=== PATIENT | female | born 1970 | race Caucasian/White ===

== ENCOUNTER 2017-03-16 23:45 | Emergency (ER) | payer MEDICARE, OTHER ==
[2017-03-17] MEDS ORDERED: LORAZEPAM INJ 2 MG/1 ML VIAL ONE ×2 (01:15→05:32)
[2017-03-17] MEDS ORDERED: LORAZEPAM INJ 2 MG/1 ML VIAL IV ONE ×3 (01:16→05:40)
[2017-03-17 01:26] LABS: ABSOLUTE BASOPHILS # (AUTO) 0.1 10^3/uL (0.0-0.2); ABSOLUTE EOSINOPHILS # (AUTO) 0.1 10^3/uL (0.0-0.6); ABSOLUTE LYMPHOCYTES (AUTO) 2.3 10^3/uL (0.5-4.7); ABSOLUTE MONOCYTES (AUTO) 0.5 10^3/uL (0.1-1.4); ABSOLUTE NEUT (AUTO) 2.7 10^3/uL (1.7-8.2); BASOPHILS % (AUTO) 1.1 % (0-2); EOSINOPHILS % (AUTO) 2.2 % (0-6); HEMATOCRIT 42.6 % (36.0-47.0); HEMOGLOBIN 14.5 g/dL (12.0-15.5); HGB HCT DIFFERENCE 0.9; LYMPHOCYTES % (AUTO) 39.9 % (13-45); MEAN CORPUSCULAR HGB CONC 34.1 g/dL (32.0-36.0); MEAN CORPUSCULAR VOLUME 91 fl (80-97); MONOCYTES % (AUTO) 9.1 % (3-13); RED BLOOD COUNT 4.69 10^6/uL (3.72-5.28); RED CELL DISTRIBUTION WIDTH 14.3 % (11.5-14.0); SEGMENTED NEUTROPHILS % (AUTO) 47.7 % (42-78); WHITE BLOOD COUNT 5.7 10^3/uL (4.0-10.5)
[2017-03-17 01:44] LABS: ALANINE AMINOTRANSFERASE 27 U/L (9-52); ALBUMIN 4.4 g/dL (3.5-5.0); ALKALINE PHOSPHATASE 69 U/L (38-126); ANION GAP 11 (5-19); ASPARTATE AMINO TRANSFERASE 22 U/L (14-36); BILIRUBIN,DIRECT 0.4 mg/dL (0.0-0.4); BILIRUBIN,TOTAL 0.6 mg/dL (0.2-1.3); BLOOD UREA NITROGEN 12 mg/dL (7-20); CALCIUM 10.1 mg/dL (8.4-10.2); CARBON DIOXIDE 26 mmol/L (22-30); CHLORIDE 102 mmol/L (98-107); CREATININE RESULT 0.88 mg/dL (0.52-1.25); GLUCOSE 92 mg/dL (75-110); MAGNESIUM 2.1 mg/dL (1.6-2.3); POTASSIUM 3.8 mmol/L (3.6-5.0); SODIUM 139.3 mmol/L (137-145); TOTAL PROTEIN 7.8 g/dL (6.3-8.2)
[2017-03-17 01:47] LABS: ALCOHOL < 10 mg/dL (NONE DETECTED)
[2017-03-17 02:36] LABS: APPEARANCE,URINE SLIGHTLY-CLOUDY; BILIRUBIN,URINE NEGATIVE (NEGATIVE); GLUCOSE, URINE NEGATIVE (NEGATIVE); KETONES,URINE NEGATIVE (NEGATIVE); LEUKOCYTE ESTERASE,URINE NEGATIVE (NEGATIVE); NITRITE,URINE NEGATIVE (NEGATIVE); PROTEIN,URINE NEGATIVE (NEGATIVE); URINE SPECIFIC GRAVITY 1.015; UROBILINOGEN,URINE NEGATIVE mg/dL (<2.0)
[2017-03-17 02:44] LABS: URINE BARBITURATES SCREEN NEGATIVE; URINE METHADONE SCREEN NEGATIVE; URINE OPIATES LOW UNCONFIRMED POSITIVE; URINE PHENCYCLIDINE SCREEN NEGATIVE
[2017-03-17 03:28] VITALS: BP 107/74
[2017-03-17] MEDS ORDERED: HYDROCODONE/ACETAMINOPHEN 5-325 MG TABLET PO ONE (04:08)
--- NOTE | 2017-03-17 04:20 | ER Document Report ---
ED General - General Chief Complaint: Tremor Stated Complaint: POSSIBLE SEIZURES Notes: This is a 47-year-old female who presents to the ER today for evaluation of possible seizures. Patient states that she is followed by a neurologist (Dr. Garduno) at [facility] for her seizures. She states that she takes Effexor for her seizures and this was prescribed about one month ago the last time she saw her neurologist. She states that this evening she has felt shaky and tremulous and feels like she at times cannot control the shaking. She had a seizure-like episode and the lobby and was brought straight back to an exam room in the ER. TRAVEL OUTSIDE OF THE U[place] IN LAST 30 DAYS: No - Related Data Allergies/Adverse Reactions: clindamycin [Clindamycin] Allergy (Verified 12/29/15 12:34) metoclopramide HCl [From Reglan] Allergy (Verified 12/29/15 12:34) moxifloxacin [From Avelox] Allergy (Verified 03/16/17 23:50) Past Medical History - Social History Smoking Status: Unknown if Ever Smoked Family History: None - Past Medical History Cardiac Medical History: Reports: Hx Heart Attack Pulmonary Medical History: Reports: Hx Pneumonia - PE, DVT, Collapsed Lungs Renal/ Medical History: Denies: Hx Peritoneal Dialysis Past Surgical History: Reports: Hx Cardiac Surgery, Hx Hysterectomy - Immunizations Hx Diphtheria, Pertussis, Tetanus Vaccination: Yes Review of Systems - Review of Systems Constitutional: denies: Chills, Fever EENT: Blurred vision Cardiovascular: denies: Chest pain, Syncope Respiratory: denies: Cough, Hurts to breathe Gastrointestinal: Nausea. denies: Abdominal pain, Vomiting Genitourinary: No symptoms reported Musculoskeletal: Back pain - chronic for patient Skin: No symptoms reported. denies: Lesions, Rash Hematologic/Lymphatic: No symptoms reported Neurological/Psychological: See HPI, Headaches Physical Exam - Vital signs Vitals: Temp Pulse Resp BP Pulse Ox 97.2 F 82 16 108/88 H 95 03/16/17 23:50 03/16/17 23:50 03/16/17 23:50 03/16/17 23:50 03/16/17 23:50 - General General appearance: Appears well, Anxious In distress: None Notes: awake, alert, appears to not feel well, speaks very softly but answers questions appropriately - HEENT Head: Normocephalic, Atraumatic Eyes: Normal Conjunctiva: Normal Cornea: Normal Extraocular movements intact: Yes Nasal: Normal Mouth/Lips: Normal Mucous membranes: Normal Pharynx: Normal Neck: Normal. No: Lymphadenopathy, Meningismus - Respiratory Respiratory status: No respiratory distress Breath sounds: Normal. No: Rales, Rhonchi, Wheezing - Cardiovascular Rhythm: Regular Heart sounds: Normal auscultation, S1 appreciated, S2 appreciated Murmur: No Normal capillary refill: Yes - Abdominal Inspection: Normal Distension: No distension Bowel sounds: Normal Tenderness: Nontender - Back Back: Normal - Extremities General upper extremity: Normal inspection General lower extremity: Normal inspection - Neurological Neuro grossly intact: Yes Cognition: Normal Orientation: AAOx4 Notes: pt has occassional twitching of extremities. This is distractable during exam. - Skin Skin Temperature: Warm Skin Moisture: Dry Skin Color: Normal Course - Re-evaluation Re-evalutation: 03/17/17 05:59 Patient has been noted to have intermittent but purposeful jerking movements of her extremities. She has had no episodes that appear to be true seizures here in the emergency department. She has remained hemodynamically stable and her lab evaluation has been reassuring. I called [facility] and was able to speak to Dr. Sauer who was able to pull up the patient's records. The patient has been followed extensively through the neurology Department Dr. Garduno. 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 It was relayed to me that her chart review reveals that she has a strong tendency to psychosomatic disease and that her spells have been found to be highly related to mood and psychological issues. There is been no documented evidence of true epilepsy. At this time it was Dr. Sauer's recommendation to not start any antiepileptic medications but to reassure the patient and have her call Dr. Garduno on Saturday for follow-up. I did explain this to the patient and reassured her. She is to call for follow- up on Saturday. - Vital Signs Vital signs: Temp Pulse Resp BP Pulse Ox 97.2 F 82 15 107/74 97 03/16/17 23:50 03/16/17 23:50 03/17/17 05:36 03/17/17 05:36 03/17/17 05:36 - Laboratory Result Diagrams: 03/17/17 01:08 03/17/17 01:08 Laboratory results interpreted by me: 03/17/17 03/17/17 01:08 02:00 RDW 14.3 H Urine Ascorbic Acid 40 H Discharge - Discharge Clinical Impression: History of pseudoseizure, Seizure-like activity, Anxiety Condition: Stable Disposition: HOME, SELF-CARE Additional Instructions: Your exam and labwork have not shown any evidence of acute emergent problem today. Continue to rest, drink plenty of fluids. I did discuss your case with neurology at [facility] (Dr. Sauer) who recommends that you call and follow up with Dr. Garduno on Saturday. There is no change to your home medications at this time. Referrals: NISHA WAGNER MD [Primary Care Provider] - Follow up in 3-5 days
--- NOTE | 2017-03-17 09:10 | EKG REPORT ---
SEVERITY:- ABNORMAL ECG - PACEMAKER SPIKES APVP RHYTHM : Confirmed by: Miguel Hopper MD 17-Mar-2017 09:08:58
== END 2017-03-17 06:39 | disposition home or self-care (01) ==
LOC: ER 23:45
DX: F41.9 Anxiety disorder, unspecified (principal); R25.1 Tremor, unspecified; R25.3 Fasciculation; H53.8 Other visual disturbances; R51 Headache; R11.0 Nausea; M54.9 Dorsalgia, unspecified; G89.29 Other chronic pain; I25.2 Old myocardial infarction; Z86.59 Personal history of other mental and behavioral disorders; Z79.899 Other long term (current) drug therapy; Z88.1 Allergy status to other antibiotic agents; Z88.8 Allergy status to other drugs, medicaments and biological substances; Z86.711 Personal history of pulmonary embolism; Z86.718 Personal history of other venous thrombosis and embolism
CPT/HCPCS: 93005; 96376; 99284; 96374; 36415; 80307 ×2; 83735; 84703; 85025; 80053; 81001; 93010; J2060; A9270

== ENCOUNTER 2017-06-16 10:09 | Emergency (ER) | payer MEDICARE, OTHER ==
[2017-06-16] MEDS ORDERED: DIPHENHYDRAMINE HCL 50 MG/ML VIAL IV ONE (10:16)
[2017-06-16] MEDS ORDERED: FAMOTIDINE INJ/PF 20 MG/2 ML SDV IV ONE (10:16)
[2017-06-16] MEDS ORDERED: METHYLPREDNISOLONE INJ 125 MG/2 ML SDV IV ONE (10:16)
[2017-06-16] MEDS ORDERED: NORMAL SALINE 1000 ML 1,000 ML IV ONE (10:55)
[2017-06-16 11:19] LABS: ABSOLUTE EOSINOPHILS # (AUTO) 0.3 10^3/uL (0.0-0.6); ABSOLUTE LYMPHOCYTES (AUTO) 1.4 10^3/uL (0.5-4.7); ABSOLUTE MONOCYTES (AUTO) 0.4 10^3/uL (0.1-1.4); ABSOLUTE NEUT (AUTO) 1.8 10^3/uL (1.7-8.2); BASOPHILS % (AUTO) 1.2 % (0-2); EOSINOPHILS % (AUTO) 6.8 % (0-6); HEMOGLOBIN 13.3 g/dL (12.0-15.5); HGB HCT DIFFERENCE 0.9; LYMPHOCYTES % (AUTO) 35.2 % (13-45); MEAN CORPUSCULAR VOLUME 91 fl (80-97); MONOCYTES % (AUTO) 10.1 % (3-13); RED BLOOD COUNT 4.27 10^6/uL (3.72-5.28); SEGMENTED NEUTROPHILS % (AUTO) 46.7 % (42-78)
[2017-06-16 11:26] LABS: ANION GAP 6 (5-19); BLOOD UREA NITROGEN 12 mg/dL (7-20); CALCIUM 8.9 mg/dL (8.4-10.2); CARBON DIOXIDE 27 mmol/L (22-30); CHLORIDE 106 mmol/L (98-107); CREATININE RESULT 0.82 mg/dL (0.52-1.25); GLUCOSE 77 mg/dL (75-110); POTASSIUM 4.2 mmol/L (3.6-5.0); SODIUM 139.4 mmol/L (137-145)
[2017-06-16] MEDS ORDERED: ACETAMINOPHEN 325 MG TABLET PO ONE (12:19)
[2017-06-16] MEDS ORDERED: KETOROLAC TROMETHAMINE INJ/PF 30 MG/1 ML SDV IV ONE (12:33)
[2017-06-16] MEDS ORDERED: PREDNISONE 20 MG TABLET PO ONE (13:21)
--- NOTE | 2017-06-16 13:42 | ER Document Report ---
ED General - General Chief Complaint: Allergic Reaction Stated Complaint: POSSIBLE ALLERGIC REACTION Time Seen by Provider: 06/16/17 10:16 TRAVEL OUTSIDE OF THE [place] IN LAST 30 DAYS: No - HPI Patient complains to provider of: Allergic reaction Notes: Called to the patient's room patient having allergic reaction. Patient has obvious swelling periorbital edema to both eyes unable to open her eyes. Patient states this is been progressing for the last few days states no respiratory issues at this time has been taking Benadryl however continues to itch. 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 Patient states she has been using a feather pillow for the last few days to as well. Also states recent increase in her Effexor. Patient is unaware of any other medication that she is currently on. Denies taking medication for blood pressure patient states she has never had an acute allergic reaction or anaphylactic reaction before. Otherwise patient vital signs are appropriate upon my evaluation. No signs of any impending respiratory distress - Related Data Allergies/Adverse Reactions: clindamycin [Clindamycin] Allergy (Verified 06/16/17 10:56) metoclopramide HCl [From Reglan] Allergy (Verified 06/16/17 10:56) moxifloxacin [From Avelox] Allergy (Verified 06/16/17 10:56) Home Medications: Current Home Medications Furosemide [Lasix] 40 mg PO DAILY 06/16/17 [History] Rivaroxaban [Xarelto] 20 mg PO DAILY 06/16/17 [History] Venlafaxine HCl ER [Effexor Xr 75 mg Cap.sr] 150 mg PO DAILY 06/16/17 [History] Past Medical History - Social History Smoking Status: Never Smoker Frequency of alcohol use: None Drug Abuse: None Family History: None Patient has suicidal ideation: No Patient has homicidal ideation: No - Past Medical History Cardiac Medical History: Reports: Hx Heart Attack Pulmonary Medical History: Reports: Hx Pneumonia - PE, DVT, Collapsed Lungs Neurological Medical History: Reports: Hx Migraine Renal/ Medical History: Denies: Hx Peritoneal Dialysis Past Surgical History: Reports: Hx Cardiac Surgery - LEFT PACEMAKER, Hx Hysterectomy - Immunizations Hx Diphtheria, Pertussis, Tetanus Vaccination: Yes Review of Systems - Review of Systems Constitutional: Other - Allergic reaction with facial swelling EENT: No symptoms reported Cardiovascular: No symptoms reported Respiratory: No symptoms reported Gastrointestinal: No symptoms reported Genitourinary: No symptoms reported Female Genitourinary: No symptoms reported Musculoskeletal: No symptoms reported Skin: No symptoms reported Hematologic/Lymphatic: No symptoms reported Neurological/Psychological: No symptoms reported Physical Exam - Vital signs Vitals: Temp Pulse Resp BP Pulse Ox 98.4 F 70 18 117/64 100 06/16/17 10:15 06/16/17 10:15 06/16/17 10:15 06/16/17 10:15 06/16/17 10:15 Interpretation: Normal - General General appearance: Appears well, Alert - HEENT Head: Normocephalic, Atraumatic Eyes: Periorbital edema - Bilateral with hives Conjunctiva: Normal Cornea: Normal Pupils: PERRL Anterior chamber: Normal Ears: Normal External canal: Normal Tympanic membrane: Normal Sinus: Normal Nasal: Normal Mouth/Lips: Normal. No: Angioedema Pharynx: Normal. No: Erythema, Exudate, Uvular edema Neck: Normal - Respiratory Respiratory status: No respiratory distress Chest status: Nontender Breath sounds: Normal Chest palpation: Normal - Cardiovascular Rhythm: Regular Heart sounds: Normal auscultation Murmur: No - Abdominal Inspection: Normal Distension: No distension Bowel sounds: Normal Tenderness: Nontender Organomegaly: No organomegaly - Back Back: Normal, Nontender - Extremities General upper extremity: Normal inspection, Nontender, Normal color, Normal ROM , Normal temperature General lower extremity: Normal inspection, Nontender, Normal color, Normal ROM , Normal temperature, Normal weight bearing. No: Micheal's sign - Neurological Neuro grossly intact: Yes Cognition: Normal Orientation: AAOx4 Red Coma Scale Eye Opening: Spontaneous Red Coma Scale Verbal: Oriented Red Coma Scale Motor: Obeys Commands Red Coma Scale Total: 15 Speech: Normal Motor strength normal: LUE, RUE, LLE, RLE Sensory: Normal - Psychological Associated symptoms: Normal affect, Normal mood - Skin Skin Temperature: Warm Skin Moisture: Dry Skin Color: Normal Course - Re-evaluation Re-evalutation: 06/16/17 15:36 Patient was given IV Pepcid and Benadryl and Solu-Medrol with improvement of her symptoms initially patient had difficulty lifting her eyes patient able to arise without difficulty at this time. Explained patient shows have slight elevation here eosinophils consistent with allergic reaction possibly due to feather pillows versus Dilaudid versus her increase in Effexor encourage patient to decrease her Effexor and follow-up with her primary care physician for further evaluation patient will be discharged home with prescription for Atarax instructions not to use Atarax and Benadryl together and prednisone tapering dose. - Vital Signs Vital signs: Temp Pulse Resp BP Pulse Ox 97.9 F 70 11 L 105/64 97 06/16/17 14:19 06/16/17 10:15 06/16/17 14:20 06/16/17 14:20 06/16/17 14:20 - Laboratory Result Diagrams: 06/16/17 11:05 06/16/17 11:05 Laboratory results interpreted by me: 06/16/17 11:05 Eosinophils % 6.8 H Discharge - Discharge Clinical Impression: Allergic reaction Qualifiers: Encounter type: initial encounter Qualified Code(s): T78.40XA - Allergy, unspecified, initial encounter Condition: Good Disposition: HOME, SELF-CARE Instructions: Acute Allergic Reaction ([facility]) Additional Instructions: Your symptoms today are consistent with a allergic reaction. Near laboratory values that showed elevation in your eosinophils most the time the muscle is responsible for allergic reactions. I do not know at this time what you are allergic to my suspicions would be the feather pillow versus your Effexor. I recommend decreasing her dose of your Effexor please continue on steroids that we prescribed also he may try the Atarax prescribed for the itching. Do not take Atarax and Benadryl together. Return to ER symptoms worsen follow-up with your primary care physician. Prescriptions: Hydroxyzine HCl [Atarax 25 mg Tablet] 1 - 2 tab PO QID #30 tablet Naphazoline HCl/Pheniramine [Naphcon-A Eye Drops] 10 ml OP TID #1 bottle Prednisone [Deltasone] 60 mg PO DAILY #24 tablet Referrals: NISHA WAGNER MD [Primary Care Provider] - Follow up as needed
[2017-06-16 14:22] VITALS: BP 105/64
== END 2017-06-16 14:33 | disposition home or self-care (01) ==
LOC: ER 10:09
DX: T78.40XA Allergy, unspecified, initial encounter (principal); R22.0 Localized swelling, mass and lump, head; L50.9 Urticaria, unspecified; X58.XXXA Exposure to other specified factors, initial encounter; D72.1 Eosinophilia; I25.2 Old myocardial infarction; Z91.048 Other nonmedicinal substance allergy status; Z79.899 Other long term (current) drug therapy; Z88.1 Allergy status to other antibiotic agents; Z88.8 Allergy status to other drugs, medicaments and biological substances; Z95.0 Presence of cardiac pacemaker
CPT/HCPCS: 99291; 96361; 96374; 96375; 36415; 85025; 80048; A9270 ×2; J1200; J2930; J7030; S0028; J7512

== ENCOUNTER 2017-11-01 09:09 | Emergency (ER) | payer MEDICARE, OTHER ==
[2017-11-01] MEDS ORDERED: PANTOPRAZOLE SODIUM 40 MG VIAL IV ONE (09:59)
[2017-11-01] MEDS ORDERED: PANTOPRAZOLE SODIUM 40 MG VIAL IV PRN (09:59)
--- NOTE | 2017-11-01 10:03 | ER Document Report ---
ED Medical Screen (RME) - General Mode of Arrival: Ambulatory Information source: Patient TRAVEL OUTSIDE OF THE [place] IN LAST 30 DAYS: No - General Chief Complaint: Vomiting Stated Complaint: VOMITING Time Seen by Provider: 11/01/17 09:50 Notes: Has a history of negative endoscopy in 2014, no history of GI bleed, no history of ulcers. Denies any NSAID use, does admit to occasional Excedrin for headaches. Never had GI bleeding in the past. Has had to have esophageal dilation 3 times after being intubated. (DAMIR SALINAS) Patient is a 47 year old female with a history of seizures and pulmonary embolism reports to the emergency department complaining of vomiting blood onset this morning. Patient states that she woke up feeling very dizzy and proceeded to vomit blood around 0200. Patient states she took a Phenegran and then proceeded to vomit at around 0545. Patient currently takes Xarelto and Keppra. I have greeted and performed a rapid initial assessment of this patient. A comprehensive ED assessment and evaluation of the patient, analysis of test results and completion of the medical decision making process will be conducted by additional ED providers. (LUBNA GREGORIO) - Related Data Allergies/Adverse Reactions: adhesive Allergy (Verified 11/01/17 10:02) clindamycin [Clindamycin] Allergy (Verified 11/01/17 09:10) metoclopramide HCl [From Reglan] Allergy (Verified 11/01/17 09:10) morphine Allergy (Verified 11/01/17 10:02) moxifloxacin [From Avelox] Allergy (Verified 11/01/17 09:10) Past Medical History - General Information source: Patient - Social History Cigarette use (# per day): No Chew tobacco use (# tins/day): No Frequency of alcohol use: None Drug Abuse: None - Past Medical History Cardiac Medical History: Reports: Hx Heart Attack Pulmonary Medical History: Reports: Hx Pneumonia - PE, DVT, Collapsed Lungs Neurological Medical History: Reports: Hx Migraine Renal/ Medical History: Denies: Hx Peritoneal Dialysis Past Surgical History: Reports: Hx Cardiac Surgery - LEFT PACEMAKER, Hx Hysterectomy - Immunizations Hx Diphtheria, Pertussis, Tetanus Vaccination: Yes Physical Exam - Notes Notes: GENERAL: Alert, interacts well. No acute distress. LUNGS: Clear to auscultation bilaterally, no wheezes, rales, or rhonchi. No respiratory distress. HEART: Regular rate and rhythm. No murmurs, gallops, or rubs. ABDOMEN: Soft, non-tender. Non-distended. Bowel sounds present in all 4 quadrants. (LUBNA GREGORIO) Scribe Documentation - Scribe Written by Scribe:: Jennifer Gottlieb, 11/01/2017 10:02 acting as scribe for :: [place]
[2017-11-01] MEDS ORDERED: LEVETIRACETAM 1000 MG/NACL-ISO 1,000 MG/100 ML RTUPB IV ONE (10:35)
[2017-11-01 11:42] LABS: ABSOLUTE BASOPHILS # (AUTO) 0.1 10^3/uL (0.0-0.2); ABSOLUTE EOSINOPHILS # (AUTO) 0.1 10^3/uL (0.0-0.6); ABSOLUTE LYMPHOCYTES (AUTO) 1.9 10^3/uL (0.5-4.7); ABSOLUTE MONOCYTES (AUTO) 0.5 10^3/uL (0.1-1.4); ABSOLUTE NEUT (AUTO) 4.1 10^3/uL (1.7-8.2); EOSINOPHILS % (AUTO) 1.9 % (0-6); HEMATOCRIT 43.2 % (36.0-47.0); HEMOGLOBIN 14.7 g/dL (12.0-15.5); HGB HCT DIFFERENCE 0.9; LYMPHOCYTES % (AUTO) 28.2 % (13-45); MEAN CORPUSCULAR HEMOGLOBIN 31.4 pg (27.0-33.4); MEAN CORPUSCULAR VOLUME 92 fl (80-97); MONOCYTES % (AUTO) 7.1 % (3-13); RED BLOOD COUNT 4.67 10^6/uL (3.72-5.28); RED CELL DISTRIBUTION WIDTH 13.5 % (11.5-14.0); SEGMENTED NEUTROPHILS % (AUTO) 61.8 % (42-78); WHITE BLOOD COUNT 6.6 10^3/uL (4.0-10.5)
[2017-11-01 11:46] LABS: PROTHROMBIN TIME 13.9 SEC (11.4-15.4)
[2017-11-01 11:47] LABS: PARTIAL THROMBOPLASTIN TIME 28.3 SEC (23.5-35.8)
--- NOTE | 2017-11-01 11:51 | ER Document Report ---
ED General - General Chief Complaint: Vomiting Stated Complaint: VOMITING Time Seen by Provider: 11/01/17 09:50 Mode of Arrival: Ambulatory TRAVEL OUTSIDE OF THE [place] IN LAST 30 DAYS: No - HPI Patient complains to provider of: Vomiting blood Notes: Patient coming in for evaluation of vomiting blood. Patient states she is vomited blood twice. Patient currently is on Xarelto due to history of PE DVT. Patient also has a history of seizures states he is on Keppra. Patient states she is unable to take her Keppra this morning due to the vomiting. Patient states she took her Xarelto last night. Denies any other trauma. Patient states she feels lightheaded and dizzy. Patient states she has had a history of GI bleed in the past causing anemia transfusion states multiple scopes performed at [facility] with no sign of source of bleeding found. Upon my evaluation patient is resting comfortably with no signs of any distress. Denies excessive alcohol use denies NSAID use. Denies any trauma. Denies any recent antibiotics. - Related Data Allergies/Adverse Reactions: adhesive Allergy (Verified 11/01/17 10:02) clindamycin [Clindamycin] Allergy (Verified 11/01/17 09:10) metoclopramide HCl [From Reglan] Allergy (Verified 11/01/17 09:10) morphine Allergy (Verified 11/01/17 10:02) moxifloxacin [From Avelox] Allergy (Verified 11/01/17 09:10) Past Medical History - General Information source: Patient - Social History Smoking Status: Never Smoker Cigarette use (# per day): No Chew tobacco use (# tins/day): No Frequency of alcohol use: None Drug Abuse: None Family History: None Patient has suicidal ideation: No Patient has homicidal ideation: No - Past Medical History Cardiac Medical History: Reports: Hx Heart Attack Pulmonary Medical History: Reports: Hx Pneumonia - PE, DVT, Collapsed Lungs Neurological Medical History: Reports: Hx Migraine Renal/ Medical History: Denies: Hx Peritoneal Dialysis Past Surgical History: Reports: Hx Cardiac Surgery - LEFT PACEMAKER, Hx Hysterectomy - Immunizations Hx Diphtheria, Pertussis, Tetanus Vaccination: Yes Review of Systems - Review of Systems Constitutional: No symptoms reported EENT: No symptoms reported Cardiovascular: No symptoms reported Respiratory: No symptoms reported Gastrointestinal: Blood in vomit Genitourinary: No symptoms reported Female Genitourinary: No symptoms reported Musculoskeletal: No symptoms reported Skin: No symptoms reported Hematologic/Lymphatic: No symptoms reported Neurological/Psychological: No symptoms reported -: Yes All other systems reviewed and negative Physical Exam - Vital signs Vitals: Temp Pulse BP Pulse Ox 98.5 F 74 119/74 100 11/01/17 09:30 11/01/17 09:30 11/01/17 09:30 11/01/17 09:30 Interpretation: Normal - General General appearance: Appears well, Alert - HEENT Head: Normocephalic, Atraumatic Eyes: Normal Pupils: PERRL - Respiratory Respiratory status: No respiratory distress Chest status: Nontender Breath sounds: Normal Chest palpation: Normal - Cardiovascular Rhythm: Regular Heart sounds: Normal auscultation Murmur: No - Abdominal Inspection: Normal Distension: No distension Bowel sounds: Normal Tenderness: Nontender Organomegaly: No organomegaly - Back Back: Normal, Nontender - Extremities General upper extremity: Normal inspection, Nontender, Normal color, Normal ROM , Normal temperature General lower extremity: Normal inspection, Nontender, Normal color, Normal ROM , Normal temperature, Normal weight bearing. No: Micheal's sign - Neurological Neuro grossly intact: Yes Cognition: Normal Orientation: AAOx4 Red Coma Scale Eye Opening: Spontaneous [place]ola Coma Scale Verbal: Oriented Red Coma Scale Motor: Obeys Commands Red Coma Scale Total: 15 Speech: Normal Motor strength normal: LUE, RUE, LLE, RLE Sensory: Normal - Psychological Associated symptoms: Normal affect, Normal mood - Skin Skin Temperature: Warm Skin Moisture: Dry Skin Color: Normal Course - Re-evaluation Re-evalutation: 11/01/17 17:21 Patient coming in for vomiting blood. Patient had no vomiting during her stay here. Concern as patient is on Xarelto. Discussed with Dr. Vasquez of [facility]. Will transfer the patient to their facility is at the lack of GI specialty. - Vital Signs Vital signs: Temp Pulse Resp BP Pulse Ox 97.8 F 74 17 113/54 L 97 11/01/17 16:49 11/01/17 09:30 11/01/17 16:49 11/01/17 16:49 11/01/17 16:49 - Laboratory Result Diagrams: 11/01/17 11:27 11/01/17 11:27 Laboratory results interpreted by me: 11/01/17 11:27 Sodium 145.5 H Discharge - Discharge Clinical Impression: On Xarelto, Seizure disorder Vomiting blood Qualifiers: Nausea presence: unspecified Qualified Code(s): K92.0 - Hematemesis Condition: Stable Disposition: HOME, SELF-CARE Referrals: NISHA WAGNER MD [Primary Care Provider] - Follow up as needed
[2017-11-01 12:23] LABS: ALANINE AMINOTRANSFERASE 21 U/L (9-52); ALBUMIN 4.8 g/dL (3.5-5.0); ALKALINE PHOSPHATASE 57 U/L (38-126); ANION GAP 11 (5-19); ASPARTATE AMINO TRANSFERASE 23 U/L (14-36); BILIRUBIN,DIRECT 0.3 mg/dL (0.0-0.4); BILIRUBIN,TOTAL 0.6 mg/dL (0.2-1.3); BLOOD UREA NITROGEN 13 mg/dL (7-20); CALCIUM 10.1 mg/dL (8.4-10.2); CARBON DIOXIDE 30 mmol/L (22-30); CHLORIDE 105 mmol/L (98-107); CREATININE RESULT 0.83 mg/dL (0.52-1.25); GLUCOSE 82 mg/dL (75-110); POTASSIUM 3.9 mmol/L (3.6-5.0); SODIUM 145.5 mmol/L (137-145); TOTAL PROTEIN 7.8 g/dL (6.3-8.2)
[2017-11-01 12:24] LABS: ALCOHOL < 10 mg/dL (NONE DETECTED)
[2017-11-01 12:30] LABS: FREE T3 3.8 pg/mL (2.77-5.27)
[2017-11-01 12:43] LABS: THYROID STIMULATING HORMONE 1.25 uIU/mL (0.47-4.68)
[2017-11-01] MEDS ORDERED: ACETAMINOPHEN 325 MG TABLET PO ONE (14:19)
[2017-11-01 16:42] VITALS: BP 113/54
== END 2017-11-01 16:47 | disposition home or self-care (01) ==
LOC: ER 09:09
DX: G40.909 Epilepsy, unspecified, not intractable, without status epilepticus (principal); K92.0 Hematemesis; Z79.01 Long term (current) use of anticoagulants; Z86.711 Personal history of pulmonary embolism; Z86.718 Personal history of other venous thrombosis and embolism
CPT/HCPCS: 99285; 96375; 96365; 96366; 86900; 86901; 36415; 84439; 80177; 86850; 80307; 84443; 84703; 85025; 85610; 85730; 82272; 80053; 84481; A9270; C9113; J1953; S0164

== ENCOUNTER 2017-11-06 12:52 | Emergency (ER) | payer MEDICARE, OTHER ==
[2017-11-06] MEDS ORDERED: PROMETHAZINE HCL INJ 25 MG/1 ML VIAL IM ONE (14:27)
[2017-11-06] MEDS ORDERED: FENTANYL CITRATE INJ/PF 100 MCG/2 ML AMPUL IV ONE ×2 (14:27→16:36)
--- NOTE | 2017-11-06 14:27 | ER Document Report ---
ED GI/ - General Mode of Arrival: Medic Information source: Patient TRAVEL OUTSIDE OF THE [place] IN LAST 30 DAYS: No - HPI Patient complains to provider of: Abdominal pain, Other - rectal bleeding Onset: Other - 2 days ago Associated symptoms: Other - see notes above <YARITZA CAMARA - Last Filed: 11/06/17 17:13> <DAMIR SALINAS - Last Filed: 11/06/17 19:01> - General Chief Complaint: GI Bleeding Stated Complaint: WEAKNESS Time Seen by Provider: 11/06/17 13:46 Notes: 47 year old female with history of pulmonary emboli (on Xarelto) and prior GI bleed (2011) presents to the ED via EMS complaining of passing blood in her stool 2 days ago. Patient was seen in the ED on 11/01/2017 for vomiting blood and clots. Patient was transferred to [facility] for a GI consult. Patient had an endoscopy performed and was diagnosed with a tear in her stomach lining. Patient was discharged on 11/02/2017. On 11/03/2017 patient developed left sided abdominal pain and had a large bowel movement. Patient dealt with the pain over [place]. Today, the patient was seen at her PCP's office where her blood pressure was 70s/50s. Patient was brought to the ED for further evaluation. Patient recently started Keppra in Sep 2017. Patient had a GI bleed in 2011 where an endoscopy was performed, but no source of bleeding was found. PCP: Delroy Christiansen. (YARITZA ACMARA) - Related Data Allergies/Adverse Reactions: adhesive Allergy (Verified 11/01/17 10:02) clindamycin [Clindamycin] Allergy (Verified 11/01/17 09:10) metoclopramide HCl [From Reglan] Allergy (Verified 11/01/17 09:10) morphine Allergy (Verified 11/01/17 10:02) moxifloxacin [From Avelox] Allergy (Verified 11/01/17 09:10) Past Medical History - General Information source: Patient - Social History Smoking Status: Never Smoker Chew tobacco use (# tins/day): No Frequency of alcohol use: None Drug Abuse: None Family History: None - Past Medical History Cardiac Medical History: Reports: Hx Heart Attack, Other - Cardiac Arrest due to aspiration secondary to pneumonia Pulmonary Medical History: Reports: Hx Pneumonia - PE, DVT, Collapsed Lungs Neurological Medical History: Reports: Hx Migraine Renal/ Medical History: Denies: Hx Peritoneal Dialysis GI Medical History: Reports: Hx Endoscopy - 2011 and 2017 secondary to GI bleeds Past Surgical History: Reports: Hx Cardiac Surgery - LEFT PACEMAKER, Hx Hysterectomy - Immunizations Hx Diphtheria, Pertussis, Tetanus Vaccination: Yes <HOAYARITZA - Last Filed: 11/06/17 17:13> Review of Systems - Review of Systems Constitutional: No symptoms reported EENT: No symptoms reported Cardiovascular: No symptoms reported Respiratory: No symptoms reported Gastrointestinal: See HPI, Abdominal pain, Rectal bleeding, Last bowel movement - 2 days ago Genitourinary: No symptoms reported Female Genitourinary: No symptoms reported Musculoskeletal: No symptoms reported Skin: No symptoms reported Hematologic/Lymphatic: No symptoms reported Neurological/Psychological: No symptoms reported -: Yes All other systems reviewed and negative <CAMARAYARITZA - Last Filed: 11/06/17 17:13> Physical Exam <CAMARAYARITZA - Last Filed: 11/06/17 17:13> <DAMIR SALINAS - Last Filed: 11/06/17 19:01> - Vital signs Vitals: Resp BP Pulse Ox 20 108/70 98 11/06/17 12:58 11/06/17 12:58 11/06/17 12:58 - Notes Notes: GENERAL: Alert, interacts well. No acute distress. HEAD: Normocephalic, atraumatic. EYES: Pupils equal, round, and reactive to light. Extraocular movements intact. ENT: Oral mucosa moist, tongue midline. NECK: Full range of motion. Supple. Trachea midline. LUNGS: Clear to auscultation bilaterally, no wheezes, rales, or rhonchi. No respiratory distress. HEART: Regular rate and rhythm. No murmurs, gallops, or rubs. Monitor notes paced rhythm. ABDOMEN: Soft. Non-distended. Bowel sounds present in all 4 quadrants. LLQ tenderness to palpation. RECTAL: No melena or stool visualized. Rectal exam chaperoned by Tania Mixon. EXTREMITIES: Moves all 4 extremities spontaneously. No edema, radial and dorsalis pedis pulses 2/4 bilaterally. No cyanosis. NEUROLOGICAL: Alert and oriented x3. Normal speech. PSYCH: Appears anxious. SKIN: Warm, dry, normal turgor. No rashes or lesions noted. Does not appear pale. (YARITZA CAMARA) Course - Laboratory Result Diagrams: 11/06/17 14:20 11/06/17 14:20 <YARITZA CAMARA - Last Filed: 11/06/17 17:13> - Laboratory Result Diagrams: 11/06/17 14:20 11/06/17 14:20 <DAMIR SALINAS - Last Filed: 11/06/17 19:01> - Re-evaluation Re-evalutation: 11/06/17 17:19 CBC unremarkable, coags slightly prolonged with an INR of 1.06, test is negative, patient had no obvious blood on rectal exam but also no stool. Given patient's description of her dizziness and sweating episodes I suspect orthostatic hypotension, patient states that the dizziness does not start until she has stood up from a sitting position and then walks 9 or 10 steps and then she suddenly becomes dizzy and starts sweating and has to sit down. Dizziness and sweating completely resolves when she sits. No evidence of acute blood loss anemia at this time, no indication for hospitalization, emergent colonoscopy or endoscopy or blood transfusion. Patient will be discharged home at this time. CT scan the abdomen pelvis does not reveal any acute intra- abdominal pathology to include diverticulitis. I do not have an exact source for her pain today. Patient is aware that should her symptoms worsen she should return to the emergency department. Patient will be given Bentyl for pain use at home. (DAMIR SALINAS) - Vital Signs Vital signs: Temp Pulse Resp BP Pulse Ox 98.3 F 20 101/65 96 11/06/17 17:00 11/06/17 17:00 11/06/17 17:00 11/06/17 17:00 - Laboratory Laboratory results interpreted by me: 11/06/17 14:20 Eosinophils % 7.6 H Discharge <YARITZA CAMARA - Last Filed: 11/06/17 17:13> <DAMIR SALINAS - Last Filed: 11/06/17 19:01> - Discharge Clinical Impression: Orthostatic hypotension, LLQ abdominal pain Condition: Stable Disposition: HOME, SELF-CARE Additional Instructions: Orthostatic Hypotension You have orthostatic hypotension. Your blood pressure goes down when you stand up. Symptoms can include dizziness, transient loss of vision, ringing in the ears, nausea, and fainting. At this time, there's no evidence of a serious problem requiring hospitalization. Orthostatic hypotension can be caused by dehydration, poor nutrition, over- exercise, or medication. For some people, orthostatic hypotension is an ongoing problem, and no cause can be found. We usually treat orthostatic hypotension with fluids. We look for a treatable cause. If no cause was found, you should get enough rest, exercise moderately, and get plenty of fluids. When you feel the first symptoms suggesting you might faint, sit or squat down as quickly as you can. If symptoms don't go away quickly, lie down. Call the doctor or return if you are worsening or if new symptoms develop. Your blood count was normal. There is no sign of ongoing blood loss at this time that would need a blood transfusion. Abdominal Pain There are many causes of abdominal pain. Pain can mean a serious problem requiring surgery (such as appendicitis). It can also be an innocent problem that goes away on its own (such as a viral infection). Often, time must pass to determine the cause of pain. The physician does not feel that hospitalization is necessary, at present. Things may change within the next 24 hours. Call the doctor or come back for re- examination if any problems occur, such as: (1) Pain that becomes more severe, steady, or becomes concentrated in one specific area. Also, pain that is more severe with movement or coughing. (2) Vomiting that persists or becomes more frequent. (3) Blood in the vomitus, urine, or bowel movements. Blood in the stool may have a tarry or black appearance. (4) Shaking chills or fever greater than 100 degrees F. (5) The abdomen becomes more distended or swollen. (6) Bowel movements cease. (7) Failure to improve as expected. Prescriptions: Dicyclomine HCl [Bentyl 20 mg Tablet] 20 mg PO QIDP PRN #14 tablet PRN Reason: Jennifer Attestation: 11/06/17 19:01 I personally performed the services described in the documentation, reviewed and edited the documentation which was dictated to the scribe in my presence, and it accurately records my words and actions. (DAMIR SALINAS) Natalieibe Documentation - Scribe Written by Jennifer:: Jennifer Bergeron, 11/06/2017 1514 acting as scribe for :: [place] <YARITZA CAMARA - Last Filed: 11/06/17 17:13>
[2017-11-06 14:33] LABS: ABSOLUTE EOSINOPHILS # (AUTO) 0.3 10^3/uL (0.0-0.6); ABSOLUTE LYMPHOCYTES (AUTO) 1.7 10^3/uL (0.5-4.7); ABSOLUTE MONOCYTES (AUTO) 0.4 10^3/uL (0.1-1.4); ABSOLUTE NEUT (AUTO) 2.2 10^3/uL (1.7-8.2); BASOPHILS % (AUTO) 1.1 % (0-2); EOSINOPHILS % (AUTO) 7.6 % (0-6); HEMATOCRIT 39.9 % (36.0-47.0); HEMOGLOBIN 13.7 g/dL (12.0-15.5); LYMPHOCYTES % (AUTO) 36.1 % (13-45); MEAN CORPUSCULAR HEMOGLOBIN 31.2 pg (27.0-33.4); MEAN CORPUSCULAR HGB CONC 34.4 g/dL (32.0-36.0); MEAN CORPUSCULAR VOLUME 91 fl (80-97); MONOCYTES % (AUTO) 8.1 % (3-13); PLATELET COUNT 202 10^3/uL (150-450); RED CELL DISTRIBUTION WIDTH 13.3 % (11.5-14.0); SEGMENTED NEUTROPHILS % (AUTO) 47.1 % (42-78); TOTAL CELLS COUNTED % (AUTO) 100 %; WHITE BLOOD COUNT 4.6 10^3/uL (4.0-10.5)
[2017-11-06 14:42] LABS: INTERNATIONAL RATION (INR) 1.06; PROTHROMBIN TIME 14.5 SEC (11.4-15.4)
[2017-11-06 14:56] LABS: ALANINE AMINOTRANSFERASE 21 U/L (9-52); ALBUMIN 4.2 g/dL (3.5-5.0); ALKALINE PHOSPHATASE 47 U/L (38-126); ANION GAP 8 (5-19); ASPARTATE AMINO TRANSFERASE 18 U/L (14-36); BILIRUBIN,DIRECT 0.2 mg/dL (0.0-0.4); BILIRUBIN,TOTAL 0.4 mg/dL (0.2-1.3); BLOOD UREA NITROGEN 16 mg/dL (7-20); CALCIUM 9.5 mg/dL (8.4-10.2); CARBON DIOXIDE 29 mmol/L (22-30); CHLORIDE 102 mmol/L (98-107); GLUCOSE 78 mg/dL (75-110); SODIUM 139.1 mmol/L (137-145); TOTAL PROTEIN 6.7 g/dL (6.3-8.2)
--- NOTE | 2017-11-06 16:06 | RADIOLOGY REPORT (SQ) ---
EXAM DESCRIPTION: CT ABD/PELVIS WITH IV ONLY COMPLETED DATE/TIME: 11/06/2017 3:53 pm REASON FOR STUDY: GI bleeding, LLQ pain COMPARISON: 2016 CT chest TECHNIQUE: CT scan of the abdomen and pelvis performed using helical scanning technique with dynamic intravenous contrast injection. No oral contrast. Images reviewed with lung, soft tissue, and bone windows. Reconstructed coronal and sagittal MPR images reviewed. Delayed images for evaluation of the urinary system also acquired. All images stored on PACS. All CT scanners at this facility use dose modulation, iterative reconstruction, and/or weight based d osing when appropriate to reduce radiation dose to as low as reasonably achievable (ALARA). [facility]: Dose Right [facility]: CareDose [facility]: Dose Right [facility]: Teradose 4D [facility]: [email or web address] CONTRAST TYPE AND DOSE: Not reported. RENAL FUNCTION: Creatinine 0.8 RADIATION DOSE: CT Rad equipment meets quality standard of care and radiation dose reduction techniq ues were employed. CTDIvol: 6.1 - 8.4 mGy. DLP: 775 mGy-cm.. LIMITATIONS: None. FINDINGS: LOWER CHEST: Chronic scarring, stable interstitial disease suggested. LIVER: Normal size. No masses. No dilated ducts. SPLEEN: Normal size. No focal lesions. PANCREAS: No masses. No significant calcifications. No adjacent inflammation or peripancreatic fluid collections. Pancreatic duct not dilated. GALLBLADDER: No identified stones by CT criteria. No inflammatory changes to suggest cholecystitis. ADRENAL GLANDS: No significant masses or asymmetry. RIGHT KIDNEY AND URETER: No solid masses. No significant calcification. No hydronephrosis or hydroure ter. LEFT KIDNEY AND URETER: No solid masses. No significant calcification. No hydronephrosis or hydrouret er. AORTA AND VESSELS: Normal caliber aorta with grossly patent major arterial structures. There is an I VC filter in place. No gross venous clot appreciated. RETROPERITONEUM: No retroperitoneal adenopathy, hemorrhage or masses. BOWEL AND PERITONEAL CAVITY: No masses or inflammatory changes. No free fluid or peritoneal masses. APPENDIX: Normal. PELVIS: No mass. No free fluid. Normal bladder. ABDOMINAL WALL: No masses. No hernias. BONES: No significant or acute findings. OTHER: No other significant finding. IMPRESSION: 1. No acute or suspicious abdominopelvic abnormality. 2. Pulmonary scarring, chronic i nterstitial change. TECHNICAL DOCUMENTATION: JOB ID: [id number] Quality ID # [id number]: Final reports with documentation of one or more dose reduction techniques (e.g., Au tomated exposure control, adjustment of the mA and/or kV according to patient size, use of iterative reconstruction technique) 2010 [employer]- All Rights Reserved
[2017-11-06 17:59] VITALS: BP 101/65
== END 2017-11-06 17:50 | disposition home or self-care (01) ==
LOC: ER 12:52
DX: I95.1 Orthostatic hypotension (principal); R10.32 Left lower quadrant pain; I25.2 Old myocardial infarction; K92.1 Melena; Z86.711 Personal history of pulmonary embolism; Z79.01 Long term (current) use of anticoagulants; Z91.048 Other nonmedicinal substance allergy status; Z88.1 Allergy status to other antibiotic agents; Z88.8 Allergy status to other drugs, medicaments and biological substances; Z88.5 Allergy status to narcotic agent; Z86.74 Personal history of sudden cardiac arrest; Z87.01 Personal history of pneumonia (recurrent); Z86.718 Personal history of other venous thrombosis and embolism; Z95.0 Presence of cardiac pacemaker
CPT/HCPCS: 96376; 99285; 96372; 96374; 86900; 86901; 36415; 86850; 84703; 85025; 85610; 82272; 80053; 74177; J3010; J2550

== ENCOUNTER 2017-12-31 12:30 | Emergency (ER) | payer MEDICARE, OTHER ==
--- NOTE | 2017-12-31 13:18 | ER Document Report ---
ED Medical Screen (RME) - General Mode of Arrival: Ambulatory Information source: Patient TRAVEL OUTSIDE OF THE [place] IN LAST 30 DAYS: No - General Chief Complaint: S/S of Possible Stroke Stated Complaint: POSSIBLE SEIZURE Time Seen by Provider: 12/31/17 13:03 Notes: Patient presents a complex medical hx. she is followed by neurologist at [facility] by the name of Dr. Garduno. She presents due to symptoms of Broca aphasia. This is happened in the past when she has had a history of seizures but normally the aphasia resolves in approximately 4 hours per the . Her aphasia has been over 12 hours so they come to the emergency department for evaluation. She is well-appearing and denies any recent cough congestion or fevers. She is able to text on her phone to provide information. It appears she has difficulty with word finding when trying to talk consistent with Broca' s type aphasia. Chart show that she does have a history of seizures and pseudoseizures. She is currently on Eliquis for atrial fibrillation per the patient. (ROXY WINKLER) - Related Data Allergies/Adverse Reactions: adhesive Allergy (Verified 12/31/17 12:38) clindamycin [Clindamycin] Allergy (Verified 12/31/17 12:38) metoclopramide HCl [From Reglan] Allergy (Verified 12/31/17 12:38) morphine Allergy (Verified 12/31/17 12:38) moxifloxacin [From Avelox] Allergy (Verified 12/31/17 12:38) Past Medical History - General Information source: Patient - Social History Frequency of alcohol use: None Drug Abuse: None Family history: Reviewed & Not Pertinent - Past Medical History Cardiac Medical History: Reports: Hx Atrial Fibrillation - pacemaker, Hx Heart Attack Pulmonary Medical History: Reports: Hx Pneumonia - PE, DVT, Collapsed Lungs Neurological Medical History: Reports: Hx Migraine, Hx Seizures Renal/ Medical History: Denies: Hx Peritoneal Dialysis GI Medical History: Reports: Hx Endoscopy - 2011 and 2017 secondary to GI bleeds Past Surgical History: Reports: Hx Cardiac Surgery - LEFT PACEMAKER, Hx Hysterectomy - Immunizations Hx Diphtheria, Pertussis, Tetanus Vaccination: Yes Physical Exam - Vital signs Vitals: Temp Pulse Resp BP Pulse Ox 98.5 F 69 16 104/72 96 12/31/17 12:50 12/31/17 12:50 12/31/17 12:50 12/31/17 12:50 12/31/17 12:50 - Notes Notes: GENERAL: Alert, well- appearing. Aphasia HEAD: Normocephalic, Atraumatic. NECK: Full range of motion. Supple. Trachea midline. LUNGS: Clear to auscultation bilaterally, no wheezes, rales, or rhonchi. No respiratory distress. HEART: Regular rate and rhythm. No murmurs, gallops, or rubs. EXTREMITIES: Moves all four extremities spontaneously. (LUBNA GREGORIO) - Vital Signs Vital signs: Temp Pulse Resp BP Pulse Ox 98.5 F 69 16 104/72 96 12/31/17 12:50 12/31/17 12:50 12/31/17 12:50 12/31/17 12:50 12/31/17 12:50
[2017-12-31 14:12] LABS: APPEARANCE,URINE SLIGHTLY-CLOUDY; BILIRUBIN,URINE NEGATIVE (NEGATIVE); COLOR,URINE STRAW; GLUCOSE, URINE NEGATIVE (NEGATIVE); KETONES,URINE NEGATIVE (NEGATIVE); LEUKOCYTE ESTERASE,URINE NEGATIVE (NEGATIVE); NITRITE,URINE NEGATIVE (NEGATIVE); PROTEIN,URINE NEGATIVE (NEGATIVE); URINE SPECIFIC GRAVITY 1.006; UROBILINOGEN,URINE NEGATIVE mg/dL (<2.0)
--- NOTE | 2017-12-31 14:26 | ER Document Report ---
ED Neuro Symptoms/Deficit - General Chief Complaint: S/S of Possible Stroke Stated Complaint: POSSIBLE SEIZURE Time Seen by Provider: 12/31/17 13:03 Mode of Arrival: Ambulatory Notes: History obtained with the help of the and patient texting on her phone. The patient is a 47-year-old female, past medical history possible seizures, non-epileptiform seizures, CHF with AICD, A. fib, remote history of PEs, presents with 12 hours of difficulty finding words and some decreased sensation over her left side. She has had word finding difficulties in the past after a seizure that would usually resolve after 4 hours, but she denies any seizure activity. No new stressors in life. She was following with [place] neurology, Dr. Garduno, and looking through old records, some of her symptoms may be somatoform in nature. She has never had a positive EEG and she was taken off all seizure medications by her neurologist. Her primary care physician is giving her Valium and she was started on Eliquis 1 week ago. Patient now also with a left-sided headache. She denies blurry vision, nausea, vomiting, fevers , ataxia, neck pain, rash, difficulty swallowing or focal weakness. TRAVEL OUTSIDE OF THE [place] IN LAST 30 DAYS: No - Related Data Allergies/Adverse Reactions: adhesive Allergy (Verified 12/31/17 12:38) clindamycin [Clindamycin] Allergy (Verified 12/31/17 12:38) metoclopramide HCl [From Reglan] Allergy (Verified 12/31/17 12:38) morphine Allergy (Verified 12/31/17 12:38) moxifloxacin [From Avelox] Allergy (Verified 12/31/17 12:38) Past Medical History - General Information source: Patient - Social History Smoking Status: Never Smoker Frequency of alcohol use: None Drug Abuse: None Family History: None Patient has suicidal ideation: No Patient has homicidal ideation: No - Past Medical History Cardiac Medical History: Reports: Hx Atrial Fibrillation - pacemaker, Hx Heart Attack Pulmonary Medical History: Reports: Hx Pneumonia - PE, DVT, Collapsed Lungs Neurological Medical History: Reports: Hx Migraine, Hx Seizures Renal/ Medical History: Denies: Hx Peritoneal Dialysis GI Medical History: Reports: Hx Endoscopy - 2011 and 2017 secondary to GI bleeds Past Surgical History: Reports: Hx Cardiac Surgery - LEFT PACEMAKER, Hx Hysterectomy - Immunizations Hx Diphtheria, Pertussis, Tetanus Vaccination: Yes Review of Systems - Review of Systems Notes: REVIEW OF SYSTEMS: CONSTITUTIONAL: -fevers, -chills EENT: -eye pain, -difficulty swallowing, -nasal congestion CARDIOVASCULAR: -chest pain, -syncope. RESPIRATORY: -cough, -SOB GASTROINTESTINAL: -abdominal pain, -nausea, -vomiting, -diarrhea GENITOURINARY: -dysuria, -hematuria MUSCULOSKELETAL: -back pain, -neck pain SKIN: -rash or skin lesions. HEMATOLOGIC: -easy bruising or bleeding. LYMPHATIC: -swollen, enlarged glands. NEUROLOGICAL: -altered mental status or loss of consciousness, +headache, + difficulty speaking, +left-sided loss decreased sensation PSYCHIATRIC: -anxiety, -depression. ALL OTHER SYSTEMS REVIEWED AND NEGATIVE. Physical Exam - Vital signs Vitals: Temp Pulse Resp BP Pulse Ox 98.5 F 69 16 104/72 96 12/31/17 12:50 12/31/17 12:50 12/31/17 12:50 12/31/17 12:50 12/31/17 12:50 - Notes Notes: PHYSICAL EXAMINATION: GENERAL: Well-appearing, well-nourished and in no acute distress. HEAD: Atraumatic, normocephalic. EYES: Pupils equal round and reactive to light, extraocular movements intact, sclera anicteric, conjunctiva are normal. ENT: nares patent, oropharynx clear without exudates. Moist mucous membranes. NECK: Normal range of motion, supple without lymphadenopathy LUNGS: Breath sounds clear to auscultation bilaterally and equal. No wheezes rales or rhonchi. HEART: Regular rate and rhythm without murmurs ABDOMEN: Soft, nontender, normoactive bowel sounds. No guarding, no rebound. No masses appreciated. EXTREMITIES: Normal range of motion, no pitting or edema. No cyanosis. NEUROLOGICAL: Difficulty finding words. 5/5 strength in RUE and RLE. 4/5 strength in LUE and LLE (chronic in nature). Decreased sensation in LUE and LLE. Symmetrical face. PSYCH: Normal mood, normal affect. SKIN: Warm, Dry, normal turgor, no rashes or lesions noted. Course - Re-evaluation Re-evalutation: Pt with 12 hours of Broca's aphasia and decreased sensation in her left arms and legs. Not a TPA candidate due to [address] Head and CTA Head/ Neck obtained due to inability to obtain a MRI with her AICD. 12/31/17 16:10 Placed call to her Neurologist at [place], Dr. Garduno, to discuss case. Awaiting callback. 12/31/17 16:15 Spoke to her Neurologist, Dr. Garduno, about normal CT/CTA head and the patient's history. He suspects that the patient's symptoms are psychogenic in nature, as she has never had positive objective findings on his workups. She has had frequent headaches in the past with stroke-like symptoms that have resolved. With the headache, suspect there may be a component of a complex migraine today. Do not suspect a CVA today with a negative CT and CTA Head and Neck. After the compazine, benadryl and IVF, her headache has improved and she is speaking easier. Will provide her a dose of Decadron for the headache and have her follow-up with her neurologist. - Vital Signs Vital signs: Temp Pulse Resp BP Pulse Ox 98.5 F 69 16 104/72 96 12/31/17 12:50 12/31/17 12:50 12/31/17 12:50 12/31/17 12:50 12/31/17 12:50 - Laboratory Result Diagrams: 12/31/17 15:12 12/31/17 15:12 - Diagnostic Test Radiology reviewed: Image reviewed, Reports reviewed Radiology results interpreted by me: CT Head/CTA Head/CTA Neck: NAD ED Alteplase Inc/Exc Criteria - Date/Time patient last known well: Date/Time: 12/30/2017 16:00 - Date/Time patient arrived in ED: _: 12/31/2017 12:45 - Inclusion Criteria: 1: Patient presented to ED within 3 hours of acute ischemic stroke symptom onset ? -: No 2: Did baseline CT exclude intracranial hemorrhage and/or other risk factors? -: Yes 3: Is the age of the patient 18 years of age or greater? -: No : If any of the above questions are answered "NO" then stop, patient is not a candidate for Alteplase, : If all of the above questions are answered "YES" then continue with Exclusion Criteria. - Exclusion Criteria: 1: Is there evidence of intracranial hemorrhage on baseline CT? 2: Is there suspicion of subarachnoid hemorrhage (even if CT negative)? 3: Is there a history of serious head trauma, recent previous stroke or AL within 3 months? 4: Does the patient have a clinical presentation consistent with AL or post-AL pericarditis? 5: Is there history of intracranial hemorrhage? 6: On repeated measurement is Systolic BP greater than 185mmHg or Diastolic BP greater that 110 mmHg and is aggressive treatment needed to reduce blood pressure to these limits (e.g. constant infusion of an anti-hypertensive)? 7: Did the patient awake with stroke symptoms? 8: Has the patient had a lumbar puncture or an arterial puncture at a non- compressile site within 7 days? 9: With in the last 14 days did the patient have surgery or major trauma? 10: Is the patient or less than 2 weeks? 11: Was there any active bleeding or acute trauma? 12: Does the patient have intracranial neoplasm, arteriovenous malformation or aneurysm? 13: Does the patient have abnormal glucose (less than 50 or greater than 400mg/ dl)? Record glucose in Comment. 14: Patient has rapidly improving symptoms at the time Alteplase is to be Administered. 15: Does the patient have any risks for bleeding, including but not limited to: a.: Current use of Coumadin with PT greater than 15 seconds or INR greater than 1.7. b.: Current use of Pradaxa (Dabigatran). c.: Heparin administereed within the past 48 hours and PTT elevated. d.: Platelet count less than 100,000/mm. e.: Major surgery or serious trauma within 14 days. f.: Gastrointestinal or gynecological urinary bleeding within 14 days. g.: Myocardial Infarction (AL) within 3 months. : If the answer to any of the above questions is "YES" then stop, the patient is not a candidate for Alteplase. : If the answer to all of the above questions is "NO" then the patient may be eligible for the Administration of Alteplase. : If the patient is noted to have seizure activity at onset of Stroke symptoms; Consult Neurologist for further evaluation. - The patient is: -: Included and is eligible to receive Alteplase. *Initiate bed placement at higher level of care* --: No Reviewd risks & benefits of thrombolytic therapy: I have reviewed the risks and benefits of thrombolytic therapy with the patient and/or his/her family. Yes -: Excluded and not eligible to receive Alteplase for the above exclusions. --: Yes -: Excluded and not eligible to receive Alteplase for other reasons (specify in comments): - Diagnosis of TIA: -: Patient presented with transient symptoms that are now resolved and no other neurologic findings are currently present. List symptoms in comments. -: Patient is NOT a candidate for tPA. -: ____(put name in comment) has been consulted for admission and continued evaluation of risk factor assessment. ED NIH Stroke Scale - NIH Stroke Scale When completed:: Before Alteplase *: 1. NIH scale should be completed with appropriate accompanying assessment tools. *: 2. The NIH should reflect what the patient is capable of doing and should not be coached by the clinician. 1a. Level of Consciousness: 0=Alert;keenly responsive -: 1=Drowsy -: 2=Obtunded -: 3=Coma/unresponsive or reflex to noxious stimuli. 1a. Responses: 0 1b. Orientation Questions: a. What month is it? -: b. How old are you? -: 0=Answers both questions correctly. -: 1=Answers one question correctly or patient is intubated or has orotracheal trauma. -: 2=Answers neither question correctly. 1b. Responses: 0 1c. Response to commands: a. Open and close eyes? -: b. Wood Stock Blank Handler and release hand? -: Credit is given despite weakness. Demonstration of task is permitted. Substitute command if hands cannot be used. -: 0=Performs both tasks correctly -: 1=Performs one task correctly -: 2=Performs neither task correctly 1c. Responses: 0 2. Gaze: Establish eye contact and instruct patient to "Follow my finger" -: 0=Normal -: 1=Partial gaze palsy. Gaze is abnormal in one or both eyes, but where forced deviation or total gaze paresis is not present. -: 2=Forced deviation or total gaze paresis. 2. Responses: 0 3. Visual [place]: Sees fingers in all four quadrants. -: 0=No visual loss. -: 1=Partial hemianopsia. -: 2=Complete hemianopsia. -: 3=Bilateral hemianopsia (including Cortical blindness) 3. Responses: 0 4. Facial Movement: Instruct patient to: -: a. Show me your teeth -: b. Raise your eyebrows -: c. Close your eyes -: d. Smile -: 0=Normal symmetrical movement -: 1=Minor paralysis (flattened nasolabial fold, asymmetry on smiling). -: 2=Partial paralysis (total or near total paralysis of lower face). -: 3=Complete paralysis of upper and lower face 4. Responses: 0 5. Motor functions (left arm): Alternate sides and extend each arm with palms down (90 degrees if sitting or 45 degrees for supine). -: 0=No drift;limb holds for full 10 seconds. -: 1=Drift; limb holds but drifts down before full 10 seconds, but does not hit bed. -: 2=Some effort against gravity; limb cannot get to or maintain position. -: 3=No effort against gravity; limb falls. -: 4=No movement. -: UN=Amputation, joint fusion, explain in comments. 5. Responses (left arm): 1 5. Motor Functions (right arm): Alternate sides and extend each arm with palms down (90 degrees if sitting or 45 degrees for supine). -: 0=No drift;limb holds for full 10 seconds. -: 1=Drift; limb holds but drifts down before full 10 seconds, but does not hit bed. -: 2=Some effort against gravity; limb cannot get to or maintain position. -: 3=No effort against gravity; limb falls. -: 4=No movement. -: UN=Amputation, joint fusion, explain in comments. 5. Responses (right arm): 0 6. Motor Functions (left leg): With patient lying supine, alternate sides and extend each leg (30 degrees always while supine). -: 0=No drift, leg holds position for full 5 seconds -: 1=Drift; leg falls before full 5 seconds but does not hit bed. -: 2=Some effort against gravity, leg falls to bed but some effort against gravity. -: 3=No effort against gravity, leg falls to bed immediately. -: 4=No movement. -: UN=Amputation, joint fusion; explain in comments. 6. Responses (left leg): 1 6. Motor Functions (right leg): With patient lying supine, alternate sides and extend each leg (30 degrees always while supine). -: 0=No drift, leg holds position for full 5 seconds -: 1=Drift; leg falls before full 5 seconds but does not hit bed. -: 2=Some effort against gravity, leg falls to bed but some effort against gravity. -: 3=No effort against gravity, leg falls to bed immediately. -: 4=No movement. -: UN=Amputation, joint fusion; explain in comments. 6. Responses (right leg): 0 7. Limb Ataxia: With eyes open instruct patient to: -: a. "Touch your finger to your nose". -: b. "Touch your heel to your [place]" -: 0=Absent -: 1=Present in one limb. -: 2=Present in two limbs. -: UN=Amputation or joint fusion; explain in comments. 7. Responses: 0 8. Sensory: Test sensation using pinprick or noxious stimuli. Test as many body parts as possible. -: 0=Normal;no sensory loss -: 1=Mile to moderate sensory loss (patient feels pin prick but is less sharp on affected side). -: 2=Severe or total sensory loss. 8. Responses: 1 9. Best Language: Instruct patient to: -: a. "Describe what you see in this picture." -: b. "Name the items in this picture." -: c. "Read these sentences." -: 0=No aphasia, normal -: 1=Mild to moderate aphasia. -: 2=Severe aphasia -: 3=Mute, global aphasia, no usable speech or auditory comprehension. 9. Responses: 2 10. Articulation, Dysarthia: Instruct patient to: -: "Read these words" or "Repeat these words" -: 0=Normal -: 1=Mild to moderate; patient may slur some words but can be understood without difficulty. -: 2=Severe; patients speech so slurred as to be unintelligible in the absence of dysphasia. -: UN=Intubated or other physical barrier, explain in comments. 10. Responses: 0 11. Extinction or inattention: 0=No abnormality -: 1= Visual, tactile, auditory, spatial, or personal inattention or extinction to bilateral simulation in one or the sensory modalities. -: 2=Profound kristin-inattention or kristin-inattention to more than one modality; does not recognize own hand. 11. Responses: 0 Total Score: 5 Discharge - Discharge Clinical Impression: Difficulty speaking Headache Qualifiers: Headache type: unspecified Headache chronicity pattern: unspecified pattern Intractability: not intractable Qualified Code(s): R51 - Headache Condition: Stable Disposition: HOME, SELF-CARE Additional Instructions: HEADACHE: The physician does not feel that the headache you are experiencing has a serious underlying cause. Most headaches are due to emotional stress, with resultant muscle tension (tension headache). Occasionally, headaches are secondary to changes in the blood vessels of the scalp (vascular headache and migraine headache). Sometimes, a headache is the first symptom of another developing illness, such as a viral infection. You have no evidence of stroke, bleeding, meningitis, or other serious cause of your headache. The treatment of headaches varies with the severity and cause of the pain. Not all headaches need pain shots. In fact, there is evidence that using narcotics for headaches may make them worse in the long run. The physician will determine the therapy that's in your best interest. If you develop a fever, if the headache is different from any you've previously experienced, or if the headache progressively worsens, then call your physician at once or go to the emergency room. USE OF DIPHENHYDRAMINE: Diphenhydramine (Benadryl) is an antihistamine and has been recommended to help treat your headache and to prevent side effects of other medications used to treat headaches. The medication can be repeated four times daily. Age Elixir (12.5 mg/tsp) 25 mg pill adult 1-2 tabs Antihistamines may cause drowsiness, especially with the first dose. Do not operate machinery or drive while under the effects of the medication. Do not combine the medication with alcohol, or with any other medication without talking to your doctor. INTRAVENOUS COMPAZINE FOR HEADACHE: You have received therapy for headaches, using intravenous Compazine. This treatment is dramatically successful in relieving the headache in about 50 percent of cases. When it works, it provides a rapid method of eliminating the headache without resorting to narcotics (and the problems associated with them). Most patients still feel fully alert after the Compazine, but others may be slightly drowsy. It's best not to drive or work with machinery for six to eight hours. Do not take alcohol or other medication unless you discuss it with the doctor. If you develop tightness and spasms in your muscles, especially the neck and tongue, you should return. This is a side effect which can be treated. FOLLOW-UP CARE: If you have been referred to a physician for follow-up care, call the physician s office for an appointment as you were instructed or within the next two days. If you experience worsening or a significant change in your symptoms, notify the physician immediately or return to the Emergency Department at any time for re-evaluation. Referrals: NISHA WAGNER MD [Primary Care Provider] - Follow up as needed ROLDAN GARDUNO MD [NO LOCAL MD] - Follow up as needed
[2017-12-31] MEDS ORDERED: PROCHLORPERAZINE EDISYLATE INJ 10 MG/2 ML VIAL IV ONE (14:50)
[2017-12-31] MEDS ORDERED: DIPHENHYDRAMINE HCL 50 MG/ML VIAL IV ONE (14:50)
[2017-12-31] MEDS ORDERED: NORMAL SALINE 1000 ML 1,000 ML IV ONE (14:51)
[2017-12-31 15:24] LABS: ABSOLUTE BASOPHILS # (AUTO) 0.1 10^3/uL (0.0-0.2); ABSOLUTE EOSINOPHILS # (AUTO) 0.1 10^3/uL (0.0-0.6); ABSOLUTE LYMPHOCYTES (AUTO) 1.6 10^3/uL (0.5-4.7); ABSOLUTE MONOCYTES (AUTO) 0.4 10^3/uL (0.1-1.4); ABSOLUTE NEUT (AUTO) 2.9 10^3/uL (1.7-8.2); BASOPHILS % (AUTO) 1.1 % (0-2); EOSINOPHILS % (AUTO) 1.3 % (0-6); HEMATOCRIT 44.5 % (36.0-47.0); HEMOGLOBIN 15.1 g/dL (12.0-15.5); LYMPHOCYTES % (AUTO) 32.3 % (13-45); MEAN CORPUSCULAR HEMOGLOBIN 30.8 pg (27.0-33.4); MEAN CORPUSCULAR VOLUME 91 fl (80-97); MONOCYTES % (AUTO) 7.6 % (3-13); PLATELET COUNT 275 10^3/uL (150-450); RED CELL DISTRIBUTION WIDTH 13.2 % (11.5-14.0); SEGMENTED NEUTROPHILS % (AUTO) 57.7 % (42-78); TOTAL CELLS COUNTED % (AUTO) 100 %
[2017-12-31 15:36] LABS: ALANINE AMINOTRANSFERASE 31 U/L (9-52); ALBUMIN 4.6 g/dL (3.5-5.0); ALKALINE PHOSPHATASE 59 U/L (38-126); ANION GAP 9 (5-19); ASPARTATE AMINO TRANSFERASE 28 U/L (14-36); BILIRUBIN,DIRECT 0.3 mg/dL (0.0-0.4); BILIRUBIN,TOTAL 0.5 mg/dL (0.2-1.3); BLOOD UREA NITROGEN 12 mg/dL (7-20); CALCIUM 9.4 mg/dL (8.4-10.2); CARBON DIOXIDE 28 mmol/L (22-30); CHLORIDE 100 mmol/L (98-107); GLUCOSE 77 mg/dL (75-110); POTASSIUM 3.8 mmol/L (3.6-5.0); SODIUM 137.3 mmol/L (137-145); TOTAL PROTEIN 7.5 g/dL (6.3-8.2)
--- NOTE | 2017-12-31 16:13 | RADIOLOGY REPORT (SQ) ---
EXAM DESCRIPTION: CTA HEAD; CTA NECK COMPLETED DATE/TIME: 12/31/2017 3:54 pm REASON FOR STUDY: aphasia, left-sided decreased sensation, headache COMPARISON: None. TECHNIQUE: Non contrasted CT brain was performed followed by arterial phase bolus scanning of the he ad and neck to include the [place] and carotid bifurcations. Source and MIP images are saved and reviewed on PACS. Advanced 3D imaging as volume-rendering, MIPs, SSD performed? yes All CT scanners at this facility use dose modulation, iterative reconstruction, and/or weight based d osing when appropriate to reduce radiation dose to as low as reasonably achievable (ALARA). [facility]: Dose Right [facility]: CareDose [facility]: Dose Right [facility]: Teradose 4D [facility]: Audemat CONTRAST TYPE AND DOSE: contrast/concentration: Isovue 370.00 mg/ml; Total Contrast Delivered: 70.0 ml; Total Saline Delivered: 65.0 ml RENAL FUNCTION: Creatinine 0.8 LIMITATIONS: None. FINDINGS: Non contrasted CT brain: No CT evidence of acute ischemic change, acute intracranial hemorrhage, mass effect, or midline shift . Brain parenchyma, ventricles, extra-axial CSF spaces are unremarkable. Bone windows are unremarka ble. Mastoid air cells, middle ear cavities, paranasal sinuses are clear. Post IV contrasted CT brain: No abnormal contrast enhancement of the brain. Normal enhancement of the dural venous sinuses. No a bnormal orbital or facial soft tissue enhancement. CT angio [place]: No [place] stenosis, vascular malformation or aneurysm. No right middle cerebral artery misha nosis. The intracranial vertebrobasilar system and anterior intracranial carotid system are widely p atent CT angio neck vessels: No CTA evidence of flow significant carotid stenosis. No vessel wall irregularity worrisome for diss ection or fibromuscular dysplasia. No neck masses or adenopathy. Airway patent. Major salivary glands, thyroid unremarkable. Lung [place] free of focal infiltrates, however there are bullae or blebs in the anterior right and left upper lobe. Artifact from pacemaker battery pack over the left upper chest wall. Report discussed with Dr Young in the emergency room IMPRESSION: Unremarkable CT brain without and with contrast Unremarkable [place] CTA Unremarkable cervical carotid CTA TECHNICAL DOCUMENTATION: JOB ID: [id number] Quality ID # [id number]: Final reports with documentation of one or more dose reduction techniques (e.g., Au tomated exposure control, adjustment of the mA and/or kV according to patient size, use of iterative reconstruction technique) 2010 [employer]- All Rights Reserved
--- NOTE | 2017-12-31 16:13 | RADIOLOGY REPORT (SQ) ---
EXAM DESCRIPTION: CTA HEAD; CTA NECK COMPLETED DATE/TIME: 12/31/2017 3:54 pm REASON FOR STUDY: aphasia, left-sided decreased sensation, headache COMPARISON: None. TECHNIQUE: Non contrasted CT brain was performed followed by arterial phase bolus scanning of the he ad and neck to include the [place] and carotid bifurcations. Source and MIP images are saved and reviewed on PACS. Advanced 3D imaging as volume-rendering, MIPs, SSD performed? yes All CT scanners at this facility use dose modulation, iterative reconstruction, and/or weight based d osing when appropriate to reduce radiation dose to as low as reasonably achievable (ALARA). [facility]: Dose Right [facility]: CareDose [facility]: Dose Right [facility]: Teradose 4D [facility]: BrightEdge CONTRAST TYPE AND DOSE: contrast/concentration: Isovue 370.00 mg/ml; Total Contrast Delivered: 70.0 ml; Total Saline Delivered: 65.0 ml RENAL FUNCTION: Creatinine 0.8 LIMITATIONS: None. FINDINGS: Non contrasted CT brain: No CT evidence of acute ischemic change, acute intracranial hemorrhage, mass effect, or midline shift . Brain parenchyma, ventricles, extra-axial CSF spaces are unremarkable. Bone windows are unremarka ble. Mastoid air cells, middle ear cavities, paranasal sinuses are clear. Post IV contrasted CT brain: No abnormal contrast enhancement of the brain. Normal enhancement of the dural venous sinuses. No a bnormal orbital or facial soft tissue enhancement. CT angio [place]: No [place] stenosis, vascular malformation or aneurysm. No right middle cerebral artery misha nosis. The intracranial vertebrobasilar system and anterior intracranial carotid system are widely p atent CT angio neck vessels: No CTA evidence of flow significant carotid stenosis. No vessel wall irregularity worrisome for diss ection or fibromuscular dysplasia. No neck masses or adenopathy. Airway patent. Major salivary glands, thyroid unremarkable. Lung [place] free of focal infiltrates, however there are bullae or blebs in the anterior right and left upper lobe. Artifact from pacemaker battery pack over the left upper chest wall. Report discussed with Dr Young in the emergency room IMPRESSION: Unremarkable CT brain without and with contrast Unremarkable [place] CTA Unremarkable cervical carotid CTA TECHNICAL DOCUMENTATION: JOB ID: [id number] Quality ID # [id number]: Final reports with documentation of one or more dose reduction techniques (e.g., Au tomated exposure control, adjustment of the mA and/or kV according to patient size, use of iterative reconstruction technique) 2010 [employer]- All Rights Reserved
[2017-12-31] MEDS ORDERED: DEXAMETHASONE SOD PHOS INJ 10 MG/1 ML VIAL IV ONE (16:48)
[2017-12-31 17:32] VITALS: BP 96/59
== END 2017-12-31 17:34 | disposition home or self-care (01) ==
LOC: ER 12:30
DX: R47.89 Other speech disturbances (principal); R51 Headache; R56.9 Unspecified convulsions; I50.9 Heart failure, unspecified; I48.91 Unspecified atrial fibrillation; I25.2 Old myocardial infarction; R29.705 NIHSS score 5; Z79.01 Long term (current) use of anticoagulants; Z79.899 Other long term (current) drug therapy
CPT/HCPCS: 99285; 96361; 96374; 96375; 36415; 84703; 85025; 80053; 81001; 70496; 70498; J1200; J0780; J7030; J1100

== ENCOUNTER 2018-04-19 10:22 | Inpatient (IN) | payer MEDICARE, OTHER ==
[2018-04-19] MEDS ORDERED: HYDROMORPHONE HCL INJ/PF 2 MG/ML AMPULE IV ONE (10:38)
[2018-04-19] MEDS ORDERED: PROMETHAZINE HCL 25 MG TABLET PO ONE (10:38)
--- NOTE | 2018-04-19 10:40 | ER Document Report ---
ED Medical Screen (RME) - General Chief Complaint: Abdominal Pain Stated Complaint: STOMACH PAIN Time Seen by Provider: 04/19/18 10:37 Mode of Arrival: Wheelchair Information source: Patient Notes: This is a 48-year-old female presenting to the emergency room with right lower quadrant pain. Patient apparently ate fried chicken yesterday and several hours after started developing abdominal pain on the right side which seems to be upper but is now moving to the lower abdomen. Patient does report increased pain with inspiration. Of significance, the patient does have a history of a chronic CSF leak and did have a blood patch placement 5 days ago. Additionally , she is currently on Keflex for a right upper extremity cellulitis after an IV placement. I have greeted and performed a rapid initial assessment of this patient. A comprehensive ED assessment and evaluation of the patient, analysis of test results and completion of medical decision making process we will be contacted by additional ED providers. TRAVEL OUTSIDE OF THE [place] IN LAST 30 DAYS: No - Related Data Allergies/Adverse Reactions: adhesive Allergy (Verified 04/19/18 10:23) clindamycin [Clindamycin] Allergy (Verified 04/19/18 10:23) metoclopramide HCl [From Reglan] Allergy (Verified 04/19/18 10:23) morphine Allergy (Verified 04/19/18 10:23) moxifloxacin [From Avelox] Allergy (Verified 04/19/18 10:23) Past Medical History - Social History Family history: Reviewed & Not Pertinent - Past Medical History Cardiac Medical History: Reports: Hx Atrial Fibrillation - pacemaker, Hx Heart Attack Pulmonary Medical History: Reports: Hx Pneumonia - PE, DVT, Collapsed Lungs Neurological Medical History: Reports: Hx Migraine, Hx Seizures Renal/ Medical History: Reports: Hx Kidney Stones. Denies: Hx Peritoneal Dialysis GI Medical History: Reports: Hx Endoscopy - 2011 and 2017 secondary to GI bleeds Past Surgical History: Reports: Hx Cardiac Surgery - LEFT PACEMAKER, Hx Hysterectomy - Immunizations Hx Diphtheria, Pertussis, Tetanus Vaccination: Yes Physical Exam - Vital signs Vitals: Temp Pulse Resp BP Pulse Ox 99.0 F 71 20 95/49 L 96 04/19/18 10:28 04/19/18 10:28 04/19/18 10:28 04/19/18 10:28 04/19/18 10:28 Course - Vital Signs Vital signs: Temp Pulse Resp BP Pulse Ox 99.0 F 71 20 95/49 L 96 04/19/18 10:28 04/19/18 10:28 04/19/18 10:28 04/19/18 10:28 04/19/18 10:28 Doctor's Discharge - Discharge Referrals: NISHA WAGNER MD [Primary Care Provider] - Follow up as needed
--- NOTE | 2018-04-19 11:10 | ER Document Report ---
ED General - General Chief Complaint: Abdominal Pain Stated Complaint: STOMACH PAIN Time Seen by Provider: 04/19/18 10:37 Mode of Arrival: Wheelchair Information source: Patient, Dr. Office - Received call from Dr. Christiansen regarding patient Notes: 48-year-old female history of partial hysterectomy presents with complaints of abdominal pain. Patient notes initially started in the right upper quadrant after eating fried food, notes the pain went from the right shoulder down to the right lower quadrant. Patient denies any fevers or chills TRAVEL OUTSIDE OF THE [place] IN LAST 30 DAYS: No - HPI Onset: Yesterday Onset/Duration: Persistent Quality of pain: Sharp Severity: Moderate Pain Level: 4 Associated symptoms: Other Exacerbated by: Movement, Walking Relieved by: Denies Similar symptoms previously: No Recently seen / treated by doctor: Yes - Related Data Allergies/Adverse Reactions: adhesive Allergy (Verified 04/19/18 10:23) clindamycin [Clindamycin] Allergy (Verified 04/19/18 10:23) metoclopramide HCl [From Reglan] Allergy (Verified 04/19/18 10:23) morphine Allergy (Verified 04/19/18 10:23) moxifloxacin [From Avelox] Allergy (Verified 04/19/18 10:23) Past Medical History - General Information source: Patient - Social History Smoking Status: Never Smoker Cigarette use (# per day): No Chew tobacco use (# tins/day): No Smoking Education Provided: No Frequency of alcohol use: None Drug Abuse: None Family History: None Patient has suicidal ideation: No Patient has homicidal ideation: No - Past Medical History Cardiac Medical History: Reports: Hx Atrial Fibrillation - pacemaker, Hx Heart Attack Pulmonary Medical History: Reports: Hx Pneumonia - PE, DVT, Collapsed Lungs Neurological Medical History: Reports: Hx Migraine, Hx Seizures Renal/ Medical History: Reports: Hx Kidney Stones. Denies: Hx Peritoneal Dialysis GI Medical History: Reports: Hx Endoscopy - 2011 and 2017 secondary to GI bleeds Past Surgical History: Reports: Hx Cardiac Surgery - LEFT PACEMAKER, Hx Hysterectomy - Immunizations Hx Diphtheria, Pertussis, Tetanus Vaccination: Yes Review of Systems - Review of Systems Notes: REVIEW OF SYSTEMS: CONSTITUTIONAL : Denies fever, chills, or sweats. Denies recent illness. EENT: Denies eye, ear, throat, or mouth pain or symptoms. Denies nasal or sinus congestion or discharge. Denies throat, tongue, or mouth swelling or difficulty swallowing. CARDIOVASCULAR: Denies chest pain. Denies palpitations or racing or irregular heart beat. Denies ankle edema. RESPIRATORY: Denies cough, cold, or chest congestion. Denies shortness of breath, difficulty breathing, or wheezing. GASTROINTESTINAL: Admits to abdominal pain GENITOURINARY: Denies difficulty urinating, painful urination, burning, frequency, blood in urine, or discharge. FEMALE GENITOURINARY: Denies vaginal bleeding, heavy or abnormal periods, irregular periods. Denies vaginal discharge or odor. MUSCULOSKELETAL: Denies back or neck pain or stiffness. Denies joint pain or swelling. SKIN: Denies rash, lesions or sores. HEMATOLOGIC : Denies easy bruising or bleeding. LYMPHATIC: Denies swollen, enlarged glands. NEUROLOGICAL: Denies confusion or altered mental status. Denies passing out or loss of consciousness. Denies dizziness or lightheadedness. Denies headache. Denies weakness or paralysis or loss of use of either side. Denies problems with gait or speech. Denies sensory loss, numbness, or tingling. Denies seizures. PSYCHIATRIC: Denies anxiety or stress. Denies depression, suicidal ideation, or homicidal ideation. ALL OTHER SYSTEMS REVIEWED AND NEGATIVE. PHYSICAL EXAMINATION: GENERAL: Well-appearing, well-nourished and in no acute distress. HEAD: Atraumatic, normocephalic. EYES: Pupils equal round and reactive to light, extraocular movements intact, conjunctiva are normal. ENT: Nares patent, oropharynx clear without exudates. Moist mucous membranes. NECK: Normal range of motion, supple without lymphadenopathy LUNGS: Breath sounds clear to auscultation bilaterally and equal. No wheezes rales or rhonchi. HEART: Regular rate and rhythm without murmurs ABDOMEN: Soft, tender in the right upper quadrant and right lower quadrant with guarding rebound tenderness Female : deferred Musculoskeletal: Normal range of motion, no pitting or edema. No cyanosis. NEUROLOGICAL: Cranial nerves grossly intact. Normal speech, normal gait. Normal sensory, motor exams PSYCH: Normal mood, normal affect. SKIN: Warm, Dry, normal turgor, no rashes or lesions noted. Dictation was performed using [employer]aris voice recognition software Physical Exam - Vital signs Vitals: Temp Pulse Resp BP Pulse Ox 99.0 F 71 20 95/49 L 96 04/19/18 10:28 04/19/18 10:28 04/19/18 10:28 04/19/18 10:28 04/19/18 10:28 Course - Re-evaluation Re-evalutation: 04/19/18 11:10 Patient's presentation is quite confusing, there is concerns for both cholecystitis and appendicitis given her presentation, ultrasound CT are pending 04/19/18 14:03 free air noted on ct , surgeon immediately called 04/19/18 14:35 Radiologist notes a possible stomach ulceration caused the free air - Vital Signs Vital signs: Temp Pulse Resp BP Pulse Ox 99.0 F 71 17 104/69 98 04/19/18 10:28 04/19/18 10:28 04/19/18 14:01 04/19/18 14:00 04/19/18 14:01 - Laboratory Result Diagrams: 04/19/18 12:30 04/19/18 12:30 Laboratory results interpreted by me: 04/19/18 04/19/18 12:30 12:30 Seg Neutrophils % 80.4 H Lymphocytes % 12.3 L Calcium 11.3 H - Diagnostic Test Radiology reviewed: Image reviewed - CT abdomen pelvis with contrast oral and IV concerning for free air, Reports reviewed Discharge - Discharge Clinical Impression: Free intraperitoneal air Abdominal pain Qualifiers: Abdominal location: generalized Qualified Code(s): R10.84 - Generalized abdominal pain Condition: Critical Disposition: ADMITTED INPATIENT Admitting Provider: Surgicalist Unit Admitted: Surgical Floor
--- NOTE | 2018-04-19 11:51 | RADIOLOGY REPORT (SQ) ---
EXAM DESCRIPTION: U/S ABDOMEN LIMITED W/O DOP COMPLETED DATE/TIME: 04/19/2018 11:39 am REASON FOR STUDY: RLQ pain COMPARISON: None. TECHNIQUE: Dynamic and static grayscale images acquired of the abdomen and recorded on PACS. Additio nal selected color Doppler and spectral images recorded. LIMITATIONS: None. FINDINGS: PANCREAS: Nonvisualized due to bowel gas. LIVER: The liver demonstrates increased echogenicity consistent with fatty infiltration. LIVER VASCULATURE: Normal directional flow of the main portal vein and hepatic veins. GALLBLADDER: The gallbladder is normal. The gallbladder wall measures 2 mm. ULTRASOUND-DETECTED RADFORD'S SIGN: Negative. INTRAHEPATIC DUCTS AND COMMON DUCT: CBD measures 4 mm. Intrahepatic ducts normal caliber. No filling defects. INFERIOR VENA CAVA: Normal flow. AORTA: The proximal abdominal aorta measures 1.6 cm. The mid abdominal aorta measures 1.3 cm. The d istal abdominal aorta measures 1.4 cm. RIGHT KIDNEY: The right kidney demonstrates normal echogenicity. The right kidney measures 10.7 cm. No hydronephrosis. IMPRESSION: FATTY INFILTRATION OF THE LIVER. OTHERWISE, NORMAL RIGHT UPPER QUADRANT ULTRASOUND. TECHNICAL DOCUMENTATION: JOB ID: [id number] SC-69 2010 [employer]- All Rights Reserved Reading location - IP/workstation name: [email or web address]
[2018-04-19 12:56] LABS: ABSOLUTE EOSINOPHILS # (AUTO) 0.2 10^3/uL (0.0-0.6); ABSOLUTE LYMPHOCYTES (AUTO) 1.1 10^3/uL (0.5-4.7); ABSOLUTE MONOCYTES (AUTO) 0.5 10^3/uL (0.1-1.4); ABSOLUTE NEUT (AUTO) 7.5 10^3/uL (1.7-8.2); BASOPHILS % (AUTO) 0.5 % (0-2); EOSINOPHILS % (AUTO) 1.9 % (0-6); HEMATOCRIT 41.2 % (36.0-47.0); HEMOGLOBIN 14.4 g/dL (12.0-15.5); LYMPHOCYTES % (AUTO) 12.3 % (13-45); MEAN CORPUSCULAR HEMOGLOBIN 31.1 pg (27.0-33.4); MEAN CORPUSCULAR HGB CONC 34.9 g/dL (32.0-36.0); MEAN CORPUSCULAR VOLUME 89 fl (80-97); MONOCYTES % (AUTO) 4.9 % (3-13); PLATELET COUNT 289 10^3/uL (150-450); RED BLOOD COUNT 4.62 10^6/uL (3.72-5.28); RED CELL DISTRIBUTION WIDTH 13.5 % (11.5-14.0); SEGMENTED NEUTROPHILS % (AUTO) 80.4 % (42-78); TOTAL CELLS COUNTED % (AUTO) 100 %; WHITE BLOOD COUNT 9.3 10^3/uL (4.0-10.5)
[2018-04-19 13:18] LABS: ALANINE AMINOTRANSFERASE 40 U/L (9-52); ALBUMIN 4.5 g/dL (3.5-5.0); ALKALINE PHOSPHATASE 61 U/L (38-126); ANION GAP 12 (5-19); ASPARTATE AMINO TRANSFERASE 35 U/L (14-36); BILIRUBIN,DIRECT 0.4 mg/dL (0.0-0.4); BILIRUBIN,TOTAL 1.1 mg/dL (0.2-1.3); BLOOD UREA NITROGEN 17 mg/dL (7-20); CALCIUM 11.3 mg/dL (8.4-10.2); CARBON DIOXIDE 26 mmol/L (22-30); CHLORIDE 103 mmol/L (98-107); GLUCOSE 86 mg/dL (75-110); LIPASE 31.1 U/L (23-300); POTASSIUM 4.4 mmol/L (3.6-5.0); SODIUM 141.3 mmol/L (137-145); TOTAL PROTEIN 7.6 g/dL (6.3-8.2)
[2018-04-19] MEDS ORDERED: DIPHENHYDRAMINE HCL 50 MG/ML VIAL ONE (13:46)
[2018-04-19 13:54] LABS: APPEARANCE,URINE SLIGHTLY-CLOUDY; BILIRUBIN,URINE NEGATIVE (NEGATIVE); COLOR,URINE YELLOW; GLUCOSE, URINE NEGATIVE (NEGATIVE); KETONES,URINE NEGATIVE (NEGATIVE); LEUKOCYTE ESTERASE,URINE NEGATIVE (NEGATIVE); NITRITE,URINE NEGATIVE (NEGATIVE); PROTEIN,URINE NEGATIVE (NEGATIVE); UROBILINOGEN,URINE NEGATIVE mg/dL (<2.0)
[2018-04-19] MEDS ORDERED: PIPERACILLIN/TAZOBACTAM 3.375 GM VIAL IV ONE ×2 (14:04→23:44)
[2018-04-19] MEDS: NORMAL SALINE 1000 ML 1,000 ML IV PRN ×2 (14:19→14:25)
--- NOTE | 2018-04-19 14:32 | RADIOLOGY REPORT (SQ) ---
EXAM DESCRIPTION: CT ABD/PELVIS WITH IV ORAL COMPLETED DATE/TIME: 04/19/2018 1:52 pm REASON FOR STUDY: Right upper quadrant and right lower quadrant pain. Previous hysterectomy. COMPARISON: None. TECHNIQUE: CT scan of the abdomen and pelvis performed using helical scanning technique with dynamic intravenous contrast injection. No oral contrast. Images reviewed with lung, soft tissue, and bone windows. Reconstructed coronal and sagittal MPR images reviewed. Delayed images for evaluation of the urinary system also acquired. All images stored on PACS. All CT scanners at this facility use dose modulation, iterative reconstruction, and/or weight based d osing when appropriate to reduce radiation dose to as low as reasonably achievable (ALARA). [facility]: Dose Right [facility]: CareDose [facility]: Dose Right [facility]: Teradose 4D [facility]: Defend Your Head CONTRAST TYPE AND DOSE: contrast/concentration: Isovue 370.00 mg/ml; Total Contrast Delivered: 76.0 ml; Total Saline Delivered: 67.0 ml RENAL FUNCTION: Not available. RADIATION DOSE: CT Rad equipment meets quality standard of care and radiation dose reduction techniq ues were employed. CTDIvol: 7.2 - 10.0 mGy. DLP: 1557 mGy-cm.. LIMITATIONS: None. FINDINGS: LOWER CHEST: Prominent subpleural interstitial changes which could represent interstitial fibrosis. Breast implants. LIVER: No abnormality seen. SPLEEN: No abnormality seen. PANCREAS: No abnormality seen. GALLBLADDER: No abnormality seen.ADRENAL GLANDS: No abnormality. RIGHT KIDNEY AND URETER: No abnormality. LEFT KIDNEY AND URETER: No abnormality. AORTA AND VESSELS: No abdominal on the of the abdominal aorta. Patency of celiac, superior mesenteri c and inferior mesenteric arteries. Patency of renal arteries. RETROPERITONEUM: No retroperitoneal adenopathy, hemorrhage or masses. BOWEL AND PERITONEAL CAVITY: There is evidence of a fluid collection along the wall of the body of th e stomach with air extending through the wall consistent with perforated ulceration (series image num mack series 6.). Adjacent air is noted in the surrounding mesenteric fat. Associated massive pneumoperitoneum. There is free air surrounding the distal antrum and duodenum with air adjacent t o pyloroantral region. Free air in meliton hepatis region. APPENDIX: No abnormality in the region of the appendix (series image number 73/1 of 6 series 5. PELVIS: Urinary bladder: Urinary bladder is distended. Uterus: Absent. Large and small bowel: C onstipation. ABDOMINAL WALL: No masses. No hernias. BONES: No significant or acute findings. OTHER: Massive pneumoperitoneum. Inferior vena cava filter in place. IMPRESSION: 1. Findings consistent with perforated gastric ulcer body of stomach. Massive pneumope ritoneum. COMMENT: The findings were called immediately to the emergency room to Dr. Grimaldo. TECHNICAL DOCUMENTATION: JOB ID: [id number] SC-69 Quality ID # [id number]: Final reports with documentation of one or more dose reduction techniques (e.g., Au tomated exposure control, adjustment of the mA and/or kV according to patient size, use of iterative reconstruction technique) 2010 [employer]- All Rights Reserved Reading location - IP/workstation name: [email or web address]
[2018-04-19] MEDS ORDERED: FLUCONAZOLE 200 MG/NS RTU 200 MG/100 ML RTUPB IV ONE (14:53)
--- NOTE | 2018-04-19 14:56 | PDOC H&P ---
History of Present Illness Admission Date/PCP: 04/19/18 14:15 NISHA WAGNER MD Patient complains of: Severe abdominal pain, shortness of breath. History of Present Illness: KRANTHI REDDY is a 48 year old female with a one-day history of right upper quadrant pain. She noticed it late last night, into this morning. The pain intensified and became more significant. The pain spread from her right upper quadrant to her entire abdomen. She does report difficulty taking a deep breath and pain with deep inspiration. Nothing makes her pain better, movement and palpation make it worse. She denies melena, hematochezia, hematemesis, diarrhea. She does have a history of seizures, gastric ulcers, pulmonary embolism in the remote past, pacemaker placement. The patient does not take a PPI or H2 phuong. Past Medical History Cardiac Medical History: Reports: Atrial Fibrillation - pacemaker, Myocardial Infarction, Other - pacemaker Pulmonary Medical History: Reports: Pneumonia - PE, DVT, Collapsed Lungs Neurological Medical History: Reports: Migraine, Seizures Past Surgical History Past Surgical History: Reports: Hysterectomy, Other - IVC filter Social History Smoking Status: Never Smoker Family History Family History: Reviewed & Not Pertinent Parental Family History Reviewed: Yes Children Family History Reviewed: Yes Sibling(s) Family History Reviewed.: Yes Medication/Allergy Home Medications: Hydromorphone HCl [Dilaudid] 6 mg PO TID 12/29/15 Furosemide [Lasix] 40 mg PO DAILY 06/16/17 Hydroxyzine HCl [Atarax 25 mg Tablet] 1 - 2 tab PO QID #30 tablet 06/16/17 Naphazoline HCl/Pheniramine [Naphcon-A Eye Drops] 10 ml OP TID #1 bottle Prednisone [Deltasone] 60 mg PO DAILY #24 tablet 06/16/17 Rivaroxaban [Xarelto] 20 mg PO DAILY 06/16/17 Venlafaxine HCl ER [Effexor Xr 75 mg Cap.sr] 150 mg PO DAILY 06/16/17 Dicyclomine HCl [Bentyl 20 mg Tablet] 20 mg PO QIDP PRN #14 tablet 11/06/17 Allergies/Adverse Reactions: adhesive Allergy (Verified 04/19/18 10:23) clindamycin [Clindamycin] Allergy (Verified 04/19/18 10:23) metoclopramide HCl [From Reglan] Allergy (Verified 04/19/18 10:23) morphine Allergy (Verified 04/19/18 10:23) moxifloxacin [From Avelox] Allergy (Verified 04/19/18 10:23) Review of Systems Constitutional: PRESENT: headache(s) - Chronic Eyes: ABSENT: visual disturbances Ears: ABSENT: hearing changes Nose, Mouth, and Throat: ABSENT: sore throat Cardiovascular: ABSENT: chest pain, palpitations Respiratory: PRESENT: dyspnea - Mild Gastrointestinal: PRESENT: abdominal pain, bloating. ABSENT: hematemesis, hematochezia, melena Genitourinary: ABSENT: dysuria Musculoskeletal: PRESENT: back pain Integumentary: ABSENT: pruritus, rash Neurological: PRESENT: other - No recent seizure activity. ABSENT: dizziness, paresthesias Psychiatric: ABSENT: anxiety, depression Endocrine: ABSENT: cold intolerance, heat intolerance Hematologic/Lymphatic: PRESENT: easy bleeding, easy bruising Physical Exam Vital Signs: Temp Pulse Resp BP Pulse Ox 99.0 F 71 17 104/69 98 04/19/18 10:28 04/19/18 10:28 04/19/18 14:01 04/19/18 14:00 04/19/18 14:01 General appearance: PRESENT: mild distress Head exam: PRESENT: atraumatic, normocephalic Eye exam: PRESENT: EOMI, PERRLA. ABSENT: scleral icterus Mouth exam: PRESENT: moist, neck supple Teeth exam: ABSENT: poor dentation Neck exam: ABSENT: lymphadenopathy, meningismus, tenderness, thyromegaly, tracheal deviation Respiratory exam: PRESENT: clear to auscultation yaakov. ABSENT: crackles, rales, rhonchi, stridor Cardiovascular exam: PRESENT: irregular rhythm Pulses: PRESENT: normal radial pulses Vascular exam: PRESENT: normal capillary refill. ABSENT: pallor GI/Abdominal exam: PRESENT: distended, guarding, rebound, tenderness Rectal exam: PRESENT: deferred Extremities exam: ABSENT: joint swelling, pedal edema Musculoskeletal exam: PRESENT: normal inspection Neurological exam: PRESENT: alert, awake, oriented to person, oriented to place , oriented to time, oriented to situation, CN II-XII grossly intact. ABSENT: motor sensory deficit Psychiatric exam: ABSENT: agitated, anxious, depressed Skin exam: ABSENT: cyanosis, erythema, jaundice, pallor Results Impressions: Abdomen/Pelvis CT 04/19/18 00:00 IMPRESSION: 1. Findings consistent with perforated gastric ulcer body of stomach. Massive pneumoperitoneum. Abdomen Ultrasound 04/19/18 10:56 IMPRESSION: FATTY INFILTRATION OF THE LIVER. OTHERWISE, NORMAL RIGHT UPPER QUADRANT ULTRASOUND. Status: Image reviewed by ny - CT shows a large amount of free air in the abdomen. No leakage of intra-luminal contrast. Assessment & Plan - Diagnosis (1) Abdominal pain Qualifiers: Abdominal location: right upper quadrant Qualified Code(s): R10.11 - Right upper quadrant pain Is this a current diagnosis for this admission?: Yes (2) Free intraperitoneal air Is this a current diagnosis for this admission?: Yes - Inpatient Certification Based on my medical assessment, after consideration of the patient's comorbidities, presenting symptoms, or acuity I expect that the services needed warrant INPATIENT care.: Yes I certify that my determination is in accordance with my understanding of Medicare's requirements for reasonable and necessary INPATIENT services [42 CFR 412.3e].: Yes Medical Necessity: Need for IV Antibiotics, Need for Surgery - Plan Summary Plan Summary: This is a 48-year-old female with a located medical history. The patient has a large amount of free intra-abdominal air, accompanied by right upper quadrant and epigastric pain. Patient takes Adderall at home, and she has a history of bleeding gastric ulcers. I believe the patient is experiencing a perforated gastric/duodenal ulcer. The patient is currently receiving Zosyn, I will add Diflucan to this regimen. I will also start her on a PPI. Patient will require an operation to ascertain the exact cause of her free intra-abdominal air and abdominal pain. The patient has agreed to this. Risks/benefits discussed, informed consent obtained, and all questions answered.
[2018-04-19] MEDS ORDERED: BUPIVACAINE HCL 0.25 % INJ/PF (2.5 MG/1 ML) 30 ML VIAL ONE (15:27)
[2018-04-19] MEDS ORDERED: PANTOPRAZOLE SODIUM 40 MG VIAL IV ONE (15:30)
[2018-04-19] MEDS ORDERED: FENTANYL CITRATE INJ/PF 250 MCG/5 ML AMPULE ONE (15:50)
[2018-04-19] MEDS ORDERED: MIDAZOLAM 2 MG/2 ML INJ ONE (15:50)
[2018-04-19] MEDS ORDERED: PROPOFOL INJ 200 MG/20 ML VIAL IV ONE (15:50)
[2018-04-19] MEDS ORDERED: ACETAMINOPHEN 1,000 MG/100 ML RTUPB IV ONE (15:57)
[2018-04-19] MEDS ORDERED: HYDROMORPHONE HCL INJ/PF 2 MG/ML AMPULE ONE ×2 (15:57→17:59)
[2018-04-19] MEDS ORDERED: FENTANYL CITRATE INJ/PF 100 MCG/2 ML AMPUL ONE ×4 (15:58→20:26)
--- NOTE | 2018-04-19 16:20 | EKG REPORT ---
SEVERITY:- ABNORMAL ECG - SINUS RHYTHM FIRST DEGREE AV BLOCK LEFT BUNDLE BRANCH BLOCK : Confirmed by: Charla Becker MD 19-Apr-2018 16:20:30
[2018-04-19] MEDS ORDERED: ONDANSETRON HCL INJ/PF 4 MG/2 ML SDV ONE (16:23)
[2018-04-19] MEDS ORDERED: NEOSTIGMINE METHYLSULFATE 10 MG/10 ML VIAL ONE (16:23)
[2018-04-19] MEDS ORDERED: SUCCINYLCHOLINE CHLORIDE INJ 200 MG/10 ML VIAL ONE (16:23)
[2018-04-19] MEDS ORDERED: ROCURONIUM BROMIDE INJ 50 MG/5 ML VIAL IV ONE (16:23)
[2018-04-19] MEDS ORDERED: GLYCOPYRROLATE 1 MG/5 ML SYRINGE ONE (16:23)
[2018-04-19] MEDS ORDERED: PROMETHAZINE HCL INJ 25 MG/1 ML VIAL IV PRN ×2 (17:54)
[2018-04-19] MEDS ORDERED: FENTANYL CITRATE INJ/PF 100 MCG/2 ML AMPUL IV PRN ×3 (17:54)
[2018-04-19] MEDS ORDERED: MEPERIDINE HCL/PF INJ 25 MG/1 ML DISP.SYRIN IV PRN (17:54)
[2018-04-19] MEDS ORDERED: DIPHENHYDRAMINE HCL 50 MG/ML VIAL IV PRN (17:54)
[2018-04-19] MEDS ORDERED: GLUCAGON,HUMAN RECOMB 1 MG INJ SUBCUT PRN (17:56)
[2018-04-19] MEDS ORDERED: DEXTROSE 40% GEL 15 GM TUBE PO PRN ×2 (17:56)
[2018-04-19] MEDS ORDERED: ONDANSETRON HCL INJ/PF 4 MG/2 ML SDV IV PRN (17:56)
[2018-04-19] MEDS ORDERED: DEXTROSE 50%-WATER 25 GM/50 ML DISP.SYRIN IV PRN ×2 (17:56)
[2018-04-19] MEDS ORDERED: HYDROMORPHONE HCL INJ/PF 2 MG/ML AMPULE IV PRN (18:01)
[2018-04-19] MEDS ORDERED: PIPERACILLIN/TAZOBACTAM 3.375 GM VIAL IV PRN (21:02)
[2018-04-19] MEDS ORDERED: DIAZEPAM INJ 10 MG/2 ML DISP.SYRIN IV PRN (21:43)
[2018-04-19] MEDS: FAMOTIDINE INJ/PF 20 MG/2 ML SDV IV SCH (22:00)
[2018-04-19] MEDS: METOPROLOL TARTRATE PF/INJ 5 MG/5 ML SDV IV SCH (22:00)
[2018-04-19] MEDS ORDERED: FENTANYL CITRATE INJ/PF 100 MCG/2 ML AMPUL IV ONE (22:00)
[2018-04-19] MEDS: PANTOPRAZOLE SODIUM 40 MG VIAL IV SCH (22:06)
[2018-04-19] MEDS: DEXTROSE 5%-LACTATED RINGERS 1,000 ML IV PRN (22:10)
[2018-04-19] MEDS ORDERED: PHENOL/SODIUM PHENOLATE 100 SPRAY/177 ML BOTTLE ONE (22:13)
[2018-04-19] MEDS ORDERED: LEVETIRACETAM 500 MG/NACL-ISO 1,000 MG/200 ML RTUPB IV ONE (22:14)
[2018-04-19] MEDS: LEVETIRACETAM 500 MG/NACL-ISO 500 MG/100 ML RTUPB IV SCH (22:32)
[2018-04-19] MEDS: FENTANYL CITRATE INJ/PF 100 MCG/2 ML AMPUL IV PRN (23:56)
[2018-04-19] MEDS: PIPERACILLIN SODIUM/TAZOBACTAM 3.375 GM in NORMAL SALINE 100 ML IV SCH (23:56)
[2018-04-20] MEDS: FENTANYL CITRATE INJ/PF 100 MCG/2 ML AMPUL IV PRN ×10 (02:30→21:41)
[2018-04-20] MEDS: DEXTROSE 5%-LACTATED RINGERS 1,000 ML IV PRN ×2 (04:41→18:00)
[2018-04-20] MEDS: PHENOL/SODIUM PHENOLATE 100 SPRAY/177 ML BOTTLE PO PRN ×2 (04:44→13:33)
[2018-04-20] MEDS: METOPROLOL TARTRATE PF/INJ 5 MG/5 ML SDV IV SCH ×3 (05:04→21:36)
[2018-04-20] MEDS: PIPERACILLIN SODIUM/TAZOBACTAM 3.375 GM in NORMAL SALINE 100 ML IV SCH ×4 (05:06→20:32)
--- NOTE | 2018-04-20 05:46 | Operative Report ---
Nonrecallable Operative Report DATE OF SURGERY: 04/19/18 PREOPERATIVE DIAGNOSIS: 1. acute abdomen. 2. Free intra-abdominal air POSTOPERATIVE DIAGNOSIS: 1. Acute abdomen. 2. Free intra-abdominal air. 3. Perforated gastric ulcer along the greater curvature, posterior gastric surface OPERATION: 1. Exploratory laparotomy. 2. Oversewing of perforated gastric ulcer. 3. Modified Basim patch SURGEON: DAVID FRIEDMAN ANESTHESIA: GA TISSUE REMOVED OR ALTERED: Stomach biopsy COMPLICATIONS: None apparent ESTIMATED BLOOD LOSS: 30 cc PROCEDURE: Drains/implants: 15 Persian round Tyrone drain in the lesser sac. Procedure in detail: After informed consent was obtained, the patient was laid in the supine position in the operating room. The area of the abdomen was prepped and draped in a normal sterile fashion. A vertical midline incision was created from the xiphoid process to the umbilicus. This was done with a 10 blade scalpel. Dissection was carried through the subcutaneous tissue using Bovie electrocautery and blunt dissection. The linea alba fascia was incised sharply the abdomen was entered sharply. Survey of the abdomen was then undertaken. There was a large amount of air, however there was no significant bile staining on the anterior stomach. The duodenum was then inspected. Good visualization could be obtained without a Tati maneuver. No bile staining or air bubbles were seen around the duodenum. Attention was then turned to examination of the posterior stomach. The lesser sac was entered by removing the omentum from the distal transverse colon. The stomach was reflected anteriorly. A perforation was then identified on the posterior aspect of the stomach at the greater curvature. Once the perforation was identified, repair was undertaken. Several pieces of tissue were sharply excised from the margin of the ulcer to ensure there is no malignant component. The edges appeared healthy. The mucosa appeared normal. The defect was closed using 0 silk suture in simple interrupted fashion. An omental pedicle was then mobilized and brought over the area of repair. This omental pedicle was sutured to the stomach wall circumferentially using 3-0 Vicryl suture. Once this was complete, the abdomen was copiously irrigated with saline solution. There was minimal spillage of gastric contents. Once this was complete, a 15 Persian round Tyrone drain was brought out through the right lateral abdomen. The drain was placed into the lesser sac. The drain was sutured in place using 2-0 nylon suture. Attention was then turned to surveying the remainder of the abdomen. The small bowel was run from the ligament of Treitz to the ileocecal valve. No abnormality the small bowel could be identified. The colon was inspected and palpated. No evidence of colonic defect could be identified. Once this was confirmed, attention was turned to closing of the abdomen. The abdominal fascia was reapproximated using #1 Double-Stranded Loop PDS suture in simple running fashion. The overlying skin was closed using skin nadege. Dressings were fashioned, and the procedure was concluded. All sponge, instrument, and needle counts were correct 2. Condition: Fair.
[2018-04-20 07:22] LABS: HEMATOCRIT 39.4 % (36.0-47.0); HEMOGLOBIN 13.6 g/dL (12.0-15.5); MEAN CORPUSCULAR HEMOGLOBIN 30.6 pg (27.0-33.4); MEAN CORPUSCULAR HGB CONC 34.5 g/dL (32.0-36.0); MEAN CORPUSCULAR VOLUME 89 fl (80-97); PLATELET COUNT 200 10^3/uL (150-450); RED BLOOD COUNT 4.45 10^6/uL (3.72-5.28); RED CELL DISTRIBUTION WIDTH 13.8 % (11.5-14.0)
[2018-04-20 07:37] LABS: ALANINE AMINOTRANSFERASE 28 U/L (9-52); ALBUMIN 3.1 g/dL (3.5-5.0); ALKALINE PHOSPHATASE 44 U/L (38-126); ANION GAP 9 (5-19); ASPARTATE AMINO TRANSFERASE 36 U/L (14-36); BILIRUBIN,DIRECT 0.4 mg/dL (0.0-0.4); BILIRUBIN,TOTAL 0.6 mg/dL (0.2-1.3); BLOOD UREA NITROGEN 8 mg/dL (7-20); CALCIUM 8.5 mg/dL (8.4-10.2); CARBON DIOXIDE 24 mmol/L (22-30); CHLORIDE 107 mmol/L (98-107); GLUCOSE 105 mg/dL (75-110); POTASSIUM 4.5 mmol/L (3.6-5.0); TOTAL PROTEIN 5.5 g/dL (6.3-8.2)
[2018-04-20] MEDS: FAMOTIDINE INJ/PF 20 MG/2 ML SDV IV SCH ×2 (09:39→21:30)
[2018-04-20] MEDS: LEVETIRACETAM 500 MG/NACL-ISO 500 MG/100 ML RTUPB IV SCH ×2 (09:39→21:30)
[2018-04-20] MEDS: PANTOPRAZOLE SODIUM 40 MG VIAL IV SCH ×2 (09:40→21:30)
[2018-04-20] MEDS: FLUCONAZOLE 200 MG/NS RTU 200 MG/100 ML RTUPB IV SCH (09:40)
[2018-04-20] MEDS ORDERED: FLUCONAZOLE 100 MG in CONTAINER,EMPTY 1 EACH IV SCH (10:00)
--- NOTE | 2018-04-20 11:56 | PDOC PROGRESS REPORT ---
Subjective Reason For Visit: PERFORATED GASTRIC ULCER Physical Exam Vital Signs: Temp Pulse Resp BP Pulse Ox 97.6 F 64 19 97/48 L 91 L 04/20/18 07:27 04/20/18 07:27 04/20/18 07:27 04/20/18 07:27 04/20/18 07:27 Intake & Output 04/19/18 04/20/18 04/21/18 06:59 06:59 06:59 Intake Total 2440 Output Total 2345 Balance 95 Weight 75.9 kg Results Laboratory Results: 04/20/18 05:58 04/20/18 05:58 04/19/18 04/20/18 04/20/18 14:30 05:58 05:58 WBC 9.0 RBC 4.45 Hgb 13.6 Hct 39.4 MCV 89 MCH 30.6 MCHC 34.5 RDW 13.8 Plt Count 200 Sodium 140.0 Potassium 4.5 Chloride 107 Carbon Dioxide 24 Anion Gap 9 BUN 8 Creatinine 0.68 Est GFR ( Amer) > 60 Est GFR (Non-Af Amer) > 60 Glucose 105 Calcium 8.5 Total Bilirubin 0.6 AST 36 ALT 28 Alkaline Phosphatase 44 Total Protein 5.5 L Albumin 3.1 L Blood Type A POSITIVE Antibody Screen NEGATIVE Impressions: Abdomen/Pelvis CT 04/19/18 00:00 IMPRESSION: 1. Findings consistent with perforated gastric ulcer body of stomach. Massive pneumoperitoneum. Abdomen Ultrasound 04/19/18 10:56 IMPRESSION: FATTY INFILTRATION OF THE LIVER. OTHERWISE, NORMAL RIGHT UPPER QUADRANT ULTRASOUND. Assessment & Plan - Diagnosis (1) Abdominal pain Qualifiers: Abdominal location: right upper quadrant Qualified Code(s): R10.11 - Right upper quadrant pain Is this a current diagnosis for this admission?: Yes (2) Free intraperitoneal air Is this a current diagnosis for this admission?: Yes - Plan Summary Plan Summary: This is a 48-year-old female status post laparotomy for a perforated gastric ulcer. She complains of pain. She has not been out of bed yet. Her urine output is good. Her labs are good. Her NG tube is clamped currently. I have instructed the nursing staff to attach her NG to low continuous suction. Continue current pain medicine. Continue PPI. Continue Lora due to nonambulatory status.
[2018-04-20] MEDS ORDERED: FENTANYL CITRATE INJ/PF 100 MCG/2 ML AMPUL IV ONE (12:00)
[2018-04-20] MEDS ORDERED: ACETAMINOPHEN 1,000 MG/100 ML RTUPB IV ONE (14:00)
[2018-04-21] MEDS: FENTANYL CITRATE INJ/PF 100 MCG/2 ML AMPUL IV PRN ×4 (00:19→23:29)
[2018-04-21] MEDS: PIPERACILLIN SODIUM/TAZOBACTAM 3.375 GM in NORMAL SALINE 100 ML IV SCH ×4 (02:12→21:25)
[2018-04-21] MEDS: DEXTROSE 5%-LACTATED RINGERS 1,000 ML IV PRN ×2 (02:15→23:43)
[2018-04-21] MEDS ORDERED: NALOXONE HCL INJ/PF 0.4 MG/1 ML SDV ONE (05:37)
[2018-04-21] MEDS: METOPROLOL TARTRATE PF/INJ 5 MG/5 ML SDV IV SCH ×3 (05:49→23:33)
[2018-04-21] MEDS ORDERED: ACETAMINOPHEN 1,000 MG/100 ML RTUPB IV ONE (06:00)
[2018-04-21 08:10] LABS: MEAN CORPUSCULAR VOLUME 91 fl (80-97)
[2018-04-21 08:18] LABS: HEMATOCRIT 33.4 % (36.0-47.0); MEAN CORPUSCULAR HEMOGLOBIN 31.1 pg (27.0-33.4); MEAN CORPUSCULAR HGB CONC 34.3 g/dL (32.0-36.0); PLATELET COUNT 166 10^3/uL (150-450); RED BLOOD COUNT 3.69 10^6/uL (3.72-5.28); RED CELL DISTRIBUTION WIDTH 13.5 % (11.5-14.0); WHITE BLOOD COUNT 9.9 10^3/uL (4.0-10.5)
[2018-04-21 08:20] LABS: HEMOGLOBIN 11.5 g/dL (12.0-15.5)
[2018-04-21 08:37] LABS: ANION GAP 8 (5-19); BLOOD UREA NITROGEN 7 mg/dL (7-20); CALCIUM 8.3 mg/dL (8.4-10.2); CARBON DIOXIDE 24 mmol/L (22-30); CHLORIDE 106 mmol/L (98-107); GLUCOSE 176 mg/dL (75-110); POTASSIUM 4.4 mmol/L (3.6-5.0); SODIUM 138.4 mmol/L (137-145)
[2018-04-21 08:52] LABS: ABSOLUTE LYMPHOCYTES# (MANUAL) 0.4 10^3/uL (0.5-4.7); ABSOLUTE MONOCYTES # (MANUAL) 0.9 10^3/uL (0.1-1.4); ABSOLUTE NEUTROPHILS# (MANUAL) 8.6 10^3/uL (1.7-8.2); BASOPHILS % (MANUAL) 0 % (0-2); BURR CELLS SLIGHT; EOSINOPHILS % (MANUAL) 0 % (0-6); LYMPHOCYTES % (MANUAL) 4 % (13-45); MONOCYTES % (MANUAL) 9 % (3-13); OVALOCYTES 1+; POIKILOCYTOSIS 1+; SEGMENTED NEUTROPHILS % (MAN) 87 % (42-78); TOTAL CELLS COUNTED 100; TOXIC GRANULATION 1+
[2018-04-21 08:53] LABS: PLATELET COMMENT ADEQUATE; TEAR DROP CELLS SLIGHT
--- NOTE | 2018-04-21 09:24 | PDOC PROGRESS REPORT ---
Subjective Progress Note for:: 04/21/18 Subjective:: Apparently patient became somnolent early this morning secondary to excessive narcotic consumption that a respiratory alert was called and the patient required Narcan administration. Patient responded appropriately and is remained on the third floor. This morning she arouses answers simple questions and follows commands. Her fentanyl is being held. Reason For Visit: PERFORATED GASTRIC ULCER Physical Exam Vital Signs: Temp Pulse Resp BP Pulse Ox 98.2 F 81 16 89/51 L 98 04/21/18 08:29 04/21/18 08:29 04/21/18 08:29 04/21/18 08:29 04/21/18 08:29 Intake & Output 04/20/18 04/21/18 04/22/18 06:59 06:59 06:59 Intake Total 02728 3457 Output Total 2345 2025 Balance 7955 1432 Weight 75.9 kg 81.5 kg General appearance: PRESENT: other - Somnolent but responsive GI/Abdominal exam: PRESENT: other - Scaphoid; drain in position, serosanguineous discharge; NG tube with minimal output; original operative dressing in position. Results Laboratory Results: 04/21/18 07:26 04/21/18 07:26 04/21/18 04/21/18 07:26 07:26 WBC 9.9 RBC 3.69 L Hgb 11.5 L D Hct 33.4 L MCV 91 MCH 31.1 MCHC 34.3 RDW 13.5 Plt Count 166 Seg Neutrophils % Not Reportable Lymphocytes % Not Reportable Monocytes % Not Reportable Eosinophils % Not Reportable Basophils % Not Reportable Absolute Neutrophils Not Reportable Absolute Lymphocytes Not Reportable Absolute Monocytes Not Reportable Absolute Eosinophils Not Reportable Absolute Basophils Not Reportable Sodium 138.4 Potassium 4.4 Chloride 106 Carbon Dioxide 24 Anion Gap 8 BUN 7 Creatinine 0.97 Est GFR ( Amer) > 60 Est GFR (Non-Af Amer) > 60 Glucose 176 H Calcium 8.3 L Impressions: Abdomen/Pelvis CT 04/19/18 00:00 IMPRESSION: 1. Findings consistent with perforated gastric ulcer body of stomach. Massive pneumoperitoneum. Abdomen Ultrasound 04/19/18 10:56 IMPRESSION: FATTY INFILTRATION OF THE LIVER. OTHERWISE, NORMAL RIGHT UPPER QUADRANT ULTRASOUND. Assessment & Plan - Diagnosis (1) Gastric perforation Is this a current diagnosis for this admission?: Yes Plan: Patient is 2 days status post exploratory laparotomy, repair of posterior gastric perforation, doing well, no complications detected. Recommendations: 1. Discontinue nasogastric tube 2. Get out of bed and ambulating 3. Anticipate catheter removal thereafter 4. Withhold fentanyl and other narcotics until patient functioning satisfactorily; will explore alternative management options. Patient now receiving IV acetaminophen (2) Narcotic dependence, episodic use Is this a current diagnosis for this admission?: Yes
[2018-04-21] MEDS: FAMOTIDINE INJ/PF 20 MG/2 ML SDV IV SCH ×2 (10:04→23:34)
[2018-04-21] MEDS: FLUCONAZOLE 200 MG/NS RTU 200 MG/100 ML RTUPB IV SCH (10:04)
[2018-04-21] MEDS: LEVETIRACETAM 500 MG/NACL-ISO 500 MG/100 ML RTUPB IV SCH ×2 (10:05→23:49)
[2018-04-21] MEDS: PANTOPRAZOLE SODIUM 40 MG VIAL IV SCH ×2 (10:10→23:42)
[2018-04-22] MEDS: PIPERACILLIN SODIUM/TAZOBACTAM 3.375 GM in NORMAL SALINE 100 ML IV SCH ×4 (03:15→20:51)
[2018-04-22] MEDS: METOPROLOL TARTRATE PF/INJ 5 MG/5 ML SDV IV SCH ×3 (05:24→21:42)
[2018-04-22] MEDS: FLUCONAZOLE 200 MG/NS RTU 200 MG/100 ML RTUPB IV SCH (11:19)
[2018-04-22] MEDS: FAMOTIDINE INJ/PF 20 MG/2 ML SDV IV SCH ×2 (11:20→21:42)
[2018-04-22] MEDS: LEVETIRACETAM 500 MG/NACL-ISO 500 MG/100 ML RTUPB IV SCH ×2 (11:21→21:42)
[2018-04-22] MEDS: PANTOPRAZOLE SODIUM 40 MG VIAL IV SCH (11:21)
[2018-04-22] MEDS: FENTANYL CITRATE INJ/PF 100 MCG/2 ML AMPUL IV PRN ×3 (11:39→21:42)
--- NOTE | 2018-04-22 15:07 | PDOC PROGRESS REPORT ---
Subjective Progress Note for:: 04/22/18 Subjective:: Feels okay. Not passing any gas. Belching. Abdomen still distended. Reason For Visit: PERFORATED GASTRIC ULCER Physical Exam Vital Signs: Temp Pulse Resp BP Pulse Ox 98.6 F 81 17 120/66 93 04/22/18 11:50 04/22/18 11:50 04/22/18 11:50 04/22/18 11:50 04/22/18 11:50 Intake & Output 04/21/18 04/22/18 04/23/18 06:59 06:59 06:59 Intake Total 3457 2865 0 Output Total 5 1120 400 Balance 1432 1745 -400 Weight 81.5 kg 81.1 kg General appearance: PRESENT: no acute distress, cooperative Respiratory exam: PRESENT: clear to auscultation yaakov Cardiovascular exam: PRESENT: RRR GI/Abdominal exam: PRESENT: other - Soft, moderately distended, very mild diffuse abdominal tenderness without peritoneal signs. Results Laboratory Results: 04/21/18 07:26 04/21/18 07:26 Impressions: Abdomen/Pelvis CT 04/19/18 00:00 IMPRESSION: 1. Findings consistent with perforated gastric ulcer body of stomach. Massive pneumoperitoneum. Abdomen Ultrasound 04/19/18 10:56 IMPRESSION: FATTY INFILTRATION OF THE LIVER. OTHERWISE, NORMAL RIGHT UPPER QUADRANT ULTRASOUND. Assessment & Plan - Diagnosis (1) Gastric perforation Is this a current diagnosis for this admission?: Yes Plan: Status post omental patch. Patient looks reasonably well although she has evidence of an ileus. Will await bowel function. Patient will need a upper endoscopy when she has healed in the next few weeks to rule out gastric malignancy--discussed the importance of follow-up for this study with the patient.
[2018-04-22] MEDS: DEXTROSE 5%-LACTATED RINGERS 1,000 ML IV PRN (20:51)
[2018-04-23] MEDS: FENTANYL CITRATE INJ/PF 100 MCG/2 ML AMPUL IV PRN ×2 (03:21→12:39)
[2018-04-23] MEDS: PIPERACILLIN SODIUM/TAZOBACTAM 3.375 GM in NORMAL SALINE 100 ML IV SCH ×3 (03:21→14:21)
[2018-04-23] MEDS: METOPROLOL TARTRATE PF/INJ 5 MG/5 ML SDV IV SCH ×3 (06:21→21:28)
[2018-04-23] MEDS: FAMOTIDINE INJ/PF 20 MG/2 ML SDV IV SCH ×2 (11:00→21:28)
[2018-04-23] MEDS: LEVETIRACETAM 500 MG/NACL-ISO 500 MG/100 ML RTUPB IV SCH ×2 (11:01→21:27)
[2018-04-23] MEDS: FLUCONAZOLE 200 MG/NS RTU 200 MG/100 ML RTUPB IV SCH (11:01)
[2018-04-23] MEDS ORDERED: FENTANYL CITRATE INJ/PF 100 MCG/2 ML AMPUL IV PRN (14:44)
[2018-04-23] MEDS ORDERED: PANTOPRAZOLE SODIUM 40 MG VIAL IV ONE (15:00)
[2018-04-23] MEDS: HYDROCODONE/ACETAMINOPHEN 10-325 MG TABLET PO PRN (17:36)
--- NOTE | 2018-04-23 21:03 | Progress Note ---
Provider Note Provider Note: ID Consult Note Asked to review patient's chart by Pharmacy with regard to antifungal therapy. Pt not seen or examined. Reviewed provider reports, VS, labs, imaging reports. Pt had a perforated gastric ulcer along the greater curvature. She required ex- lap, irrigation, omental patch, drain placement. Pt is reported as doing well post-operatively apart from suspected ileus. She has had no fever, hemodynamic instability, or leukocytosis. Antifungal therapy may be warranted if Jaqueline is isolated from intraabdominal cultures in patients with severe community onset or healthcare associated intraabdominal infection. Generally, empirically antifungal therapy is not recommended for intraabdominal infection outside of the setting of critically ill patients with risk factors for fungal infection, and and discontinuation of fluconazole would be appropriate. Byron Hager MD [facility] Infectious Diseases pager [phone]
[2018-04-23] MEDS ORDERED: PANTOPRAZOLE SODIUM 40 MG VIAL IV SCH (22:00)
[2018-04-23] MEDS ORDERED: DIAZEPAM 5 MG TABLET PO PRN (22:19)
--- NOTE | 2018-04-23 22:25 | PDOC PROGRESS REPORT ---
Subjective Reason For Visit: PERFORATED GASTRIC ULCER Physical Exam Vital Signs: Temp Pulse Resp BP Pulse Ox 98.4 F 67 20 123/77 98 04/23/18 19:30 04/23/18 19:30 04/23/18 19:30 04/23/18 19:30 04/23/18 19:30 Intake & Output 04/22/18 04/23/18 04/24/18 06:59 06:59 06:59 Intake Total 2865 1550 989 Output Total 1120 1650 950 Balance 1745 -100 39 Weight 81.1 kg 81.8 kg Results Laboratory Results: 04/21/18 07:26 04/21/18 07:26 Impressions: Abdomen/Pelvis CT 04/19/18 00:00 IMPRESSION: 1. Findings consistent with perforated gastric ulcer body of stomach. Massive pneumoperitoneum. Abdomen Ultrasound 04/19/18 10:56 IMPRESSION: FATTY INFILTRATION OF THE LIVER. OTHERWISE, NORMAL RIGHT UPPER QUADRANT ULTRASOUND. Assessment & Plan - Diagnosis (1) Abdominal pain Qualifiers: Abdominal location: right upper quadrant Qualified Code(s): R10.11 - Right upper quadrant pain Is this a current diagnosis for this admission?: Yes (2) Free intraperitoneal air Is this a current diagnosis for this admission?: Yes (3) Gastric perforation Is this a current diagnosis for this admission?: Yes - Plan Summary Plan Summary: This is a 48-year-old female status post repair of a perforated gastric ulcer. She tolerated clear liquids very well. I will advance her to full liquids today , and transition her to p.o. medications. Her pain is well controlled, and she is ambulating. I have encouraged her to continue coughing and deep breathing.
[2018-04-23] MEDS ORDERED: FAMOTIDINE 20 MG TABLET PO ONE (23:15)
[2018-04-23] MEDS ORDERED: LEVETIRACETAM 500 MG TABLET PO ONE (23:15)
[2018-04-23] MEDS ORDERED: ATENOLOL 50 MG TABLET PO ONE (23:15)
[2018-04-23] MEDS ORDERED: ATENOLOL 50 MG TABLET ONE (23:21)
[2018-04-24] MEDS ORDERED: LANSOPRAZOLE 30 MG TAB.RAP.DR PO SCH (06:00)
--- NOTE | 2018-04-24 09:07 | PDOC PROGRESS REPORT ---
Subjective Progress Note for:: 04/24/18 Subjective:: Feels well. Tolerating liquid diet well. Minimal abdominal discomfort. Reason For Visit: PERFORATED GASTRIC ULCER Physical Exam Vital Signs: Temp Pulse Resp BP Pulse Ox 98.8 F 83 18 121/79 95 04/24/18 03:26 04/24/18 07:00 04/24/18 03:26 04/24/18 03:26 04/24/18 03:26 Intake & Output 04/23/18 04/24/18 04/25/18 06:59 06:59 06:59 Intake Total 1550 1629 Output Total 1650 2380 Balance -100 -751 Weight 81.8 kg 76.6 kg General appearance: PRESENT: no acute distress, cooperative Respiratory exam: PRESENT: clear to auscultation yaakov Cardiovascular exam: PRESENT: RRR GI/Abdominal exam: PRESENT: other - Soft, nondistended, minimal tenderness. Wound clean dry and intact without erythema. Results Laboratory Results: 04/21/18 07:26 04/21/18 07:26 Impressions: Abdomen/Pelvis CT 04/19/18 00:00 IMPRESSION: 1. Findings consistent with perforated gastric ulcer body of stomach. Massive pneumoperitoneum. Abdomen Ultrasound 04/19/18 10:56 IMPRESSION: FATTY INFILTRATION OF THE LIVER. OTHERWISE, NORMAL RIGHT UPPER QUADRANT ULTRASOUND. Assessment & Plan - Diagnosis (1) Gastric perforation Is this a current diagnosis for this admission?: Yes Plan: Status post omental patch. Doing well. Will advance diet.
[2018-04-24] MEDS: HYDROCODONE/ACETAMINOPHEN 10-325 MG TABLET PO PRN (09:33)
[2018-04-24] MEDS ORDERED: FAMOTIDINE 20 MG TABLET PO SCH (10:00)
[2018-04-24] MEDS ORDERED: LEVETIRACETAM 500 MG TABLET PO SCH (10:00)
[2018-04-24] MEDS ORDERED: ATENOLOL 50 MG TABLET PO SCH (10:00)
[2018-04-24 17:42] VITALS: BP 117/73
--- NOTE | 2018-04-25 12:25 | DISCHARGE SUMMARY E ---
Discharge Summary NAME: KRANTHI REDDY : 1970 AGE: 48Y ADMITTED: 04/19/2018 DISCHARGED: 04/24/2018 DISCHARGE DIAGNOSIS: Perforated gastric ulcer. PROCEDURE PERFORMED DURING HOSPITALIZATION: Exploratory laparotomy with oversew of perforated gastric ulcer with modified Basim patch performed by Dr. Dacosta on 04/19/2018. HOSPITAL COURSE: The patient underwent the above mentioned surgery. She did well postoperatively. She had gradual resumption of bowel function and she was tolerating a diet well with minimal abdominal discomfort. Of note, her gastric biopsy demonstrated ulcer with necrotic and inflamed tissue base with no evidence of malignancy. The patient is now being discharged to home in good condition. She is encouraged to stay active and avoid strenuous activity. She may follow a regular diet at home. She is to avoid all alcohol and avoid all NSAIDs. I have discontinued her baby aspirin that she was taking at home. She may resume her other home medications. Additional medications are Prevacid 30 mg 1 p.o. b.i.d. Patient is also placed on a Pred-Prakash for 2 weeks, Percocet 1 p.o. q. 4 hours p.r.n. pain. She will follow up with Dr. Dacosta or Melanie Kwon this coming Saturday for staple removal and to also check up on her progress. I have informed her of the importance of followup EGD when she has healed. She is to call us immediately for any problems. Her drain was pulled prior to discharge. DICTATING PHYSICIAN: SANA GUERRA M.D. [id number] PHY#: [id number] ID: [id number] JOB#: [id number] ACCT: [id number] cc:Fely REGAN M.D. >
== END 2018-04-24 18:14 | disposition home or self-care (01) | DRG 328 ==
LOC: ER 10:22 → EH 14:15 → 5 19:16 → 3S 20:11
PROVIDERS: ADMIT Surgery; ATTEND Surgery
PROC: 0DU607Z Supplement Stomach with Autologous Tissue Substitute, Open Approach (ICD-10-PCS; 2018-04-19)
PROC: 0DQ60ZZ Repair Stomach, Open Approach (ICD-10-PCS; principal; 2018-04-19 15:45)
DX: K25.5 Chronic or unspecified gastric ulcer with perforation (principal); I48.91 Unspecified atrial fibrillation; R40.0 Somnolence; T40.605A Adverse effect of unspecified narcotics, initial encounter; Y92.230 Patient room in hospital as the place of occurrence of the external cause; G43.909 Migraine, unspecified, not intractable, without status migrainosus; G40.909 Epilepsy, unspecified, not intractable, without status epilepticus; I25.2 Old myocardial infarction; Z95.0 Presence of cardiac pacemaker; Z86.711 Personal history of pulmonary embolism; Z86.718 Personal history of other venous thrombosis and embolism; Z79.01 Long term (current) use of anticoagulants; Z79.52 Long term (current) use of systemic steroids; Z79.899 Other long term (current) drug therapy
CPT/HCPCS: 36415; 74177; 76705; 790; 80048; 80053; 81001; 82962; 83690; 85025; 85027; 86850; 86900; 86901; 88305; 88341; 88342; 93005; 93010; 94799; 96374; 99285; J0131; J0330; J1170; J1200; J1450; J1953; J2250; J2310; J2405; J2543; J2704; J3010; J3490; J7030; S0028; S0164

== ENCOUNTER 2018-07-08 05:26 | Day surgery (SDC) | payer MEDICARE, OTHER ==
[2018-07-01 09:44] LABS: HEMATOCRIT 48.7 % (36.0-47.0); HEMOGLOBIN 16.5 g/dL (12.0-15.5); MEAN CORPUSCULAR HEMOGLOBIN 30.5 pg (27.0-33.4); MEAN CORPUSCULAR HGB CONC 33.9 g/dL (32.0-36.0); MEAN CORPUSCULAR VOLUME 90 fl (80-97); PLATELET COUNT 384 10^3/uL (150-450); RED CELL DISTRIBUTION WIDTH 13.4 % (11.5-14.0); WHITE BLOOD COUNT 4.3 10^3/uL (4.0-10.5)
[~2018-07-08 05:26] MED LIST: LACTATED RINGERS 1000 ML IV PRN; LIDOCAINE 0.5% INJ-PF (5 MG/ML) 50 ML SDV SUBCUT PRN
[2018-07-08] MEDS ORDERED: PROPOFOL INJ 200 MG/20 ML VIAL IV ONE (06:43)
[2018-07-08] MEDS ORDERED: FENTANYL CITRATE INJ/PF 100 MCG/2 ML AMPUL ONE (06:43)
[2018-07-08] MEDS ORDERED: LIDOCAINE 2% INJ-PF (20 MG/ML) 10 ML AMPUL ONE (07:06)
[2018-07-08] MEDS ORDERED: PROMETHAZINE HCL INJ 25 MG/1 ML VIAL IV PRN ×2 (08:07)
[2018-07-08] MEDS ORDERED: DIPHENHYDRAMINE HCL 50 MG/ML VIAL IV PRN (08:07)
[2018-07-08] MEDS ORDERED: FENTANYL CITRATE INJ/PF 100 MCG/2 ML AMPUL IV PRN ×3 (08:07)
--- NOTE | 2018-07-08 08:16 | Operative Report ---
Nonrecallable Operative Report DATE OF SURGERY: 07/08/18 PREOPERATIVE DIAGNOSIS: 1. Abdominal pain. 2. History of perforated gastric ulcer. POSTOPERATIVE DIAGNOSIS: 1. & 2. same as above. 3. Gastritis. 4. Reflux esophagitis. 5. Gastric ulcer site completely healed. OPERATION: EGD with biopsy SURGEON: DAVID FRIEDMAN ANESTHESIA: LMAC TISSUE REMOVED OR ALTERED: 1. Antral biopsy. 2. Distal esophagus COMPLICATIONS: None apparent ESTIMATED BLOOD LOSS: Minimal PROCEDURE: Procedure in detail: After informed consent was obtained, the patient was laid in the left lateral decubitus position in the operating room. The endoscope was passed down the oropharynx, down the esophagus, and into the stomach. Immediately there was noted to be gastritis throughout the antrum and body of the stomach. The previous ulcer was identified in the body of the stomach. It appeared completely healed. There was scarring present. The scope was then pushed through the pylorus into the duodenum. The first and second portion of the duodenum appeared normal. The scope was pulled back into the antrum, where biopsy was taken to rule out H pylori infection. A retroflexion maneuver was performed, noting no large hiatal hernias. The scope was then pulled up into the distal esophagus. There was evidence of reflux esophagitis present. Biopsy was taken at the distal esophagus. The scope was then withdrawn up the remainder of the esophagus. The remainder of the esophagus was smooth in contour without masses, lesions, or other abnormalities. The scope was removed from the oropharynx, and the procedure was concluded. All sponge, instrument, and needle counts were correct 2. Condition: Stable.
--- NOTE | 2018-07-08 08:17 | Discharge Summary ---
Discharge Summary (SDC) - Discharge Final Diagnosis: Gastritis and reflux esophagitis Date of Surgery: 07/08/18 Discharge Date: 07/08/18 Condition: Stable Referrals: NISHA WAGNER MD [Primary Care Provider] - Discharge Diet: As Tolerated Respiratory Treatments at Home: Deep Breathing/Coughing, Incentive Spirometer Discharge Activity: Activity As Tolerated Home Care Assistance: None Needed Report the Following to Your Physician Immediately: Shortness of Breath, Nausea , Vomiting, Increase in Pain, Fever over 101 Degrees, Unusual Bleeding, Redness , Swelling, Warmth, Increased Soreness
[2018-07-08] MEDS ORDERED: MIDAZOLAM 2 MG/2 ML INJ ONE (08:25)
[2018-07-08 09:37] VITALS: BP 128/82
== END 2018-07-08 09:35 | disposition home or self-care (01) ==
LOC: END 05:26
PROVIDERS: ATTEND Surgery
DX: K29.50 Unspecified chronic gastritis without bleeding (principal); K21.0 Gastro-esophageal reflux disease with esophagitis; Z87.11 Personal history of peptic ulcer disease; Z09 Encounter for follow-up examination after completed treatment for conditions other than malignant neoplasm; I20.9 Angina pectoris, unspecified; G40.909 Epilepsy, unspecified, not intractable, without status epilepticus; I48.91 Unspecified atrial fibrillation; Z88.5 Allergy status to narcotic agent; Z86.73 Personal history of transient ischemic attack (TIA), and cerebral infarction without residual deficits; I25.2 Old myocardial infarction; Z95.0 Presence of cardiac pacemaker; Z86.711 Personal history of pulmonary embolism; Z88.2 Allergy status to sulfonamides; Z88.1 Allergy status to other antibiotic agents
CPT/HCPCS: 43239; 36415; 85027; 88342 ×2; 88305 ×2; J2250; J3010; J2704; J3490; 813

== ENCOUNTER 2018-08-07 00:07 | Emergency (ER) | payer MEDICARE, OTHER ==
--- NOTE | 2018-08-07 00:36 | RADIOLOGY REPORT (SQ) ---
PROCEDURE: XR CHEST 1 VIEW HISTORY: cp COMPARISON: 12/29/2015 TECHNIQUE: Single projection of the chest was done. FINDINGS: There is stable position of the left-sided pacemaker wires. Chronic prominence of the interstitium is seen in the bilateral lung reynoso . There are no discrete airspace infiltrates, pneumothoraces or pleural effusions. The pulmonary vascularity is normal. The cardiomediastinal silhouette is stable. IMPRESSION: There is no acute pleural-parenchymal process seen in the imaged lung reynoso. Location of Interpretation: Teler[facility]iology
[2018-08-07] MEDS ORDERED: DIAZEPAM INJ 10 MG/2 ML DISP.SYRIN IV ONE (00:39)
[2018-08-07] MEDS ORDERED: LIDOCAINE 5% (700 MG) TRANSDERMAL ADH..PATCH TP ONE (00:39)
[2018-08-07] MEDS ORDERED: KETOROLAC TROMETHAMINE INJ/PF 30 MG/1 ML SDV IV ONE (00:39)
--- NOTE | 2018-08-07 00:46 | ER Document Report ---
ED General - General Chief Complaint: Chest Pain > 30 Stated Complaint: CHEST WALL PAIN Time Seen by Provider: 08/07/18 00:13 Notes: Patient is a 48-year old female with a past medical history of HI, prior pulmonary emboli currently off anticoagulation, pacemaker dependence, multiple psychiatric comorbidities who presents with acute onset of chest pain approximately 45 minutes prior to arrival. The patient describes this as an intermittent, cramping, severe pain into her left chest that goes into her left arm. She has periods that are intermittently pain-free. She states when the pain comes on strongly it does take her breath away but denies distinct pleuritic pain. She is uncertain of whether or not this feels similar to pathologies that she has had in the past. She has not noted that anything seems to improve or worsen her symptoms. Her symptoms did start while she was talking to her son who was having low blood sugar and admits that she was quite anxious during this time. She has not contacted her primary doctor regarding today's concerns. TRAVEL OUTSIDE OF THE [place] IN LAST 30 DAYS: No - Related Data Allergies/Adverse Reactions: clindamycin [Clindamycin] Allergy (Intermediate, Verified 07/01/18 08:16) FACE SWELLING, HIVES moxifloxacin [From Avelox] Allergy (Intermediate, Verified 07/01/18 08:16) FACE SWELLING, HIVES metoclopramide HCl [From Reglan] Allergy (Mild, Verified 07/01/18 08:16) RASH,ITCHING morphine Allergy (Mild, Verified 07/01/18 08:16) HIVES, RASH aprotinin [From Tisseel VH 1.0 ml] Allergy (Verified 07/01/18 08:16) Anaphylaxis calcium [From Tisseel VH 1.0 ml] Allergy (Verified 07/01/18 08:16) Anaphylaxis fibrinogen [From Tisseel VH 1.0 ml] Allergy (Verified 07/01/18 08:16) Anaphylaxis Sulfa (Sulfonamide Antibiotics) Allergy (Verified 07/01/18 08:16) Hives, rash, itching thrombin [From Tisseel VH 1.0 ml] Allergy (Verified 07/01/18 08:16) Anaphylaxis Past Medical History - General Information source: Patient, Relative - Social History Smoking Status: Former Smoker Frequency of alcohol use: None Drug Abuse: None Lives with: Spouse/Significant other Family History: Reviewed & Not Pertinent - Past Medical History Cardiac Medical History: Reports: Hx Atrial Fibrillation - pacemaker, Hx Heart Attack - 2006 Denies: Hx Coronary Artery Disease, Hx Hypertension Pulmonary Medical History: Reports: Hx Pneumonia - Collapsed Lungs, bloot clots : PE, DVT, heart, brain Denies: Hx Asthma, Hx Bronchitis, Hx COPD - Pulm fibrosis, hx pulm edema Neurological Medical History: Reports: Hx Cerebrovascular Accident - L sided weakness r/t stroke , Hx Migraine, Hx Seizures Renal/ Medical History: Reports: Hx Kidney Stones. Denies: Hx Peritoneal Dialysis GI Medical History: Reports: Hx Endoscopy - 2011 and 2017 secondary to GI bleeds Musculoskeletal Medical History: Denies Hx Arthritis Psychiatric Medical History: Denies: Hx Depression Past Surgical History: Reports: Hx Cardiac Surgery - LEFT PACEMAKER, Hx Hysterectomy, Other - IVC filter - Immunizations Hx Diphtheria, Pertussis, Tetanus Vaccination: - Unsure Hx Pneumococcal Vaccination: 11/11/09 Review of Systems - Review of Systems Notes: Constitutional: Negative for fever. HENT: Negative for sore throat. Eyes: Negative for visual changes. Cardiovascular: Positive for chest pain. Respiratory: Negative for shortness of breath. Gastrointestinal: Negative for abdominal pain, vomiting or diarrhea. Genitourinary: Negative for dysuria. Musculoskeletal: Negative for back pain. Skin: Negative for rash. Neurological: Negative for headaches, weakness or numbness. 10 point ROS negative except as marked above and in HPI. Physical Exam - Vital signs Vitals: Resp 16 08/07/ 00:21 Interpretation: Normal Notes: PHYSICAL EXAMINATION: GENERAL: Appears quite anxious, in pain but no distress HEAD: Atraumatic, normocephalic. EYES: Pupils equal round and reactive to light, extraocular movements intact, sclera anicteric, conjunctiva are normal. ENT: nares patent, oropharynx clear without exudates. Moist mucous membranes. NECK: Normal range of motion, supple without lymphadenopathy LUNGS: Breath sounds clear to auscultation bilaterally and equal. No wheezes rales or rhonchi. HEART: Regular rate and rhythm without murmurs ABDOMEN: Soft, nontender, normoactive bowel sounds. No guarding, no rebound. No masses appreciated. EXTREMITIES: Normal range of motion, no pitting or edema. No cyanosis. NEUROLOGICAL: No focal neurological deficits. Moves all extremities spontaneously and on command. PSYCH: Somewhat anxious SKIN: Warm, Dry, normal turgor, no rashes or lesions noted. Course - Re-evaluation Re-evalutation: 08/07/18 00:45 Patient presents quite anxious, complaining of intermittent chest pain with associated shortness of breath and the pain is present. Low clinical suspicion for ACS given clinical history, exam, EKG without ST elevations or depressions. Troponin assay is pending. Primary concern would be for the possibility of a pulmonary embolus as patient did just get off a flight although it was not an extended flight. She has no unilateral leg swelling, no tachypnea, hypoxia or tachycardia. However she does have a history of unprovoked PEs and a d-dimer will therefore be sent to further evaluate. Chest x-ray clear without any evidence of a pneumothorax, perforated esophagus or widened mediastinum. Blood pressures are symmetric in the bilateral upper extremities and very low clinical suspicion for aortic dissection given history and risk factors. 08/07/18 01:53 D-dimer negative. Initial troponin negative. Patient appears clinically improved after receiving diazepam. I suspect a significant component of anxiety however given the patient's prior history of cardiovascular disease, will obtain an additional troponin III hours from the initial to further exclude an acute infarction. She denies any ongoing chest pain. 08/07/18 05:05 Repeat troponin is negative. Patient remains asymptomatic. At this time will discharge with return precautions and follow-up recommendations. Verbal discharge instructions given a the bedside and opportunity for questions given. Medication warnings reviewed. Patient is in agreement with this plan and has verbalized understanding of return precautions and the need for primary care follow-up in the next 24-72 hours. - Vital Signs Vital signs: Temp Pulse Resp BP Pulse Ox 98.2 F 15 95/68 L 98 08/07/18 00:26 08/07/18 05:01 08/07/18 05:00 08/07/18 05:01 - Laboratory Result Diagrams: 08/07/18 00:55 08/07/18 00:55 Laboratory results interpreted by me: 08/07/18 00:55 RDW 14.1 H - Diagnostic Test Radiology reviewed: Image reviewed, Reports reviewed Radiology results interpreted by me: 08/07/18 00:42 Chest x-ray: No acute infiltrate or pneumothorax, pacemaker present - EKG Interpretation by Me Additional EKG results interpreted by me: 08/07/18 00:45 Ventricularly paced rhythm. Rate 69. No ST elevations or depressions. Discharge - Discharge Clinical Impression: Chest pain Qualifiers: Chest pain type: unspecified Qualified Code(s): R07.9 - Chest pain, unspecified Condition: Good Disposition: HOME, SELF-CARE Additional Instructions: You were seen today for chest pain. The exact cause of your pain is unclear. However, based on your cardiac enzyme testing, chest x-ray, and EKG it does not appear that it is from an immediately life-threatening cause at this time. Although your testing here is normal is critical that you follow-up with your primary care physician for continued evaluation of this chest pain and possible stress testing. I recommended you see your physician within the next 24-48 hours to be evaluated for consideration of a stress test. Please return to emergency department immediately if you have worsening of your chest pain, shortness of breath, vomiting, become unable to exert yourself due to pain or difficulty breathing, you pass out, or have any pain that radiates into your arms, jaw, or back. Please also return if you have any additional symptoms that are concerning to you. Referrals: NISHA WAGNER MD [Primary Care Provider] - Follow up as needed
[2018-08-07 01:05] LABS: HEMATOCRIT 37.5 % (36.0-47.0); HEMOGLOBIN 13.1 g/dL (12.0-15.5); MEAN CORPUSCULAR HGB CONC 34.8 g/dL (32.0-36.0); MEAN CORPUSCULAR VOLUME 89 fl (80-97); PLATELET COUNT 279 10^3/uL (150-450); RED BLOOD COUNT 4.21 10^6/uL (3.72-5.28); RED CELL DISTRIBUTION WIDTH 14.1 % (11.5-14.0); WHITE BLOOD COUNT 5.8 10^3/uL (4.0-10.5)
[2018-08-07 01:22] LABS: ANION GAP 9 (5-19); BLOOD UREA NITROGEN 16 mg/dL (7-20); CALCIUM 9.4 mg/dL (8.4-10.2); CARBON DIOXIDE 25 mmol/L (22-30); CHLORIDE 107 mmol/L (98-107); GLUCOSE 81 mg/dL (75-110); POTASSIUM 4.2 mmol/L (3.6-5.0); SODIUM 141.2 mmol/L (137-145)
[2018-08-07] MEDS ORDERED: HALOPERIDOL LACTATE INJ 5 MG/1 ML VIAL IV ONE (03:04)
[2018-08-07 05:52] VITALS: BP 91/47
--- NOTE | 2018-08-08 20:55 | EKG REPORT ---
SEVERITY:- ABNORMAL ECG - ATRIAL FIBRILLATION NONSPECIFIC INTRAVENTRICULAR CONDUCTION DELAY PROBABLE LEFT VENTRICULAR HYPERTROPHY ANTERIOR Q WAVES, POSSIBLY DUE TO LVH : Confirmed by: Charla Becker MD 08-Aug-2018 20:54:50
== END 2018-08-07 05:52 | disposition home or self-care (01) ==
LOC: ER 00:07
DX: R07.89 Other chest pain (principal); F41.9 Anxiety disorder, unspecified; R06.02 Shortness of breath; I25.2 Old myocardial infarction; I48.91 Unspecified atrial fibrillation; Z95.0 Presence of cardiac pacemaker; Z86.711 Personal history of pulmonary embolism; Z88.1 Allergy status to other antibiotic agents; Z88.8 Allergy status to other drugs, medicaments and biological substances; Z88.5 Allergy status to narcotic agent; Z88.2 Allergy status to sulfonamides; Z87.891 Personal history of nicotine dependence
CPT/HCPCS: 93005; 99285; 96374; 96375; 36415; 84703; 85027; 80048; 84484; 85379; 71045; 93010; J3360; J1630; J1885

== ENCOUNTER 2018-11-05 16:17 | Emergency (ER) | payer MEDICARE, OTHER ==
[2018-11-05] MEDS ORDERED: HYDROMORPHONE HCL INJ/PF 2 MG/ML AMPULE IV ONE ×2 (18:01→20:57)
--- NOTE | 2018-11-05 18:35 | ER Document Report ---
ED Medical Screen (RME) - General TRAVEL OUTSIDE OF THE [place] IN LAST 30 DAYS: No <EDILBERTO STEELE - Last Filed: 11/05/18 19:48> <DAMIR SALINAS - Last Filed: 11/05/18 21:41> - General Chief Complaint: Abdominal Pain Stated Complaint: ABDOMINAL PAIN/BLOOD IN STOOL Time Seen by Provider: 11/05/18 17:54 Notes: 48 year old female that presents to the emergency department today with co mplaints of nausea, vomiting, diarrhea, and abdominal swelling. Patient states that she has a history of a job-golden tear. Patient states that she was initially having diarrhea but this has since transitioned to hard black stool. Patient denies dizziness and lightheadedness. I have greeted and performed a rapid initial assessment of this patient. A comprehensive ED assessment and evaluation of the patient, analysis of test results, and completion of the medical decision making process will be conducted by additional ED providers. Review of systems: Cardiovascular: Denies lightheadedness or dizziness. Gastrointestinal: Nausea. Vomiting. Diarrhea. Abdominal bloating. Black stool. PHYSICAL EXAM GENERAL: Alert, interacts well. No acute distress. HEAD: Normocephalic, atraumatic. EYES: Pupils equal, round, and reactive to light. Extraocular movements intact. ENT: Oral mucosa moist, tongue midline. NECK: Full range of motion. Supple. Trachea midline. LUNGS: No respiratory distress. ABDOMEN: Deferred EXTREMITIES: Moves all 4 extremities spontaneously. NEUROLOGICAL: Alert and oriented x3. Normal speech. PSYCH: Normal affect, normal mood. SKIN: Warm, dry, normal turgor. No rashes or lesions noted. (EDILBERTO STEELE) - Related Data Allergies/Adverse Reactions: clindamycin [Clindamycin] Allergy (Intermediate, Verified 11/05/18 16:20) FACE SWELLING, HIVES moxifloxacin [From Avelox] Allergy (Intermediate, Verified 11/05/18 16:20) FACE SWELLING, HIVES metoclopramide HCl [From Reglan] Allergy (Mild, Verified 11/05/18 16:20) RASH,ITCHING morphine Allergy (Mild, Verified 11/05/18 16:20) HIVES, RASH aprotinin [From Tisseel VH 1.0 ml] Allergy (Verified 11/05/18 16:20) Anaphylaxis calcium [From Tisseel VH 1.0 ml] Allergy (Verified 11/05/18 16:20) Anaphylaxis fibrinogen [From Tisseel VH 1.0 ml] Allergy (Verified 11/05/18 16:20) Anaphylaxis ondansetron [From Zofran] Allergy (Verified 11/05/18 16:20) Sulfa (Sulfonamide Antibiotics) Allergy (Verified 11/05/18 16:20) Hives, rash, itching thrombin [From Tisseel VH 1.0 ml] Allergy (Verified 11/05/18 16:20) Anaphylaxis Past Medical History - Social History Chew tobacco use (# tins/day): No Frequency of alcohol use: None Drug Abuse: None Family history: Reviewed & Not Pertinent - Past Medical History Cardiac Medical History: Reports: Hx Atrial Fibrillation - pacemaker, Hx Heart Attack - 2006 Denies: Hx Coronary Artery Disease, Hx Hypertension Pulmonary Medical History: Reports: Hx Pneumonia - Collapsed Lungs, bloot clots: PE, DVT, heart, brain Denies: Hx Asthma, Hx Bronchitis, Hx COPD - Pulm fibrosis, hx pulm edema Neurological Medical History: Reports: Hx Cerebrovascular Accident - L sided weakness r/t stroke , Hx Migraine, Hx Seizures Renal/ Medical History: Reports: Hx Kidney Stones. Denies: Hx Peritoneal Dialysis GI Medical History: Reports: Hx Endoscopy - 2011 and 2016 secondary to GI bleeds Musculoskeltal Medical History: Denies Hx Arthritis Psychiatric Medical History: Denies: Hx Depression Past Surgical History: Reports: Hx Abdominal Surgery - ulcer repair, Hx Cardiac Surgery - LEFT PACEMAKER, Hx Hysterectomy, Hx Oral Surgery - TMJ, Other - IVC filter - Immunizations Hx Diphtheria, Pertussis, Tetanus Vaccination: - Unsure History of Influenza Vaccine for 08/2017 - 01/2018 Season: Yes Influenza Administration Date for 08/2017 - 01/2018 Season: 08/11/17 <EDILBERTO STEELE - Last Filed: 11/05/18 19:48> - Vital signs Vitals: Temp Pulse Resp BP Pulse Ox 98.5 F 70 16 112/80 98 11/05/18 16:42 11/05/18 16:42 11/05/18 16:42 11/05/18 16:42 11/05/18 16:42 Course - Laboratory Result Diagrams: 11/05/18 19:40 11/05/18 19:40 <DAMIR SALINAS - Last Filed: 11/05/18 21:41> - Vital Signs Vital signs: Temp Pulse Resp BP Pulse Ox 98.5 F 70 16 112/80 98 11/05/18 16:42 11/05/18 16:42 11/05/18 16:42 11/05/18 16:42 11/05/18 16:42 - Laboratory Laboratory results interpreted by me: 11/05/18 19:40 Sodium 136.8 L Total Protein 8.5 H Albumin 5.2 H Doctor's Discharge <EDILBERTO STEELE - Last Filed: 11/05/18 19:48> <DAMIR SALINAS - Last Filed: 11/05/18 21:41> - Discharge Referrals: NISHA WAGNER MD [Primary Care Provider] - Follow up as needed
[2018-11-05 19:05] LABS: APPEARANCE,URINE CLEAR; BILIRUBIN,URINE NEGATIVE (NEGATIVE); COLOR,URINE YELLOW; GLUCOSE, URINE NEGATIVE (NEGATIVE); KETONES,URINE NEGATIVE (NEGATIVE); LEUKOCYTE ESTERASE,URINE NEGATIVE (NEGATIVE); NITRITE,URINE NEGATIVE (NEGATIVE); PROTEIN,URINE NEGATIVE (NEGATIVE); URINE SPECIFIC GRAVITY 1.012; UROBILINOGEN,URINE NEGATIVE mg/dL (<2.0)
--- NOTE | 2018-11-05 19:58 | ER Document Report ---
ED GI/ - General Chief Complaint: Abdominal Pain Stated Complaint: ABDOMINAL PAIN/BLOOD IN STOOL Time Seen by Provider: 11/05/18 17:54 Notes: Patient is a 48-year-old female that comes to the emergency department for chief complaint of abdominal pain, abdominal swelling, nausea, and black stools. Stools started yesterday again after resolving several days ago, she has had 2 hard black bowel movement since yesterday. She denies vomiting, fever, chest pain, flank pain. She is not on a blood thinner, she does have a history of peptic ulcers and peptic ulcer perforation earlier this year, she is on Prevacid and Zantac. She states she has not been able to eat today. Remaining medical history includes A. fib, PE, IVC filter, AICD, CVA, hysterectomy. TRAVEL OUTSIDE OF THE [place] IN LAST 30 DAYS: No - Related Data Allergies/Adverse Reactions: clindamycin [Clindamycin] Allergy (Intermediate, Verified 11/05/18 16:20) FACE SWELLING, HIVES moxifloxacin [From Avelox] Allergy (Intermediate, Verified 11/05/18 16:20) FACE SWELLING, HIVES metoclopramide HCl [From Reglan] Allergy (Mild, Verified 11/05/18 16:20) RASH,ITCHING morphine Allergy (Mild, Verified 11/05/18 16:20) HIVES, RASH aprotinin [From Tisseel VH 1.0 ml] Allergy (Verified 11/05/18 16:20) Anaphylaxis calcium [From Tisseel VH 1.0 ml] Allergy (Verified 11/05/18 16:20) Anaphylaxis fibrinogen [From Tisseel VH 1.0 ml] Allergy (Verified 11/05/18 16:20) Anaphylaxis ondansetron [From Zofran] Allergy (Verified 11/05/18 16:20) Sulfa (Sulfonamide Antibiotics) Allergy (Verified 11/05/18 16:20) Hives, rash, itching thrombin [From Tisseel VH 1.0 ml] Allergy (Verified 11/05/18 16:20) Anaphylaxis Past Medical History - General Information source: Patient - Social History Smoking Status: Never Smoker Chew tobacco use (# tins/day): No Frequency of alcohol use: Occasional Drug Abuse: None Lives with: Family Family History: Reviewed & Not Pertinent Patient has suicidal ideation: No Patient has homicidal ideation: No - Past Medical History Cardiac Medical History: Reports: Hx Atrial Fibrillation - pacemaker, Hx Heart Attack - 2006 Denies: Hx Coronary Artery Disease, Hx Hypertension Pulmonary Medical History: Reports: Hx Pneumonia - Collapsed Lungs, bloot clots: PE, DVT, heart, brain Denies: Hx Asthma, Hx Bronchitis, Hx COPD - Pulm fibrosis, hx pulm edema Neurological Medical History: Reports: Hx Cerebrovascular Accident - L sided weakness r/t stroke , Hx Migraine, Hx Seizures Renal/ Medical History: Reports: Hx Kidney Stones. Denies: Hx Peritoneal Dialysis GI Medical History: Reports: Hx Endoscopy - 2011 and 2017 secondary to GI bleeds Musculoskeletal Medical History: Denies Hx Arthritis Psychiatric Medical History: Denies: Hx Depression Past Surgical History: Reports: Hx Abdominal Surgery - ulcer repair, Hx Cardiac Surgery - LEFT PACEMAKER, Hx Hysterectomy, Hx Oral Surgery - TMJ, Other - IVC filter - Immunizations Hx Diphtheria, Pertussis, Tetanus Vaccination: - Unsure Hx Pneumococcal Vaccination: 11/11/09 Review of Systems - Review of Systems Constitutional: No symptoms reported EENT: No symptoms reported Cardiovascular: No symptoms reported Respiratory: No symptoms reported Gastrointestinal: See HPI Genitourinary: No symptoms reported Female Genitourinary: No symptoms reported Musculoskeletal: No symptoms reported Skin: No symptoms reported Hematologic/Lymphatic: No symptoms reported Neurological/Psychological: No symptoms reported Physical Exam - Vital signs Vitals: Temp Pulse Resp BP Pulse Ox 98.5 F 70 16 112/80 98 11/05/18 16:42 11/05/18 16:42 11/05/18 16:42 11/05/18 16:42 11/05/18 16:42 - Notes Notes: GENERAL: Alert, interacts well. Patient intermittently appears very mildly uncomfortable and then this resolves. She is not in distress. HEAD: Normocephalic, atraumatic. EYES: Pupils equal, round, and reactive to light. Extraocular movements intact. ENT: Oral mucosa moist, tongue midline. Oropharynx unremarkable. Airway patent. Nares patent, no nasal septal hematoma, TM's intact. NECK: Full range of motion. Supple. Trachea midline. LUNGS: Clear to auscultation bilaterally, no wheezes, rales, or rhonchi. No respiratory distress. HEART: Regular rate and rhythm. No murmur ABDOMEN: There does appear to be some distention. There is a midline abdominal scar. There is both upper and lower abdominal tenderness without rigidity or particular area of guarding, minimally more tender in the mid right abdomen without specific McBurney's point tenderness.. Quiet bowel sounds. GENITOURINARY: Deferred EXTREMITIES: Moves all 4 extremities spontaneously. No edema, normal radial and dorsalis pedis pulses bilaterally. No cyanosis. BACK: no cervical, thoracic, lumbar midline tenderness. No saddle anesthesia, normal distal neurovascular exam. NEUROLOGICAL: Alert and oriented x3. Normal speech. [cranial nerves II through XII grossly intact]. PSYCH: Normal affect, normal mood. SKIN: Warm, dry, normal turgor. No rashes or lesions noted. Course - Re-evaluation Re-evalutation: On my evaluation patient is intermittently mildly uncomfortable but generally well-appearing. She does appear to have some abdominal distention, she has a midline abdominal scar, she has mild generalized abdominal tenderness worse on the general right mid abdomen but without specific McBurney's point guarding. Her vital signs are unremarkable. Laboratory workup unremarkable including no leukocytosis, normal hemoglobin, unremarkable chemistry. Hemoccult is negative, on my exam patient has some hard stool minimally but no current bleeding, no other concerning findings on rectal exam. CAT scan ordered from triage was reviewed, this shows retained stool but no acute findings. Based on her workup and exam I have a very low suspicion of acute abdomen. I discussed the results of the workup in detail with the patient. Because of the location of the stool I do not feel an enema would be very beneficial, this was offered but declined. Discussed treatment in detail, patient given magnesium citrate, Colace, nausea medication, discussed follow-up and return precautions in detail. Patient states satisfaction and agreement with plan. - Vital Signs Vital signs: Temp Pulse Resp BP Pulse Ox 98.5 F 70 13 114/69 95 11/05/18 16:42 11/05/18 16:42 11/05/18 22:44 11/05/18 22:44 11/05/18 22:44 - Laboratory Result Diagrams: 11/05/18 19:40 11/05/18 19:40 Laboratory results interpreted by me: 11/05/18 19:40 Sodium 136.8 L Total Protein 8.5 H Albumin 5.2 H Discharge - Discharge Clinical Impression: Abdominal pain Qualifiers: Abdominal location: generalized Qualified Code(s): R10.84 - Generalized abdominal pain Condition: Stable Disposition: HOME, SELF-CARE Additional Instructions: At this time there is no blood in your stool and your workup is reassuring. There is a lot of retained stool in your colon, this is the reason for your abdominal swelling and probably the reason for the pain/nausea. I recommend that you take the Carafate in addition to your Prevacid and Zantac, take the Phenergan if needed for nausea. Take the stool softeners as prescribed at least for the next several days, I recommend drinking 1/3-1/2 of the bottle of magnesium citrate, waiting several hours, and then completing if needed. Drink plenty of fluids. Follow-up closely with your primary care provider. Return if you worsen including vomiting, severe worsening pain, fever, or any other concerning or worsening symptoms. Prescriptions: Docusate Sodium [Colace 100 mg Capsule] 100 mg PO ASDIR PRN #30 capsule PRN Reason: Promethazine HCl [Phenergan 25 mg Tablet] 25 mg PO Q6H PRN #20 tablet PRN Reason: Sucralfate [Carafate 1 gm Tablet] 1 gm PO QID #20 tablet Referrals: NISHA WAGNER MD [Primary Care Provider] - Follow up as needed
[2018-11-05 20:07] LABS: ABSOLUTE BASOPHILS # (AUTO) 0.1 10^3/uL (0.0-0.2); ABSOLUTE EOSINOPHILS # (AUTO) 0.2 10^3/uL (0.0-0.6); ABSOLUTE LYMPHOCYTES (AUTO) 2.1 10^3/uL (0.5-4.7); ABSOLUTE MONOCYTES (AUTO) 0.5 10^3/uL (0.1-1.4); ABSOLUTE NEUT (AUTO) 4.7 10^3/uL (1.7-8.2); BASOPHILS % (AUTO) 0.9 % (0-2); EOSINOPHILS % (AUTO) 2.5 % (0-6); HEMOGLOBIN 15.4 g/dL (12.0-15.5); INTERNATIONAL RATION (INR) 0.89; LYMPHOCYTES % (AUTO) 27.4 % (13-45); MEAN CORPUSCULAR HEMOGLOBIN 31.6 pg (27.0-33.4); MEAN CORPUSCULAR HGB CONC 34.2 g/dL (32.0-36.0); MEAN CORPUSCULAR VOLUME 92 fl (80-97); MONOCYTES % (AUTO) 7.1 % (3-13); PLATELET COUNT 300 10^3/uL (150-450); PROTHROMBIN TIME 12.5 SEC (11.4-15.4); RED BLOOD COUNT 4.87 10^6/uL (3.72-5.28); RED CELL DISTRIBUTION WIDTH 13.2 % (11.5-14.0); SEGMENTED NEUTROPHILS % (AUTO) 62.1 % (42-78); TOTAL CELLS COUNTED % (AUTO) 100 %; WHITE BLOOD COUNT 7.6 10^3/uL (4.0-10.5)
[2018-11-05 20:13] LABS: ALANINE AMINOTRANSFERASE 15 U/L (9-52); ALBUMIN 5.2 g/dL (3.5-5.0); ALKALINE PHOSPHATASE 66 U/L (38-126); ANION GAP 12 (5-19); ASPARTATE AMINO TRANSFERASE 25 U/L (14-36); BILIRUBIN,DIRECT 0.3 mg/dL (0.0-0.4); BILIRUBIN,TOTAL 0.7 mg/dL (0.2-1.3); BLOOD UREA NITROGEN 15 mg/dL (7-20); CALCIUM 10.1 mg/dL (8.4-10.2); CARBON DIOXIDE 25 mmol/L (22-30); CHLORIDE 100 mmol/L (98-107); GLUCOSE 83 mg/dL (75-110); POTASSIUM 4.5 mmol/L (3.6-5.0); SODIUM 136.8 mmol/L (137-145); TOTAL PROTEIN 8.5 g/dL (6.3-8.2)
[2018-11-05] MEDS ORDERED: PROMETHAZINE HCL INJ 25 MG/1 ML VIAL IM ONE (20:19)
--- NOTE | 2018-11-05 22:05 | RADIOLOGY REPORT (SQ) ---
EXAM DESCRIPTION: CT ABDOMEN PELVIS WITH IV CONTRAST COMPLETED DATE/TME: 11/05/2018 18:01 CLINICAL HISTORY: 48 years, Female, abd distention, tarry stools, h/o perf ulcer COMPARISON: 04/19/2018 CT TECHNIQUE: 392 Images stored on PACS. All CT scanners at this facility use dose modulation, iterative reconstruction, and/or weight based dosing when appropriate to reduce radiation dose to as low as reasonably achievable (ALARA). [facility]: Dose Right [facility]: CareDose [facility]: Dose Right [facility]: Teradose 4D [facility]: [employer] LIMITATIONS: None. FINDINGS: Limited evaluation of the lung bases shows scarring in each lung base. Osseous structures are grossly intact. Bilateral breast implants are noted. Inferior vena cava filter in place. The visualized liver, spleen, adrenal glands, pancreas, kidneys are unremarkable. The gallbladder is present. No gross evidence for bowel obstruction. Abundant stool in the colon. No free air or free fluid. The appendix is not well seen. No pericecal inflammation to suggest acute appendicitis. IMPRESSION: Negative for acute intra-abdominal/pelvic process. TECHNICAL DOCUMENTATION: Quality ID # 436: Final reports with documentation of one or more dose reduction techniques (e.g., Automated exposure control, adjustment of the mA and/or kV according to patient size, use of iterative reconstruction technique) copyright 2011 [employer]- All Rights Reserved
[2018-11-05] MEDS ORDERED: SUCRALFATE 1 GM TABLET PO ONE (22:33)
[2018-11-05] MEDS ORDERED: MAGNESIUM CITRATE 296 ML BOTTLE PO ONE (22:33)
[2018-11-05 22:47] VITALS: BP 114/69
== END 2018-11-05 22:55 | disposition home or self-care (01) ==
LOC: ER 16:17
DX: R10.84 Generalized abdominal pain (principal); R19.00 Intra-abdominal and pelvic swelling, mass and lump, unspecified site; R11.0 Nausea; R19.5 Other fecal abnormalities; Z79.899 Other long term (current) drug therapy
CPT/HCPCS: 96376; 99284; 96372; 96374; 36415; 83690; 85025; 85610; 82272; 80053; 81001; 74177; J3490; J1170; J2550; A9270

== ENCOUNTER 2018-11-21 08:04 | Day surgery (SDC) | payer MEDICARE, OTHER ==
[~2018-11-21 08:04] MED LIST changes: -LACTATED RINGERS 1000 ML IV PRN; -LIDOCAINE 0.5% INJ-PF (5 MG/ML) 50 ML SDV SUBCUT PRN; +LIDOCAINE 2% INJ-PF (20 MG/ML) 10 ML AMPUL ONE; +MIDAZOLAM 2 MG/2 ML INJ ONE; +PROPOFOL INJ 200 MG/20 ML VIAL IV ONE
[2018-11-21 08:47] LABS: HEMATOCRIT 42.2 % (36.0-47.0); HEMOGLOBIN 14.2 g/dL (12.0-15.5); MEAN CORPUSCULAR HEMOGLOBIN 31.3 pg (27.0-33.4); MEAN CORPUSCULAR HGB CONC 33.7 g/dL (32.0-36.0); MEAN CORPUSCULAR VOLUME 93 fl (80-97); RED BLOOD COUNT 4.55 10^6/uL (3.72-5.28); WHITE BLOOD COUNT 4.5 10^3/uL (4.0-10.5)
[2018-11-21 09:21] LABS: PLATELET COUNT 175 10^3/uL (150-450)
[2018-11-21 09:27] LABS: ANION GAP 7 (5-19); BLOOD UREA NITROGEN 17 mg/dL (7-20); CALCIUM 9.8 mg/dL (8.4-10.2); CARBON DIOXIDE 25 mmol/L (22-30); CHLORIDE 111 mmol/L (98-107); GLUCOSE 85 mg/dL (75-110); POTASSIUM 4.6 mmol/L (3.6-5.0); SODIUM 143.3 mmol/L (137-145)
--- NOTE | 2018-11-21 09:32 | RADIOLOGY REPORT (SQ) ---
EXAM DESCRIPTION: CHEST SINGLE VIEW COMPLETED DATE/TIME: 11/21/2018 9:01 am REASON FOR STUDY: PREOP COMPARISON: 12/29/2015. EXAM PARAMETERS: NUMBER OF VIEWS: One view. TECHNIQUE: Single frontal radiographic view of the chest acquired. RADIATION DOSE: NA LIMITATIONS: None. FINDINGS: LUNGS AND PLEURA: No opacities, masses or pneumothorax. No pleural effusion. MEDIASTINUM AND HILAR STRUCTURES: No masses. Contour normal. HEART AND VASCULAR STRUCTURES: Heart normal in size. Normal vasculature. BONES: No acute findings. HARDWARE: Pacemaker. OTHER: No other significant finding. IMPRESSION: NO ACUTE RADIOGRAPHIC FINDING IN THE CHEST. TECHNICAL DOCUMENTATION: JOB ID: [id number] [employer]- All Rights Reserved Reading location - IP/workstation name: [email or web address]
[2018-11-21] MEDS ORDERED: DIPHENHYDRAMINE HCL 50 MG/ML VIAL IV PRN (10:04)
[2018-11-21] MEDS ORDERED: PROMETHAZINE HCL INJ 25 MG/1 ML VIAL IV PRN ×2 (10:04)
[2018-11-21] MEDS ORDERED: MEPERIDINE HCL/PF INJ 25 MG/1 ML DISP.SYRIN IV PRN (10:04)
[2018-11-21] MEDS ORDERED: DEXTROSE 5%-1/2 NORMAL SALINE 1,000 ML IV PRN (10:45)
[2018-11-21] MEDS ORDERED: ACETAMINOPHEN 325 MG TABLET PO PRN (10:45)
[2018-11-21] MEDS ORDERED: SIMETHICONE 80 MG TAB.CHEW PO PRN (10:46)
[2018-11-21] MEDS ORDERED: PROMETHAZINE HCL INJ 25 MG/1 ML VIAL INJ PRN (10:46)
--- NOTE | 2018-11-21 12:14 | EKG REPORT ---
SEVERITY:- ABNORMAL ECG - ATRIAL-VENTRICULAR DUAL-PACED RHYTHM : Confirmed by: Miguel Hopper MD 21-Nov-2018 12:13:37
--- NOTE | 2018-11-21 12:16 | Operative Report ---
Operative Report DATE OF SURGERY: 11/21/18 Operative Report: The risks benefits and alternatives of the procedure explained to the patient in detail and informed consent is obtained.A GIF Olympus video scope was inserted into the patient's mouth and hypopharynx, the esophagus is identified intubated and insufflated, the scope was then advanced through the esophagus stomach and duodenum, retroflexion maneuver is done, the esophagus stomach and first and second portions of the duodenum examined. PREOPERATIVE DIAGNOSIS: Melena, epigastric pain previous history of peptic ulcer disease POSTOPERATIVE DIAGNOSIS: Schatzki's ring which was broken. Gastritis status post biopsy rule out Helicobacter pylori. No gastric ulcers seen. No active bleeding noted OPERATION: EGD with biopsy SURGEON: FILEMON MEMBRENO ANESTHESIA: LMAC TISSUE REMOVED OR ALTERED: As noted above. COMPLICATIONS: None. ESTIMATED BLOOD LOSS: None. INTRAOPERATIVE FINDINGS: As noted above. PROCEDURE: Patient tolerated the procedure well. No immediate postprocedure complications are noted. Discharged in good condition. Discharge date 11/21/2018. Discharge diet: Regular. Discharge activity: Regular. 2-3-week follow-up to discuss findings. Patient is instructed to call the office or proceed to the emergency room should there be any further problems or questions. I will wait on the pathology.
[2018-11-21 12:24] VITALS: BP 95/59
== END 2018-11-21 11:35 | disposition home or self-care (01) ==
LOC: OROUT 08:04
PROVIDERS: ATTEND Internal Medicine Gastroenterology
DX: K22.2 Esophageal obstruction (principal); K29.50 Unspecified chronic gastritis without bleeding; K92.1 Melena; E78.5 Hyperlipidemia, unspecified; I48.91 Unspecified atrial fibrillation; I49.9 Cardiac arrhythmia, unspecified; G40.901 Epilepsy, unspecified, not intractable, with status epilepticus; I20.9 Angina pectoris, unspecified; I50.9 Heart failure, unspecified; G47.33 Obstructive sleep apnea (adult) (pediatric); G40.909 Epilepsy, unspecified, not intractable, without status epilepticus; Z88.8 Allergy status to other drugs, medicaments and biological substances; Z79.899 Other long term (current) drug therapy; Z95.0 Presence of cardiac pacemaker; Z79.891 Long term (current) use of opiate analgesic; Z88.2 Allergy status to sulfonamides
CPT/HCPCS: 43239; 36415; 85027; 80048; 88305 ×2; 71045; 93005; 93010; J2250; J2704; J3490; 731

== ENCOUNTER 2019-03-14 10:14 | Emergency (ER) | payer MEDICARE, OTHER ==
--- NOTE | 2019-03-14 10:50 | ER Document Report ---
ED Medical Screen (RME) - General Chief Complaint: Chest Pain Stated Complaint: DIFFICULTY BREATHING Time Seen by Provider: 03/14/19 10:38 Primary Care Provider: NISHA WAGNER MD [Primary Care Provider] - Follow up as needed Mode of Arrival: Ambulatory Information source: Patient TRAVEL OUTSIDE OF THE [place] IN LAST 30 DAYS: No - HPI Patient complains to provider of: SADIA Notes: 03/14/19 10:48 Patient is here with complaints of chest pain. The pain started suddenly last evening and is been constant since. Is worse with deep breath and lying flat. Is also worse with exertion. Patient has an extensive history with a history of A. fib, IA, stroke, PE, pneumothorax. She recently had some epidural leaks repaired. She is not on anticoagulants because she has had a gastric ulcer that ruptured in the past. She went to her primary care doctor's office this morning and was sent to the emergency department for evaluation and concern for possible pulmonary embolism. Exam Patient does appear to be uncomfortable. No distress, nontoxic. Lungs clear and equal throughout. Heart sounds normal. Plan CBC, CMP, troponin, CPK, CK-MB, EKG, CTA of the chest. An initial examination was made on the patient as part of the triage process, and it was determined a more comprehensive evaluation was necessary. Initial labs were ordered and patient was transferred to another provider in the ED who assumed care and finished evaluation and plan. - Related Data Allergies/Adverse Reactions: clindamycin [Clindamycin] Allergy (Intermediate, Verified 03/14/19 10:15) FACE SWELLING, HIVES moxifloxacin [From Avelox] Allergy (Intermediate, Verified 03/14/19 10:15) FACE SWELLING, HIVES metoclopramide HCl [From Reglan] Allergy (Mild, Verified 03/14/19 10:15) RASH,ITCHING morphine Allergy (Mild, Verified 03/14/19 10:15) HIVES, RASH aprotinin [From Tisseel VH 1.0 ml] Allergy (Verified 03/14/19 10:15) Anaphylaxis calcium [From Tisseel VH 1.0 ml] Allergy (Verified 03/14/19 10:15) Anaphylaxis fibrinogen [From Tisseel VH 1.0 ml] Allergy (Verified 03/14/19 10:15) Anaphylaxis ondansetron [From Zofran] Allergy (Verified 03/14/19 10:15) Sulfa (Sulfonamide Antibiotics) Allergy (Verified 03/14/19 10:15) Hives, rash, itching thrombin [From Tisseel VH 1.0 ml] Allergy (Verified 03/14/19 10:15) Anaphylaxis Past Medical History - Social History Chew tobacco use (# tins/day): No Frequency of alcohol use: None Drug Abuse: None Family history: Reviewed & Not Pertinent - Past Medical History Cardiac Medical History: Reports: Hx Atrial Fibrillation - pacemaker, Hx Heart Attack - 2006 Denies: Hx Coronary Artery Disease, Hx Hypertension Pulmonary Medical History: Reports: Hx Pneumonia - Collapsed Lungs, bloot clots: PE, DVT, heart, brain Denies: Hx Asthma, Hx Bronchitis, Hx COPD - Pulm fibrosis, hx pulm edema Neurological Medical History: Reports: Hx Cerebrovascular Accident - L sided weakness r/t stroke , Hx Migraine, Hx Seizures Renal/ Medical History: Reports: Hx Kidney Stones. Denies: Hx Peritoneal Dialysis GI Medical History: Reports: Hx Endoscopy - 2011 and 2016 secondary to GI bleeds Musculoskeltal Medical History: Reports Hx Arthritis - JAW Psychiatric Medical History: Denies: Hx Depression Past Surgical History: Reports: Hx Abdominal Surgery - ulcer repair, Hx Cardiac Surgery - LEFT PACEMAKER, Hx Hysterectomy, Hx Oral Surgery - TMJ, Other - IVC filter - Immunizations Hx Diphtheria, Pertussis, Tetanus Vaccination: Yes History of Influenza Vaccine for 08/2017 - 01/2018 Season: Yes Influenza Administration Date for 08/2017 - 01/2018 Season: 08/11/18 Physical Exam - Vital signs Vitals: Temp Pulse Resp BP Pulse Ox 98.4 F 67 16 130/68 H 100 03/14/19 10:25 03/14/19 10:25 03/14/19 10:25 03/14/19 10:25 03/14/19 10:25 Course - Vital Signs Vital signs: Temp Pulse Resp BP Pulse Ox 98.4 F 67 16 130/68 H 100 03/14/19 10:25 03/14/19 10:25 03/14/19 10:25 03/14/19 10:25 03/14/19 10:25 Doctor's Discharge - Discharge Referrals: NISHA WAGNER MD [Primary Care Provider] - Follow up as needed
--- NOTE | 2019-03-14 11:12 | EKG REPORT ---
SEVERITY:- ABNORMAL ECG - SINUS RHYTHM FIRST DEGREE AV BLOCK LVH WITH IVCD AND SECONDARY REPOL ABNRM : Confirmed by: Kelvin Devlin 14-Mar-2019 11:11:51
[2019-03-14 12:10] LABS: ABSOLUTE LYMPHOCYTES (AUTO) 1.4 10^3/uL (0.5-4.7); ABSOLUTE MONOCYTES (AUTO) 0.6 10^3/uL (0.1-1.4); ABSOLUTE NEUT (AUTO) 6.8 10^3/uL (1.7-8.2); BASOPHILS % (AUTO) 0.2 % (0-2); EOSINOPHILS % (AUTO) 0.2 % (0-6); HEMATOCRIT 43.1 % (36.0-47.0); HEMOGLOBIN 14.6 g/dL (12.0-15.5); LYMPHOCYTES % (AUTO) 16.1 % (13-45); MEAN CORPUSCULAR HEMOGLOBIN 30.7 pg (27.0-33.4); MEAN CORPUSCULAR HGB CONC 33.9 g/dL (32.0-36.0); MEAN CORPUSCULAR VOLUME 91 fl (80-97); MONOCYTES % (AUTO) 7.3 % (3-13); PLATELET COUNT 310 10^3/uL (150-450); RED BLOOD COUNT 4.77 10^6/uL (3.72-5.28); RED CELL DISTRIBUTION WIDTH 12.6 % (11.5-14.0); SEGMENTED NEUTROPHILS % (AUTO) 76.2 % (42-78); TOTAL CELLS COUNTED % (AUTO) 100 %; WHITE BLOOD COUNT 8.9 10^3/uL (4.0-10.5)
[2019-03-14] MEDS ORDERED: HYDROMORPHONE HCL INJ/PF 2 MG/ML AMPULE IV ONE ×2 (12:13→13:06)
[2019-03-14 12:30] LABS: ALANINE AMINOTRANSFERASE 36 U/L (9-52); ALBUMIN 4.7 g/dL (3.5-5.0); ALKALINE PHOSPHATASE 69 U/L (38-126); ANION GAP 11 (5-19); ASPARTATE AMINO TRANSFERASE 25 U/L (14-36); BILIRUBIN,DIRECT 0.3 mg/dL (0.0-0.4); BILIRUBIN,TOTAL 0.8 mg/dL (0.2-1.3); BLOOD UREA NITROGEN 16 mg/dL (7-20); CALCIUM 10.1 mg/dL (8.4-10.2); CARBON DIOXIDE 28 mmol/L (22-30); CHLORIDE 103 mmol/L (98-107); CREATINE KINASE 33 U/L (30-135); GLUCOSE 92 mg/dL (75-110); POTASSIUM 4.1 mmol/L (3.6-5.0); SODIUM 141.9 mmol/L (137-145); TOTAL PROTEIN 8.2 g/dL (6.3-8.2)
[2019-03-14 12:40] LABS: CREATINE KINASE MB 0.26 ng/mL (<4.55)
[2019-03-14 12:45] LABS: TROPONIN I < 0.012 ng/mL
[2019-03-14] MEDS ORDERED: ASPIRIN 81 MG TABLET, CHEWABLE PO ONE (13:06)
--- NOTE | 2019-03-14 13:14 | RADIOLOGY REPORT (SQ) ---
EXAM DESCRIPTION: CTA CHEST COMPLETED DATE/TIME: 03/14/2019 1:01 pm REASON FOR STUDY: CP COMPARISON: 12/29/2015 TECHNIQUE: CT scan of the chest performed using helical scanning technique with dynamic intravenous contrast injection. Images reviewed with lung, soft tissue and bone windows. Reconstructed coronal and sagittal MPR images reviewed. Additional 3 dimensional post-processing performed to develop Maximal Intensity Projection images (UT P). All images stored on PACS. All CT scanners at this facility use dose modulation, iterative reconstruction, and/or weight based d osing when appropriate to reduce radiation dose to as low as reasonably achievable (ALARA). [facility]: Dose Right [facility]: CareDose [facility]: Dose Right [facility]: Teradose 4D [facility]: [employer] CONTRAST TYPE AND DOSE: contrast/concentration: Isovue 350.00 mg/ml; Total Contrast Delivered: 69.0 ml; Total Saline Delivered: 80.0 ml Contrast bolus optimized for the pulmonary arteries. Not diagnostic for the aorta. RENAL FUNCTION: GFR > 60. RADIATION DOSE: CT Rad equipment meets quality standard of care and radiation dose reduction techniq ues were employed. CTDIvol: 14.3 - 24.8 mGy. DLP: 507 mGy-cm. . LIMITATIONS: None. FINDINGS: LUNGS AND PLEURA: No pneumothorax. No consolidation or pleural effusions. Similar chroni c interstitial changes bilaterally. A few small calcified granulomas. . AORTA AND GREAT VESSELS: No aneurysm. Contrast bolus not optimized for the aorta. HEART: No pericardial effusion. No significant coronary artery calcifications. PULMONARY ARTERIES: No emboli visualized in the main pulmonary arteries or the segmental branches. HILAR AND MEDIASTINAL STRUCTURES: No identified masses or abnormal nodes. HARDWARE: Cardiac pacer. UPPER ABDOMEN: No significant findings. Limited exam. THYROID AND OTHER SOFT TISSUES: No masses. No adenopathy. BONES: No acute or significant finding. 3D MIPS: Confirm above findings. OTHER: No other significant finding. IMPRESSION: No consolidation or pleural effusions. Similar chronic interstitial changes bilaterally . NO PULMONARY EMBOLI. COMMENT: Quality ID # 436: Final reports with documentation of one or more dose reduction techniques (e.g., Automated exposure control, adjustment of the mA and/or kV according to patient size, use of iterative reconstruction technique) TECHNICAL DOCUMENTATION: JOB ID: [id number] [place]-72 2010 [employer]- All Rights Reserved Reading location - IP/workstation name: [email or web address]
[2019-03-14] MEDS ORDERED: FENTANYL CITRATE INJ/PF 100 MCG/2 ML AMPUL IV ONE (14:05)
[2019-03-14] MEDS ORDERED: METHYLPREDNISOLONE INJ 125 MG/2 ML SDV IV ONE (16:04)
--- NOTE | 2019-03-14 16:10 | ER Document Report ---
ED General - General Chief Complaint: Chest Pain Stated Complaint: DIFFICULTY BREATHING Time Seen by Provider: 03/14/19 10:38 Primary Care Provider: NISHA WAGNER MD [Primary Care Provider] - Follow up as needed Mode of Arrival: Ambulatory Information source: Patient Notes: 49-year-old female with a complex medical history of previous CVA, atrial fibrillation requiring AICD, previous PE, previous [place] presents with left-sided chest pain that started last night while at rest. Patient describes the pain as stabbing, throbbing and worse with deep inspiration. Patient denies any chest wall injury but states that 3 days ago she moved her son out of college and did some significant lifting and packing. TRAVEL OUTSIDE OF THE [place] IN LAST 30 DAYS: No - HPI Onset: Yesterday Onset/Duration: Gradual, Persistent Quality of pain: Stabbing, Throbbing Severity: Moderate Pain Level: 2 Associated symptoms: Body/muscle aches, Chest pain, Hurts to breath, Shortness of breath. denies: Nonproductive cough, Productive cough, Fever, Nausea, Vomiting, Sore throat, Sweating Exacerbated by: Coughing, Deep breathing Relieved by: Denies Similar symptoms previously: Yes Recently seen / treated by doctor: No - Related Data Allergies/Adverse Reactions: clindamycin [Clindamycin] Allergy (Intermediate, Verified 03/14/19 10:15) FACE SWELLING, HIVES moxifloxacin [From Avelox] Allergy (Intermediate, Verified 03/14/19 10:15) FACE SWELLING, HIVES metoclopramide HCl [From Reglan] Allergy (Mild, Verified 03/14/19 10:15) RASH,ITCHING morphine Allergy (Mild, Verified 03/14/19 10:15) HIVES, RASH aprotinin [From Tisseel VH 1.0 ml] Allergy (Verified 03/14/19 10:15) Anaphylaxis calcium [From Tisseel VH 1.0 ml] Allergy (Verified 03/14/19 10:15) Anaphylaxis fibrinogen [From Tisseel VH 1.0 ml] Allergy (Verified 03/14/19 10:15) Anaphylaxis ondansetron [From Zofran] Allergy (Verified 03/14/19 10:15) Sulfa (Sulfonamide Antibiotics) Allergy (Verified 03/14/19 10:15) Hives, rash, itching thrombin [From Tisseel VH 1.0 ml] Allergy (Verified 03/14/19 10:15) Anaphylaxis Past Medical History - General Information source: Patient - Social History Smoking Status: Never Smoker Chew tobacco use (# tins/day): No Frequency of alcohol use: None Drug Abuse: None Lives with: Family Family History: Reviewed & Not Pertinent Patient has suicidal ideation: No Patient has homicidal ideation: No - Past Medical History Cardiac Medical History: Reports: Hx Atrial Fibrillation - pacemaker, Hx Heart Attack - 2006 Denies: Hx Coronary Artery Disease, Hx Hypertension Pulmonary Medical History: Reports: Hx Pneumonia - Collapsed Lungs, bloot clots: PE, DVT, heart, brain Denies: Hx Asthma, Hx Bronchitis, Hx COPD - Pulm fibrosis, hx pulm edema Neurological Medical History: Reports: Hx Cerebrovascular Accident - L sided weakness r/t stroke , Hx Migraine, Hx Seizures Renal/ Medical History: Reports: Hx Kidney Stones. Denies: Hx Peritoneal Dialysis GI Medical History: Reports: Hx Endoscopy - 2011 and 2017 secondary to GI bleeds Musculoskeletal Medical History: Reports Hx Arthritis - JAW Psychiatric Medical History: Denies: Hx Depression Past Surgical History: Reports: Hx Abdominal Surgery - ulcer repair, Hx Cardiac Surgery - LEFT PACEMAKER, Hx Hysterectomy, Hx Oral Surgery - TMJ, Other - IVC filter - Immunizations Hx Diphtheria, Pertussis, Tetanus Vaccination: Yes Hx Pneumococcal Vaccination: 11/11/10 Review of Systems - Review of Systems Notes: REVIEW OF SYSTEMS: CONSTITUTIONAL : Denies fever, chills, or sweats. Denies recent illness. Denies weight loss, recent hospitalizations. EENT: Denies visual changes, eye pain. Denies sore throat, oral lesions, difficulty swallowing. CARDIOVASCULAR: Denies palpitations. Denies lower extremity edema. RESPIRATORY: Denies cough. Denies wheezing. GASTROINTESTINAL: Denies abdominal pain or distention. Denies nausea, vomiting, or diarrhea. Denies blood in vomitus, stools, or per rectum. Denies black, tarry stools. Denies constipation. GENITOURINARY: Denies difficulty urinating, painful urination, frequency, blood in urine, or vaginal discharge. MUSCULOSKELETAL: Denies back or neck pain or stiffness. Denies joint pain or swelling. SKIN: Denies rash, lesions or sores. HEMATOLOGIC : Denies easy bruising or bleeding. LYMPHATIC: Denies swollen glands. NEUROLOGICAL: Denies confusion or altered mental status. Denies loss of consciousness. Denies dizziness or lightheadedness. Denies headache. Denies weakness or paralysis. Denies problems difficulty with ambulation, slurred speech. Denies sensory loss, numbness, or tingling. Denies seizures. PSYCHIATRIC: Denies anxiety or stress. Denies depression, suicidal ideation, or homicidal ideation. Denies visual or auditory hallucinations. Physical Exam - Vital signs Vitals: Temp Pulse Resp BP Pulse Ox 98.4 F 67 16 130/68 H 100 03/14/19 10:25 03/14/19 10:25 03/14/19 10:25 03/14/19 10:03/14/19 10:25 - Notes Notes: PHYSICAL EXAMINATION: GENERAL: Well-appearing, well-nourished and in no acute distress. HEAD: Atraumatic, normocephalic. EYES: Pupils equal round and reactive to light, extraocular movements intact, conjunctiva are normal. ENT: Nares patent, oropharynx clear without exudates. Moist mucous membranes. NECK: Normal range of motion, supple without lymphadenopathy LUNGS: Breath sounds clear to auscultation bilaterally and equal. No wheezes rales or rhonchi. HEART: Regular rate and rhythm without murmurs ABDOMEN: Soft, nontender, nondistended abdomen. No guarding, no rebound. No masses appreciated. Female : deferred Musculoskeletal: Normal range of motion, no pitting or edema. No cyanosis. NEUROLOGICAL: Cranial nerves grossly intact. Normal speech, normal gait. Normal sensory, motor exams PSYCH: Anxious in appearance. SKIN: Warm, Dry, normal turgor, no rashes or lesions noted. Course - Re-evaluation Re-evalutation: 03/14/19 16:45 Laboratory 03/14/19 03/14/19 03/14/19 11:53 11:53 11:53 WBC 8.9 RBC 4.77 Hgb 14.6 Hct 43.1 MCV 91 MCH 30.7 MCHC 33.9 RDW 12.6 Plt Count 310 Seg Neutrophils % 76.2 Lymphocytes % 16.1 Monocytes % 7.3 Eosinophils % 0.2 Basophils % 0.2 Absolute Neutrophils 6.8 Absolute Lymphocytes 1.4 Absolute Monocytes 0.6 Absolute Eosinophils 0.0 Absolute Basophils 0.0 Sodium 141.9 Potassium 4.1 Chloride 103 Carbon Dioxide 28 Anion Gap 11 BUN 16 Creatinine 0.83 Est GFR ( Amer) > 60 Est GFR (Non-Af Amer) > 60 Glucose 92 Calcium 10.1 Total Bilirubin 0.8 Direct Bilirubin 0.3 Neonat Total Bilirubin Not Reportable Neonat Direct Bilirubin Not Reportable Neonat Indirect Bili Not Reportable AST 25 ALT 36 Alkaline Phosphatase 69 Creatine Kinase 33 CK-MB (CK-2) 0.26 Troponin I < 0.012 Total Protein 8.2 Albumin 4.7 03/14/19 15:19 WBC RBC Hgb Hct MCV MCH MCHC RDW Plt Count Seg Neutrophils % Lymphocytes % Monocytes % Eosinophils % Basophils % Absolute Neutrophils Absolute Lymphocytes Absolute Monocytes Absolute Eosinophils Absolute Basophils Sodium Potassium Chloride Carbon Dioxide Anion Gap BUN Creatinine Est GFR ( Amer) Est GFR (Non-Af Amer) Glucose Calcium Total Bilirubin Direct Bilirubin Neonat Total Bilirubin Neonat Direct Bilirubin Neonat Indirect Bili AST ALT Alkaline Phosphatase Creatine Kinase CK-MB (CK-2) Troponin I < 0.012 Total Protein Albumin Chest/Abdomen CTA 03/14/19 10:48 IMPRESSION: No consolidation or pleural effusions. Similar chronic interstitial changes bilaterally. NO PULMONARY EMBOLI. Temp Pulse Resp BP Pulse Ox 98.4 F 67 15 127/78 H 95 03/14/19 10:25 03/14/19 10:25 03/14/19 16:01 03/14/19 16:01 03/14/19 16:01 49-year-old female presents with left-sided chest pain that started yesterday. Vital signs reviewed and within normal limits. Patient does not appear toxic or dehydrated. She is mild Alan anxious and is complaining of severe left-sided chest pain. CBC, CMP, cardiac enzymes including delta troponin are within normal limits. CTA of the chest was obtained and negative for PE, pneumonia, pneumothorax. Patient did receive Dilaudid, fentanyl and on reevaluation states that she has had great improvement in her pain. Patient would likely benefit from anti-inflammatory medications but because of her previous history of GI bleed she is declining this. Patient likely has costochondritis. Patient was given Solu-Medrol and discharged home in stable condition. Patient was evaluated and treated as appropriate for the patient's presenting symptoms and complaint, with consideration of any critical or life threatening conditions that may be associated with their obtained history and exam as noted above. All results were discussed with patient. Patient provided the opportunity to ask questions, and express concerns. Patient was educated on treatments based on their presumed diagnosis as noted above. At this time we will discharge the patient with return precautions and follow-up recommendations. Verbal discharge instructions given a the bedside. Medication warnings reviewed. Patient is in agreement with this plan and has verbalized understanding of return precautions. After careful consideration I feel that that patient can be safely discharged from the emergency department, they were advised to followup with a primary care physician in 2-3 days. Dictation on this chart was performed using voice recognition software and may result in unintended grammatical, spelling, syntax or errors. - Vital Signs Vital signs: Temp Pulse Resp BP Pulse Ox 98.4 F 67 15 127/78 H 95 03/14/19 10:25 03/14/19 10:25 03/14/19 16:01 03/14/19 16:01 03/14/19 16:01 - Laboratory Result Diagrams: 03/14/19 11:53 03/14/19 11:53 - Diagnostic Test Radiology reviewed: Image reviewed, Reports reviewed - EKG Interpretation by Me EKG shows normal: Sinus rhythm Rate: Normal Rhythm: NSR Heart block present: 1st Degree Discharge - Discharge Clinical Impression: Chest wall pain Condition: Good Disposition: HOME, SELF-CARE Instructions: Chest Wall Pain ([facility]), Chest Pain of Unclear Cause ([facility]) Additional Instructions: Follow up with your [id number] hours for further care or return to the ED IMMEDIATELY if symptoms worsen or you have any concerns. If you cannot afford to follow up with your primary care physician a list of low cost clinics have been provided at the end of your discharge papers as well. Most prescribed medications have multiple side effects. The safest thing to do is when filling your prescription speak to your pharmacist regarding possible interactions with your normal home medications and over the counter medications such as Ibuprofen, Tylenol, Benadryl. If you experience any symptoms that cause you discomfort or concern you should discontinue the medication immediately and return to the emergency room or call your primary care physician. Prescriptions: Hydrocodone/Acetaminophen [[place] 5-325 mg Tablet] 1 tab PO Q6H #8 tablet Forms: Elevated Blood Pressure Referrals: NISHA WAGNER MD [Primary Care Provider] - Follow up as needed
[2019-03-14 17:05] VITALS: BP 132/84
== END 2019-03-14 16:30 | disposition home or self-care (01) ==
LOC: ER 10:14
DX: R07.89 Other chest pain (principal); R06.02 Shortness of breath; I44.0 Atrioventricular block, first degree; I48.91 Unspecified atrial fibrillation; Z95.810 Presence of automatic (implantable) cardiac defibrillator; I25.2 Old myocardial infarction; Z87.01 Personal history of pneumonia (recurrent); Z86.711 Personal history of pulmonary embolism; Z88.1 Allergy status to other antibiotic agents; Z88.8 Allergy status to other drugs, medicaments and biological substances; Z88.5 Allergy status to narcotic agent; Z88.2 Allergy status to sulfonamides; Z87.19 Personal history of other diseases of the digestive system
CPT/HCPCS: 93005; 96376; 99285; 96374; 96375; 36415; 82553; 82550; 85025; 80053; 84484; 71275; 93010; J3010; J2930; J1170

== ENCOUNTER 2019-03-30 12:44 | Inpatient (IN) | payer MEDICARE, OTHER ==
--- NOTE | 2019-03-30 13:21 | ER Document Report ---
ED Medical Screen (RME) - General Chief Complaint: Shortness Of Breath Stated Complaint: BLOOD PRESSURE ISSUES Time Seen by Provider: 03/30/19 13:13 Primary Care Provider: NISHA WAGNER MD [Primary Care Provider] - Follow up as needed Mode of Arrival: Ambulatory Information source: Patient TRAVEL OUTSIDE OF THE [place] IN LAST 30 DAYS: No - HPI Patient complains to provider of: CHEST PRESSURE, TACHYCARDIA, HTN Notes: 03/30/19 13:19 Patient here with complaints of some chest pressure as well as elevated blood pressure and heart rate. The patient has an extensive medical history. She has a history of A. fib as well as multiple clots. She is currently not on anticoagulants because she had a recent ruptured gastric ulcer. Patient states that her blood pressure and heart rate have been elevated which is not normal for her. She does have a dual chamber pacemaker in place. She states that her heart rate was getting up into the 120s and her blood pressure was in the 150s. She typically has a heart rate of 60 and low blood pressure in the 80s to 90s. She talked this over with her hot room attendant who recommended she come the emergency department to be evaluated. Exam No distress, nontoxic-appearing. Lungs clear and equal throughout. Heart sounds normal. Plan CBC, CMP, CPK, CK-MB, coags, troponin, TSH, mag, EKG, chest x-ray, CTA of the chest. An initial examination was made on the patient as part of the triage process, and it was determined a more comprehensive evaluation was necessary. Initial labs were ordered and patient was transferred to another provider in the ED who assumed care and finished evaluation and plan. - Related Data Allergies/Adverse Reactions: clindamycin [Clindamycin] Allergy (Intermediate, Verified 03/14/19 10:15) FACE SWELLING, HIVES moxifloxacin [From Avelox] Allergy (Intermediate, Verified 03/14/19 10:15) FACE SWELLING, HIVES metoclopramide HCl [From Reglan] Allergy (Mild, Verified 03/14/19 10:15) RASH,ITCHING morphine Allergy (Mild, Verified 03/14/19 10:15) HIVES, RASH aprotinin [From Tisseel VH 1.0 ml] Allergy (Verified 03/14/19 10:15) Anaphylaxis calcium [From Tisseel VH 1.0 ml] Allergy (Verified 03/14/19 10:15) Anaphylaxis fibrinogen [From Tisseel VH 1.0 ml] Allergy (Verified 03/14/19 10:15) Anaphylaxis ondansetron [From Zofran] Allergy (Verified 03/14/19 10:15) Sulfa (Sulfonamide Antibiotics) Allergy (Verified 03/14/19 10:15) Hives, rash, itching thrombin [From Tisseel VH 1.0 ml] Allergy (Verified 03/14/19 10:15) Anaphylaxis Past Medical History - Social History Family history: Reviewed & Not Pertinent - Past Medical History Cardiac Medical History: Reports: Hx Atrial Fibrillation - pacemaker, Hx Heart Attack - 2006 Denies: Hx Coronary Artery Disease, Hx Hypertension Pulmonary Medical History: Reports: Hx Pneumonia - Collapsed Lungs, bloot clots: PE, DVT, heart, brain Denies: Hx Asthma, Hx Bronchitis, Hx COPD - Pulm fibrosis, hx pulm edema Neurological Medical History: Reports: Hx Cerebrovascular Accident - L sided weakness r/t stroke , Hx Migraine, Hx Seizures Renal/ Medical History: Reports: Hx Kidney Stones. Denies: Hx Peritoneal Dialysis GI Medical History: Reports: Hx Endoscopy - 2011 and 2017 secondary to GI bleeds Musculoskeltal Medical History: Reports Hx Arthritis - JAW Psychiatric Medical History: Denies: Hx Depression Past Surgical History: Reports: Hx Abdominal Surgery - ulcer repair, Hx Cardiac Surgery - LEFT PACEMAKER, Hx Hysterectomy, Hx Oral Surgery - TMJ, Other - IVC filter - Immunizations Hx Diphtheria, Pertussis, Tetanus Vaccination: Yes History of Influenza Vaccine for 08/2017 - 01/2018 Season: Yes Influenza Administration Date for 08/2017 - 01/2018 Season: 08/11/18 Physical Exam - Vital signs Vitals: Temp Pulse Resp BP Pulse Ox 98.3 F 66 16 135/86 H 100 03/30/19 13:08 03/30/19 13:08 03/30/19 13:08 03/30/19 13:08 03/30/19 13:08 Course - Vital Signs Vital signs: Temp Pulse Resp BP Pulse Ox 98.3 F 66 16 135/86 H 100 03/30/19 13:08 03/30/19 13:08 03/30/19 13:08 03/30/19 13:08 03/30/19 13:08 Doctor's Discharge - Discharge Referrals: NISHA WAGNER MD [Primary Care Provider] - Follow up as needed
--- NOTE | 2019-03-30 13:43 | RADIOLOGY REPORT (SQ) ---
EXAM DESCRIPTION: CHEST 2 VIEWS COMPLETED DATE/TIME: 03/30/2019 1:29 pm REASON FOR STUDY: shortness of breath COMPARISON: 11/21/2018 EXAM PARAMETERS: NUMBER OF VIEWS: two views TECHNIQUE: Digital Frontal and Lateral radiographic views of the chest acquired. RADIATION DOSE: NA LIMITATIONS: none FINDINGS: LUNGS AND PLEURA: Mild chronic interstitial changes. No infiltrate, effusion, or mass. MEDIASTINUM AND HILAR STRUCTURES: No masses or contour abnormalities. HEART AND VASCULAR STRUCTURES: Heart normal size. No evidence for failure. BONES: No acute findings. HARDWARE: Pacemaker. OTHER: No other significant finding. IMPRESSION: NO ACUTE RADIOGRAPHIC FINDING IN THE CHEST. TECHNICAL DOCUMENTATION: JOB ID: [id number] [employer]- All Rights Reserved Reading location - IP/workstation name: [email or web address]
[2019-03-30 14:58] LABS: ABSOLUTE BASOPHILS # (AUTO) 0.1 10^3/uL (0.0-0.2); ABSOLUTE EOSINOPHILS # (AUTO) 0.1 10^3/uL (0.0-0.6); ABSOLUTE LYMPHOCYTES (AUTO) 1.8 10^3/uL (0.5-4.7); ABSOLUTE MONOCYTES (AUTO) 0.5 10^3/uL (0.1-1.4); ABSOLUTE NEUT (AUTO) 3.7 10^3/uL (1.7-8.2); BASOPHILS % (AUTO) 1.1 % (0-2); HEMATOCRIT 44.5 % (36.0-47.0); HEMOGLOBIN 14.9 g/dL (12.0-15.5); LYMPHOCYTES % (AUTO) 29.3 % (13-45); MEAN CORPUSCULAR HEMOGLOBIN 30.4 pg (27.0-33.4); MEAN CORPUSCULAR HGB CONC 33.5 g/dL (32.0-36.0); MEAN CORPUSCULAR VOLUME 91 fl (80-97); MONOCYTES % (AUTO) 8.2 % (3-13); RED BLOOD COUNT 4.91 10^6/uL (3.72-5.28); RED CELL DISTRIBUTION WIDTH 13.2 % (11.5-14.0); SEGMENTED NEUTROPHILS % (AUTO) 60.4 % (42-78); TOTAL CELLS COUNTED % (AUTO) 100 %; WHITE BLOOD COUNT 6.1 10^3/uL (4.0-10.5)
[2019-03-30 15:16] LABS: CREATINE KINASE MB 0.65 ng/mL (<4.55)
[2019-03-30 15:20] LABS: TROPONIN I 0.013 ng/mL
[2019-03-30 15:22] LABS: PLATELET COUNT 210 10^3/uL (150-450)
[2019-03-30 15:44] LABS: INTERNATIONAL RATION (INR) 0.85
--- NOTE | 2019-03-30 15:44 | ER Document Report ---
ED General - General Chief Complaint: Shortness Of Breath Stated Complaint: BLOOD PRESSURE ISSUES Time Seen by Provider: 03/30/19 13:13 Primary Care Provider: NISHA WAGNER MD [Primary Care Provider] - Follow up as needed Mode of Arrival: Ambulatory TRAVEL OUTSIDE OF THE [place] IN LAST 30 DAYS: No - HPI Notes: Patient is a 49-year-old female that presents to the emergency department for chief complaint of chest pain and shortness of breath. Patient reports she has had increased shortness of breath over the last week. She was unable to get into her primary care doctor for close outpatient evaluation. She began having chest heaviness that started yesterday. She reports the heaviness radiates into her left shoulder and left arm. She states intermittent paresthesias in her left fingertips. She denies any pain with inspiration or breathing but states she does feel short of breath and feels like she cannot catch her breath. She has a dual chamber pacemaker and history of atrial fibrillation. Patient had ruptured gastric ulcer in April 2018 requiring gastric surgery and for that reason is not on oral anticoagulation. She does also have a history of stroke, DVT, and PE. She denies any lower extremity edema or pain. She denies cough congestion fevers and chills. Patient also reports intermittent palpitations and tachycardia over the last few days. Past Medical History: Atrial fibrillation, stroke, history of DVT/PE, gastric ulcer Past Surgical History: Partial gastrectomy, dual-chamber pacemaker Social History: Denies drugs alcohol and tobacco Family History: Reviewed and noncontributory for presenting illness Allergies: Reviewed, see documented allergy list. REVIEW OF SYSTEMS: CONSTITUTIONAL : No fever No chills No diaphoresis No recent illness EENT: No vision changes No congestion No sore throat CARDIOVASCULAR: chest pain palpitations RESPIRATORY: shortness of breath No cough difficulty breathing GASTROINTESTINAL: No abdominal pain No nausea No vomiting No diarrhea GENITOURINARY: No dysuria No hematuria No difficulty urinating MUSCULOSKELETAL: No back pain No leg pain No arm pain SKIN: No rashes No lesions LYMPHATIC: No swollen, enlarged glands. NEUROLOGICAL: No lightheadedness No headache No weakness No paresthesias PSYCHIATRIC: No anxiety No depression PHYSICAL EXAMINATION: Vital signs reviewed, nursing noted reviewed. GENERAL: Well-appearing, well-nourished and in no acute distress. HEAD: Atraumatic, normocephalic. EYES: Eyes appear normal, extraocular movements intact, sclera anicteric, conjunctiva are normal. ENT: nares patent, oropharynx clear without exudates. Moist mucous membranes. NECK: Normal range of motion, supple without lymphadenopathy LUNGS: Breath sounds clear to auscultation bilaterally and equal. No wheezes rales or rhonchi. HEART: Regular rate and rhythm without murmurs. +2/4 bilateral radial and DP pu lses ABDOMEN: Soft, nontender, normoactive bowel sounds. No rebound, guarding, or rigidity. No masses appreciated. EXTREMITIES: Nontender, good range of motion, no pitting or edema. Negative Homans sign bilaterally. NEUROLOGICAL: No focal neurological deficits. Moves all extremities spontaneous ly Motor and sensory grossly intact on exam. PSYCH: Normal mood, normal affect. SKIN: Warm, Dry, normal turgor, no rashes or lesions noted on exposed skin - Related Data Allergies/Adverse Reactions: clindamycin [Clindamycin] Allergy (Intermediate, Verified 03/14/19 10:15) FACE SWELLING, HIVES moxifloxacin [From Avelox] Allergy (Intermediate, Verified 03/14/19 10:15) FACE SWELLING, HIVES metoclopramide HCl [From Reglan] Allergy (Mild, Verified 03/14/19 10:15) RASH,ITCHING morphine Allergy (Mild, Verified 03/14/19 10:15) HIVES, RASH aprotinin [From Tisseel VH 1.0 ml] Allergy (Verified 03/14/19 10:15) Anaphylaxis calcium [From Tisseel VH 1.0 ml] Allergy (Verified 03/14/19 10:15) Anaphylaxis fibrinogen [From Tisseel VH 1.0 ml] Allergy (Verified 03/14/19 10:15) Anaphylaxis ondansetron [From Zofran] Allergy (Verified 03/14/19 10:15) Sulfa (Sulfonamide Antibiotics) Allergy (Verified 03/14/19 10:15) Hives, rash, itching thrombin [From Tisseel VH 1.0 ml] Allergy (Verified 03/14/19 10:15) Anaphylaxis Past Medical History - General Information source: Patient - Social History Smoking Status: Never Smoker Chew tobacco use (# tins/day): No Frequency of alcohol use: None Drug Abuse: None Family History: Reviewed & Not Pertinent Patient has suicidal ideation: No Patient has homicidal ideation: No - Past Medical History Cardiac Medical History: Reports: Hx Atrial Fibrillation - pacemaker, Hx Heart Attack - 2006 Denies: Hx Coronary Artery Disease, Hx Hypertension Pulmonary Medical History: Reports: Hx Pneumonia - Collapsed Lungs, bloot clots: PE, DVT, heart, brain Denies: Hx Asthma, Hx Bronchitis, Hx COPD - Pulm fibrosis, hx pulm edema Neurological Medical History: Reports: Hx Cerebrovascular Accident - L sided weakness r/t stroke , Hx Migraine, Hx Seizures Renal/ Medical History: Reports: Hx Kidney Stones. Denies: Hx Peritoneal Dialysis GI Medical History: Reports: Hx Endoscopy - 2011 and 2017 secondary to GI bleeds Musculoskeletal Medical History: Reports Hx Arthritis - JAW Psychiatric Medical History: Denies: Hx Depression Past Surgical History: Reports: Hx Abdominal Surgery - ulcer repair, Hx Cardiac Surgery - LEFT PACEMAKER, Hx Hysterectomy, Hx Oral Surgery - TMJ, Other - IVC filter - Immunizations Hx Diphtheria, Pertussis, Tetanus Vaccination: Yes Hx Pneumococcal Vaccination: 11/11/10 Physical Exam - Vital signs Vitals: Temp Pulse Resp BP Pulse Ox 98.3 F 66 16 135/86 H 100 03/30/19 13:08 03/30/19 13:08 03/30/19 13:08 03/30/19 13:08 03/30/19 13:08 Course - Re-evaluation Re-evalutation: 03/30/19 15:44 Vitals reviewed. Nursing notes reviewed. Patient was given aspirin for her complaint of chest pain. 03/30/19 16:47 Patient reevaluated and is still complaining of some discomfort in her chest. She states she is allergic to morphine and gets short of breath with fentanyl. She is requesting the pain medication that starts with "D". Patient will be given a one-time dose of Dilaudid but was told that it may not be given to her as an inpatient. Her initial work-up is unremarkable. She has a negative troponin. Patient CT scan shows no acute pulmonary embolism. She does have some scarring in her lungs which she states she knows about. Patient has significant risk factors for heart disease and will be admitted to the hospital for observation and continued cardiac monitoring. Patient's care discussed with Dr. Hernandez who accepted admission. Patient in agreement with plan of care and stable at time of admission. Laboratory 03/30/19 03/30/19 03/30/19 14:38 14:38 14:38 WBC 6.1 RBC 4.91 Hgb 14.9 Hct 44.5 MCV 91 MCH 30.4 MCHC 33.5 RDW 13.2 Plt Count 210 Seg Neutrophils % 60.4 Lymphocytes % 29.3 Monocytes % 8.2 Eosinophils % 1.0 Basophils % 1.1 Absolute Neutrophils 3.7 Absolute Lymphocytes 1.8 Absolute Monocytes 0.5 Absolute Eosinophils 0.1 Absolute Basophils 0.1 PT INR Sodium 141.6 Potassium 4.2 Chloride 100 Carbon Dioxide 27 Anion Gap 15 BUN 10 Creatinine 0.90 Est GFR ( Amer) > 60 Est GFR (Non-Af Amer) > 60 Glucose 85 Calcium 11.3 H Magnesium 2.5 H Total Bilirubin 1.2 Direct Bilirubin 0.4 Neonat Total Bilirubin Not Reportable Neonat Direct Bilirubin Not Reportable Neonat Indirect Bili Not Reportable AST 34 ALT 27 Alkaline Phosphatase 70 Creatine Kinase 63 CK-MB (CK-2) 0.65 Troponin I 0.013 Total Protein 10.7 H Albumin 5.9 H TSH 03/30/19 03/30/19 14:38 15:13 WBC RBC Hgb Hct MCV MCH MCHC RDW Plt Count Seg Neutrophils % Lymphocytes % Monocytes % Eosinophils % Basophils % Absolute Neutrophils Absolute Lymphocytes Absolute Monocytes Absolute Eosinophils Absolute Basophils PT 12.0 INR 0.85 Sodium Potassium Chloride Carbon Dioxide Anion Gap BUN Creatinine Est GFR ( Amer) Est GFR (Non-Af Amer) Glucose Calcium Magnesium Total Bilirubin Direct Bilirubin Neonat Total Bilirubin Neonat Direct Bilirubin Neonat Indirect Bili AST ALT Alkaline Phosphatase Creatine Kinase CK-MB (CK-2) Troponin I Total Protein Albumin TSH 0.69 Chest X-Ray 03/30/19 00:00 IMPRESSION: NO ACUTE RADIOGRAPHIC FINDING IN THE CHEST. Chest/Abdomen CTA 03/30/19 13:18 IMPRESSION: NORMAL CTA OF THE CHEST. NO PULMONARY EMBOLI. Mild pulmonary scarring. - Vital Signs Vital signs: Temp Pulse Resp BP Pulse Ox 98.3 F 66 16 135/86 H 100 03/30/19 13:08 03/30/19 13:08 03/30/19 13:08 03/30/19 13:08 03/30/19 13:08 - Laboratory Result Diagrams: 03/30/19 14:38 03/30/19 14:38 Laboratory results interpreted by me: 03/30/19 14:38 Calcium 11.3 H Magnesium 2.5 H Total Protein 10.7 H Albumin 5.9 H - EKG Interpretation by Me Additional EKG results interpreted by me: 03/30/19 15:43 Interpreted by myself 1303: Atrially paced, rate 66, normal axis, left bundle branch block, no STEMI Discharge - Discharge Clinical Impression: Chest pain Qualifiers: Chest pain type: unspecified Qualified Code(s): R07.9 - Chest pain, unspecified Condition: Stable Disposition: ADMITTED OBSERVATION Admitting Provider: Mary (Hospitalist) Unit Admitted: Telemetry Referrals: NISHA WAGNER MD [Primary Care Provider] - Follow up as needed
[2019-03-30 15:51] LABS: ALANINE AMINOTRANSFERASE 27 U/L (9-52); ALBUMIN 5.9 g/dL (3.5-5.0); ALKALINE PHOSPHATASE 70 U/L (38-126); ANION GAP 15 (5-19); ASPARTATE AMINO TRANSFERASE 34 U/L (14-36); BILIRUBIN,DIRECT 0.4 mg/dL (0.0-0.4); BILIRUBIN,TOTAL 1.2 mg/dL (0.2-1.3); BLOOD UREA NITROGEN 10 mg/dL (7-20); CALCIUM 11.3 mg/dL (8.4-10.2); CARBON DIOXIDE 27 mmol/L (22-30); CHLORIDE 100 mmol/L (98-107); CREATINE KINASE 63 U/L (30-135); GLUCOSE 85 mg/dL (75-110); POTASSIUM 4.2 mmol/L (3.6-5.0); SODIUM 141.6 mmol/L (137-145); TOTAL PROTEIN 10.7 g/dL (6.3-8.2)
--- NOTE | 2019-03-30 16:29 | RADIOLOGY REPORT (SQ) ---
EXAM DESCRIPTION: CTA CHEST COMPLETED DATE/TIME: 03/30/2019 4:16 pm REASON FOR STUDY: TACHYCARDIA, CHEST PRESSURE, HX OF CLOTS COMPARISON: 03/14/2019 TECHNIQUE: CT scan of the chest performed using helical scanning technique with dynamic intravenous contrast injection. Images reviewed with lung, soft tissue and bone windows. Reconstructed coronal and sagittal MPR images reviewed. Additional 3 dimensional post-processing performed to develop Maximal Intensity Projection images (AL P). All images stored on PACS. All CT scanners at this facility use dose modulation, iterative reconstruction, and/or weight based d osing when appropriate to reduce radiation dose to as low as reasonably achievable (ALARA). [facility]: Dose Right [facility]: CareDose [facility]: Dose Right [facility]: Teradose 4D [facility]: [employer] CONTRAST TYPE AND DOSE: contrast/concentration: Isovue 350.00 mg/ml; Total Contrast Delivered: 70.0 ml; Total Saline Delivered: 80.0 ml Contrast bolus optimized for the pulmonary arteries. Not diagnostic for the aorta. RENAL FUNCTION: BUN 16 creatinine 0.83 RADIATION DOSE: CT Rad equipment meets quality standard of care and radiation dose reduction techniq ues were employed. CTDIvol: 14.3 - 19.8 mGy. DLP: 537 mGy-cm. . LIMITATIONS: None. FINDINGS: LUNGS AND PLEURA: There appears to be some anterior scarring bilaterally. No focal infilt rate, pleural effusion, or mass. AORTA AND GREAT VESSELS: No aneurysm. Contrast bolus not optimized for the aorta. HEART: No pericardial effusion. No significant coronary artery calcifications. PULMONARY ARTERIES: No emboli visualized in the main pulmonary arteries or the segmental branches. HILAR AND MEDIASTINAL STRUCTURES: No identified masses or abnormal nodes. HARDWARE: None in the chest. UPPER ABDOMEN: No significant findings. Limited exam. THYROID AND OTHER SOFT TISSUES: No masses. No adenopathy. BONES: No acute or significant finding. 3D MIPS: Confirm above findings. OTHER: No other significant finding. IMPRESSION: NORMAL CTA OF THE CHEST. NO PULMONARY EMBOLI. Mild pulmonary scarring. COMMENT: Quality ID # [id number]: Final reports with documentation of one or more dose reduction techniques (e.g., Automated exposure control, adjustment of the mA and/or kV according to patient size, use of iterative reconstruction technique) TECHNICAL DOCUMENTATION: JOB ID: [id number]- All Rights Reserved Reading location - IP/workstation name: [email or web address]
[2019-03-30] MEDS ORDERED: HYDROMORPHONE HCL INJ/PF 2 MG/ML AMPULE IV ONE (16:47)
[2019-03-30] MEDS: ASPIRIN 325 MG TABLET PO ONE ×2 (17:42→17:45)
[2019-03-30] MEDS ORDERED: DEXTROSE 5%-WATER 1000 ML 1,000 ML with SODIUM BICARBONATE 150 MEQ IV PRN ×2 (17:45)
--- NOTE | 2019-03-30 17:45 | PDOC H&P ---
History of Present Illness Admission Date/PCP: 03/30/19 16:53 NISHA WAGNER MD History of Present Illness: KRANTHI REDDY is a 49 year old female with extensive past medical history as below. 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 fib. 2014: Had a left MCA stroke hospitalized at [facility]. 2018: Perforated peptic ulcer disease was admitted at [facility] had exp loratory laparotomy. Her anticoagulation and aspirin were stopped as a result by her cuffer Poncho Luu at at [facility] and Dr Bass lime slaker at [facility] Patient presenting to ED complaining of nausea and nonbloody nonbilious vomiting for the last 1 week as well as left-sided pressure-like chest pain with numbness in the left upper extremity. Chest pain is pressure-like, constant, worse with breathing, no alleviating factor identified, denies any fever, chills, abdominal pain, diarrhea, constipation, sick contacts, heavy lifting, chest trauma, recent travel, recent prolonged hospitalization. Past Medical History Cardiac Medical History: Reports: Atrial Fibrillation - pacemaker, Myocardial Infarction - 2006 Denies: Coronary Artery Disease, Hypertension Pulmonary Medical History: Reports: Pneumonia - Collapsed Lungs, bloot clots: PE, DVT, heart, brain Denies: Asthma, Bronchitis, Chronic Obstructive Pulmonary Disease (COPD) - Pulm fibrosis, hx pulm edema Neurological Medical History: Reports: Migraine, Seizures Musculoskeltal Medical History: Reports: Arthritis - JAW Psychiatric Medical History: Denies: Depression Hematology: Reports: Anemia - Required blood transfusions Past Surgical History Past Surgical History: Reports: Hysterectomy, Other - IVC filter Social History Smoking Status: Never Smoker Frequency of Alcohol Use: None Hx Recreational Drug Use: No Drugs: None Hx Prescription Drug Abuse: No Family History Family History: Reviewed & Not Pertinent Parental Family History Reviewed: Yes Children Family History Reviewed: Yes Sibling(s) Family History Reviewed.: Yes Medication/Allergy Allergies/Adverse Reactions: clindamycin [Clindamycin] Allergy (Intermediate, Verified 03/14/19 10:15) FACE SWELLING, HIVES moxifloxacin [From Avelox] Allergy (Intermediate, Verified 03/14/19 10:15) FACE SWELLING, HIVES metoclopramide HCl [From Reglan] Allergy (Mild, Verified 03/14/19 10:15) RASH,ITCHING morphine Allergy (Mild, Verified 03/14/19 10:15) HIVES, RASH aprotinin [From Tisseel VH 1.0 ml] Allergy (Verified 03/14/19 10:15) Anaphylaxis calcium [From Tisseel VH 1.0 ml] Allergy (Verified 03/14/19 10:15) Anaphylaxis fibrinogen [From Tisseel VH 1.0 ml] Allergy (Verified 03/14/19 10:15) Anaphylaxis ondansetron [From Zofran] Allergy (Verified 03/14/19 10:15) Sulfa (Sulfonamide Antibiotics) Allergy (Verified 03/14/19 10:15) Hives, rash, itching thrombin [From Tisseel VH 1.0 ml] Allergy (Verified 03/14/19 10:15) Anaphylaxis Review of Systems Review of Systems: as per HPI Physical Exam Vital Signs: Temp Pulse Resp BP Pulse Ox 98.3 F 66 16 135/86 H 100 03/30/19 13:08 03/30/19 13:08 03/30/19 13:08 03/30/19 13:08 03/30/19 13:08 General appearance: PRESENT: no acute distress, well-developed, well-nourished Head exam: PRESENT: atraumatic, normocephalic Neck exam: ABSENT: carotid bruit, JVD, lymphadenopathy, thyromegaly Respiratory exam: PRESENT: clear to auscultation yaakov. ABSENT: rales, rhonchi, wheezes Cardiovascular exam: PRESENT: RRR, other - TTP left lateral sternal.. ABSENT: diastolic murmur, rubs, systolic murmur GI/Abdominal exam: PRESENT: normal bowel sounds, soft. ABSENT: distended, guarding, mass, organolmegaly, rebound, tenderness Extremities exam: PRESENT: full ROM. ABSENT: calf tenderness, clubbing, pedal edema Neurological exam: PRESENT: alert, awake, oriented to person, oriented to place, oriented to time, oriented to situation, abnormal gait - L U/E strengh 3/5. Dull sensation Lt metacarpals., CN II-XII grossly intact, motor sensory deficit Results Laboratory Results: 03/30/19 14:38 03/30/19 14:38 03/30/19 03/30/19 03/30/19 14:38 14:38 14:38 WBC 6.1 RBC 4.91 Hgb 14.9 Hct 44.5 MCV 91 MCH 30.4 MCHC 33.5 RDW 13.2 Plt Count 210 Seg Neutrophils % 60.4 Lymphocytes % 29.3 Monocytes % 8.2 Eosinophils % 1.0 Basophils % 1.1 Absolute Neutrophils 3.7 Absolute Lymphocytes 1.8 Absolute Monocytes 0.5 Absolute Eosinophils 0.1 Absolute Basophils 0.1 Sodium 141.6 Potassium 4.2 Chloride 100 Carbon Dioxide 27 Anion Gap 15 BUN 10 Creatinine 0.90 Est GFR ( Amer) > 60 Est GFR (Non-Af Amer) > 60 Glucose 85 Calcium 11.3 H Magnesium 2.5 H Total Bilirubin 1.2 AST 34 ALT 27 Alkaline Phosphatase 70 Total Protein 10.7 H Albumin 5.9 H TSH 0.69 03/30/19 03/30/19 14:38 14:38 Creatine Kinase 63 CK-MB (CK-2) 0.65 Troponin I 0.013 Impressions: Chest X-Ray 03/30/19 00:00 IMPRESSION: NO ACUTE RADIOGRAPHIC FINDING IN THE CHEST. Chest/Abdomen CTA 03/30/19 13:18 IMPRESSION: NORMAL CTA OF THE CHEST. NO PULMONARY EMBOLI. Mild pulmonary scarring. Assessment and Plan - Diagnosis (1) Chest pain Qualifiers: Chest pain type: intercostal pain Qualified Code(s): R07.82 - Intercostal pain Is this a current diagnosis for this admission?: Yes Plan: HEART SCore 4 Troponin 0.013 Telemetry, trend troponins, high intensity statins, stress test. Patient aspirin was stopped by her cuffer because of perforated gastric ulcer. Extensive cardiac history: Patient had cardiac arrest in 2006 complicated by anoxic brain injury, atrial fibrillation,coma, dual-chamber pacemaker placed. Patient is followed by cuffer and lime slaker at [facility]. Is to be on aspirin and took coagulants however they were stopped after she had a perforated peptic ulcer in 2018. Please obtain records. (2) Left-sided weakness Is this a current diagnosis for this admission?: Yes Plan: Patient endorses history of anoxic brain injury and left MCA however stating that left-sided numbness and weakness is new. Patient she could not be placed on aspirin or blood thinners due to history of perforation due to peptic ulcer disease. Admit to IMCU, high intensity statins. PT OT ST. CT head followed by MRI head if necessary. Carotid Doppler. (3) History of atrial fibrillation Is this a current diagnosis for this admission?: No Plan: Dual-chamber pacemaker in place. Continue atenolol. Not on anticoagulants due to reasons mentioned in H&P and above. (4) S/P placement of cardiac pacemaker Is this a current diagnosis for this admission?: No Plan: As above. Medical records requested. (5) Anoxic brain injury Is this a current diagnosis for this admission?: No Plan: History of anoxic brain injury in 2006 due to cardiac arrest. Continue supportive measures. PT OT And is on Adderall 20 mg sustained-release. Have called pharmacy but unfortunately we do not carry it. If patient can bring her on Adderall she can take it while inpatient (6) History of DVT (deep vein thrombosis) Is this a current diagnosis for this admission?: No Plan: IVC filter in place. CTA chest negative for PE. Patient not on anticoagulation due to above reasons mentioned on H&P.
[2019-03-30] MEDS ORDERED: PIPERACILLIN SODIUM/TAZOBACTAM 3.375 GM in NORMAL SALINE 100 ML IV SCH (18:00)
[2019-03-30] MEDS ORDERED: VANCOMYCIN HCL 0 MG in DEXTROSE 5%-WATER 250 ML IV NR (18:00)
[2019-03-30] MEDS ORDERED: ACETAMINOPHEN 325 MG TABLET PO PRN (18:31)
[2019-03-30] MEDS ORDERED: PROMETHAZINE HCL INJ 25 MG/1 ML VIAL IV PRN (18:31)
--- NOTE | 2019-03-30 19:24 | RADIOLOGY REPORT (SQ) ---
EXAM DESCRIPTION: CT HEAD WITHOUT COMPLETED DATE/TIME: 03/30/2019 6:46 pm REASON FOR STUDY: Lt sided weakness R53.1 WEAKNESS R07.9 CHEST PAIN, UNSPECIFIED COMPARISON: None. TECHNIQUE: Axial images acquired through the brain without intravenous contrast. Images reviewed wi th bone, brain and subdural windows. Additional sagittal and coronal reconstructions were generated. Images stored on PACS. All CT scanners at this facility use dose modulation, iterative reconstruction, and/or weight based d osing when appropriate to reduce radiation dose to as low as reasonably achievable (ALARA). [facility]: Dose Right [facility]: CareDose [facility]: Dose Right [facility]: Teradose 4D [facility]: [employer] RADIATION DOSE: CT Rad equipment meets quality standard of care and radiation dose reduction techniq ues were employed. CTDIvol: 53.2 mGy. DLP: 1070 mGy-cm. mGy. LIMITATIONS: None. FINDINGS: VENTRICLES: Normal size and contour. CEREBRUM: No masses. No hemorrhage. No midline shift. No evidence for acute infarction. Normal gra y/white matter differentiation. No areas of low density in the white matter. CEREBELLUM: No masses. No hemorrhage. No alteration of density. No evidence for acute infarction. EXTRAAXIAL SPACES: No fluid collections. No masses. ORBITS AND GLOBE: No intra- or extraconal masses. Normal contour of globe without masses. CALVARIUM: No fracture. PARANASAL SINUSES: No fluid or mucosal thickening. SOFT TISSUES: No mass or hematoma. OTHER: No other significant finding. IMPRESSION: NORMAL BRAIN CT WITHOUT CONTRAST. EVIDENCE OF ACUTE STROKE: NO. COMMENT: Quality ID # [id number]: Final reports with documentation of one or more dose reduction techniques (e.g., Automated exposure control, adjustment of the mA and/or kV according to patient size, use of iterative reconstruction technique) TECHNICAL DOCUMENTATION: JOB ID: [id number]- All Rights Reserved Reading location - IP/workstation name: [email or web address]
[2019-03-30] MEDS ORDERED: NITROGLYCERIN 2% OINTMENT 1 GM PACKET TP ONE (21:00)
[2019-03-30] MEDS: HYDROMORPHONE HCL INJ/PF 2 MG/ML AMPULE IV PRN ×2 (21:40→23:47)
[2019-03-30] MEDS: DEXTROSE 5%-NORMAL SALINE 1,000 ML IV PRN (21:44)
[2019-03-30] MEDS: ATORVASTATIN CALCIUM 40 MG TABLET PO SCH (22:01)
[2019-03-31] MEDS: HYDROMORPHONE HCL INJ/PF 2 MG/ML AMPULE IV PRN ×5 (02:06→22:05)
[2019-03-31] MEDS: PANTOPRAZOLE SODIUM 40 MG TABLET.DR PO SCH (06:52)
[2019-03-31 07:38] LABS: ALANINE AMINOTRANSFERASE 22 U/L (9-52); ALBUMIN 3.9 g/dL (3.5-5.0); ALKALINE PHOSPHATASE 42 U/L (38-126); ANION GAP 7 (5-19); ASPARTATE AMINO TRANSFERASE 21 U/L (14-36); BILIRUBIN,DIRECT 0.2 mg/dL (0.0-0.4); BILIRUBIN,TOTAL 0.4 mg/dL (0.2-1.3); BLOOD UREA NITROGEN 13 mg/dL (7-20); CALCIUM 9.2 mg/dL (8.4-10.2); CARBON DIOXIDE 25 mmol/L (22-30); CHLORIDE 108 mmol/L (98-107); GLUCOSE 91 mg/dL (75-110); POTASSIUM 4.2 mmol/L (3.6-5.0); SODIUM 140.1 mmol/L (137-145); TOTAL PROTEIN 6.7 g/dL (6.3-8.2)
[2019-03-31 07:44] LABS: ABSOLUTE EOSINOPHILS # (AUTO) 0.1 10^3/uL (0.0-0.6); ABSOLUTE LYMPHOCYTES (AUTO) 1.5 10^3/uL (0.5-4.7); ABSOLUTE MONOCYTES (AUTO) 0.5 10^3/uL (0.1-1.4); ABSOLUTE NEUT (AUTO) 3.6 10^3/uL (1.7-8.2); BASOPHILS % (AUTO) 0.4 % (0-2); EOSINOPHILS % (AUTO) 1.6 % (0-6); HEMATOCRIT 39.7 % (36.0-47.0); HEMOGLOBIN 13.2 g/dL (12.0-15.5); LYMPHOCYTES % (AUTO) 26.6 % (13-45); MEAN CORPUSCULAR HEMOGLOBIN 30.2 pg (27.0-33.4); MEAN CORPUSCULAR HGB CONC 33.1 g/dL (32.0-36.0); MEAN CORPUSCULAR VOLUME 91 fl (80-97); MONOCYTES % (AUTO) 8.7 % (3-13); PLATELET COUNT 229 10^3/uL (150-450); RED BLOOD COUNT 4.35 10^6/uL (3.72-5.28); RED CELL DISTRIBUTION WIDTH 13.3 % (11.5-14.0); SEGMENTED NEUTROPHILS % (AUTO) 62.7 % (42-78); TOTAL CELLS COUNTED % (AUTO) 100 %; WHITE BLOOD COUNT 5.8 10^3/uL (4.0-10.5)
[2019-03-31] MEDS: DEXTROSE 5%-NORMAL SALINE 1,000 ML IV PRN ×2 (07:45→19:15)
[2019-03-31] MEDS ORDERED: MAG HYDROX/AL HYDROX/SIMETH SUSP 30 ML UDCUP PO ONE (09:56)
[2019-03-31] MEDS ORDERED: NITROGLYCERIN 0.4 MG/TAB 25 TAB/BOTTLE SL PRN (10:40)
[2019-03-31] MEDS ORDERED: NITROGLYCERIN 0.4 MG/TAB 25 TAB/BOTTLE ONE (10:47)
[2019-03-31] MEDS ORDERED: REGADENOSON INJ 0.4 MG/5 ML DISP.SYRIN IV ONE (12:24)
--- NOTE | 2019-03-31 16:19 | Physician Advisory Note ---
Physician Advisor ProgressNote .: Pursuant to the plan for [facility], I have reviewed the medical record for this patient. Physician Advisor Statement: Asked by to review r.e. status appropriateness. 49yo Medicare pt w/complex PMH including cardiac arrest after PE+pulm edema, with CVA & Afib (?chronic or paroxysmal), pacer, perforated PUD ... came in w/CP/N/V, reportedly was to have stress test today but it was cancelled due to pt developing recurrent CP just as stress test was being started. The possibility of cath being necessary is also reportedly being discussed. Initial status of Obs appropriate initially for CP of uncertain cause. Today's status & disposition appear to have these options: If pt must have stress test or cath before she can be safely d/c'd, given her risks for imminent decompensation (please document if this is the case) --> will require a 2nd MN of close monitoring in hospital --> she may appropriately be changed to Inpatient status today and arrangements made for stress or cath tomorrow. - If pt cannot have cath tomorrow due to logistical reasons unrelated to pt clinical issues, and stress test is no longer advised (or is positive), she will remain appropriate for Inpt status but the additional time in hospital will be considered "avoidable days" for which Medicare will not pay unless pt has documented new acute clinical issues requiring inpt care and delay of cath. Thanks! CK
--- NOTE | 2019-03-31 18:27 | PDOC PROGRESS REPORT ---
Subjective Progress Note for:: 03/31/19 Subjective:: KRANTHI REDDY is a 49 year old female with extensive past medical history as below. 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 fib. 2015: Had a left MCA stroke hospitalized at [place]. 2018: Perforated peptic ulcer disease was admitted at [facility] had exploratory laparotomy. Her anticoagulation and aspirin were stopped as a result by her emergency response officer Tin Luu at at [facility] and Dr Bass education instructor at [facility] Who was admitted 03/30/19 for nausea and nonbloody nonbilious vomiting for the last 1 week as well as left-sided pressure-like chest pain with numbness in the left upper extremity; nausea and vomiting have resolved, however, left-sided chest pressure with radiation to the left upper extremity persist. Patient was seen on morning rounds. She was found resting in bed comfortably on room air. She is clearly in discomfort and confirms continued left-sided chest pain, described as pressure, with waxing and waning radiation to her left upper arm. She has not identified any aggravating or alleviating symptoms. However, she did feel worse following sublingual nitro this morning. Discussed with cardiology; Dr. Becker recommends possible cardiac catheterization and will be in to see her today. She denies fever, chills, palpitations, orthopnea, dyspnea, cough, abdominal pain, nausea, vomiting, diarrhea. Reason For Visit: CHEST PAIN Physical Exam Vital Signs: Temp Pulse Resp BP Pulse Ox 97.7 F 71 17 110/58 L 100 03/31/19 15:50 03/31/19 15:50 03/31/19 15:50 03/31/19 15:50 03/31/19 15:50 Intake & Output 03/30/19 03/31/19 04/01/19 06:59 06:59 06:59 Intake Total 300 1560 Output Total 625 Balance 300 935 Weight 67.8 kg General appearance: PRESENT: no acute distress, cooperative, well-developed, well-nourished Head exam: PRESENT: atraumatic, normocephalic Eye exam: PRESENT: conjunctiva pink, EOMI, PERRLA. ABSENT: scleral icterus Ear exam: PRESENT: normal external ear exam Mouth exam: PRESENT: moist, tongue midline Neck exam: ABSENT: carotid bruit, JVD, lymphadenopathy, thyromegaly Respiratory exam: PRESENT: clear to auscultation yaakov, symmetrical, unlabored. ABSENT: rales, rhonchi, wheezes Cardiovascular exam: PRESENT: RRR, +S1, +S2. ABSENT: diastolic murmur, rubs, systolic murmur Pulses: PRESENT: normal dorsalis pedis pul Vascular exam: PRESENT: normal capillary refill GI/Abdominal exam: PRESENT: normal bowel sounds, soft. ABSENT: distended, guarding, mass, organolmegaly, rebound, tenderness Rectal exam: PRESENT: deferred Extremities exam: PRESENT: full ROM. ABSENT: calf tenderness, clubbing, pedal edema Neurological exam: PRESENT: alert, awake, oriented to person, oriented to place, oriented to time, oriented to situation, CN II-XII grossly intact. ABSENT: motor sensory deficit Psychiatric exam: PRESENT: anxious, appropriate affect, normal mood. ABSENT: homicidal ideation, suicidal ideation Skin exam: PRESENT: dry, intact, warm. ABSENT: cyanosis, rash Results Laboratory Results: 03/31/19 07:08 03/31/19 07:08 03/31/19 03/31/19 07:08 07:08 WBC 5.8 RBC 4.35 Hgb 13.2 Hct 39.7 MCV 91 MCH 30.2 MCHC 33.1 RDW 13.3 Plt Count 229 Seg Neutrophils % 62.7 Lymphocytes % 26.6 Monocytes % 8.7 Eosinophils % 1.6 Basophils % 0.4 Absolute Neutrophils 3.6 Absolute Lymphocytes 1.5 Absolute Monocytes 0.5 Absolute Eosinophils 0.1 Absolute Basophils 0.0 Sodium 140.1 Potassium 4.2 Chloride 108 H Carbon Dioxide 25 Anion Gap 7 BUN 13 Creatinine 0.73 Est GFR ( Amer) > 60 Est GFR (Non-Af Amer) > 60 Glucose 91 Calcium 9.2 Magnesium 2.2 Total Bilirubin 0.4 AST 21 ALT 22 Alkaline Phosphatase 42 Total Protein 6.7 Albumin 3.9 03/30/19 03/30/19 03/30/19 14:38 14:38 19:30 Creatine Kinase 63 CK-MB (CK-2) 0.65 Troponin I 0.013 < 0.012 03/31/19 01:14 Creatine Kinase CK-MB (CK-2) Troponin I < 0.012 Impressions: Chest X-Ray 03/30/19 00:00 IMPRESSION: NO ACUTE RADIOGRAPHIC FINDING IN THE CHEST. Chest/Abdomen CTA 03/30/19 13:18 IMPRESSION: NORMAL CTA OF THE CHEST. NO PULMONARY EMBOLI. Mild pulmonary scarring. Head CT 03/30/19 18:19 IMPRESSION: NORMAL BRAIN CT WITHOUT CONTRAST. EVIDENCE OF ACUTE STROKE: NO. Assessment and Plan - Diagnosis (1) Chest pain Qualifiers: Chest pain type: intercostal pain Qualified Code(s): R07.82 - Intercostal pain Is this a current diagnosis for this admission?: Yes Plan: Patient is admitted with atypical chest pain but multiple risk factors including extensive cardiac history. Troponins are negative x3 EKG reveals paced rhythm. TSH is nml. Continues to have intermittent left chest discomfort described as "pressure" and radiating to her left arm. Patients aspirin and chronic anticoagulation have been stopped by her emergency response officer because of perforated gastric ulcer. Discussed w/ Dr. Young today; consultation placed. He will be in to evaluate patient this afternoon to evaluate for stress test vs cardiac cath. Cardiac diet. Check lipid panel in AM. Protonix p.o qAM SL Nitro tabs and IV dilaudid as needed for chest pain. (2) History of DVT (deep vein thrombosis) Is this a current diagnosis for this admission?: No Plan: IVC filter in place. CTA chest negative for PE. Patient not on anticoagulation due to perforated gastric ulcer. MONY hose. Ambulate each shift. (3) History of atrial fibrillation Is this a current diagnosis for this admission?: No Plan: Dual-chamber pacemaker in place. S/p SA/AV node ablation. Continue atenolol; on hold currently pending stress test in AM. Not on anticoagulants due to Hx of severe GI bleed. (4) S/P placement of cardiac pacemaker Is this a current diagnosis for this admission?: No Plan: As above. Medical records requested. (5) Left-sided weakness Is this a current diagnosis for this admission?: Yes Plan: Patient endorses history of anoxic brain injury and left MCA however stating that left-sided numbness and weakness is new. Patient she could not be placed on aspirin or blood thinners due to history of perforation due to peptic ulcer disease. CT Head is nml. Admit to IMCU, high intensity statins. PT/OT/ST have signed off. ? related to chronic CSF leak. Patient reports headache, nausea/vomiting, and muscle weakness immediately prior to next scheduled patch (2 weeks out). ? related to anxiety. Patient reported weakness to LUE only, however, was noted to have spontaneous movement of arm/hand/all fingers. Weak grim noted on command. If persists, consider MRI, carotid doppler, and contacting patient's neurologist at [place]. (6) Anoxic brain injury Is this a current diagnosis for this admission?: No Plan: History of anoxic brain injury in 2005 due to cardiac arrest. Continue supportive measures. Patient is on Adderall 20 mg sustained-release. Have called pharmacy but unfortunately we do not carry it. If patient can bring her on Adderall she can take it while inpatient - Time Time Spent with patient: 25-34 minutes Medications reviewed and adjusted accordingly: Yes Anticipated discharge: Home Within: within 24 hours - Inpatient Certification Based on my medical assessment, after consideration of the patient's clarke rbidities, presenting symptoms, or acuity I expect that the services needed warrant INPATIENT care.: Yes I certify that my determination is in accordance with my understanding of Medicare's requirements for reasonable and necessary INPATIENT services [42 CFR 412.3e].: Yes Medical Necessity: Significant Comorbidiites Make Outpatient Treatment Too Risky, Need Close Monitoring Due to Risk of Patient Decompensation, Need For Continuous Telemetry Monitoring, Risk of Diagnosis Which Will Require Inpatient Eval/Care/Monitoring
--- NOTE | 2019-03-31 21:35 | PDOC CONSULTATION ---
Consultation-Blank Consultation: CARDIOLOGY CONSULTATION by Dr. Charla Becker on 03/31/2019. Patient seen at 3 30 p.m. on 03/31/2019. REASON FOR CONSULTATION: Patient with intermittent left chest pressure/pain with radiation of it to the left arm with numbness of the left arm. CONSULT requesting provider: Ms. Landy Sullivan, nurse practitioner, [facility] hospitalist. HISTORY PRESENT ILLNESS: Patient is a 49-year-old female with extensive medical problems who was admitted with the 1 day of nausea vomiting and intermittent left chest pressure with radiation to the left arm, which increases with deep breathing. But the pain is not pleuritic. It is not increased with exertion. In fact the patient states since the last week and a half she has been having these episodes of chest pressure which lasts about 5 minutes at a time and comes and goes throughout the day. She is also under a lot of stress, since her son had a major surgical procedure done. The patient 2006 developed a DVT developed collapsed lung, and went into pulmonary edema, and subsequently had a DVT and pulmonary embolism. She is status post IVC filter placement. She subsequently developed cardiac arrest, and a myocardial infarction, and developed sustained anoxic brain injury with CSF leak and was in coma for about 6 months requiring tracheostomy. She states she had a cardiac catheterization at that time, which did not show any lesion or lesions that needed revascularization. Subsequently the patient also had atrial fibrillation with rapid ventricular response. She states that the SA node and AV node were ablated after dual-chamber pacemaker was placed. This was to control the atrial fibrillation with rapid ventricular response. She is 100% pacemaker dependent. She sees Dr. Alford and senior radiation protection technician at [facility]. She also has had a past history of l middle cerebral artery stroke, with left-sided weakness in the past, from which she recovered almost totally after physical therapy. She is also had a bleeding peptic ulcer and had to have gastrectomy partial in 2018 for a perforated peptic ulcer which is bleeding. Since then her anticoagulation has been stopped. The patient denies any shortness of breath or PND orthopnea. There is no palpitations or syncopal episodes. PAST MEDICAL HISTORY: She denies history of hypertension. Also she has had AV and SA kristen ablation. She also claims that her blood pressure is 80 systolic without symptoms. Hence I am not sure why the patient is on a beta-phuong such as atenolol. This could be due to prevention of migraine attacks. She has a history of DVT followed by PE as mentioned earlier with IVC filter placement. She also developed a collapsed lung and pulmonary edema and had a cardiac arrest and had anoxic brain damage from which she is recovered almost fully. She stated that she had an PA at that time, and cardiac catheterization showed no revascularizable lesions as per patient. She also had atrial fibrillation with rapid ventricular response requiring ablation of the SA node and the AV node and has a dual-chamber pacemaker and is pacemaker dependent. She also had a middle pleural artery CVA, which caused left-sided weakness. This is improved almost totally after physical therapy. She also has had a bleeding peptic ulcer which perforated and had to have gastric surgery. In view of this the patient states her fundal lining is very thin as she was told and hence she is not on any anticoagulation. There is no history of diabetes mellitus. There is no recurrence of CVA or TIA. There is no history of chronic kidney disease. There is no history of asthma or COPD. She has a history of migraines and history of seizures. 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 She denies depression. Also which she denies anxiety, she appears to be slightly anxious. She is also had a past history of anemia requiring blood transfusions. She has no history of hypothyroidism. She denies history of sleep apnea. PAST SURGICAL HISTORY: She had hysterectomy IVC filter placement, SA and AV kristen ablation procedures and dual-chamber permanent pacemaker placement. SOCIAL HISTORY: The patient has never smoked. There is no CVVH abuse. FAMILY HISTORY: Father had myocardial infarction at age 50. No history of diabetes mellitus. ALLERGIES: She is allergic to clindamycin, Avelox, metoclopramide, morphine, high-protein, calcium, fibrinogen, Zofran, sulfa, and thrombin RESUSCITATION STATUS: The patient is a full code. Her is her surrogate healthcare decision maker. REVIEW SYSTEMS: constitutional: Complains of generalized fatigue and weakness. No fever chills or rigors. HEAD: No recent headaches or dizziness or head injury.. The patient has a past history of head injury when she had a cardiac arrest and hit her head on the back of the head. At that time the patient states she sustained a fracture. EYES: No history of amblyopia diplopia. No history of amaurosis fugax. EARS: No history of tinnitus. No history of hearing loss. No vertigo. NOSE: No history of hayfever. No history of nosebleeds. MOUTH: No history of altered taste sensation. No ulcers in the mouth. THROAT: No history of odynophagia or dysphagia. SKIN: No history of pruritus. NO HISTORY OF YELLOWISH DISCOLORATION OF THE SKIN. NECK: NO HISTORY OF NECK PAIN OR NECK SWELLING. Lungs: No history of asthma or COPD. No history of sleep apnea. Prior history of pulmonary embolism with no recurrence. History of IVC filter placement. No recent cough or sputum production. The patient does state that the chest pressure increases with her taking a deep breath, but has no pleuritic chest pain. No hemoptysis. CARDIAC: Denies hypertension. States that when she had a cardiac arrest she had an PA. She states she had a cardiac catheterization at that time, but stated that although she does not know the exact findings, she did not require a stent or any other revascularization options. NO history of congestive heart failure. History of atrial fibrillation which was difficult to control the rate, for which she had SA and AV kristen ablation and is status post permanent pacemaker placement dual- chamber, and is pacemaker dependent rhythm. She has no intermittent cardiac rhythm. No history of leg edema. No history of PND orthopnea orthopnea. No recent palpitations. GI: History of perforated bleeding peptic ulcer for which he required surgery. Denies GERD. No history of jaundice. No history of fatty food intolerance. ENDOCRINE: No history of diabetes mellitus. No history of thyroid disease. No history of polydipsia polyuria. No history of heat or cold intolerance. No history of excessive sweating. No history of hirsutism. RENAL: No history of chronic kidney disease. Denies any history of symptoms suggestive of UTI. No hematuria prior dysuria. MUSCULOSKELETAL: Complains of arthritis of the jaw. ENVIRONMENTAL ECONOMIST: Prior history of CVA, with no recurrence. Patient fully recovered. History of transient anoxic cerebral damage. History of migraines. No recent headaches. History of seizures. None recently. PSYCHIA TRIC: Denies suicidal ideation or homicidal ideation. Denies depression or anxiety, but looks anxious. HEMATOLOGICAL: PAST HISTORY OF ANEMIA REQUIRING BLOOD TRANSFUSION, ESPECIALLY WHEN SHE HAD A BLEEDING PEPTIC ULCER. Vascular: No history of calf or buttock claudication. History of DVT for which she had an IVC filter placement. The DVT was followed by pulmonary embolism. PHYSICAL EXAMINATION: The patient is a frail build but appears to be well- nourished. At present in no acute distress. Selected Entries 03/31/19 15:50 Temperature 97.7 F Temperature Oral Source Pulse Rate 71 Respiratory 17 Rate Blood Pressure 110/58 L Blood Pressure 75 Mean BP Location Left Arm BP Position Supine O2 Sat by Pulse 100 Oximetry Oxygen Delivery Room Air Method HEAD: Atraumatic, normocephalic. EYES: Pupils equal round and reactive to light, extraocular movements intact, sclera anicteric, conjunctiva are normal. ENT: TMs normal, nares patent, oropharynx clear without exudates. Moist mucous membranes. NECK: Normal range of motion, supple without lymphadenopathy or JVD. Carotids are equal there is no bruits. There is no thyromegaly. There is no accessory muscles of respiration in use. Trachea central LUNGS: Breath sounds clear to auscultation bilaterally and equal. No wheezes rales or rhonchi. On palpation there is no chest wall tenderness. HEART: S1-S2 is heard. S1 is of normal intensity. There is no S3 gallop. There is no S4 gallop. There is systolic murmur left sternal border and apex without radiation. There is no rub.. ABDOMEN: Soft, nontender, normoactive bowel sounds. There is no hepatosplenic megaly no guarding, no rebound. No masses appreciated. EXTREMITIES: Normal range of motion, no pitting or edema. No clubbing or cyan osis. Femorals are well felt. There is no femoral bruits. Leg pulses are well felt. There is no DVT or cellulitis. There is no calf tenderness NEUROLOGICAL: Cranial nerves II through XII grossly intact. Normal speech, normal gait. The patient is awake alert oriented x3 with no focal deficits. PSYCH: Normal mood, normal affect. The patient judgment and insight are intact SKIN: Warm, Dry, no rmal turgor, no rashes or lesions noted. There is no petechia or ecchymosis. The patient is EKG: Shows atrial and ventricular dual paced rhythm. Current Medications Generic Name Dose Route Start Last Admin Trade Name Freq PRN Reason Stop Dose Admin Acetaminophen 325 mg 03/30/19 18:31 Tylenol 325 Mg Tablet PO 04/29/19 18:30 Q4HP PRN FOR PAIN SCALE 2-3 Atorvastatin Calcium 40 mg 03/30/19 22:00 03/30/19 22:01 Lipitor 40 Mg Tablet PO 04/29/19 21:59 40 mg QHS GUADALUPE Administration Hydromorphone HCl 0.5 mg 03/30/19 20:58 03/31/19 11:06 Dilaudid Inj/Pf 2 Mg/Ml Ampule IV 04/06/19 20:57 0.5 mg Q2HP PRN Administration CHEST PAIN Dextrose/Sodium Chloride 1,000 mls @ 100 mls/hr 03/30/19 18:31 03/31/19 19:15 D5ns 1000 Ml Iv Soln IV 04/29/19 18:30 100 mls/hr CONTINUOUS PRN Administration THIS MED IS NOT "PRN" Nitroglycerin 1 tab 03/31/19 10:40 Nitrostat 0.4 Mg (1/150 Gr) Tabs 25/Bottle SL 04/30/19 10:39 Q5MP PRN FOR CHEST PAIN Pantoprazole Sodium 40 mg 03/31/19 06:00 03/31/19 06:[address] Tablet PO 04/30/19 05:59 40 mg Q6AM GUADALUPE Administration Promethazine HCl 6.25 mg 03/30/19 18:31 Phenergan Inj 25 Mg/1 Ml Vial IV 04/29/19 18:30 Q4HP PRN FOR NAUSEA/VOMITING Discontinued Medications Generic Name Dose Route Start Last Admin Trade Name Freq PRN Reason Stop Dose Admin Al Hydrox/Mg Hydrox/Simethicone 30 ml 03/31/19 09:56 03/31/19 10:49 Maalox Plus Susp 30 Udcup PO 03/31/19 09:57 30 ml NOW ONE Administration Aspirin 325 mg 03/30/19 15:39 03/30/19 17:45 Aspirin 325 Mg Tablet PO 03/30/19 15:40 Not Given NOW ONE Hydromorphone HCl 0.5 mg 03/30/19 16:47 03/30/19 17:41 Dilaudid Inj/Pf 2 Mg/Ml Ampule IV 03/30/19 16:48 0.5 mg NOW ONE Administration Sodium Bicarbonate 150 meq/ 1,000 mls @ 80 mls/hr 03/30/19 17:45 Dextrose IV 04/29/19 17:44 CONTINUOUS PRN THIS MED IS NOT "PRN" Piperacillin Sod/Tazobactam 100 mls @ 200 mls/hr 03/30/19 18:00 Sod 3.375 gm/ Sodium Chloride IV 04/06/19 17:59 Q6 GUADALUPE Vancomycin HCl / Dextrose 250 mls @ 0 mls/hr 03/30/19 18:00 IV 04/06/19 17:59 .PHARMACY TO DOSE NR As Directed Nitroglycerin 1 gm 03/30/19 21:00 03/30/19 21:38 Nitrol 2% Ointment 1gm Packet TP 03/30/19 21:01 1 gm NOW ONE Administration Nitroglycerin Confirm 03/31/19 10:47 03/31/19 10:50 Nitrostat 0.4 Mg (1/150 Gr) Tabs 25/Bottle Administered 03/31/19 10:48 1 tab Dose Administration 25 tab .ROUTE .STK-MED ONE HOME MEDICATIONS: Atenolol [Tenormin 50 mg Tablet] 50 mg PO DAILY 03/30/19 Dextroamphetamine/Amphetamine [Adderall Xr 20 mg Capsule] 20 mg PO DAILY 03/30/19 Diazepam [Valium] 10 mg PO TIDP PRN 03/30/19 Promethazine HCl [Phenergan 25 mg Tablet] 25 mg PO BIDP PRN 03/30/19 Labs- Entire Visit 03/30/19 03/30/19 03/30/19 14:38 14:38 14:38 WBC 6.1 RBC 4.91 Hgb 14.9 Hct 44.5 MCV 91 MCH 30.4 MCHC 33.5 RDW 13.2 Plt Count 210 Seg Neutrophils % 60.4 Lymphocytes % 29.3 Monocytes % 8.2 Eosinophils % 1.0 Basophils % 1.1 Absolute Neutrophils 3.7 Absolute Lymphocytes 1.8 Absolute Monocytes 0.5 Absolute Eosinophils 0.1 Absolute Basophils 0.1 PT INR Sodium 141.6 Potassium 4.2 Chloride 100 Carbon Dioxide 27 Anion Gap 15 BUN 10 Creatinine 0.90 Est GFR ( Amer) > 60 Est GFR (Non-Af Amer) > 60 Glucose 85 Calcium 11.3 H Magnesium 2.5 H Total Bilirubin 1.2 Direct Bilirubin 0.4 Neonat Total Bilirubin Not Reportable Neonat Direct Bilirubin Not Reportable Neonat Indirect Bili Not Reportable AST 34 ALT 27 Alkaline Phosphatase 70 Creatine Kinase 63 CK-MB (CK-2) 0.65 Troponin I 0.013 Total Protein 10.7 H Albumin 5.9 H TSH 03/30/19 03/30/19 03/30/19 14:38 15:13 19:30 WBC RBC Hgb Hct MCV MCH MCHC RDW Plt Count Seg Neutrophils % Lymphocytes % Monocytes % Eosinophils % Basophils % Absolute Neutrophils Absolute Lymphocytes Absolute Monocytes Absolute Eosinophils Absolute Basophils PT 12.0 INR 0.85 Sodium Potassium Chloride Carbon Dioxide Anion Gap BUN Creatinine Est GFR ( Amer) Est GFR (Non-Af Amer) Glucose Calcium Magnesium Total Bilirubin Direct Bilirubin Neonat Total Bilirubin Neonat Direct Bilirubin Neonat Indirect Bili AST ALT Alkaline Phosphatase Creatine Kinase CK-MB (CK-2) Troponin I < 0.012 Total Protein Albumin TSH 0.69 03/31/19 03/31/19 03/31/19 01:14 07:08 07:08 WBC 5.8 RBC 4.35 Hgb 13.2 Hct 39.7 MCV 91 MCH 30.2 MCHC 33.1 RDW 13.3 Plt Count 229 Seg Neutrophils % 62.7 Lymphocytes % 26.6 Monocytes % 8.7 Eosinophils % 1.6 Basophils % 0.4 Absolute Neutrophils 3.6 Absolute Lymphocytes 1.5 Absolute Monocytes 0.5 Absolute Eosinophils 0.1 Absolute Basophils 0.0 PT INR Sodium 140.1 Potassium 4.2 Chloride 108 H Carbon Dioxide 25 Anion Gap 7 BUN 13 Creatinine 0.73 Est GFR ( Amer) > 60 Est GFR (Non-Af Amer) > 60 Glucose 91 Calcium 9.2 Magnesium 2.2 Total Bilirubin 0.4 Direct Bilirubin 0.2 Neonat Total Bilirubin Not Reportable Neonat Direct Bilirubin Not Reportable Neonat Indirect Bili Not Reportable AST 21 ALT 22 Alkaline Phosphatase 42 Creatine Kinase CK-MB (CK-2) Troponin I < 0.012 Total Protein 6.7 Albumin 3.9 TSH Chest X-Ray 03/30/19 00:00 IMPRESSION: NO ACUTE RADIOGRAPHIC FINDING IN THE CHEST. Chest/Abdomen CTA 03/30/19 13:18 IMPRESSION: NORMAL CTA OF THE CHEST. NO PULMONARY EMBOLI. Mild pulmonary scarring. Head CT 03/30/19 18:19 IMPRESSION: NORMAL BRAIN CT WITHOUT CONTRAST. EVIDENCE OF ACUTE STROKE: NO. IMPRESSION/RECOMMENDATION: 1. Chest pressure with radiation to left arm with left arm numbness: This is not exertional, and is not worsened by exertion. Sounds noncardiac. But the patient does have multiple coronary artery disease risk factors, namely age, prior history of PA, and family history of coronary artery disease. Note so far there is cardiac biomarkers are negative. The patient's EKG is nondiagnostic due to being a paced rhythm. Hence would recommend a IV Lexiscan Cardiolite stress test. We will schedule this for the morning. The procedure has been discussed with the patient detail including the benefits risks and complications of the procedure were discussed in detail. 2. History of atrial fibrillation: Patient is status post SA and AV kristen ablation, and is pacemaker dependent, with no inherent cardiac rhythm. 3. Prior history of CVA: No recurrence. 4. Prior history of perforated peptic ulcer with bleeding, and no recurrence hence. Hence patient not on anticoagulation. 5. Past history of pulmonary embolism and DVT. At present repeat CT of the chest is negative for pulmonary embolism, in this admission. 6. History of migraines and seizures. No headaches this admission, no seizures. 7. Past history of cardiac arrest. History of transient anoxic brain damage. Patient is recovered fully. 8. Possible anxiety. Consider anti-anxiolytic medication. Medications reviewed. Management plan discussed with the attending fifth provider on the case. Discussed with the patient also. Medical decision making is of moderate to high complexity. 60 minutes spent on this patient with more t goldsmith 50% of time spent in direct patient care. Will follow.
[2019-03-31] MEDS: ATORVASTATIN CALCIUM 40 MG TABLET PO SCH (22:05)
[2019-04-01] MEDS: HYDROMORPHONE HCL INJ/PF 2 MG/ML AMPULE IV PRN ×2 (05:41→13:27)
[2019-04-01] MEDS: DEXTROSE 5%-NORMAL SALINE 1,000 ML IV PRN (05:45)
[2019-04-01] MEDS: PANTOPRAZOLE SODIUM 40 MG TABLET.DR PO SCH (05:48)
[2019-04-01 06:10] LABS: CHOLESTEROL 211.74 mg/dL (0-200); TRIGLYCERIDES 90 mg/dL (<150)
[2019-04-01 06:20] LABS: DIRECT LDL 102 mg/dL (<100)
--- NOTE | 2019-04-01 10:26 | EKG REPORT ---
SEVERITY:- ABNORMAL ECG - ATRIAL-PACED RHYTHM LEFT BUNDLE BRANCH BLOCK VS V PACED BEATS : Confirmed by: Kelvin Devlin 01-Apr-2019 10:26:32
[2019-04-01 17:56] VITALS: BP 123/72
--- NOTE | 2019-04-01 22:37 | DRAGON STRESS TEST REPORT ---
Intravenous Lexiscan Cardiolite stress test using single photon emmision computerized tomography. Date of procedure: 04/01/2019. Ordering Provider: Dr. Charla Becker. Patient's status: In Patient. Indication: Chest pain, in a patient with prior history of VT and prior history of cardiac arrest. Coronary risk factors: Age, hypertension, and dyslipidemia. Resting EKG: Atrial and ventricular paced rhythm Stress EKG: Nondiagnostic of ischemia due to the paced rhythm The patient had no chest pain. She had complained of significant shortness of breath and her lungs were clear on exam the patient was seen to be hyperventilating. Soon after she drank some Pepsi this subsided and the patient returned to baseline. Reason for termination: Protocol. Conclusions: Normal EKG and hemodynamic response to IV Lexiscan. Nuclear data: At rest the patient was given 10.0 millicuries of technetium 99m sestamibi injected intravenously. As per protocol rest non gated SPECT images were obtained. Subsequently the patient was given intravenous Lexiscan at a dose of 0.4 mg in 5 mL intravenously, followed by flush with normal saline. Subsequently the stress dose of 31.1 millicuries of technetium 99m sestamibi was injected intravenously. As per protocol stress gated images were obtained. Nuclear interpretation: Review of images showed that all segments of the myocardium had normal perfusion at rest, and normal perfusion post stress with IV Lexiscan. All segments of the myocardium had normal motion, contraction, and thickening by gated study. T. I D. ratio was normal at 0.80. There is no transient ischemic dilatation of the left ventricle. Computer read rest, and stress left ventricular ejection fraction were 56 %, and 57 %, respectively. Conclusion: 1. There is no scintigraphic evidence of Lexiscan induced myocardial ischemia. 2. There is no scintigraphic evidence of myocardial infarction/scar. Recommendations: Aggressive risk factor modification, and treating the underlying co- morbidities. MTDD
--- NOTE | 2019-04-01 22:44 | Progress Note ---
Provider Note Provider Note: CARDIOLOGY PROGRESS NOTE by Dr. Charla Becker on 04/01/2019. SUBJECTIVE: The patient has had no further chest pains. There is no recurrence of atrial fibrillation or ventricular arrhythmias. The patient's pacer dependent and has a atrial and ventricular paced rhythm. There is no PND orthopnea or shortness of breath. There is no TIA CVA symptoms this admission. There is no seizure activity. There is no arrhythmia seen on the monitor. PHYSICAL EXAMINATION: The patient is a frail build. At present is in no acute distress. Selected Entries 04/01/19 16:06 Temperature 98.0 F Temperature Oral Source Pulse Rate 79 Respiratory 16 Rate Blood Pressure 106/59 L Blood Pressure 74 Mean BP Location Left Arm BP Position Sitting O2 Sat by Pulse 100 Oximetry Oxygen Delivery Room Air Method 04/01/19 04:56 Triglycerides 90 Cholesterol 211.74 H LDL Cholesterol Direct 102 H VLDL Cholesterol 18.0 HDL Cholesterol 68 HEAD: Atraumatic, normocephalic. EYES: Pupils equal round and reactive to light, extraocular movements intact, sclera anicteric, conjunctiva are normal. ENT: TMs normal, nares patent, oropharynx clear without exudates. Moist mucous membranes. NECK: Normal range of motion, supple without lymphadenopathy or JVD. Carotids are equal there is no bruits. There is no thyromegaly. There is no accessory muscles of respiration in use. Trachea central LUNGS: Breath sounds clear to auscultation bilaterally and equal. No wheezes rales or rhonchi. On palpation there is no chest wall tenderness. HEART: S1-S2 is heard. S1 is of normal intensity. There is no S3 gallop. There is no S4 gallop. There is systolic murmur left sternal border and apex without radiation. There is no rub.. ABDOMEN: Soft, nontender, normoactive bowel sounds. There is no hepatosplenic megaly no guarding, no rebound. No masses appreciated. EXTREMITI ES: Normal range of motion, no pitting or edema. No clubbing or cyanosis. Femorals are well felt. There is no femoral bruits. Leg pulses are well felt. There is no DVT or cellulitis. There is no calf tenderness NEUROLOGICAL: Cranial nerves II through XII grossly intact. Normal speech, normal gait. The patient is awake alert oriented x3 with no focal deficits. PSYCH: Normal mood, normal affect. The patient judgment and insight are intact SKIN: Warm, Dry, normal turgor, no rashes or lesions noted. There is no petechia or ecchymosis. LEXISCAN CARDIOLITE STRESS TEST: The patient underwent Lexiscan Cardiolite stress test. After she received the Lexiscan the patient complained of significant shortness of breath and was found to be hyperventilating. Examination showed that there was no wheezes. The patient had no chest pain and there were no arrhythmias seen. The imaging showed that there was no reversible ischemia and no evidence of ME or scar. IMPRESSIONS/RECOMMENDATION: 1. Chest pressure with radiation to left arm with left arm numbness:. This seems to be noncardiac. The patient's IV Lexiscan Cardiolite stress test was negative for ischemia or ME. 2. History of atrial fibrillation: Patient is status post SA and AV kristen ablation, and is pacemaker dependent, with no inherent cardiac rhythm. 3. Prior history of CVA: No recurrence. 4. Prior history of perforated peptic ulcer with bleeding, and no recurrence hence. Hence patient not on anticoagulation. 5. Past history of pulmonary embolism and DVT. At present repeat CT of the chest is negative for pulmonary embolism, in this admission. 6. History of migraines and seizures. No headaches this admission, no seizures. 7. Past history of cardiac arrest. History of transient anoxic brain damage. Patient is recovered fully. 8. Possible anxiety. Consider anti-anxiolytic medication. 9. Prior history of ME most likely this should have been a non-ST elevation ME, since it occurred in the context of the patient having pulmonary embolism and cardiac arrest. 10. Hyperlipidemia.: Very good HDL levels. Mildly elevated LDL levels. Continue statins. These lipid lab test results were discussed with the patient Medications reviewed. Discussed management plan with the attending physician on the case. Stress test findings were discussed with the patient in detail. I di scussed the stress test findings with attending physician on the case. Medical decision making is of moderate complexity. Patient cardiac status is stable. Will sign off the case. The patient will follow up with her bakery products checker in [facility].
--- NOTE | 2019-04-01 22:56 | PDOC DISCHARGE SUMMARY ---
Addendum entered and electronically signed by BLUE BAUTISTA NP-C 04/05/19 16:05: Provider Note Provider Note: Addendum: CHEST PAIN: Patient was admitted with atypical chest pain, likely muscular as pain was positional/reproducible, for chest pain rule out secondary to her multiple risk factors; age, obesity, HTN, HLD, history, and significant family history. Original Note: General - Admit/Disc Date/PCP Admission Date/Primary Care Provider: 03/31/19 18:15 NISHA WAGNER MD Discharge Date: 04/01/19 - Discharge Diagnosis (1) Chest pain Is this a current diagnosis for this admission?: Yes Summary: Patient is admitted with atypical chest pain but multiple risk factors including extensive cardiac history. Troponins are negative x3 EKG reveals paced rhythm. TSH is nml. Lipid panel overall acceptable. Stress testing is negative. Patient's aspirin and chronic anticoagulation have been stopped by her crayon sorting machine feeder because of perforated gastric ulcer. Patient is recommended to contact established crayon sorting machine feeder and notify them of admission; follow up as directed. Continue statin therapy and cardiac diet. Return to the emergency department as needed for concerning symptoms. (2) History of DVT (deep vein thrombosis) Is this a current diagnosis for this admission?: No Summary: IVC filter in place. CTA chest negative for PE. Patient not on anticoagulation due to perforated gastric ulcer. (3) History of atrial fibrillation Is this a current diagnosis for this admission?: No Summary: Dual-chamber pacemaker in place. S/p SA/AV node ablation. Atenolol briefly held prior to stress test, continue at discharge. Not on anticoagulants due to Hx of severe GI bleed. (4) S/P placement of cardiac pacemaker Is this a current diagnosis for this admission?: No Summary: As above. (5) Left-sided weakness Is this a current diagnosis for this admission?: Yes Summary: Patient endorses history of anoxic brain injury and left MCA however stating that left-sided numbness and weakness is new. Patient reports she can not be placed on aspirin or blood thinners due to history of perforation due to peptic ulcer disease. CT Head is nml. Admit to IMCU, started high intensity statins. PT/OT/ST consulted and have signed off. Unclear etiology, possibly related to chronic CSF leak. Patient reports headache, nausea/vomiting, and muscle weakness immediately prior to next scheduled patch (2 weeks out) vs. anxiety. Patient reported weakness to LUE only, however, was noted to have spontaneous movement of arm/hand/all fingers. 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 Overall improved. Recommend patient discuss with Neurologist at follow up appointment. (6) Anoxic brain injury Is this a current diagnosis for this admission?: No Summary: History of anoxic brain injury in 2006 due to cardiac arrest. Continue supportive measures. Continue home dose Adderall 20 mg sustained-release. - Additional Information Discharge Diet: Cardiac Discharge Activity: Activity As Tolerated, Balance Activity w/Rest Prescriptions: Atorvastatin Calcium [Lipitor 40 mg Tablet] 40 mg PO QHS #30 tablet Pantoprazole Sodium [Protonix [address] Tablet] 40 mg PO Q6AM #30 tablet. Home Medications: Atenolol [Tenormin 50 mg Tablet] 50 mg PO DAILY 03/30/19 Dextroamphetamine/Amphetamine [Adderall XR 20 mg Capsule] 20 mg PO DAILY Diazepam [Valium] 10 mg PO TIDP PRN 03/30/19 Promethazine HCl [Phenergan 25 mg Tablet] 25 mg PO BIDP PRN 03/30/19 Acetaminophen [Tylenol 325 mg Tablet] 325 mg PO Q4HP PRN tablet 04/01/19 Atorvastatin Calcium [Lipitor 40 mg Tablet] 40 mg PO QHS #30 tablet 04/01/19 Pantoprazole Sodium [Protonix [address] Tablet] 40 mg PO Q6AM #30 tablet. 04/01/19 History of Present Illness History of Present Illness: Per H&P by Dr. Hernandez: KRANTHI REDDY is a 49 year old female with extensive past medical history as below. 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 fib. 2014: Had a left MCA stroke hospitalized at [place]. 2018: Perforated peptic ulcer disease was admitted at [facility] had exploratory laparotomy. Her anticoagulation and aspirin were stopped as a result by her crayon sorting machine feeder Tin Luu at at [facility] and Dr Bass manager marketing communications at [facility] Patient presenting to ED complaining of nausea and nonbloody nonbilious vomiting for the last 1 week as well as left-sided pressure-like chest pain with numbness in the left upper extremity. Chest pain is pressure-like, constant, worse with breathing, no alleviating factor identified, denies any fever, chills, abdominal pain, diarrhea, constipation, sick contacts, heavy lifting, chest trauma, recent travel, recent prolonged hospitalization. Physical Exam Vital Signs: Temp Pulse Resp BP Pulse Ox 98.0 F 79 16 106/59 L 100 04/01/19 16:06 04/01/19 16:06 04/01/19 16:06 04/01/19 16:06 04/01/19 16:06 Intake & Output 03/31/19 04/01/19 04/02/19 06:59 06:59 06:59 Intake Total 300 3560 Output Total 1925 Balance 300 1635 Weight 67.8 kg 69 kg General appearance: PRESENT: no acute distress, well-developed, well-nourished Head exam: PRESENT: atraumatic, normocephalic Eye exam: PRESENT: conjunctiva pink, EOMI, PERRLA. ABSENT: scleral icterus Ear exam: PRESENT: normal external ear exam Mouth exam: PRESENT: moist, tongue midline Neck exam: ABSENT: carotid bruit, JVD, lymphadenopathy, thyromegaly Respiratory exam: PRESENT: clear to auscultation yaakov, symmetrical, unlabored. ABSENT: rales, rhonchi, wheezes Cardiovascular exam: PRESENT: RRR, +S1, +S2. ABSENT: diastolic murmur, rubs, systolic murmur Pulses: PRESENT: normal dorsalis pedis pul Vascular exam: PRESENT: normal capillary refill GI/Abdominal exam: PRESENT: normal bowel sounds, soft. ABSENT: distended, guar ding, mass, organolmegaly, rebound, tenderness Rectal exam: PRESENT: deferred Extremities exam: PRESENT: full ROM. ABSENT: calf tenderness, clubbing, pedal edema Neurological exam: PRESENT: alert, awake, oriented to person, oriented to place, oriented to time, oriented to situation, CN II-XII grossly intact. ABSENT: motor sensory deficit Psychiatric exam: PRESENT: appropriate affect, normal mood. ABSENT: homicidal ideation, suicidal ideation Skin exam: PRESENT: dry, intact, warm. ABSENT: cyanosis, rash Results Laboratory Results: 03/31/19 07:08 03/31/19 07:08 04/01/19 04:56 Triglycerides 90 Cholesterol 211.74 H LDL Cholesterol Direct 102 H VLDL Cholesterol 18.0 HDL Cholesterol 68 03/30/19 03/30/19 03/30/19 14:38 14:38 19:30 Creatine Kinase 63 CK-MB (CK-2) 0.65 Troponin I 0.013 < 0.012 03/31/19 01:14 Creatine Kinase CK-MB (CK-2) Troponin I < 0.012 Impressions: Chest X-Ray 03/30/19 00:00 IMPRESSION: NO ACUTE RADIOGRAPHIC FINDING IN THE CHEST. Chest/Abdomen CTA 03/30/19 13:18 IMPRESSION: NORMAL CTA OF THE CHEST. NO PULMONARY EMBOLI. Mild pulmonary scarring. Head CT 03/30/19 18:19 IMPRESSION: NORMAL BRAIN CT WITHOUT CONTRAST. EVIDENCE OF ACUTE STROKE: NO. Qualifiers - * PATIENT BEING DISCHARGED WITH ANY OF THE FOLLOWING DIAGNOSIS: No Acute Heart Failure Is this a Heart Failure Patient?: No Plan Discharge Plan: Follow-up with primary care provider within 1 week. Contact established crayon sorting machine feeder and notify them of admission; follow-up as directed. Follow-up with neurologist as scheduled. Take medications as prescribed. Return to the emergency department as needed for concerning symptoms. Time Spent: Less than 30 Minutes
== END 2019-04-01 18:10 | disposition home or self-care (01) | DRG 313 ==
LOC: ER 12:44 → EH 16:53 → 3N 20:30 → OBSVTOIN 03-31 18:15
PROVIDERS: ADMIT Internal Medicine; ATTEND Internal Medicine
DX: R07.89 Other chest pain (principal); G93.1 Anoxic brain damage, not elsewhere classified; I69.354 Hemiplegia and hemiparesis following cerebral infarction affecting left non-dominant side; Z86.74 Personal history of sudden cardiac arrest; I48.91 Unspecified atrial fibrillation; G43.909 Migraine, unspecified, not intractable, without status migrainosus; E66.9 Obesity, unspecified; Z68.22 Body mass index [BMI] 22.0-22.9, adult; I10 Essential (primary) hypertension; E78.5 Hyperlipidemia, unspecified; Z95.0 Presence of cardiac pacemaker; Z86.718 Personal history of other venous thrombosis and embolism; I25.2 Old myocardial infarction; Z90.3 Acquired absence of stomach [part of]; Z87.11 Personal history of peptic ulcer disease; M19.90 Unspecified osteoarthritis, unspecified site; Z82.49 Family history of ischemic heart disease and other diseases of the circulatory system; Z88.6 Allergy status to analgesic agent; Z88.3 Allergy status to other anti-infective agents; Z88.8 Allergy status to other drugs, medicaments and biological substances; Z91.018 Allergy to other foods
CPT/HCPCS: 36415; 70450; 71046; 71275; 78452; 80053; 80061; 82550; 82553; 83735; 84443; 84484; 85025; 85610; 87040; 93005; 93010; 93017; 96374; 99285; A9500; J1170; J2785; J3490; J7042; Q9969

== ENCOUNTER 2019-07-10 08:34 | Day surgery (SDC) | payer MEDICARE, OTHER ==
[~2019-07-10 08:34] MED LIST changes: -LIDOCAINE 2% INJ-PF (20 MG/ML) 10 ML AMPUL ONE; -MIDAZOLAM 2 MG/2 ML INJ ONE
[2019-07-10] MEDS ORDERED: ONDANSETRON HCL INJ/PF 4 MG/2 ML SDV IV ONE ×2 (10:07→11:07)
[2019-07-10] MEDS ORDERED: ONDANSETRON HCL INJ/PF 4 MG/2 ML SDV ONE (11:03)
[2019-07-10] MEDS ORDERED: DIAZEPAM 5 MG TABLET ONE (11:35)
[2019-07-10] MEDS ORDERED: DIAZEPAM INJ 10 MG/2 ML DISP.SYRIN IV ONE (11:39)
[2019-07-10 12:15] VITALS: BP 112/69
--- NOTE | 2019-07-10 12:18 | Operative Report ---
Operative Report DATE OF SURGERY: 07/10/19 Operative Report: The risks benefits and alternatives of the procedure explained to the patient in detail and informed consent is obtained.A GIF Olympus video scope was inserted into the patient's mouth and hypopharynx, the esophagus is identified intubated and insufflated ,the scope was then advanced through the esophagus stomach and duodenum ,retroflexion maneuver is done ,the esophagus stomach and first and second portions of the duodenum examined. PREOPERATIVE DIAGNOSIS: Nausea vomiting POSTOPERATIVE DIAGNOSIS: Mild gastritis status post biopsy. Duodenal biopsies taken to rule out celiac disease. Small hiatal hernia OPERATION: EGD with biopsy SURGEON: FILEMON MEMBRENO ANESTHESIA: LMAC TISSUE REMOVED OR ALTERED: As noted above COMPLICATIONS: None. ESTIMATED BLOOD LOSS: None. INTRAOPERATIVE FINDINGS: As noted above. PROCEDURE: Patient tolerated the procedure well. No immediate postprocedure complications are noted. Patient is discharged in good condition. Discharge date 07/10/2019. Discharge diet: Regular. Discharge activity: Regular. 2 to 3-week follow-up to discuss findings. Patient is instructed to call the office or proceed to the emergency room should he be any further proximal questions. Wait on pathology.
[2019-07-10] MEDS ORDERED: ACETAMINOPHEN 325 MG TABLET ONE (12:22)
[2019-07-10] MEDS ORDERED: DIAZEPAM INJ 10 MG/2 ML DISP.SYRIN ONE (14:19)
== END 2019-07-10 12:45 | disposition home or self-care (01) ==
LOC: END 08:34
PROVIDERS: ATTEND Internal Medicine Gastroenterology
DX: K29.50 Unspecified chronic gastritis without bleeding (principal); K44.9 Diaphragmatic hernia without obstruction or gangrene; E78.5 Hyperlipidemia, unspecified; G47.33 Obstructive sleep apnea (adult) (pediatric); G40.909 Epilepsy, unspecified, not intractable, without status epilepticus; I49.9 Cardiac arrhythmia, unspecified; J84.10 Pulmonary fibrosis, unspecified; Z87.11 Personal history of peptic ulcer disease; Z95.0 Presence of cardiac pacemaker; Z79.899 Other long term (current) drug therapy
CPT/HCPCS: 43239; 88342 ×2; 88305 ×2; 00731; A9270; J3360; J2405; J2704; 731

== ENCOUNTER 2019-07-11 00:10 | Emergency (ER) | payer MEDICARE, OTHER ==
[2019-07-11 01:23] LABS: APPEARANCE,URINE SLIGHTLY-CLOUDY; BILIRUBIN,URINE NEGATIVE (NEGATIVE); COLOR,URINE YELLOW; GLUCOSE, URINE NEGATIVE (NEGATIVE); KETONES,URINE NEGATIVE (NEGATIVE); LEUKOCYTE ESTERASE,URINE NEGATIVE (NEGATIVE); NITRITE,URINE NEGATIVE (NEGATIVE); PROTEIN,URINE 30 mg/dL (NEGATIVE); URINE SPECIFIC GRAVITY 1.023; UROBILINOGEN,URINE NEGATIVE mg/dL (<2.0)
[2019-07-11] MEDS ORDERED: PROMETHAZINE HCL INJ 50 MG/1 ML VIAL IM PRN (01:57)
[2019-07-11] MEDS ORDERED: FENTANYL CITRATE INJ/PF 100 MCG/2 ML AMPUL IV ONE (01:57)
--- NOTE | 2019-07-11 02:55 | RADIOLOGY REPORT (SQ) ---
EXAM DESCRIPTION: XR ABDOMEN SUPINE AND ERECT WITH CHEST (ABD ACUTE SERIES) COMPLETED DATE/TME: 07/11/2019 01:56 CLINICAL HISTORY: 49 years Female, Abdominal pain after endoscopy Comparison: None. NUMBER OF VIEWS/TECHNIQUE: 3 LIMITATIONS: None. FINDINGS: Left cardiac stimulator with leads. IVC filter. Intestinal gas pattern is within normal limits. Paucity of bowel gas. Colonic stool retention. No suspicious calcification. Grossly intact skeletal structures. No acute cardiopulmonary findings. IMPRESSION: No acute findings.
--- NOTE | 2019-07-11 03:11 | ER Document Report ---
ED General - General Chief Complaint: Vomiting Stated Complaint: VOMITING, NAUSEA Time Seen by Provider: 07/11/19 01:33 Primary Care Provider: NISHA WAGNER MD [Primary Care Provider] - Follow up in 3-5 days Mode of Arrival: Ambulatory Information source: Patient, [facility] Records Notes: 49-year-old female with chronic nausea and vomiting, atrial fibrillation with pacemaker, previous stroke presents with left-sided abdominal pain that started this afternoon. Patient reports that she underwent an endoscopy with Dr. Grissom this morning for persistent nausea and vomiting. She states that around 4 PM she developed a sharp left-sided upper abdominal pain that has been constant. Patient reports persistent nausea and vomiting. She denies any diarrhea. She reports that she was told that her endoscopy was essentially visually normal and biopsies are pending. She also reports that Dr. Grissom stated that she should undergo a right upper quadrant ultrasound. Patient denies fever, chills, chest pain, difficulty swallowing, lower abdominal pain. She has had prior similar symptoms. TRAVEL OUTSIDE OF THE [place] IN LAST 30 DAYS: No - HPI Onset: This afternoon Onset/Duration: Sudden Quality of pain: Stabbing Severity: Severe Pain Level: 4 Associated symptoms: Body/muscle aches, Nausea, Vomiting, Other - Abdominal pain. denies: Chest pain, Diarrhea, Fever, Headache, Shortness of breath Exacerbated by: Denies Relieved by: Denies Similar symptoms previously: Yes Recently seen / treated by doctor: Yes - Related Data Allergies/Adverse Reactions: clindamycin [Clindamycin] Allergy (Intermediate, Verified 07/10/19 09:04) FACE SWELLING, HIVES moxifloxacin [From Avelox] Allergy (Intermediate, Verified 07/10/19 09:04) FACE SWELLING, HIVES metoclopramide HCl [From Reglan] Allergy (Mild, Verified 07/10/19 09:04) RASH,ITCHING morphine Allergy (Mild, Verified 07/10/19 09:04) HIVES, RASH aprotinin [From Tisseel VH 1.0 ml] Allergy (Verified 07/10/19 09:04) Anaphylaxis calcium [From Tisseel VH 1.0 ml] Allergy (Verified 07/10/19 09:04) Anaphylaxis fibrinogen [From Tisseel VH 1.0 ml] Allergy (Verified 07/10/19 09:04) Anaphylaxis ondansetron [From Zofran] Allergy (Verified 07/10/19 09:04) Sulfa (Sulfonamide Antibiotics) Allergy (Verified 07/10/19 09:04) Hives, rash, itching thrombin [From Tisseel VH 1.0 ml] Allergy (Verified 07/10/19 09:04) Anaphylaxis Past Medical History - General Information source: Patient - Social History Smoking Status: Never Smoker Frequency of alcohol use: None Drug Abuse: None Lives with: Spouse/Significant other Family History: Reviewed & Not Pertinent Patient has suicidal ideation: No Patient has homicidal ideation: No - Past Medical History Cardiac Medical History: Reports: Hx Atrial Fibrillation - pacemaker, Hx Heart Attack - 2006 Denies: Hx Coronary Artery Disease, Hx Hypertension Pulmonary Medical History: Reports: Hx Pneumonia - Collapsed Lungs, bloot clots: PE, DVT, heart, brain Denies: Hx Asthma, Hx Bronchitis, Hx COPD - Pulm fibrosis, hx pulm edema Neurological Medical History: Reports: Hx Cerebrovascular Accident - L sided weakness r/t stroke , Hx Migraine, Hx Seizures Renal/ Medical History: Reports: Hx Kidney Stones. Denies: Hx Peritoneal Dialysis GI Medical History: Reports: Hx Endoscopy - 2011 and 2017 secondary to GI bleeds Musculoskeletal Medical History: Reports Hx Arthritis - JAW Psychiatric Medical History: Denies: Hx Depression Past Surgical History: Reports: Hx Abdominal Surgery - ulcer repair, Hx Cardiac Surgery - LEFT PACEMAKER, Hx Hysterectomy, Hx Oral Surgery - TMJ, Other - IVC filter - Immunizations Hx Diphtheria, Pertussis, Tetanus Vaccination: Yes Hx Pneumococcal Vaccination: 11/11/10 Review of Systems - Review of Systems Notes: REVIEW OF SYSTEMS: CONSTITUTIONAL : Denies fever, chills, or sweats. Denies recent illness. Denies weight loss, recent hospitalizations. EENT: Denies visual changes, eye pain. Denies sore throat, oral lesions, difficulty swallowing. CARDIOVASCULAR: Denies chest pain. Denies palpitations. Denies lower extremity edema. RESPIRATORY: Denies cough. Denies shortness of breath, wheezing. GASTROINTESTINAL: Denies abdominal distention. + nausea, vomiting, denies diarrhea. Denies blood in vomitus, stools, or per rectum. Denies black, tarry stools. Denies constipation. GENITOURINARY: Denies difficulty urinating, painful urination, frequency, blood in urine, or vaginal discharge. MUSCULOSKELETAL: Denies back or neck pain or stiffness. Denies joint pain or swelling. SKIN: Denies rash, lesions or sores. HEMATOLOGIC : Denies easy bruising or bleeding. LYMPHATIC: Denies swollen glands. NEUROLOGICAL: Denies confusion or altered mental status. Denies loss of consciousness. Denies dizziness or lightheadedness. Denies headache. Denies weakness or paralysis. Denies problems difficulty with ambulation, slurred speech. Denies sensory loss, numbness, or tingling. Denies seizures. PSYCHIATRIC: Denies anxiety or stress. Denies depression, suicidal ideation, or homicidal ideation. Denies visual or auditory hallucinations. Physical Exam - Vital signs Vitals: Temp Pulse Resp BP Pulse Ox 98.0 F 80 20 130/81 H 100 07/11/19 00:16 07/11/19 00:16 07/11/19 00:16 07/11/19 00:16 07/11/19 00:16 - Notes Notes: PHYSICAL EXAMINATION: GENERAL: Moderate distress, holding left side of abdomen. HEAD: Atraumatic, normocephalic. EYES: Pupils equal round and reactive to light, extraocular movements intact, conjunctiva are normal. ENT: Nares patent, oropharynx clear without exudates. Moist mucous membranes. NECK: Normal range of motion, supple without lymphadenopathy LUNGS: Breath sounds clear to auscultation bilaterally and equal. No wheezes rales or rhonchi. HEART: Regular rate and rhythm without murmurs ABDOMEN: Soft, nontender, nondistended abdomen. No guarding, no rebound. No masses appreciated. No CVA tenderness Female : deferred Musculoskeletal: Normal range of motion, no pitting or edema. No cyanosis. NEUROLOGICAL: Cranial nerves grossly intact. Normal speech, normal gait. Normal sensory, motor exams PSYCH: Normal mood, normal affect. SKIN: Warm, Dry, normal turgor, no rashes or lesions noted. Course - Re-evaluation Re-evalutation: 07/11/19 04:29 Bedside ultrasound was performed to assess for hydronephrosis which is absent bilaterally. Urine jets present bilaterally. Presents with findings consistent with acute nephrolithiasis. Urinalysis does show hematuria. Laboratory otherwise unremarkable. Pain was able to be con trolled here in the emergency department. Patient is tolerating oral intake. Clinical history is not consistent with an acute abdominal aneurysm or dissection, UT, or pulmonary embolus. Urinalysis does not show findings consistent with an infected stone. Vitals have remained within normal limits. Patient will be discharged with recommendations to follow-up with urology, pain medications, and return precautions. They are in agreement with this plan and verbalized indications return to emergency department. 07/11/19 04:33 Temp Pulse Resp BP Pulse Ox 98.0 F 80 20 130/81 H 100 07/11/19 00:16 07/11/19 00:16 07/11/19 00:16 07/11/19 00:16 07/11/19 00:16 ED Course History: 49-year-old female with a history of chronic nausea vomiting, chronic abdominal pain, previous kidney stone, opioid dependence presents with left flank pain that started this afternoon. Patient evaluated. Vital signs were reviewed. Patient is afebrile, normotensive.Previous medical records and nursing notes reviewed. Patient has had multiple CAT scans previously. Patient does not appear toxic or dehydrated they mild distress Exam Findings: Left CVA tenderness. No hydronephrosis on bedside ultrasound. No cholelithiasis on formal ultrasound. Lab Findings: CBC is without leukocytosis or anemia. CMP shows no electrolyte abnormalities and normal renal function. LFTs WNL. UA not consistent with UTI, does show hematuria. Patient Interventions/Monitor: IV fluids, Phenergan, fentanyl, Toradol, Flomax. Revaluation: Resting comfortably. we are in agreement to avoid additional CT imaging as patient has had numerous in the past and exam and history consitient with stone. Patient has been overly dramatic and I have purposely passed by the patient's room and observed her resting comfortably and then the minute I walk in begins moaning in pain.I suspect that with the patient's opiate dependence her pain will be reported by patient as severe. When quetioned about pain meds she initially states she had some home after todays endoscopy and shortly states " but I threw them all up". Patient displaying drug seeking behavior, has a laundry list of allergies. Patient has received over 50 tabs of narcotic medication this month, did not disclose this. she also has received multiple scr ipts for promethazine but states she has received any. Patient was evaluated and treated as appropriate for the patient's presenting symptoms and complaint, with consideration of any critical or life threatening conditions that may be associated with their obtained history and exam as noted above. All results were discussed with patient . Patient provided the opportunity to ask questions, and express concerns. Patient was educated on treatments based on their presumed diagnosis as noted above. At this time we will discharge the patient with return precautions and follow-up recommendations. Verbal discharge instructions given a the bedside. Medication warnings reviewed. Patient is in agreement with this plan and has verbalized understanding of return precautions. After careful consideration I feel that that patient can be safely discharged from the emergency department, they were advised to followup with a primary care physician in 2-3 days. Dictation on this chart was performed using voice recognition software and may result in unintended grammatical, spelling, syntax or errors. 07/11/19 06:44 07/11/19 06:50 - Vital Signs Vital signs: Temp Pulse Resp BP Pulse Ox 98.0 F 80 20 130/81 H 100 07/11/19 00:16 07/11/19 00:16 07/11/19 00:16 07/11/19 00:16 07/11/19 00:16 - Laboratory Result Diagrams: 07/11/19 03:30 07/11/19 03:30 Laboratory results interpreted by me: 07/11/19 00:46 Urine Protein 30 H Urine Blood LARGE H - Diagnostic Test Radiology reviewed: Image reviewed Discharge - Discharge Clinical Impression: Flank pain, History of kidney stones, Narcotic dependence, episodic use, Drug- seeking behavior Hematuria Qualifiers: Hematuria type: unspecified type Qualified Code(s): R31.9 - Hematuria, unspecified Condition: Good Disposition: HOME, SELF-CARE Instructions: Flank Pain ([facility]), Hematuria ([facility]), Kidney Stone ([facility]), Nausea or Vomiting, Nonspecific ([facility]) Additional Instructions: Your symptoms should improve over the course of the next one week. If you continue to have pain for greater than one week or your pain is not controlled with the pain medications that you have been sent home with you need to return to the emergency department. Please also return if you develop fever, persistent vomiting, or any other symptoms that are concerning to you. You should take ibuprofen 600 mg every 6 hours and use the oral morphine as prescribed only for pain not controlled by ibuprofen. You are also been sent home with a medication called Flomax to help pass the stone. You've been given Zofran to assist with nausea. Please follow-up with urology in the next 2-3 days. Prescriptions: Ketorolac Tromethamine [Toradol 10 mg Tablet] 10 mg PO Q6HP PRN #12 tablet PRN Reason: Tamsulosin HCl [Flomax 0.4 mg Cap.sr] 0.4 mg PO DAILY #7 cap.sr.24h Oxycodone HCl [Oxycontin] 15 mg PO Q12H #4 tab.sr.12h Promethazine HCl [Phenergan 25 mg Tablet] 25 mg PO Q8H PRN #12 tablet PRN Reason: For Nausea/Vomiting Forms: Elevated Blood Pressure Referrals: NISHA WAGNER MD [Primary Care Provider] - Follow up in 3-5 days
[2019-07-11 03:52] LABS: ABSOLUTE BASOPHILS # (AUTO) 0.1 10^3/uL (0.0-0.2); ABSOLUTE EOSINOPHILS # (AUTO) 0.1 10^3/uL (0.0-0.6); ABSOLUTE LYMPHOCYTES (AUTO) 1.8 10^3/uL (0.5-4.7); ABSOLUTE MONOCYTES (AUTO) 0.5 10^3/uL (0.1-1.4); ABSOLUTE NEUT (AUTO) 4.2 10^3/uL (1.7-8.2); BASOPHILS % (AUTO) 1.2 % (0-2); EOSINOPHILS % (AUTO) 1.7 % (0-6); HEMATOCRIT 42.2 % (36.0-47.0); HEMOGLOBIN 14.4 g/dL (12.0-15.5); LYMPHOCYTES % (AUTO) 27.1 % (13-45); MEAN CORPUSCULAR HEMOGLOBIN 31.8 pg (27.0-33.4); MEAN CORPUSCULAR HGB CONC 34.2 g/dL (32.0-36.0); MEAN CORPUSCULAR VOLUME 93 fl (80-97); MONOCYTES % (AUTO) 7.4 % (3-13); PLATELET COUNT 236 10^3/uL (150-450); RED BLOOD COUNT 4.53 10^6/uL (3.72-5.28); RED CELL DISTRIBUTION WIDTH 13.6 % (11.5-14.0); SEGMENTED NEUTROPHILS % (AUTO) 62.6 % (42-78); TOTAL CELLS COUNTED % (AUTO) 100 %; WHITE BLOOD COUNT 6.7 10^3/uL (4.0-10.5)
[2019-07-11 04:11] LABS: ALKALINE PHOSPHATASE 50 U/L (38-126); ANION GAP 9 (5-19); ASPARTATE AMINO TRANSFERASE 23 U/L (14-36); BILIRUBIN,DIRECT 0.4 mg/dL (0.0-0.4); BILIRUBIN,TOTAL 0.8 mg/dL (0.2-1.3); BLOOD UREA NITROGEN 13 mg/dL (7-20); CALCIUM 10.1 mg/dL (8.4-10.2); CARBON DIOXIDE 26 mmol/L (22-30); CHLORIDE 107 mmol/L (98-107); GLUCOSE 82 mg/dL (75-110); POTASSIUM 3.8 mmol/L (3.6-5.0); TOTAL PROTEIN 8.1 g/dL (6.3-8.2)
[2019-07-11] MEDS ORDERED: KETOROLAC TROMETHAMINE INJ/PF 30 MG/1 ML SDV IV ONE (04:11)
[2019-07-11] MEDS ORDERED: TAMSULOSIN HCL 0.4 MG CAP.SR.24H PO ONE (04:11)
--- NOTE | 2019-07-11 04:21 | RADIOLOGY REPORT (SQ) ---
EXAM DESCRIPTION: US ABDOMEN LIMITED COMPLETED DATE/TME: 07/11/2019 01:56 CLINICAL HISTORY: 49 years, Female, abd pain COMPARISON: None. TECHNIQUE: Grayscale and color images of the abdomen LIMITATIONS: None. FINDINGS: The pancreas and abdominal aorta are not well visualized. The liver measures 18.6 cm. The main portal vein demonstrates normal hepatopedal flow. The gallbladder appears normal. There is no evidence of cholelithiasis or pericholecystic fluid. The gallbladder wall measures up to 4 mm in thickness. No sonographic Melchor sign was elicited. The common bile duct is normal in caliber measuring up to 4 mm in diameter. The right kidney appears normal. The right kidney measures 10.9 x 2.4 x 5.0 cm. No hydronephrosis. IMPRESSION: Mild, nonspecific gallbladder wall thickening. No evidence of cholelithiasis or pericholecystic fluid. copyright 2010 [employer]- All Rights Reserved
[2019-07-11] MEDS ORDERED: RINGERS SOLUTION,LACTATED 1,000 ML IV ONE (04:28)
[2019-07-11] MEDS ORDERED: FENTANYL CITRATE INJ/PF 100 MCG/2 ML AMPUL IV PRN (04:31)
[2019-07-11] MEDS ORDERED: PROMETHAZINE HCL INJ 50 MG/1 ML VIAL ONE (04:45)
[2019-07-11] MEDS ORDERED: FENTANYL CITRATE INJ/PF 100 MCG/2 ML AMPUL IM PRN (06:27)
[2019-07-11 07:04] VITALS: BP 107/59
== END 2019-07-11 07:02 | disposition home or self-care (01) ==
LOC: ER 00:10
DX: R31.9 Hematuria, unspecified (principal); F19.20 Other psychoactive substance dependence, uncomplicated; Z76.5 Malingerer [conscious simulation]; R10.9 Unspecified abdominal pain; R10.12 Left upper quadrant pain; R11.2 Nausea with vomiting, unspecified; I48.91 Unspecified atrial fibrillation; Z95.0 Presence of cardiac pacemaker; M79.10 Myalgia, unspecified site; Z98.890 Other specified postprocedural states
CPT/HCPCS: 99284; 96372; 96361; 96374; 96375; 36415; 83690; 85025; 81025; 80053; 81001; 74022; 76705; J3010; J1885; A9270; J2550; J7120

== ENCOUNTER 2019-09-23 23:36 | Emergency (ER) | payer MEDICARE, OTHER ==
--- NOTE | 2019-09-24 00:18 | ER Document Report ---
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 He unexpectedly and suddenly last month. She tells me she can not function well - is not eating or sleeping and is just having tremendous difficulty. She arrives via EMS and is crying and inconsolable when I see her. Her arrives while I am speaking with her and he confirms events. TRAVEL OUTSIDE OF THE [place] IN LAST 30 DAYS: No - HPI Onset: Last week Onset/Duration: Gradual Quality of pain: No pain Severity: Severe Pain Level: 5 Associated symptoms: Other Exacerbated by: Denies Relieved by: Denies - Related Data Allergies/Adverse Reactions: clindamycin [Clindamycin] Allergy (Intermediate, Verified 07/10/19 09:04) FACE SWELLING, HIVES moxifloxacin [From Avelox] Allergy (Intermediate, Verified 07/10/19 09:04) FACE SWELLING, HIVES metoclopramide HCl [From Reglan] Allergy (Mild, Verified 07/10/19 09:04) RASH,ITCHING morphine Allergy (Mild, Verified 07/10/19 09:04) HIVES, RASH aprotinin [From Tisseel VH 1.0 ml] Allergy (Verified 07/10/19 09:04) Anaphylaxis calcium [From Tisseel VH 1.0 ml] Allergy (Verified 07/10/19 09:04) Anaphylaxis fibrinogen [From Tisseel VH 1.0 ml] Allergy (Verified 07/10/19 09:04) Anaphylaxis ondansetron [From Zofran] Allergy (Verified 07/10/19 09:04) Sulfa (Sulfonamide Antibiotics) Allergy (Verified 07/10/19 09:04) Hives, rash, itching thrombin [From Tisseel VH 1.0 ml] Allergy (Verified 07/10/19 09:04) Anaphylaxis Past Medical History - General Information source: Patient, Relative - - Social History Smoking Status: Never Smoker Family History: Reviewed & Not Pertinent Patient has suicidal ideation: No Patient has homicidal ideation: No - Past Medical History Cardiac Medical History: Reports: Hx Atrial Fibrillation - pacemaker, Hx Heart Attack - 2006 Denies: Hx Coronary Artery Disease, Hx Hypertension Pulmonary Medical History: Reports: Hx Pneumonia - Collapsed Lungs, bloot clots: PE, DVT, heart, brain Denies: Hx Asthma, Hx Bronchitis, Hx COPD - Pulm fibrosis, hx pulm edema Neurological Medical History: Reports: Hx Cerebrovascular Accident - L sided weakness r/t stroke , Hx Migraine, Hx Seizures Renal/ Medical History: Reports: Hx Kidney Stones. Denies: Hx Peritoneal Dialysis GI Medical History: Reports: Hx Endoscopy - 2011 and 2017 secondary to GI bleeds Musculoskeletal Medical History: Reports Hx Arthritis - JAW Psychiatric Medical History: Denies: Hx Depression Past Surgical History: Reports: Hx Abdominal Surgery - ulcer repair, Hx Cardiac Surgery - LEFT PACEMAKER, Hx Hysterectomy, Hx Oral Surgery - TMJ, Other - IVC filter - Immunizations Hx Diphtheria, Pertussis, Tetanus Vaccination: Yes Hx Pneumococcal Vaccination: 11/11/10 Review of Systems - Review of Systems Constitutional: No symptoms reported EENT: No symptoms reported Cardiovascular: No symptoms reported Respiratory: No symptoms reported Gastrointestinal: No symptoms reported Genitourinary: No symptoms reported Female Genitourinary: No symptoms reported Musculoskeletal: No symptoms reported Skin: No symptoms reported Hematologic/Lymphatic: No symptoms reported Neurological/Psychological: See HPI, Depression, Other - grief Physical Exam - Vital signs Vitals: Temp Pulse Resp BP Pulse Ox 97.3 F 66 18 92/63 L 97 09/23/19 23:42 09/23/19 23:42 09/23/19 23:42 09/23/19 23:42 09/23/19 23:42 Interpretation: Normal - General General appearance: Appears well, Alert - HEENT Head: Normocephalic, Atraumatic Eyes: Normal Pupils: PERRL - Respiratory Respiratory status: No respiratory distress Chest status: Nontender Breath sounds: Normal Chest palpation: Normal - Cardiovascular Rhythm: Regular Heart sounds: Normal auscultation Murmur: No - Abdominal Inspection: Normal Distension: No distension Bowel sounds: Normal Tenderness: Nontender Organomegaly: No organomegaly - Back Back: Normal, Nontender - Extremities General upper extremity: Normal inspection, Nontender, Normal color, Normal ROM, Normal temperature General lower extremity: Normal inspection, Nontender, Normal color, Normal ROM, Normal temperature, Normal weight bearing. No: Micheal's sign - Neurological Neuro grossly intact: Yes Cognition: Normal Orientation: AAOx4 Red Coma Scale Eye Opening: Spontaneous [place] Coma Scale Verbal: Oriented [place] Coma Scale Motor: Obeys Commands [place] Coma Scale Total: 15 Speech: Normal Motor strength normal: LUE, RUE, LLE, RLE Sensory: Normal - Psychological Associated symptoms: Normal affect, Normal mood - Skin Skin Temperature: Warm Skin Moisture: Dry Skin Color: Normal Course - Vital Signs Vital signs: Temp Pulse Resp BP Pulse Ox 97.3 F 66 16 92/63 L 99 09/23/19 23:42 09/23/19 23:42 09/24/19 01:00 09/23/19 23:42 09/24/19 01:00 - Laboratory Result Diagrams: 09/24/19 01:00 09/24/19 01:00 Laboratory results interpreted by me: 09/24/19 00:50 Urine Ascorbic Acid 40 H Discharge - Discharge Clinical Impression: Grief reaction, Anxiety Condition: Good Disposition: PSYCH HOSP/UNIT Instructions: Anxiety ([facility]) Referrals: NISHA WAGNER MD [Primary Care Provider] - Follow up as needed
[2019-09-24] MEDS ORDERED: LORAZEPAM INJ 2 MG/1 ML VIAL IV ONE ×3 (00:22→04:36)
[2019-09-24 01:12] LABS: APPEARANCE,URINE SLIGHTLY-CLOUDY; BILIRUBIN,URINE NEGATIVE (NEGATIVE); COLOR,URINE YELLOW; GLUCOSE, URINE NEGATIVE (NEGATIVE); KETONES,URINE NEGATIVE (NEGATIVE); LEUKOCYTE ESTERASE,URINE NEGATIVE (NEGATIVE); NITRITE,URINE NEGATIVE (NEGATIVE); PROTEIN,URINE NEGATIVE (NEGATIVE); URINE SPECIFIC GRAVITY 1.019; UROBILINOGEN,URINE NEGATIVE mg/dL (<2.0)
[2019-09-24 01:25] LABS: ABSOLUTE EOSINOPHILS # (AUTO) 0.3 10^3/uL (0.0-0.6); ABSOLUTE LYMPHOCYTES (AUTO) 1.4 10^3/uL (0.5-4.7); ABSOLUTE MONOCYTES (AUTO) 0.5 10^3/uL (0.1-1.4); BASOPHILS % (AUTO) 0.6 % (0-2); EOSINOPHILS % (AUTO) 4.1 % (0-6); HEMATOCRIT 38.1 % (36.0-47.0); LYMPHOCYTES % (AUTO) 22.4 % (13-45); MEAN CORPUSCULAR HEMOGLOBIN 31.2 pg (27.0-33.4); MEAN CORPUSCULAR HGB CONC 34.1 g/dL (32.0-36.0); MEAN CORPUSCULAR VOLUME 92 fl (80-97); MONOCYTES % (AUTO) 8.2 % (3-13); PLATELET COUNT 246 10^3/uL (150-450); RED BLOOD COUNT 4.17 10^6/uL (3.72-5.28); RED CELL DISTRIBUTION WIDTH 12.6 % (11.5-14.0); SEGMENTED NEUTROPHILS % (AUTO) 64.7 % (42-78); TOTAL CELLS COUNTED % (AUTO) 100 %; WHITE BLOOD COUNT 6.3 10^3/uL (4.0-10.5)
[2019-09-24 01:31] LABS: ALKALINE PHOSPHATASE 43 U/L (38-126); ANION GAP 8 (5-19); ASPARTATE AMINO TRANSFERASE 20 U/L (14-36); BILIRUBIN,DIRECT 0.1 mg/dL (0.0-0.4); BILIRUBIN,TOTAL 0.3 mg/dL (0.2-1.3); BLOOD UREA NITROGEN 23 mg/dL (7-20); CALCIUM 9.4 mg/dL (8.4-10.2); CARBON DIOXIDE 26 mmol/L (22-30); CHLORIDE 103 mmol/L (98-107); GLUCOSE 96 mg/dL (75-110); POTASSIUM 3.9 mmol/L (3.6-5.0); TOTAL PROTEIN 6.6 g/dL (6.3-8.2)
[2019-09-24 06:28] VITALS: BP 121/74
--- NOTE | 2019-09-24 10:34 | PSYCHOLOGICAL NOTE ---
Psych Note - Psych Note Date seen by psych provider: 09/24/19 Time seen by psych provider: 08:05 Psych Note: Reason for consult: Anxiety Completed chart review. Patient presented to ED via EMS. Patient has chronic medical concerns (history of heart attack, stroke, and anoxic brain injury-TBI). Patients medical conditions are exasperated by the recent of her son due to complications of his Type 1 Diabetes. Patient states she is experiencing increased anger and anxiety that is inhibiting sleep. Patient denies suicidal ideation and homicidal ideation. Patient states she has two boys who need her. Patients medical conditions, depression, and anxiety are being exasperated by triggers related to sons . Today is National Juvenile Diabetes Awareness , the family is participating in an event for her son at [facility] today, and there is an ongoing investigation involving her sons that has inhibited patient to grieve and have closure. Patient complains primarily of headaches and lack of sleep. Patient is alert and oriented to person, place, time and circumstance. Mood is tearful and emotional with congruent affect. Patient denies suicidal and homicidal ideation. Delusions are absent and behavior is congruent with an i ntact reality based presentation (i.e. organized and linear thought processes). Patient denies auditory and visual hallucinations. There is no observed behavior that suggests patient is responding to internal stimuli. Eye contact is good. Conversational speech is within normal rate, tone, and prosody- however pressured at times as she described emotional and physical pain. Intellectual ability appears to be within average range. Attention and concentration are good. Insight, judgment, and impulse control are good. DSM Diagnosis: Per report, Depression Anxiety Grief Medication recommendations per [facility] contracted psychiatrist Dr. Destin TANG is as follows: Discontinue Clonazepam Add Buspar, 5MG, now Add Buspar 7.5MG, script to be taken twice a day Add Clonidine 0.1MG, to be taken at night Impression/Plan: Patient is cleared from acute psychiatric services. Patient does not meet IVC criteria per [place] GS 122C. Medication recommendations have been provided. Patients medical and mental health concerns are being exasperated by the recent, unexpected loss of her son. Patient is going through the grieving process that is increasing anxiety, subsequently decreasing restorative and recu perative sleep. Patients grief is also being exasperated by environmental triggers. Patient denies suicidal and homicidal ideations. Patient denies auditory and visual hallucinations. Patient has strong support system in the family who is actively engaged in her plan of care. Patient has follow up appointments for mental health services and medication management. Dr. Russell was consulted on the care and management of this patient; attending physician is in agreement with recommendations and disposition.
[2019-09-24] MEDS ORDERED: DIVALPROEX SODIUM 250 MG TAB.SR.24H PO ONE (11:03)
[2019-09-24] MEDS ORDERED: BUSPIRONE HCL 10 MG TABLET PO ONE (11:04)
[2019-09-24] MEDS ORDERED: LEVETIRACETAM 500 MG TABLET PO ONE (11:11)
--- NOTE | 2019-09-24 11:47 | ER Document Report ---
Doctor's Note Notes: 49-year-old female with a history of chronic migraines, right-sided CVA and is managed by her neurologist as well as an pain management presents to the ED for anxiety increase, she recently lost her son patient's vital signs and previous labs, diagnostic images reviewed. Reviewed mental health notes, nurse's notes and previous providers notes. VSS. Pt is in no distress at this time. Denies any SI or HI. Patient has been evaluated by mental health and has been cleared by mental health for needing any inpatient services. Patient's is at bedside and very supportive. Patient reports that she has had CTs done for her headaches in the last 3 weeks by a neurologist, negative for any acute ICH, subdural, hematoma. General: A&Ox3. Answers questions appropriately. Heart: RRR Lungs: CTAB Psych: Flat affect neuro: PERRLA, EOMI. Full motor and sensory function throughout. 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 Tongue midline. No pronator drift. No ataxia. Neck with APROM. Raises eyebrows. Strength is 5 out of 5 in L>R upper and lower extremities equally. Speaks in full sentences. No weakness on one side. Romberg gait steady able to walk straight line. Able to recall 5 objects. psych: Patient is alert and oriented 4. Mood is euthymic with normal affect. Patient denies any suicidal, homicidal ideations, intent, plan needs. Patient denies any auditory and visual hallucinations, delusions none noted. Thought processes are guarded but organized. Attention and focus are fair. Pt is anxious currently because she does not want to miss her son's memorial, who recently approx 2 weeks ago. Insight, judgment, impulse control are normal. A/P: Chart has been reviewed by this provider as well as Dr. Evan Vu, supervising physician and Dr. Russell, psychologist with [facility] mental health team. Disposition: feel that patient is appropriate for discharge to home. Mental health team has provided a med requisition, medication adjustments has been made. patient will be following up with a outpatient mental health team to manage her symptoms of anxiety and grief. Patient does have at bedside who will be transporting her home. Patient is agreeable with this plan of care and feels that
== END 2019-09-24 11:33 | disposition home or self-care (01) ==
LOC: ER 23:36
DX: F43.22 Adjustment disorder with anxiety (principal)
CPT/HCPCS: 36415; 83735; 85025; 80053; 81001; A9270 ×2; J2060

== ENCOUNTER 2020-09-06 12:39 | Inpatient (IN) | payer MEDICARE, OTHER ==
--- NOTE | 2020-09-06 13:05 | ER Document Report ---
ED Medical Screen (RME) - General Stated Complaint: LEG PAIN (TIGHT & HOT) /SYNCOPE/NAUSEA Time Seen by Provider: 09/06/20 12:51 Primary Care Provider: NISHA WAGNER MD [Primary Care Provider] - Follow up as needed TRAVEL OUTSIDE OF THE [place] IN LAST 30 DAYS: No - HPI Notes: 09/06/20 13:00 50-year-old female history of 4 DVTs, gastritis, recently diagnosed with adrenal insufficiency over 4 weeks ago presents ED for left leg swelling and pain, she suspects that she may have another DVT. Patient states she has a burning, hot sensation for the last 2 days. patient also states in the last 2 weeks she has had at least 2-3 syncopal events a day but in the last 2 days she has had 15-18 syncopal events where she passes out. She has never been evaluated for this within the last 2 weeks. She states that she contributed this to being recently diagnosed adrenal fatigue. States that she is lost in the last couple months 50 pounds she has been vomiting. Denies any new medications foods or travel. Denies any chest pain or shortness of breath. Denies being a diabetic. I have greeted and performed a rapid initial assessment of this patient. A comprehensive ED assessment and evaluation of the patient, analysis of test results and completion of the medical decision making process will be conducted by additional ED providers. PHYSICAL EXAMINATION: GENERAL: Chronically ill malnourished and in no acute distress. NECK: Normal range of motion CV: s1, s2 regular LUNGS: No respiratory distress Musculoskeletal: Normal range of motion. NEUROLOGICAL: Normal speech, normal gait. SKIN: Warm, Dry, normal turgor, no rashes or lesions noted. - Related Data Allergies/Adverse Reactions: clindamycin [Clindamycin] Allergy (Intermediate, Verified 07/10/19 09:04) FACE SWELLING, HIVES moxifloxacin [From Avelox] Allergy (Intermediate, Verified 07/10/19 09:04) FACE SWELLING, HIVES metoclopramide HCl [From Reglan] Allergy (Mild, Verified 07/10/19 09:04) RASH,ITCHING morphine Allergy (Mild, Verified 07/10/19 09:04) HIVES, RASH aprotinin [From Tisseel VH 1.0 ml] Allergy (Verified 07/10/19 09:04) Anaphylaxis calcium [From Tisseel VH 1.0 ml] Allergy (Verified 07/10/19 09:04) Anaphylaxis divalproex sodium [From Depakote] Allergy (Verified 09/24/19 11:16) fibrinogen [From Tisseel VH 1.0 ml] Allergy (Verified 07/10/19 09:04) Anaphylaxis ondansetron [From Zofran] Allergy (Verified 07/10/19 09:04) Sulfa (Sulfonamide Antibiotics) Allergy (Verified 07/10/19 09:04) Hives, rash, itching thrombin [From Tisseel VH 1.0 ml] Allergy (Verified 07/10/19 09:04) Anaphylaxis Past Medical History - Social History Family history: Reviewed & Not Pertinent - Past Medical History Cardiac Medical History: Reports: Hx Atrial Fibrillation - pacemaker, Hx Heart Attack - 2006 Denies: Hx Coronary Artery Disease, Hx Hypertension Pulmonary Medical History: Reports: Hx Pneumonia - Collapsed Lungs, bloot clots: PE, DVT, heart, brain Denies: Hx Asthma, Hx Bronchitis, Hx COPD - Pulm fibrosis, hx pulm edema Neurological Medical History: Reports: Hx Cerebrovascular Accident - L sided weakness r/t stroke , Hx Migraine, Hx Seizures Renal/ Medical History: Reports: Hx Kidney Stones. Denies: Hx Peritoneal Dialysis GI Medical History: Reports: Hx Endoscopy - 2011 and 2017 secondary to GI bleeds Musculoskeltal Medical History: Reports Hx Arthritis - JAW Psychiatric Medical History: Denies: Hx Depression Past Surgical History: Reports: Hx Abdominal Surgery - ulcer repair, Hx Cardiac Surgery - LEFT PACEMAKER, Hx Hysterectomy, Hx Oral Surgery - TMJ, Other - IVC filter - Immunizations Hx Diphtheria, Pertussis, Tetanus Vaccination: Yes Physical Exam - Vital signs Vitals: Temp Pulse Resp BP Pulse Ox 98.2 F 49 L 16 144/73 H 100 09/06/20 12:47 09/06/20 12:47 09/06/20 12:47 09/06/20 12:47 09/06/20 12:47 Course - Vital Signs Vital signs: Temp Pulse Resp BP Pulse Ox 98.2 F 49 L 16 144/73 H 100 09/06/20 12:47 09/06/20 12:47 09/06/20 12:47 09/06/20 12:47 09/06/20 12:47 Doctor's Discharge - Discharge Referrals: NISHA WAGNER MD [Primary Care Provider] - Follow up as needed
--- NOTE | 2020-09-06 13:51 | RADIOLOGY REPORT (SQ) ---
EXAM DESCRIPTION: CT HEAD WITHOUT IMAGES COMPLETED DATE/TIME: 09/06/2020 12:33 pm REASON FOR STUDY: Multiple syncopal events over the last 2 weeks COMPARISON: 03/30/2020. TECHNIQUE: Axial images acquired through the brain without intravenous contrast. Images reviewed wi th bone, brain and subdural windows. Additional sagittal and coronal reconstructions were generated. Images stored on PACS. All CT scanners at this facility use dose modulation, iterative reconstruction, and/or weight based d osing when appropriate to reduce radiation dose to as low as reasonably achievable (ALARA). [facility]: Dose Right [facility]: CareDose [facility]: Dose Right [facility]: Teradose 4D [facility]: Smart iKoa RADIATION DOSE: CT Rad equipment meets quality standard of care and radiation dose reduction techniq ues were employed. CTDIvol: 53.2 mGy. DLP: 937 mGy-cm. mGy. LIMITATIONS: None. FINDINGS: VENTRICLES: Normal size and contour. CEREBRUM: No masses. No hemorrhage. No midline shift. No evidence for acute infarction. Normal gra y/white matter differentiation. No areas of low density in the white matter. CEREBELLUM: No masses. No hemorrhage. No alteration of density. No evidence for acute infarction. EXTRAAXIAL SPACES: No fluid collections. No masses. ORBITS AND GLOBE: No intra- or extraconal masses. Normal contour of globe without masses. CALVARIUM: No fracture. PARANASAL SINUSES: No fluid or mucosal thickening. SOFT TISSUES: No mass or hematoma. OTHER: No other significant finding. IMPRESSION: NO ACUTE INTRACRANIAL IMAGING FINDINGS. EVIDENCE OF ACUTE STROKE: NO. COMMENT: Quality ID # [id number]: Final reports with documentation of one or more dose reduction techniques (e.g., Automated exposure control, adjustment of the mA and/or kV according to patient size, use of iterative reconstruction technique) TECHNICAL DOCUMENTATION: JOB ID: [id number] 2010 [employer]- All Rights Reserved Reading location - IP/workstation name: [email or web address]
[2020-09-06 13:59] LABS: APPEARANCE,URINE SLIGHTLY-CLOUDY; BILIRUBIN,URINE NEGATIVE (NEGATIVE); COLOR,URINE YELLOW; GLUCOSE, URINE NEGATIVE (NEGATIVE); KETONES,URINE NEGATIVE (NEGATIVE); LEUKOCYTE ESTERASE,URINE NEGATIVE (NEGATIVE); NITRITE,URINE NEGATIVE (NEGATIVE); PROTEIN,URINE NEGATIVE (NEGATIVE); URINE SPECIFIC GRAVITY 1.014; UROBILINOGEN,URINE NEGATIVE mg/dL (<2.0)
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
[2020-09-06 15:12] LABS: ALBUMIN 4.6 g/dL (3.5-5.0); ALKALINE PHOSPHATASE 110 U/L (38-126); ANION GAP 12 (5-19); ASPARTATE AMINO TRANSFERASE 22 U/L (14-36); BILIRUBIN,DIRECT 0.2 mg/dL (0.0-0.4); BILIRUBIN,TOTAL 0.5 mg/dL (0.2-1.3); BLOOD UREA NITROGEN 15 mg/dL (7-20); CALCIUM 9.9 mg/dL (8.4-10.2); CARBON DIOXIDE 24 mmol/L (22-30); CHLORIDE 105 mmol/L (98-107); GLUCOSE 82 mg/dL (75-110); POTASSIUM 4.4 mmol/L (3.6-5.0); TOTAL PROTEIN 7.8 g/dL (6.3-8.2)
[2020-09-06 15:29] LABS: ABSOLUTE BASOPHILS # (AUTO) 0.1 10^3/uL (0.0-0.2); ABSOLUTE EOSINOPHILS # (AUTO) 0.1 10^3/uL (0.0-0.6); ABSOLUTE LYMPHOCYTES (AUTO) 2.2 10^3/uL (0.5-4.7); ABSOLUTE MONOCYTES (AUTO) 0.7 10^3/uL (0.1-1.4); ABSOLUTE NEUT (AUTO) 5.1 10^3/uL (1.7-8.2); BASOPHILS % (AUTO) 1.3 % (0-2); EOSINOPHILS % (AUTO) 1.5 % (0-6); HEMATOCRIT 42.1 % (36.0-47.0); HEMOGLOBIN 14.2 g/dL (12.0-15.5); LYMPHOCYTES % (AUTO) 27.3 % (13-45); MEAN CORPUSCULAR HEMOGLOBIN 30.6 pg (27.0-33.4); MEAN CORPUSCULAR HGB CONC 33.6 g/dL (32.0-36.0); MEAN CORPUSCULAR VOLUME 91 fl (80-97); RED BLOOD COUNT 4.63 10^6/uL (3.72-5.28); RED CELL DISTRIBUTION WIDTH 15.1 % (11.5-14.0); SEGMENTED NEUTROPHILS % (AUTO) 61.9 % (42-78); TOTAL CELLS COUNTED % (AUTO) 100 %; WHITE BLOOD COUNT 8.2 10^3/uL (4.0-10.5)
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
[2020-09-06] MEDS ORDERED: PROMETHAZINE HCL INJ 25 MG/1 ML VIAL IV ONE (15:35)
[2020-09-06] MEDS ORDERED: ENOXAPARIN SODIUM INJ 60 MG/0.6 ML DISP.SYRIN SUBCUT SCH (15:45)
[2020-09-06 15:48] LABS: PLATELET COUNT 252 10^3/uL (150-450)
[2020-09-06 15:48] LABS: INTERNATIONAL RATION (INR) 0.85; PROTHROMBIN TIME 11.8 SEC (11.4-15.4)
--- NOTE | 2020-09-06 15:52 | RADIOLOGY REPORT (SQ) ---
EXAM DESCRIPTION: VENOUS UNILATERAL LOWER IMAGES COMPLETED DATE/TIME: 09/06/2020 2:21 pm REASON FOR STUDY: Left leg pain, hx of DVT x4 COMPARISON: None. TECHNIQUE: Dynamic and static umanzor scale and color images acquired of the left leg venous system. Se lected spectral images acquired with additional compression and augmentation maneuvers. The contralat eral common femoral vein and saphenofemoral junction were also imaged. Images stored on PACS. LIMITATIONS: None. FINDINGS: COMMON FEMORAL: Normal phasicity, compression and augmentation. No visualized echogenic ma terial on umanzor scale. No defects on color images. FEMORAL: There is hypoechoic noncompressible thrombus within the distal left femoral vein. Normal fl ow and compressibility is seen in the proximal and mid femoral vein. Color Doppler imaging demonstra deric no vascular flow. POPLITEAL: Hypoechoic noncompressible thrombus in the left popliteal vein. Color Doppler imaging dem onstrates no vascular flow. CALF VESSELS: Hypoechoic noncompressible thrombus in the left posterior tibial vein below the knee. Color Doppler imaging demonstrates no vascular flow. GSV and SSV: Normal compression, augmentation. No visualized echogenic material on umanzor scale. No def ects on color images. ANY DEEP VENOUS INSUFFICIENCY: Not evaluated. ANY EVIDENCE OF POPLITEAL CYST: No. OTHER: No other significant finding. CONTRALATERAL COMMON FEMORAL VEIN AND SAPHENOFEMORAL JUNCTION: Normal phasicity, compression and augmentation. No visualized echogenic material on umanzor scale. No de fects on color images. IMPRESSION: Positive for DVT in the left distal femoral vein, popliteal vein and posterior tibial ve in. COMMENT: Findings were communicated by the sonographic technologist to Dr. siegel in the emergency room on 09/06/2020 at 1522 hours Eastern TECHNICAL DOCUMENTATION: JOB ID: [id number] 2010 [employer]- All Rights Reserved Reading location - IP/workstation name: [email or web address]
[2020-09-06 15:57] LABS: PARTIAL THROMBOPLASTIN TIME < 23.0 SEC (23.5-35.8)
[2020-09-06] MEDS ORDERED: HYDROMORPHONE HCL INJ/PF 2 MG/ML AMPULE IV ONE (16:50)
--- NOTE | 2020-09-06 18:08 | EKG REPORT ---
SEVERITY:- ABNORMAL ECG - ATRIAL FLUTTER, A-RATE 300 NONSPECIFIC INTRAVENTRICULAR CONDUCTION DELAY NONSPECIFIC ST-T CHANGES ANTEROSEPTAL LEADS. : Confirmed by: Miguel Hopper MD 06-Sep-2020 18:07:41
[2020-09-06] MEDS ORDERED: MAGNESIUM HYDROXIDE SUSP 30 ML UDCUP PO PRN (18:25)
[2020-09-06] MEDS ORDERED: MAG HYDROX/AL HYDROX/SIMETH SUSP 30 ML UDCUP PO PRN (18:25)
[2020-09-06] MEDS ORDERED: PROMETHAZINE HCL INJ 25 MG/1 ML VIAL IV PRN (18:25)
[2020-09-06] MEDS ORDERED: TIZANIDINE HCL 4 MG TABLET PO PRN (18:43)
--- NOTE | 2020-09-06 18:50 | PDOC H&P ---
History of Present Illness Admission Date/PCP: 09/06/20 17:47 NISHA WAGNER MD Patient complains of: Pain and tightness left leg History of Present Illness: KRANTHI REDDY is a 50 year old female with an extremely complex medical history. She has had multiple episodes of thrombus formation with embolic effect as noted below. 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 fib. 2015: Had a left MCA stroke hospitalized at [place]. 2018: Perforated peptic ulcer disease was admitted at [facility] had exploratory laparotomy. Over the last 2 days she has developed tightness in her left leg. She tried ice and elevation this did not help. The pain was increasing to the point where she could not bear weight on her legs and this prompted a visit to the emergency department. A DVT was found from the femoral to posterior tibial veins. Her history is also been complicated over the last several weeks as she has been having episodes of a warm feeling in her arms with subsequent viselike pressure in her head and then she passes out. This has been witnessed. There are no seizure-like activities. It can now happen when she is lying down. There are multiple episodes per day. When she wakes up she is confused and quite nauseated. She has also had significant nausea and vomiting for some time now. Her weight is decreased significantly. In addition she saw cardiology several weeks ago. Because of conduction issues they turned off the atrial leads in her pacemaker. She now has an idioventricular rate with a lower limit set at 40 bpm. The atria are typically in flutter. Due to complete heart block none of these are transmitted to the ventricles. Cardiology felt that this was the only way to treat a supraventricular tachycardia. She does have a history of perforated ulcer. She reports a partial gastrectomy. She states that with her nausea and vomiting she has noticed little red pellets. She is unsure if they are blood or not. They are certainly not bright red blood but could be small clots. She does have a history of a Rosana-Baez tear as well. Because of the acute DVT will start the patient on Lovenox. Will monitor closely for any episodes of hematemesis. She has been seen by Dr. Rollins in the past. She states that he has had to dilate her esophagus and he did what sounds like a sphincterotomy in the past. She states that solid foods tend to get stuck. She has no problem with liquids except for the fact that she is always nauseous. She was recently diagnosed with adrenal insufficiency by her primary care provider. She is only on fludrocortisone. Cortisol levels were ordered but evidently the specimen was lost and they have not repeated the levels. She will be admitted to the hospitalist service. She will be on IMCU on telemetry. She will be seen by cardiology and I will reach out to her yield clerk in the morning. As noted above we will utilize Lovenox but monitor closely for hematemesis. Lastly, yesterday was the 1 year anniversary of the unexpected of her son. He was 20 years old. He from complications of his diabetes. It is the 11 month anniversary of her father dying. He 1 month after her son. She has been extremely depressed. Depression is likely contributing factor to her current overall status. Past Medical History Cardiac Medical History: Reports: Atrial Fibrillation - pacemaker, Myocardial Infarction - 2006 Denies: Coronary Artery Disease, Hypertension Pulmonary Medical History: Reports: Pneumonia - Collapsed Lungs, bloot clots: PE, DVT, heart, brain Denies: Asthma, Bronchitis, Chronic Obstructive Pulmonary Disease (COPD) - Pulm fibrosis, hx pulm edema EENT Medical History: Reports: Throat - Irritation from recurrent vomiting Neurological Medical History: Reports: Migraine, Seizures Endocrine Medical History: Reports: Other - Adrenal insufficiency GI Medical History: Reports: Peptic Ulcer Disease, Other - History of perforated gastric ulcer and Rosana-Baez tear with GI bleed Musculoskeltal Medical History: Reports: Arthritis - JAW Psychiatric Medical History: Reports: Depression - Likely severe Denies: Alcohol Dependency, Substance Abuse, Tobacco Dependency Hematology: Reports: Anemia - Required blood transfusions Past Surgical History Past Surgical History: Reports: Hysterectomy, Splenectomy, Other - IVC filter, possible gastric surgery Social History Information Source: Patient, [facility] Records Lives with: Family, Spouse/Significant other Smoking Status: Never Smoker Electronic Cigarette use?: No Frequency of Alcohol Use: None Hx Recreational Drug Use: No Drugs: None Hx Prescription Drug Abuse: No - Advance Directive Resuscitation Status: Full Code Surrogate healthcare decision maker:: Family History Family History: DM Parental Family History Reviewed: Yes Children Family History Reviewed: Yes - Son from complications of diabetes Sibling(s) Family History Reviewed.: Yes Medication/Allergy Home Medications: Clonazepam [Klonopin 2 mg Tablet] 2 mg PO QIDP PRN 09/24/19 Tizanidine HCl [Zanaflex 4 mg Tablet] 12 mg PO Q8 09/24/19 Fludrocortisone Acetate [Florinef 0.1 mg Tablet] 0.1 mg PO DAILY 09/06/20 Allergies/Adverse Reactions: clindamycin [Clindamycin] Allergy (Intermediate, Verified 09/06/20 13:23) FACE SWELLING, HIVES moxifloxacin [From Avelox] Allergy (Intermediate, Verified 09/06/20 13:23) FACE SWELLING, HIVES metoclopramide HCl [From Reglan] Allergy (Mild, Verified 09/06/20 13:23) RASH,ITCHING morphine Allergy (Mild, Verified 09/06/20 13:23) HIVES, RASH aprotinin [From Tisseel VH 1.0 ml] Allergy (Verified 09/06/20 13:23) Anaphylaxis calcium [From Tisseel VH 1.0 ml] Allergy (Verified 09/06/20 13:23) Anaphylaxis divalproex sodium [From Depakote] Allergy (Verified 09/06/20 13:23) fibrinogen [From Tisseel VH 1.0 ml] Allergy (Verified 09/06/20 13:23) Anaphylaxis ondansetron [From Zofran] Allergy (Verified 09/06/20 13:23) Sulfa (Sulfonamide Antibiotics) Allergy (Verified 09/06/20 13:23) Hives, rash, itching thrombin [From Tisseel VH 1.0 ml] Allergy (Verified 09/06/20 13:23) Anaphylaxis Review of Systems All systems: reviewed and no additional remarkable complaints except as stated Constitutional: PRESENT: anorexia, headache(s), weight loss Nose, Mouth, and Throat: PRESENT: headache(s) Gastrointestinal: PRESENT: abdominal pain, nausea, vomiting Musculoskeletal: PRESENT: other - Neck pain Psychiatric: PRESENT: depression Physical Exam Vital Signs: Temp Pulse Resp BP Pulse Ox 98.2 F 44 L 16 128/62 H 100 09/06/20 12:47 09/06/20 14:49 09/06/20 12:47 09/06/20 14:49 09/06/20 12:47 Intake & Output 09/05/20 09/06/20 09/07/20 06:59 06:59 06:59 Weight 51.71 kg General appearance: PRESENT: cooperative, thin, well-developed, other - Moderate distress Head exam: PRESENT: atraumatic, normocephalic Eye exam: PRESENT: conjunctiva pink, EOMI, PERRLA. ABSENT: nystagmus, scleral icterus Ear exam: PRESENT: normal external ear exam. ABSENT: bleeding, drainage Mouth exam: PRESENT: moist, tongue midline Teeth exam: ABSENT: edentulous, poor dentation Throat exam: ABSENT: post pharyngeal erythema, tonsillar exudate Neck exam: ABSENT: carotid bruit, JVD, lymphadenopathy, thyromegaly, tracheostomy Respiratory exam: PRESENT: clear to auscultation yaakov, symmetrical, unlabored. ABSENT: prolonged expiratory phas, rales, rhonchi, tachypnea, wheezes Cardiovascular exam: PRESENT: bradycardia, +S1, +S2, systolic murmur. ABSENT: tachycardia Pulses: PRESENT: normal radial pulses, normal dorsalis pedis pul GI/Abdominal exam: PRESENT: normal bowel sounds, soft, tenderness. ABSENT: distended Rectal exam: PRESENT: deferred Gentrourinary exam: ABSENT: indwelling catheter Extremities exam: PRESENT: calf tenderness - Left calf, other - Left leg slightly more swollen than the right and warmer to touch. ABSENT: pedal edema Musculoskeletal exam: ABSENT: ambulatory Neurological exam: PRESENT: alert, awake, oriented to person, oriented to place, oriented to time, oriented to situation, CN II-XII grossly intact. ABSENT: altered Psychiatric exam: PRESENT: depressed. ABSENT: agitated, anxious Focused psych exam: ABSENT: delusional, paranoid, restlessness Skin exam: PRESENT: dry, normal color, warm. ABSENT: rash Results Laboratory Results: 09/06/20 15:18 09/06/20 14:40 09/06/20 09/06/20 09/06/20 13:10 14:40 14:40 WBC Cancelled RBC Cancelled Hgb Cancelled Hct Cancelled MCV Cancelled MCH Cancelled MCHC Cancelled RDW Cancelled Plt Count Cancelled Seg Neutrophils % Cancelled Sodium 140.9 Potassium 4.4 Chloride 105 Carbon Dioxide 24 Anion Gap 12 BUN 15 Creatinine 0.87 Est GFR ( Amer) > 60 Glucose 82 Calcium 9.9 Total Bilirubin 0.5 AST 22 Alkaline Phosphatase 110 Total Protein 7.8 Albumin 4.6 Urine Color YELLOW Urine Appearance SLIGHTLY-CLOUDY Urine pH 5.0 Ur Specific [place] 1.014 Urine Protein NEGATIVE Urine Glucose (UA) NEGATIVE Urine Ketones NEGATIVE Urine Blood NEGATIVE Urine Nitrite NEGATIVE Ur Leukocyte Esterase NEGATIVE Urine WBC (Auto) 1 Urine RBC (Auto) 1 09/06/20 15:18 WBC 8.2 RBC 4.63 Hgb 14.2 Hct 42.1 MCV 91 MCH 30.6 MCHC 33.6 RDW 15.1 H Plt Count 252 Seg Neutrophils % 61.9 Sodium Potassium Chloride Carbon Dioxide Anion Gap BUN Creatinine Est GFR ( Amer) Glucose Calcium Total Bilirubin AST Alkaline Phosphatase Total Protein Albumin Urine Color Urine Appearance Urine pH Ur Specific [place] Urine Protein Urine Glucose (UA) Urine Ketones Urine Blood Urine Nitrite Ur Leukocyte Esterase Urine WBC (Auto) Urine RBC (Auto) 09/06/20 14:40 Troponin I < 0.012 Impressions: Chest X-Ray 09/06/20 12:58 IMPRESSION: NO ACUTE RADIOGRAPHIC FINDING IN THE CHEST. Venous Doppler Study 09/06/20 12:58 IMPRESSION: Positive for DVT in the left distal femoral vein, popliteal vein and posterior tibial vein. Head CT 09/06/20 13:01 IMPRESSION: NO ACUTE INTRACRANIAL IMAGING FINDINGS. EVIDENCE OF ACUTE STROKE: NO. Assessment and Plan - Diagnosis (1) Deep vein thrombosis (DVT) of femoral vein of left lower extremity Qualifiers: Chronicity: acute Qualified Code(s): I82.412 - Acute embolism and thrombosis of left femoral vein Is this a current diagnosis for this admission?: Yes (2) Nausea & vomiting Qualifiers: Vomiting type: unspecified Vomiting Intractability: non-intractable Qualified Code(s): R11.2 - Nausea with vomiting, unspecified Is this a current diagnosis for this admission?: Yes (3) PUD (peptic ulcer disease) Is this a current diagnosis for this admission?: Yes (4) Abdominal pain Qualifiers: Abdominal location: generalized Qualified Code(s): R10.84 - Generalized abdominal pain Is this a current diagnosis for this admission?: Yes (5) Depression Qualifiers: Depression Type: major depressive disorder Active/Remission status: currently active Major depression episode severity: severe Psychotic features: without psychotic features Is this a current diagnosis for this admission?: Yes (6) Heart block AV complete Is this a current diagnosis for this admission?: Yes (7) Weight loss, abnormal Is this a current diagnosis for this admission?: Yes (8) Adrenal insufficiency Is this a current diagnosis for this admission?: Yes - Plan Summary Summary: 09/06/2020 Acute deep venous thrombosis left leg Patient will be started on Lovenox. She has history of GI bleeding and pe rforated ulcer. She has been having lots of nausea and vomiting and reports some red specks. She has a history of Rosana-Baez tear. We will initiate Lovenox but monitor her very closely for hematemesis. She has seen Dr. Rollins in the past. If there is evidence of bleeding she may in fact need endoscopy. She has had an IVC filter in the past. She has had multiple episodes of thrombosis with emboli. Nausea and vomiting Multiple episodes of nausea and vomiting. With her history of peptic ulcer disease am starting intravenous Protonix every 12 hours. Interestingly she was not on any acid suppression medication recently. Will monitor for evidence of hematemesis. She reports that the Phenergan has been helping with nausea. Abdominal pain Most likely secondary from the nausea and vomiting. Peptic ulcer disease Protonix as above. She has a history of requiring esophageal dilatation. We will try and avoid large pills for the time being. Complete heart block Because of atrial flutter/fibrillation with rapid ventricular response the patient's atrial leads were turned off on her dual-chamber pacemaker. She has a history of complete heart block. She is now in an idioventricular rhythm with her lower limit set at 40 on the ventricular leads. Adrenal insufficiency Continue fludrocortisone. A.m. cortisol level ordered for the morning. Depression Patient is 1 year anniversary of her son's unexpected at 20 years old. She appears extremely depressed. I will ask psychiatry to see her. Some of her symptoms could be due to depression and I did encourage her to consider medication. Abnormal weight loss The patient has lost over 10% of her body weight. She is down to 51 kg. She has been having difficulty eating not only with regard to swallowing but also due to frequent nausea and vomiting. Syncope Patient describes strange episodes of a warm fluid feeling in both arms and then a crushing vice-like feeling in her head. She then passes out. When she comes to she has severe nausea and confusion. These events have been witnessed by her . He does not describe any seizure-like activity. We will continue to monitor on telemetry. - Time Time Spent with patient: 35 or more minutes Medications reviewed and adjusted accordingly: Yes Anticipated Discharge Disposition: Home, Self Care Anticipated Discharge Timeframe: Unknown - Inpatient Certification Based on my medical assessment, after consideration of the patient's comorbidities, presenting symptoms, or acuity I expect that the services needed warrant INPATIENT care.: Yes I certify that my determination is in accordance with my understanding of Medicare's requirements for reasonable and necessary INPATIENT services [42 CFR 412.3e].: Yes Medical Necessity: Need For IV Fluids, Need for Pain Control, Risk of Complication if Not Cared For in Hospital Post Hospital Care: D/C or Transfer Summary
[2020-09-06] MEDS: ACETAMINOPHEN 325 MG TABLET PO PRN (19:33)
[2020-09-06] MEDS: RINGERS SOLUTION,LACTATED 1,000 ML IV PRN (20:45)
[2020-09-06] MEDS: ALPRAZOLAM 0.5 MG TABLET PO PRN (20:59)
[2020-09-06] MEDS: PANTOPRAZOLE SODIUM 40 MG VIAL IV SCH (21:14)
[2020-09-06] MEDS: ENOXAPARIN SODIUM INJ 60 MG/0.6 ML DISP.SYRIN SUBCUT SCH (21:15)
[2020-09-06] MEDS: HYDROMORPHONE HCL INJ/PF 2 MG/ML AMPULE IV PRN (21:16)
[2020-09-07] MEDS: HYDROMORPHONE HCL INJ/PF 2 MG/ML AMPULE IV PRN ×4 (03:16→21:45)
[2020-09-07] MEDS: RINGERS SOLUTION,LACTATED 1,000 ML IV PRN ×2 (05:34→15:31)
[2020-09-07 07:20] LABS: HEMATOCRIT 37.6 % (36.0-47.0); HEMOGLOBIN 12.7 g/dL (12.0-15.5); MEAN CORPUSCULAR HGB CONC 33.8 g/dL (32.0-36.0); MEAN CORPUSCULAR VOLUME 92 fl (80-97); PLATELET COUNT 222 10^3/uL (150-450); RED BLOOD COUNT 4.11 10^6/uL (3.72-5.28); RED CELL DISTRIBUTION WIDTH 14.8 % (11.5-14.0); WHITE BLOOD COUNT 4.7 10^3/uL (4.0-10.5)
[2020-09-07 07:36] LABS: ALBUMIN 3.4 g/dL (3.5-5.0); ALKALINE PHOSPHATASE 80 U/L (38-126); ANION GAP 7 (5-19); ASPARTATE AMINO TRANSFERASE 19 U/L (14-36); BILIRUBIN,DIRECT 0.2 mg/dL (0.0-0.4); BILIRUBIN,TOTAL 0.5 mg/dL (0.2-1.3); BLOOD UREA NITROGEN 15 mg/dL (7-20); CALCIUM 9.2 mg/dL (8.4-10.2); CARBON DIOXIDE 27 mmol/L (22-30); CHLORIDE 106 mmol/L (98-107); GLUCOSE 74 mg/dL (75-110); PHOSPHORUS 5.6 mg/dL (2.5-4.5); POTASSIUM 4.4 mmol/L (3.6-5.0); TOTAL PROTEIN 6.2 g/dL (6.3-8.2)
[2020-09-07 07:43] LABS: PREALBUMIN 19.3 mg/dL (17.6-36.0)
[2020-09-07] MEDS: ACETAMINOPHEN 325 MG TABLET PO PRN (07:59)
[2020-09-07] MEDS: PANTOPRAZOLE SODIUM 40 MG VIAL IV SCH ×2 (09:19→21:44)
[2020-09-07] MEDS: ENOXAPARIN SODIUM INJ 60 MG/0.6 ML DISP.SYRIN SUBCUT SCH ×2 (09:20→21:46)
[2020-09-07 09:31] LABS: APPEARANCE,URINE SLIGHTLY-CLOUDY; BILIRUBIN,URINE NEGATIVE (NEGATIVE); COLOR,URINE YELLOW; GLUCOSE, URINE NEGATIVE (NEGATIVE); KETONES,URINE NEGATIVE (NEGATIVE); LEUKOCYTE ESTERASE,URINE NEGATIVE (NEGATIVE); NITRITE,URINE NEGATIVE (NEGATIVE); PROTEIN,URINE 30 mg/dL (NEGATIVE); URINE SPECIFIC GRAVITY 1.019; UROBILINOGEN,URINE NEGATIVE mg/dL (<2.0)
[2020-09-07] MEDS: FLUDROCORTISONE ACETATE 0.1 MG TABLET PO SCH (09:33)
--- NOTE | 2020-09-07 12:42 | PDOC PROGRESS REPORT ---
Subjective Progress Note for:: 09/07/20 Subjective:: Patient appears more comfortable this morning. She appears less distressed than yesterday. We once again had a tosha discussion regarding her depression. Reason For Visit: ACUTE LEFT LEG DVT,ABNORMAL WEIGHT LOSS,SYNCOPE, Physical Exam Vital Signs: Temp Pulse Resp BP Pulse Ox 98.0 F 40 L 18 108/65 97 09/07/20 08:32 09/07/20 08:02 09/07/20 08:02 09/07/20 08:02 09/07/20 08:02 Intake & Output 09/06/20 09/07/20 09/08/20 06:59 06:59 06:59 Intake Total 1142 Balance 1142 Weight 51.7 kg General appearance: PRESENT: no acute distress, cooperative, thin, well- developed Head exam: PRESENT: atraumatic, normocephalic Eye exam: PRESENT: conjunctiva pink, EOMI. ABSENT: scleral icterus Ear exam: PRESENT: normal external ear exam. ABSENT: bleeding, drainage Mouth exam: PRESENT: moist, tongue midline Neck exam: ABSENT: carotid bruit, JVD, lymphadenopathy Respiratory exam: PRESENT: clear to auscultation yaakov, symmetrical, unlabored. ABSENT: rales, rhonchi, tachypnea, wheezes Cardiovascular exam: PRESENT: bradycardia, +S1, +S2. ABSENT: diastolic murmur, irregular rhythm, systolic murmur, tachycardia GI/Abdominal exam: PRESENT: normal bowel sounds, soft, tenderness - Minimal. ABSENT: distended, guarding Rectal exam: PRESENT: deferred Gentrourinary exam: ABSENT: indwelling catheter Extremities exam: PRESENT: calf tenderness, other - Still with some left calf swelling Musculoskeletal exam: PRESENT: ambulatory. ABSENT: deformity, dislocation Neurological exam: PRESENT: alert, awake, oriented to person, oriented to place, oriented to time, oriented to situation, CN II-XII grossly intact. ABSENT: altered Psychiatric exam: PRESENT: depressed. ABSENT: agitated, anxious Focused psych exam: ABSENT: delusional, paranoid, restlessness Skin exam: PRESENT: dry, normal color, warm. ABSENT: rash Results Laboratory Results: 09/07/20 06:05 09/07/20 06:05 09/06/20 09/06/20 09/06/20 13:10 14:40 14:40 WBC Cancelled RBC Cancelled Hgb Cancelled Hct Cancelled MCV Cancelled MCH Cancelled MCHC Cancelled RDW Cancelled Plt Count Cancelled Seg Neutrophils % Cancelled Sodium 140.9 Potassium 4.4 Chloride 105 Carbon Dioxide 24 Anion Gap 12 BUN 15 Creatinine 0.87 Est GFR ( Amer) > 60 Glucose 82 Calcium 9.9 Phosphorus Magnesium Total Bilirubin 0.5 AST 22 Alkaline Phosphatase 110 Total Protein 7.8 Albumin 4.6 Prealbumin Urine Color YELLOW Urine Appearance SLIGHTLY-CLOUDY Urine pH 5.0 Ur Specific [place] 1.014 Urine Protein NEGATIVE Urine Glucose (UA) NEGATIVE Urine Ketones NEGATIVE Urine Blood NEGATIVE Urine Nitrite NEGATIVE Ur Leukocyte Esterase NEGATIVE Urine WBC (Auto) 1 Urine RBC (Auto) 1 09/06/20 09/07/20 09/07/20 15:18 06:05 06:05 WBC 8.2 4.7 RBC 4.63 4.11 Hgb 14.2 12.7 Hct 42.1 37.6 MCV 91 92 MCH 30.6 31.0 MCHC 33.6 33.8 RDW 15.1 H 14.8 H Plt Count 252 222 Seg Neutrophils % 61.9 Sodium 139.7 Potassium 4.4 Chloride 106 Carbon Dioxide 27 Anion Gap 7 BUN 15 Creatinine 0.85 Est GFR ( Amer) > 60 Glucose 74 L Calcium 9.2 Phosphorus 5.6 H Magnesium 2.2 Total Bilirubin 0.5 AST 19 Alkaline Phosphatase 80 Total Protein 6.2 L Albumin 3.4 L Prealbumin 19.3 Urine Color Urine Appearance Urine pH Ur Specific [place] Urine Protein Urine Glucose (UA) Urine Ketones Urine Blood Urine Nitrite Ur Leukocyte Esterase Urine WBC (Auto) Urine RBC (Auto) 09/07/20 09:03 WBC RBC Hgb Hct MCV MCH MCHC RDW Plt Count Seg Neutrophils % Sodium Potassium Chloride Carbon Dioxide Anion Gap BUN Creatinine Est GFR ( Amer) Glucose Calcium Phosphorus Magnesium Total Bilirubin AST Alkaline Phosphatase Total Protein Albumin Prealbumin Urine Color YELLOW Urine Appearance SLIGHTLY-CLOUDY Urine pH 5.0 Ur Specific [place] 1.019 Urine Protein 30 H Urine Glucose (UA) NEGATIVE Urine Ketones NEGATIVE Urine Blood NEGATIVE Urine Nitrite NEGATIVE Ur Leukocyte Esterase NEGATIVE Urine WBC (Auto) 2 Urine RBC (Auto) 1 09/06/20 14:40 Troponin I < 0.012 Impressions: Chest X-Ray 09/06/20 12:58 IMPRESSION: NO ACUTE RADIOGRAPHIC FINDING IN THE CHEST. Venous Doppler Study 09/06/20 12:58 IMPRESSION: Positive for DVT in the left distal femoral vein, popliteal vein and posterior tibial vein. Head CT 09/06/20 13:01 IMPRESSION: NO ACUTE INTRACRANIAL IMAGING FINDINGS. EVIDENCE OF ACUTE STROKE: NO. Assessment and Plan - Diagnosis (1) Deep vein thrombosis (DVT) of femoral vein of left lower extremity Qualifiers: Chronicity: acute Qualified Code(s): I82.412 - Acute embolism and thr ombosis of left femoral vein Is this a current diagnosis for this admission?: Yes (2) Nausea & vomiting Qualifiers: Vomiting type: unspecified Vomiting Intractability: non-intractable Qualified Code(s): R11.2 - Nausea with vomiting, unspecified Is this a current diagnosis for this admission?: Yes (3) PUD (peptic ulcer disease) Is this a current diagnosis for this admission?: Yes (4) Abdominal pain Qualifiers: Abdominal location: generalized Qualified Code(s): R10.84 - Generalized abdominal pain Is this a current diagnosis for this admission?: Yes (5) Depression Qualifiers: Depression Type: major depressive disorder Active/Remission status: currently active Major depression episode severity: severe Psychotic features: without psychotic features Is this a current diagnosis for this admission?: Yes (6) Heart block AV complete Is this a current diagnosis for this admission?: Yes (7) Weight loss, abnormal Is this a current diagnosis for this admission?: Yes (8) Adrenal insufficiency Is this a current diagnosis for this admission?: Yes - Plan Summary Summary: 09/06/2020 Acute deep venous thrombosis left leg Patient will be started on Lovenox. She has history of GI bleeding and perforated ulcer. She has been having lots of nausea and vomiting and reports some red specks. She has a history of Rosana-Baez tear. We will initiate Lovenox but monitor her very closely for hematemesis. She has seen Dr. Rollins in the past. If there is evidence of bleeding she may in fact need endoscopy. She has had an IVC filter in the past. She has had multiple episodes of thrombosis with emboli. Nausea and vomiting Multiple episodes of nausea and vomiting. With her history of peptic ulcer disease am starting intravenous Protonix every 12 hours. Interestingly she was not on any acid suppression medication recently. Will monitor for evidence of hematemesis. She reports that the Phenergan has been helping with nausea. Abdominal pain Most likely secondary from the nausea and vomiting. Peptic ulcer disease Protonix as above. She has a history of requiring esophageal dilatation. We will try and avoid large pills for the time being. Complete heart block Because of atrial flutter/fibrillation with rapid ventricular response the patient's atrial leads were turned off on her dual-chamber pacemaker. She has a history of complete heart block. She is now in an idioventricular rhythm with her lower limit set at 40 on the ventricular leads. Adrenal insufficiency Continue fludrocortisone. A.m. cortisol level ordered for the morning. Depression Patient is 1 year anniversary of her son's unexpected at 20 years old. She appears extremely depressed. I will ask psychiatry to see her. Some of her symptoms could be due to depression and I did encourage her to consider medication. Abnormal weight loss The patient has lost over 10% of her body weight. She is down to 51 kg. She has been having difficulty eating not only with regard to swallowing but also due to frequent nausea and vomiting. Syncope Patient describes strange episodes of a warm fluid feeling in both arms and then a crushing vice-like feeling in her head. She then passes out. When she comes to she has severe nausea and confusion. These events have been witnessed by her . He does not describe any seizure-like activity. We will continue to monitor on telemetry. 09/07/2020 We will convert to oral anticoagulant. We will need to monitor closely for bleeding however with a history of recurrent clotting we need to institute a trial of anticoagulation. She is having less nausea and vomiting today. She in fact was hungry. Abdominal pain is improved. Continue Protonix. Idioventricular rhythm is stable with stable blood pressure We had a tosha discussion about her depression. She has been seeing counseling but admits that medication is likely necessary. She was on mirtazapine in the past but I think this was for combination of appetite stimulant and depression. I will resume a small dose of mirtazapine to start and the dose will likely need to be increased over time. Psychiatry consult has been placed. She will likely need additional medication due to the severity of her depression. No further episodes of syncope since her admission. - Time Time Spent with patient: 15-24 minutes Medications reviewed and adjusted accordingly: Yes Anticipated Discharge Disposition: Home, Self Care Anticipated Discharge Timeframe: within 72 hours
[2020-09-07] MEDS: TIZANIDINE HCL 4 MG TABLET PO PRN (14:03)
[2020-09-07] MEDS: HYDROCORTISONE SOD SUCCINATE INJ/PF 100 MG/2 ML SDV IV SCH ×2 (14:03→21:45)
--- NOTE | 2020-09-07 20:48 | PDOC CONSULTATION ---
Consultation Consult Date: 09/07/20 Attending physician:: CROW BEGUM Provider Consulted: RONALD SANABRIA Consult reason:: Presence of permanent pacemaker, atrial flutter History of Present Illness Admission Date/PCP: 09/06/20 17:47 NISHA WAGNER MD Patient complains of: Right lower extremity pain and discomfort History of Present Illness: KRANTHI REDDY is a 50 year old female With the following active problems 1. Failure to thrive 2. Permanent pacemaker 3. Atrial flutter 4. Peptic ulcer disease 5. IVC filter 6. CVA 50-year-old lady with very complicated medical history. Patient details include the fact that she had pneumonia with subsequent respiratory arrest, seizure activity, cardiac arrest followed by prolonged comatose state. She is also had tracheostomy. Problems during this also included myocardial infarction as well as CVA. She has had failure to thrive. She has had a left sided permanent pacemaker implanted in 2005 urgently. Apparently this was placed for complete heart block. Patient has developed atrial flutter since then but due to significant issues with GI bleeding and systemic anticoagulation presumably she is not being pursued on an ablative approach. It appears that from what she reports to me and review of telemetry tracings that she has atrial flutter and she is obligate early paced in the ventricle at a 40 bpm. This is suggestive of complete heart block and with the pacemaker programmed to the VVI setting. Patient reports episodes of nausea and abdominal pain and also reports sensation of warmth coming over and feeling faint to almost passing out a few times. So far since admission to telemetry he continues to be in atrial flutter with ventricular paced rhythm at 40 bpm for the most part. Patient has been resulted with right lower extremity DVT. She reports pain and discomfort in the right lower extremity. Since admission to the hospital she has been started on therapeutic enoxaparin. She has been closely watch for any bleeding episodes Patient is very tearful and upset regarding recent loss of her son and her father. Past Medical History Cardiac Medical History: Reports: Atrial Fibrillation - pacemaker, Myocardial Infarction - 2006 Denies: Coronary Artery Disease, Hypertension Pulmonary Medical History: Reports: Pneumonia - Collapsed Lungs, bloot clots: PE, DVT, heart, brain Denies: Asthma, Bronchitis, Chronic Obstructive Pulmonary Disease (COPD) - Pulm fibrosis, hx pulm edema EENT Medical History: Reports: Throat - Irritation from recurrent vomiting Neurological Medical History: Reports: Migraine, Seizures Endocrine Medical History: Reports: Other - Adrenal insufficiency GI Medical History: Reports: Peptic Ulcer Disease, Other - History of perforated gastric ulcer and Rosana-Baez tear with GI bleed Musculoskeltal Medical History: Reports: Arthritis - JAW Psychiatric Medical History: Reports: Depression Denies: Alcohol Dependency, Substance Abuse, Tobacco Dependency Hematology: Reports: Anemia - Required blood transfusions Past Surgical History Past Surgical History: Reports: Hysterectomy, Splenectomy, Other - IVC filter, possible gastric surgery Social History Lives with: Family, Spouse/Significant other Smoking Status: Never Smoker Electronic Cigarette use?: No Frequency of Alcohol Use: None Hx Recreational Drug Use: No Drugs: Cocaine Hx Prescription Drug Abuse: No - Advance Directive Resuscitation Status: Full Code Family History Family History: DM Parental Family History Reviewed: Yes - No familial illnesses. Diabetes mellitus Children Family History Reviewed: Yes - Diabetes mellitus and soft Sibling(s) Family History Reviewed.: NA Medication/Allergy Home Medications: Clonazepam [Klonopin 2 mg Tablet] 2 mg PO QIDP PRN 09/24/19 Tizanidine HCl [Zanaflex 4 mg Tablet] 12 mg PO Q8 09/24/19 Fludrocortisone Acetate [Florinef 0.1 mg Tablet] 0.1 mg PO DAILY 09/06/20 Allergies/Adverse Reactions: clindamycin [Clindamycin] Allergy (Intermediate, Verified 09/06/20 13:23) FACE SWELLING, HIVES moxifloxacin [From Avelox] Allergy (Intermediate, Verified 09/06/20 13:23) FACE SWELLING, HIVES metoclopramide HCl [From Reglan] Allergy (Mild, Verified 09/06/20 13:23) RASH,ITCHING morphine Allergy (Mild, Verified 09/06/20 13:23) HIVES, RASH aprotinin [From Tisseel VH 1.0 ml] Allergy (Verified 09/06/20 13:23) Anaphylaxis calcium [From Tisseel VH 1.0 ml] Allergy (Verified 09/06/20 13:23) Anaphylaxis divalproex sodium [From Depakote] Allergy (Verified 09/06/20 13:23) fibrinogen [From Tisseel VH 1.0 ml] Allergy (Verified 09/06/20 13:23) Anaphylaxis ondansetron [From Zofran] Allergy (Verified 09/06/20 13:23) Sulfa (Sulfonamide Antibiotics) Allergy (Verified 09/06/20 13:23) Hives, rash, itching thrombin [From Tisseel VH 1.0 ml] Allergy (Verified 09/06/20 13:23) Anaphylaxis Review of Systems Constitutional: PRESENT: as per HPI Eyes: PRESENT: as per HPI Breasts: PRESENT: as per HPI Cardiovascular: ABSENT: as per HPI, chest pain, dyspnea on exertion, edema, orthropnea, palpitations, other Gastrointestinal: PRESENT: abdominal pain, nausea, vomiting Neurological: ABSENT: as per HPI, abnormal gait, abnormal movements, abnormal speech, confusion, convulsions, dizziness, focal weakness, frequent falls, lack of coordination, memory loss, numbness, paresthesias, restless legs, syncope, tingling, tremor(s), vertigo, weakness, other Physical Exam Vital Signs: Temp Pulse Resp BP Pulse Ox 98.0 F 40 L 18 97/51 L 95 09/07/20 16:01 09/07/20 16:01 09/07/20 16:01 09/07/20 16:01 09/07/20 16:01 Intake & Output 09/06/20 09/07/20 09/08/20 06:59 06:59 06:59 Intake Total 1142 1799 Balance 1142 1799 Weight 51.7 kg General appearance: PRESENT: no acute distress, thin, well-developed Head exam: PRESENT: atraumatic, normocephalic Eye exam: PRESENT: conjunctiva pale, EOMI Mouth exam: PRESENT: moist, neck supple Neck exam: PRESENT: other Respiratory exam: PRESENT: clear to auscultation yaakov, symmetrical, unlabored Cardiovascular exam: PRESENT: RRR, +S1, +S2, other - Left infraclavicular pacemaker site is well-healed. The implant appears to be submuscular. Signific ant loss of adipose tissue with profile of the leads quite visible. Pulses: PRESENT: normal radial pulses Neurological exam: PRESENT: alert, awake, oriented to person, oriented to place, oriented to time, oriented to situation Psychiatric exam: PRESENT: depressed Skin exam: PRESENT: dry, intact Results Laboratory Results: 09/07/20 06:05 09/07/20 06:05 09/07/20 09/07/20 09/07/20 06:05 06:05 09:03 WBC 4.7 RBC 4.11 Hgb 12.7 Hct 37.6 MCV 92 MCH 31.0 MCHC 33.8 RDW 14.8 H Plt Count 222 Sodium 139.7 Potassium 4.4 Chloride 106 Carbon Dioxide 27 Anion Gap 7 BUN 15 Creatinine 0.85 Est GFR ( Amer) > 60 Glucose 74 L Calcium 9.2 Phosphorus 5.6 H Magnesium 2.2 Total Bilirubin 0.5 AST 19 Alkaline Phosphatase 80 Total Protein 6.2 L Albumin 3.4 L Prealbumin 19.3 Urine Color YELLOW Urine Appearance SLIGHTLY-CLOUDY Urine pH 5.0 Ur Specific [place] 1.019 Urine Protein 30 H Urine Glucose (UA) NEGATIVE Urine Ketones NEGATIVE Urine Blood NEGATIVE Urine Nitrite NEGATIVE Ur Leukocyte Esterase NEGATIVE Urine WBC (Auto) 2 Urine RBC (Auto) 1 09/06/20 14:40 Troponin I < 0.012 Impressions: Chest X-Ray 09/06/20 12:58 IMPRESSION: NO ACUTE RADIOGRAPHIC FINDING IN THE CHEST. Venous Doppler Study 09/06/20 12:58 IMPRESSION: Positive for DVT in the left distal femoral vein, popliteal vein and posterior tibial vein. Head CT 09/06/20 13:01 IMPRESSION: NO ACUTE INTRACRANIAL IMAGING FINDINGS. EVIDENCE OF ACUTE STROKE: NO. Assessment & Plan - Diagnosis (1) DVT (deep venous thrombosis) Is this a current diagnosis for this admission?: Yes Plan: Acute DVT. Being managed with therapeutic Lovenox. Patient has IVC filter. Long-term systemic anticoagulation is warranted. Careful attention to hemoglobin and hematocrit while on systemic anticoagulation with hopeful transition to oral agent. (2) S/P placement of cardiac pacemaker Is this a current diagnosis for this admission?: Yes Plan: 12 EKG 09/06/2020. Independently viewed by me. Atrial flutter. Ventricular rate of 40 bpm.Twelve-lead EKG 09/05/2020. Independently viewed by me. Would benefit from systemic anticoagulation of possible depression given atrial flutter. Reported history of complete heart block and from review of pacemaker behavior she has been programmed to VVI 40 as there was
[2020-09-07] MEDS: MIRTAZAPINE 15 MG TABLET PO SCH (21:44)
[2020-09-07] MEDS: ALPRAZOLAM 0.5 MG TABLET PO PRN (21:58)
[2020-09-08] MEDS: TIZANIDINE HCL 4 MG TABLET PO PRN ×2 (02:53→14:30)
[2020-09-08] MEDS: RINGERS SOLUTION,LACTATED 1,000 ML IV PRN ×2 (02:54→14:29)
[2020-09-08] MEDS: HYDROMORPHONE HCL INJ/PF 2 MG/ML AMPULE IV PRN ×4 (04:19→20:46)
[2020-09-08] MEDS: HYDROCORTISONE SOD SUCCINATE INJ/PF 100 MG/2 ML SDV IV SCH ×3 (05:12→21:43)
[2020-09-08 07:56] LABS: HEMATOCRIT 35.2 % (36.0-47.0); MEAN CORPUSCULAR HEMOGLOBIN 31.2 pg (27.0-33.4); MEAN CORPUSCULAR HGB CONC 34.1 g/dL (32.0-36.0); MEAN CORPUSCULAR VOLUME 91 fl (80-97); PLATELET COUNT 258 10^3/uL (150-450); RED BLOOD COUNT 3.85 10^6/uL (3.72-5.28); WHITE BLOOD COUNT 6.3 10^3/uL (4.0-10.5)
[2020-09-08] MEDS ORDERED: PROMETHAZINE HCL INJ 25 MG/1 ML VIAL IV PRN (08:30)
[2020-09-08] MEDS: PANTOPRAZOLE SODIUM 40 MG VIAL IV SCH ×2 (10:32→21:42)
[2020-09-08] MEDS: ENOXAPARIN SODIUM INJ 60 MG/0.6 ML DISP.SYRIN SUBCUT SCH (10:33)
[2020-09-08] MEDS: FLUDROCORTISONE ACETATE 0.1 MG TABLET PO SCH (10:52)
--- NOTE | 2020-09-08 13:53 | PDOC PROGRESS REPORT ---
Subjective Progress Note for:: 09/08/20 Subjective:: Patient was seen and examined. She is in bed. Upset about food choices. Overnight telemetry with atrial flutter and ventricular pacing at 40 bpm Complains that the leg is tight and gives her charley horses. Reason For Visit: ACUTE LEFT LEG DVT,ABNORMAL WEIGHT LOSS,SYNCOPE, Physical Exam Vital Signs: Temp Pulse Resp BP Pulse Ox 98.3 F 43 L 15 114/55 L 95 09/08/20 11:13 09/08/20 11:13 09/08/20 11:13 09/08/20 11:13 09/08/20 11:13 Intake & Output 09/07/20 09/08/20 09/09/20 06:59 06:59 06:59 Intake Total 1142 3224 480 Output Total 900 Balance 1142 2324 480 Weight 51.7 kg 55.2 kg 55.2 kg General appearance: PRESENT: no acute distress, cooperative, well-developed Head exam: PRESENT: atraumatic, normocephalic Eye exam: PRESENT: conjunctiva pink, EOMI Mouth exam: PRESENT: moist Respiratory exam: PRESENT: clear to auscultation yaakov, symmetrical, unlabored Cardiovascular exam: PRESENT: RRR, +S1, +S2, other - Left-sided pacemaker implant site well-healed. No edema erythema or excoriation. Implant is submuscular. Very little adipose tissue Pulses: PRESENT: normal radial pulses GI/Abdominal exam: PRESENT: soft Rectal exam: PRESENT: deferred Neurological exam: PRESENT: alert, awake, oriented to person, oriented to place, oriented to time, oriented to situation, CN II-XII grossly intact Psychiatric exam: PRESENT: appropriate affect Skin exam: PRESENT: dry, erythema, intact, normal color Results Laboratory Results: 09/08/20 05:15 09/07/20 06:05 09/08/20 05:15 WBC 6.3 RBC 3.85 Hgb 12.0 Hct 35.2 L MCV 91 MCH 31.2 MCHC 34.1 RDW 15.0 H Plt Count 258 09/06/20 14:40 Troponin I < 0.012 Impressions: Chest X-Ray 09/06/20 12:58 IMPRESSION: NO ACUTE RADIOGRAPHIC FINDING IN THE CHEST. Venous Doppler Study 09/06/20 12:58 IMPRESSION: Positive for DVT in the left distal femoral vein, popliteal vein and posterior tibial vein. Head CT 09/06/20 13:01 IMPRESSION: NO ACUTE INTRACRANIAL IMAGING FINDINGS. EVIDENCE OF ACUTE STROKE: NO. Assessment & Plan - Diagnosis (1) DVT (deep venous thrombosis) Is this a current diagnosis for this admission?: Yes Plan: Tolerating Lovenox therapy. We will have to transition to oral anticoagulation given acute DVT Also risk of stroke given previous stroke and atrial flutter is continuing rhythm. (2) S/P placement of cardiac pacemaker Is this a current diagnosis for this admission?: Yes Plan: Pacing at 40 bpm with atrial flutter. VVI mode likely. (3) Atrial flutter Qualifiers: Atrial flutter type: typical Qualified Code(s): I48.3 - Typical atrial flutter Is this a current diagnosis for this admission?: Yes Plan: Probably typical atrial flutter but with complete heart block being managed with VVI pacing at 40 bpm so there is no tachycardia. Since arrhythmia continues she is at increased risk of stroke and would merit from systemic anticoagulation Given multiple comorbidities and overall poor state of health would continue present management
--- NOTE | 2020-09-08 16:31 | PDOC PROGRESS REPORT ---
Subjective Progress Note for:: 09/08/20 Subjective:: Unfortunate patient has not been seen by psychiatry yet. We did discuss antidepressant medications. She has been on Viibryd in the past but it did not seem to be effective. She is tolerating the mirtazapine. In addition the every 6 hours pain medication is not quite effective at that time interval. We also reviewed her GI history and ongoing anticoagulation. Lastly based on her medication allergy list calcium shows up as a food allergy. I will discuss with pharmacy. Reason For Visit: ACUTE LEFT LEG DVT,ABNORMAL WEIGHT LOSS,SYNCOPE, Physical Exam Vital Signs: Temp Pulse Resp BP Pulse Ox 98.2 F 41 L 15 120/59 L 99 09/08/20 15:10 09/08/20 15:10 09/08/20 15:10 09/08/20 15:10 09/08/20 15:10 Intake & Output 09/07/20 09/08/20 09/09/20 06:59 06:59 06:59 Intake Total 1142 3224 1480 Output Total 900 Balance 1142 2324 1480 Weight 51.7 kg 55.2 kg 55.2 kg General appearance: PRESENT: cooperative, mild distress - Mild to moderate distress, thin Head exam: PRESENT: atraumatic, normocephalic Ear exam: PRESENT: normal external ear exam. ABSENT: bleeding, drainage Mouth exam: PRESENT: moist, tongue midline Respiratory exam: PRESENT: clear to auscultation yaakov, symmetrical, unlabored. ABSENT: prolonged expiratory phas, rales, rhonchi, tachypnea, wheezes Cardiovascular exam: PRESENT: bradycardia. ABSENT: diastolic murmur, irregular rhythm, systolic murmur, tachycardia GI/Abdominal exam: PRESENT: normal bowel sounds, soft. ABSENT: tenderness Rectal exam: PRESENT: deferred Gentrourinary exam: ABSENT: indwelling catheter Extremities exam: PRESENT: calf tenderness - On the left. ABSENT: joint swelling, pedal edema Musculoskeletal exam: PRESENT: ambulatory, normal inspection. ABSENT: deformity, dislocation Neurological exam: PRESENT: alert, awake, oriented to person, oriented to place, oriented to time, oriented to situation, CN II-XII grossly intact. ABSENT: altered Psychiatric exam: PRESENT: depressed. ABSENT: agitated, anxious Focused psych exam: ABSENT: delusional, pressured speech, restlessness Skin exam: PRESENT: dry, normal color, warm. ABSENT: petechiae, rash Results Laboratory Results: 09/08/20 05:15 09/07/20 06:05 09/08/20 05:15 WBC 6.3 RBC 3.85 Hgb 12.0 Hct 35.2 L MCV 91 MCH 31.2 MCHC 34.1 RDW 15.0 H Plt Count 258 09/06/20 14:40 Troponin I < 0.012 Impressions: Chest X-Ray 09/06/20 12:58 IMPRESSION: NO ACUTE RADIOGRAPHIC FINDING IN THE CHEST. Venous Doppler Study 09/06/20 12:58 IMPRESSION: Positive for DVT in the left distal femoral vein, popliteal vein and posterior tibial vein. Head CT 09/06/20 13:01 IMPRESSION: NO ACUTE INTRACRANIAL IMAGING FINDINGS. EVIDENCE OF ACUTE STROKE: NO. Assessment and Plan - Diagnosis (1) Deep vein thrombosis (DVT) of femoral vein of left lower extremity Qualifiers: Chronicity: acute Qualified Code(s): I82.412 - Acute embolism and thrombosis of left femoral vein Is this a current diagnosis for this admission?: Yes (2) Nausea & vomiting Qualifiers: Vomiting type: unspecified Vomiting Intractability: non-intractable Qualified Code(s): R11.2 - Nausea with vomiting, unspecified Is this a current diagnosis for this admission?: Yes (3) PUD (peptic ulcer disease) Is this a current diagnosis for this admission?: Yes (4) Abdominal pain Qualifiers: Abdominal location: generalized Qualified Code(s): R10.84 - Generalized abdominal pain Is this a current diagnosis for this admission?: Yes (5) Depression Qualifiers: Depression Type: major depressive disorder Active/Remission status: cu rrently active Major depression episode severity: severe Psychotic features: without psychotic features Is this a current diagnosis for this admission?: Yes (6) Heart block AV complete Is this a current diagnosis for this admission?: Yes (7) Weight loss, abnormal Is this a current diagnosis for this admission?: Yes (8) Adrenal insufficiency Is this a current diagnosis for this admission?: Yes - Plan Summary Summary: 09/06/2020 Acute deep venous thrombosis left leg Patient will be started on Lovenox. She has history of GI bleeding and perforated ulcer. She has been having lots of nausea and vomiting and reports some red specks. She has a history of Rosana-Baez tear. We will initiate Lovenox but monitor her very closely for hematemesis. She has seen Dr. Rollins in the past. If there is evidence of bleeding she may in fact need endoscopy. She has had an IVC filter in the past. She has had multiple episodes of thrombosis with emboli. Nausea and vomiting Multiple episodes of nausea and vomiting. With her history of peptic ulcer disease am starting intravenous Protonix every 12 hours. Interestingly she was not on any acid suppression medication recently. Will monitor for evidence of hematemesis. She reports that the Phenergan has been helping with nausea. Abdominal pain Most likely secondary from the nausea and vomiting. Peptic ulcer disease Protonix as above. She has a history of requiring esophageal dilatation. We will try and avoid large pills for the time being. Complete heart block Because of atrial flutter/fibrillation with rapid ventricular response the patient's atrial leads were turned off on her dual-chamber pacemaker. She has a history of complete heart block. She is now in an idioventricular rhythm with her lower limit set at 40 on the ventricular leads. Adrenal insufficiency Continue fludrocortisone. A.m. cortisol level ordered for the morning. Depression Patient is 1 year anniversary of her son's unexpected at 21 years old. She appears extremely depressed. I will ask psychiatry to see her. Some of her symptoms could be due to depression and I did encourage her to consider medication. Abnormal weight loss The patient has lost over 10% of her body weight. She is down to 51 kg. She has been having difficulty eating not only with regard to swallowing but also due to frequent nausea and vomiting. Syncope Patient describes strange episodes of a warm fluid feeling in both arms and then a crushing vice-like feeling in her head. She then passes out. When she comes to she has severe nausea and confusion. These events have been witnessed by her . He does not describe any seizure-like activity. We will continue to monitor on telemetry. 09/07/2020 We will convert to oral anticoagulant. We will need to monitor closely for bleeding however with a history of recurrent clotting we need to institute a trial of anticoagulation. She is having less nausea and vomiting today. She in fact was hungry. Abdominal pain is improved. Continue Protonix. Idioventricular rhythm is stable with stable blood pressure We had a tosha discussion about her depression. She has been seeing counseling but admits that medication is likely necessary. She was on mirtazapine in the past but I think this was for combination of appetite stimulant and depression. I will resume a small dose of mirtazapine to start and the dose will likely need to be increased over time. Psychiatry consult has been placed. She will likely need additional medication due to the severity of her depression. No further episodes of syncope since her admission. 09/08/2020 The patient is quite sad. She states she has been crying most of the day. Unfortunately psychiatry has not seen the patient yet. We talked about previous antidepressant medications that she is used and agreed to start a second medication in addition to the mirtazapine at night. She is tolerating the Protonix. We discussed adding Carafate. Cardiac status is stable with her idioventricular rhythm. Still with left calf pain. Decrease the frequency of pain medication to every 4 hours. - Time Time Spent with patient: 15-24 minutes Medications reviewed and adjusted accordingly: Yes Anticipated Discharge Disposition: Home, Self Care Anticipated Discharge Timeframe: within 72 hours
[2020-09-08] MEDS ORDERED: ESCITALOPRAM OXALATE 10 MG TABLET PO ONE (17:00)
[2020-09-08] MEDS: APIXABAN 5 MG TABLET PO SCH (18:55)
[2020-09-08] MEDS: SUCRALFATE 1 GM TABLET PO SCH (21:43)
[2020-09-08] MEDS: MIRTAZAPINE 15 MG TABLET PO SCH (21:43)
[2020-09-09] MEDS: HYDROMORPHONE HCL INJ/PF 2 MG/ML AMPULE IV PRN ×5 (00:57→18:07)
[2020-09-09] MEDS: ALPRAZOLAM 0.5 MG TABLET PO PRN (00:57)
[2020-09-09] MEDS: RINGERS SOLUTION,LACTATED 1,000 ML IV PRN ×3 (00:59→22:12)
[2020-09-09] MEDS: HYDROCORTISONE SOD SUCCINATE INJ/PF 100 MG/2 ML SDV IV SCH ×3 (05:48→22:08)
[2020-09-09 06:18] LABS: HEMATOCRIT 32.7 % (36.0-47.0); HEMOGLOBIN 11.3 g/dL (12.0-15.5); MEAN CORPUSCULAR HEMOGLOBIN 31.4 pg (27.0-33.4); MEAN CORPUSCULAR HGB CONC 34.7 g/dL (32.0-36.0); MEAN CORPUSCULAR VOLUME 91 fl (80-97); PLATELET COUNT 255 10^3/uL (150-450); RED BLOOD COUNT 3.61 10^6/uL (3.72-5.28); RED CELL DISTRIBUTION WIDTH 14.9 % (11.5-14.0); WHITE BLOOD COUNT 7.7 10^3/uL (4.0-10.5)
[2020-09-09] MEDS: SUCRALFATE 1 GM TABLET PO SCH ×4 (08:21→22:07)
[2020-09-09] MEDS: APIXABAN 5 MG TABLET PO SCH ×2 (09:27→18:07)
[2020-09-09] MEDS: ESCITALOPRAM OXALATE 10 MG TABLET PO SCH (09:27)
[2020-09-09] MEDS: FLUDROCORTISONE ACETATE 0.1 MG TABLET PO SCH (09:27)
[2020-09-09] MEDS: PANTOPRAZOLE SODIUM 40 MG VIAL IV SCH ×2 (09:52→22:08)
--- NOTE | 2020-09-09 17:28 | PDOC PROGRESS REPORT ---
Subjective Progress Note for:: 09/09/20 Subjective:: Patient feels that the steroid dose might be a little high. Surprisingly she did not feel the boost that I thought she would in light of her adrenal insufficiency. She is still having left calf pain. Reason For Visit: ACUTE LEFT LEG DVT,ABNORMAL WEIGHT LOSS,SYNCOPE, Physical Exam Vital Signs: Temp Pulse Resp BP Pulse Ox 98.2 F 41 L 16 119/63 93 09/09/20 15:34 09/09/20 15:34 09/09/20 15:34 09/09/20 15:34 09/09/20 15:34 Intake & Output 09/08/20 09/09/20 09/10/20 06:59 06:59 06:59 Intake Total 3224 2960 1000 Output Total 900 875 Balance 2324 2085 1000 Weight 55.2 kg 58.3 kg General appearance: PRESENT: cooperative, mild distress, thin, well-developed Head exam: PRESENT: atraumatic, normocephalic Ear exam: PRESENT: normal external ear exam. ABSENT: bleeding, drainage Mouth exam: PRESENT: moist, tongue midline Respiratory exam: PRESENT: clear to auscultation yaakov, symmetrical, unlabored. ABSENT: rales, rhonchi, tachypnea, wheezes Cardiovascular exam: PRESENT: RRR, +S1, +S2. ABSENT: bradycardia, diastolic murmur, irregular rhythm, systolic murmur, tachycardia GI/Abdominal exam: PRESENT: normal bowel sounds, soft. ABSENT: distended, guarding, tenderness Rectal exam: PRESENT: deferred Gentrourinary exam: ABSENT: indwelling catheter Extremities exam: PRESENT: calf tenderness, other - Left calf still slightly more swollen than the right leg Musculoskeletal exam: PRESENT: ambulatory, normal inspection. ABSENT: deformity, dislocation Neurological exam: PRESENT: alert, awake, oriented to person, oriented to place, oriented to time, oriented to situation, CN II-XII grossly intact. ABSENT: altered Psychiatric exam: PRESENT: depressed, flat affect. ABSENT: agitated, anxious Focused psych exam: ABSENT: delusional, paranoid, restlessness Skin exam: PRESENT: dry, warm. ABSENT: rash Results Laboratory Results: 09/09/20 06:00 09/07/20 06:05 09/09/20 06:00 WBC 7.7 RBC 3.61 L Hgb 11.3 L Hct 32.7 L MCV 91 MCH 31.4 MCHC 34.7 RDW 14.9 H Plt Count 255 09/06/20 14:40 Troponin I < 0.012 Impressions: Chest X-Ray 09/06/20 12:58 IMPRESSION: NO ACUTE RADIOGRAPHIC FINDING IN THE CHEST. Venous Doppler Study 09/06/20 12:58 IMPRESSION: Positive for DVT in the left distal femoral vein, popliteal vein and posterior tibial vein. Head CT 09/06/20 13:01 IMPRESSION: NO ACUTE INTRACRANIAL IMAGING FINDINGS. EVIDENCE OF ACUTE STROKE: NO. Assessment and Plan - Diagnosis (1) Deep vein thrombosis (DVT) of femoral vein of left lower extremity Qualifiers: Chronicity: acute Qualified Code(s): I82.412 - Acute embolism and thrombosis of left femoral vein Is this a current diagnosis for this admission?: Yes (2) Nausea & vomiting Qualifiers: Vomiting type: unspecified Vomiting Intractability: non-intractable Qualified Code(s): R11.2 - Nausea with vomiting, unspecified Is this a current diagnosis for this admission?: Yes (3) PUD (peptic ulcer disease) Is this a current diagnosis for this admission?: Yes (4) Abdominal pain Qualifiers: Abdominal location: generalized Qualified Code(s): R10.84 - Generalized abdominal pain Is this a current diagnosis for this admission?: Yes (5) Depression Qualifiers: Depression Type: major depressive disorder Active/Remission status: currently active Major depression episode severity: severe Psychotic features: without psychotic features Is this a current diagnosis for this admission?: Yes (6) Heart block AV complete Is this a current diagnosis for this admission?: Yes (7) Weight loss, abnormal Is this a current diagnosis for this admission?: Yes (8) Adrenal insufficiency Is this a current diagnosis for this admission?: Yes - Plan Summary Summary: 09/06/2020 Acute deep venous thrombosis left leg Patient will be started on Lovenox. She has history of GI bleeding and perforated ulcer. She has been having lots of nausea and vomiting and reports some red specks. She has a history of Rosana-Baez tear. We will initiate Lovenox but monitor her very closely for hematemesis. She has seen Dr. Rollins in the past. If there is evidence of bleeding she may in fact need endoscopy. She has had an IVC filter in the past. She has had multiple episodes of thrombosis with emboli. Nausea and vomiting Multiple episodes of nausea and vomiting. With her history of peptic ulcer disease am starting intravenous Protonix every 12 hours. Interestingly she was not on any acid suppression medication recently. Will monitor for evidence of hematemesis. She reports that the Phenergan has been helping with nausea. Abdominal pain Most likely secondary from the nausea and vomiting. Peptic ulcer disease Protonix as above. She has a history of requiring esophageal dilatation. We will try and avoid large pills for the time being. Complete heart block Because of atrial flutter/fibrillation with rapid ventricular response the patient's atrial leads were turned off on her dual-chamber pacemaker. She has a history of complete heart block. She is now in an idioventricular rhythm with her lower limit set at 40 on the ventricular leads. Adrenal insufficiency Continue fludrocortisone. A.m. cortisol level ordered for the morning. Depression Patient is 1 year anniversary of her son's unexpected at 21 years old. She appears extremely depressed. I will ask psychiatry to see her. Some of her symptoms could be due to depression and I did encourage her to consider medication. Abnormal weight loss The patient has lost over 10% of her body weight. She is down to 51 kg. She has been having difficulty eating not only with regard to swallowing but also due to frequent nausea and vomiting. Syncope Patient describes strange episodes of a warm fluid feeling in both arms and then a crushing vice-like feeling in her head. She then passes out. When she comes to she has severe nausea and confusion. These events have been witnessed by her . He does not describe any seizure-like activity. We will continue to monitor on telemetry. 09/07/2020 We will convert to oral anticoagulant. We will need to monitor closely for bleeding however with a history of recurrent clotting we need to institute a trial of anticoagulation. She is having less nausea and vomiting today. She in fact was hungry. Abdominal pain is improved. Continue Protonix. Idioventricular rhythm is stable with stable blood pressure We had a tosha discussion about her depression. She has been seeing counseling but admits that medication is likely necessary. She was on mirtazapine in the past but I think this was for combination of appetite stimulant and depression. I will resume a small dose of mirtazapine to start and the dose will likely need to be increased over time. Psychiatry consult has been placed. She will likely need additional medication due to the severity of her depression. No further episodes of syncope since her admission. 09/08/2020 The patient is quite sad. She states she has been crying most of the day. Unfortunately psychiatry has not seen the patient yet. We talked about previous antidepressant medications that she is used and agreed to start a second medication in addition to the mirtazapine at night. She is tolerating the Protonix. We discussed adding Carafate. Cardiac status is stable with her idioventricular rhythm. Still with left calf pain. Decrease the frequency of pain medication to every 4 hours. 09/09/2020 The patient seemed to tolerate Lexapro. We started at 10 mg daily. We had a long discussion about the slow progression of dosing of antidepressants. Again I supported the idea that she should see a psychiatrist. I did decrease the hydrocortisone dose to 50 mg every 8 hours. At discharge I will change to 20 mg oral in the morning and 10 mg in the afternoon. Continue to monitor her cardiac status which has been stable. I initiated her Eliquis and discontinued the Lovenox. She did in fact swallow the Carafate tablet whole. I told her we can utilize liquid as an outpatient or continue with the tablets. We discussed the fact that on this round of anticoagulation she will have dual protection for her stomach. She also requests advancing her diet. She did have Xanax last night. I told her it is highly addictive and I would rather prescribe temazepam to help with sleep at home. - Time Time Spent with patient: 15-24 minutes Medications reviewed and adjusted accordingly: Yes Anticipated Discharge Disposition: Home, Self Care Anticipated Discharge Timeframe: within 48 hours
[2020-09-09] MEDS ORDERED: ALPRAZOLAM 0.5 MG TABLET PO PRN (18:48)
[2020-09-09] MEDS ORDERED: TEMAZEPAM 15 MG CAPSULE PO PRN (18:48)
--- NOTE | 2020-09-09 20:49 | RADIOLOGY REPORT (SQ) ---
EXAM DESCRIPTION: US EXTREMITY VEINS UNILATERAL COMPLETED DATE/TME: 09/09/2020 00:00 CLINICAL HISTORY: L leg DVT, worsening ascending pain COMPARISON: September 06, 2020 TECHNIQUE: Duplex images of the common femoral, superficial femoral, greater saphenous, popliteal, and posterior tibial veins of the left lower extremity were submitted. FINDINGS: There is acute occlusive DVT within the mid and distal superficial femoral vein, popliteal vein and posterior tibial vein. IMPRESSION: Acute occlusive DVT extending from the mid left superficial femoral vein to the level of the posterior tibial vein.
[2020-09-09] MEDS: MIRTAZAPINE 15 MG TABLET PO SCH (22:07)
[2020-09-09] MEDS: ENOXAPARIN SODIUM INJ 60 MG/0.6 ML DISP.SYRIN SUBCUT SCH (22:08)
[2020-09-09] MEDS: TIZANIDINE HCL 4 MG TABLET PO PRN (22:31)
[2020-09-10] MEDS: HYDROMORPHONE HCL INJ/PF 2 MG/ML AMPULE IV PRN ×4 (02:20→14:21)
[2020-09-10 03:16] LABS: APPEARANCE,URINE SLIGHTLY-CLOUDY; BILIRUBIN,URINE NEGATIVE (NEGATIVE); CALCIUM OXALATE CRYSTALS,URINE RARE /HPF; COLOR,URINE YELLOW; GLUCOSE, URINE NEGATIVE (NEGATIVE); KETONES,URINE NEGATIVE (NEGATIVE); LEUKOCYTE ESTERASE,URINE NEGATIVE (NEGATIVE); NITRITE,URINE POSITIVE (NEGATIVE); PROTEIN,URINE NEGATIVE (NEGATIVE); URINE SPECIFIC GRAVITY 1.024; UROBILINOGEN,URINE NEGATIVE mg/dL (<2.0)
[2020-09-10] MEDS: HYDROCORTISONE SOD SUCCINATE INJ/PF 100 MG/2 ML SDV IV SCH ×2 (06:09→14:13)
[2020-09-10] MEDS: SUCRALFATE 1 GM TABLET PO SCH ×2 (09:59→10:08)
[2020-09-10] MEDS: ESCITALOPRAM OXALATE 10 MG TABLET PO SCH (10:09)
[2020-09-10] MEDS: ENOXAPARIN SODIUM INJ 60 MG/0.6 ML DISP.SYRIN SUBCUT SCH (10:09)
[2020-09-10] MEDS: FLUDROCORTISONE ACETATE 0.1 MG TABLET PO SCH (10:09)
[2020-09-10] MEDS: RINGERS SOLUTION,LACTATED 1,000 ML IV PRN (10:18)
[2020-09-10] MEDS: PANTOPRAZOLE SODIUM 40 MG VIAL IV SCH (10:20)
--- NOTE | 2020-09-10 13:01 | PDOC DISCHARGE SUMMARY ---
Impression - Admit/DC Date/PCP Admission Date/Primary Care Provider: 09/06/20 17:47 NISHA WAGNER MD Discharge Date: 09/10/20 - Discharge Diagnosis (1) Deep vein thrombosis (DVT) of femoral vein of left lower extremity Is this a current diagnosis for this admission?: Yes (2) Nausea & vomiting Is this a current diagnosis for this admission?: Yes (3) PUD (peptic ulcer disease) Is this a current diagnosis for this admission?: Yes (4) Abdominal pain Is this a current diagnosis for this admission?: Yes (5) Depression Is this a current diagnosis for this admission?: Yes (6) Heart block AV complete Is this a current diagnosis for this admission?: Yes (7) Weight loss, abnormal Is this a current diagnosis for this admission?: Yes (8) Adrenal insufficiency Is this a current diagnosis for this admission?: Yes - Assessment Summary: 09/06/2020 Acute deep venous thrombosis left leg Patient will be started on Lovenox. She has history of GI bleeding and perforated ulcer. She has been having lots of nausea and vomiting and reports some red specks. She has a history of Rosana-Baez tear. We will initiate Lovenox but monitor her very closely for hematemesis. She has seen Dr. Rollins in the past. If there is evidence of bleeding she may in fact need endoscopy. She has had an IVC filter in the past. She has had multiple episodes of thrombosis with emboli. Nausea and vomiting Multiple episodes of nausea and vomiting. With her history of peptic ulcer disease am starting intravenous Protonix every 12 hours. Interestingly she was not on any acid suppression medication recently. Will monitor for evidence of hematemesis. She reports that the Phenergan has been helping with nausea. Abdominal pain Most likely secondary from the nausea and vomiting. Peptic ulcer disease Protonix as above. She has a history of requiring esophageal dilatation. We will try and avoid large pills for the time being. Complete heart block Because of atrial flutter/fibrillation with rapid ventricular response the patient's atrial leads were turned off on her dual-chamber pacemaker. She has a history of complete heart block. She is now in an idioventricular rhythm with her lower limit set at 40 on the ventricular leads. Adrenal insufficiency Continue fludrocortisone. A.m. cortisol level ordered for the morning. Depression Patient is 1 year anniversary of her son's unexpected at 20 years old. She appears extremely depressed. I will ask psychiatry to see her. Some of her symptoms could be due to depression and I did encourage her to consider medication. Abnormal weight loss The patient has lost over 10% of her body weight. She is down to 51 kg. She has been having difficulty eating not only with regard to swallowing but also due to frequent nausea and vomiting. Syncope Patient describes strange episodes of a warm fluid feeling in both arms and then a crushing vice-like feeling in her head. She then passes out. When she comes to she has severe nausea and confusion. These events have been witnessed by her . He does not describe any seizure-like activity. We will continue to monitor on telemetry. 09/07/2020 We will convert to oral anticoagulant. We will need to monitor closely for bleeding however with a history of recurrent clotting we need to institute a trial of anticoagulation. She is having less nausea and vomiting today. She in fact was hungry. Abdominal pain is improved. Continue Protonix. Idioventricular rhythm is stable with stable blood pressure We had a tosha discussion about her depression. She has been seeing counseling but admits that medication is likely necessary. She was on mirtazapine in the p ast but I think this was for combination of appetite stimulant and depression. I will resume a small dose of mirtazapine to start and the dose will likely need to be increased over time. Psychiatry consult has been placed. She will likely need additional medication due to the severity of her depression. No further episodes of syncope since her admission. 09/08/2020 The patient is quite sad. She states she has been crying most of the day. Unfortunately psychiatry has not seen the patient yet. We talked about previous antidepressant medications that she is used and agreed to start a second medication in addition to the mirtazapine at night. She is tolerating the Protonix. We discussed adding Carafate. Cardiac status is stable with her idioventricular rhythm. Still with left calf pain. Decrease the frequency of pain medication to every 4 hours. 09/09/2020 The patient seemed to tolerate Lexapro. We started at 10 mg daily. We had a long discussion about the slow progression of dosing of antidepressants. Again I supported the idea that she should see a psychiatrist. I did decrease the hydrocortisone dose to 50 mg every 8 hours. At discharge I will change to 20 mg oral in the morning and 10 mg in the afternoon. Continue to monitor her cardiac status which has been stable. I initiated her Eliquis and discontinued the Lovenox. She did in fact swallow the Carafate tablet whole. I told her we can utilize liquid as an outpatient or continue with the tablets. We discussed the fact that on this round of anticoagulation she will have dual protection for her stomach. She also requests advancing her diet. She did have Xanax last night. I told her it is highly addictive and I would rather prescribe temazepam to help with sleep at home. - Additional Information Resuscitation Status: Full Code Discharge Diet: Other (Comments) - 6 small meals daily Discharge Activity: Activity As Tolerated, Other Referrals: NISHA WAGNER MD [Primary Care Provider] - Follow up as needed Prescriptions: Sucralfate [Carafate 1 gm Tablet] 1 gm PO ACHS 14 Days #56 tablet Hydrocortisone [Cortef 10 mg Tablet] 10 mg PO ASDIR 14 Days #42 tablet Apixaban [Eliquis] 5 mg PO ASDIR #1 tab.ds.pk Fludrocortisone Acetate [Florinef 0.1 mg Tablet] 0.1 mg PO DAILY 14 Days #14 Fludrocortisone Acetate [Florinef 0.1 mg Tablet] 0.1 mg PO DAILY 14 Days #14 tablet Escitalopram Oxalate [Lexapro 10 mg Tablet] 10 mg PO DAILY 14 Days #14 tablet Pantoprazole Sodium [Protonix [address] Tablet] 40 mg PO QAM 14 Days #14 tablet. Mirtazapine [Remeron 15 mg Tablet] 15 mg PO QHS #14 tablet Temazepam [Restoril 15 mg Capsule] 30 mg PO HSP PRN 14 Days #14 capsule PRN Reason: Sleep Or Insomnia Tramadol HCl [Ultram 50 mg Tablet] 50 mg PO Q8HP PRN 7 Days #20 tablet PRN Reason: For Pain Home Medications: Clonazepam [Klonopin 2 mg Tablet] 2 mg PO QIDP PRN 09/24/19 Tizanidine HCl [Zanaflex 4 mg Tablet] 12 mg PO Q8 09/24/19 Apixaban [Eliquis] 5 mg PO ASDIR #1 tab.ds.pk 09/10/20 Escitalopram Oxalate [Lexapro 10 mg Tablet] 10 mg PO DAILY 14 Days #14 tablet 09/10/20 Fludrocortisone Acetate [Florinef 0.1 mg Tablet] 0.1 mg PO DAILY 14 Days #14 09/10/20 Fludrocortisone Acetate [Florinef 0.1 mg Tablet] 0.1 mg PO DAILY 14 Days #14 tablet 09/10/20 Hydrocortisone [Cortef 10 mg Tablet] 10 mg PO ASDIR 14 Days #42 tablet 09/10/20 Mirtazapine [Remeron 15 mg Tablet] 15 mg PO QHS #14 tablet 09/10/20 Pantoprazole Sodium [Protonix [address] Tablet] 40 mg PO QAM 14 Days #14 tablet.dr 09/10/20 Sucralfate [Carafate 1 gm Tablet] 1 gm PO ACHS 14 Days #56 tablet 09/10/20 Temazepam [Restoril 15 mg Capsule] 30 mg PO HSP PRN 14 Days #14 capsule 09/10/20 Tramadol HCl [Ultram 50 mg Tablet] 50 mg PO Q8HP PRN 7 Days #20 tablet 09/10/20 History of Present Illiness History of Present Illness: KRANTHI REDDY is a 50 year old female with an extremely complex medical history. She has had multiple episodes of thrombus formation with embolic effect as noted below. 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 fib. 2015: Had a left MCA stroke hospitalized at [facility]. 2018: Perforated peptic ulcer disease was admitted at [facility] had exploratory laparotomy. Over the last 2 days she has developed tightness in her left leg. She tried ice and elevation this did not help. The pain was increasing to the point where she could not bear weight on her legs and this prompted a visit to the emergency department. A DVT was found from the femoral to posterior tibial veins. Her history is also been complicated over the last several weeks as she has been having episodes of a warm feeling in her arms with subsequent viselike pressure in her head and then she passes out. This has been witnessed. There are no seizure-like activities. It can now happen when she is lying down. There are multiple episodes per day. When she wakes up she is confused and quite nauseated. She has also had significant nausea and vomiting for some time now. Her weight is decreased significantly. In addition she saw cardiology several weeks ago. Because of conduction issues they turned off the atrial leads in her pacemaker. She now has an idioventricular rate with a lower limit set at 40 bpm. The atria are typically in flutter. Due to complete heart block none of these are transmitted to the ventricles. Cardiology felt that this was the only way to treat a supraventricular tachycardia. She does have a history of perforated ulcer. She reports a partial gastrectomy. She states that with her nausea and vomiting she has noticed little red pellets. She is unsure if they are blood or not. They are certainly not bright red blood but could be small clots. She does have a history of a Rosana-Baez tear as well. Because of the acute DVT will start the patient on Lovenox. Will monitor closely for any episodes of hematemesis. She has been seen by Dr. Rollins in the past. She states that he has had to dilate her esophagus and he did what sounds like a sphincterotomy in the past. She states that solid foods tend to get stuck. She has no problem with liquids except for the fact that she is always nauseous. She was recently diagnosed with adrenal insufficiency by her primary care provider. She is only on fludrocortisone. Cortisol levels were ordered but evidently the specimen was lost and they have not repeated the levels. She will be admitted to the hospitalist service. She will be on IMCU on telemetry. She will be seen by cardiology and I will reach out to her psychiatry instructor in the morning. As noted above we will utilize Lovenox but monitor closely for hematemesis. Lastly, yesterday was the 1 year anniversary of the unexpected of her son. He was 20 years old. He from complications of his diabetes. It is the 11 month anniversary of her father dying. He 1 month after her son. She has been extremely depressed. Depression is likely contributing factor to her current overall status. Hospital Course Hospital Course: Uncomplicated hospital course. Patient was stable with the atrial leads turned off and her idioventricular rhythm. She still had discomfort in her left leg from the thrombus. She did have an episode of increased discomfort and ultrasound study was performed. There showed no extension of clot. Some of the symptoms of the warm feeling in her arms, crushing headache and syncope actually did not recur. Much of the symptoms I feel are routed and depression. She was started on Remeron and Lexapro. Physical Exam Vital Signs: Temp Pulse Resp BP Pulse Ox 97.7 F 40 L 18 131/70 H 97 09/10/20 10:00 09/10/20 08:34 09/10/20 08:34 09/10/20 08:34 09/10/20 08:34 Intake & Output 09/09/20 09/10/20 09/11/20 06:59 06:59 05:59 Intake Total 2960 2665 1000 Output Total 875 Balance 2085 2665 1000 Weight 58.3 kg 58.5 kg General appearance: PRESENT: no acute distress Respiratory exam: PRESENT: clear to auscultation yaakov, symmetrical, unlabored. ABSENT: rales, rhonchi, tachypnea, wheezes Cardiovascular exam: PRESENT: bradycardia, +S1, systolic murmur. ABSENT: diastolic murmur, irregular rhythm, tachycardia GI/Abdominal exam: PRESENT: normal bowel sounds, soft. ABSENT: tenderness Neurological exam: PRESENT: alert, awake, oriented to person, oriented to place, oriented to time, oriented to situation Psychiatric exam: PRESENT: depressed. ABSENT: agitated, anxious Results Laboratory Results: WBC 7.7 10^3/uL (4.0-10.5) 09/09/20 06:00 RBC 3.61 10^6/uL (3.72-5.28) L 09/09/20 06:00 Hgb 11.3 g/dL (12.0-15.5) L 09/09/20 06:00 Hct 32.7 % (36.0-47.0) L 09/09/20 06:00 MCV 91 fl (80-97) 09/09/20 06:00 MCH 31.4 pg (27.0-33.4) 09/09/20 06:00 MCHC 34.7 g/dL (32.0-36.0) 09/09/20 06:00 RDW 14.9 % (11.5-14.0) H 09/09/20 06:00 Plt Count 255 10^3/uL (150-450) 09/09/20 06:00 Lymph % (Auto) 27.3 % (13-45) 09/06/20 15:18 [place] % (Auto) 8.0 % (3-13) 09/06/20 15:18 Eos % (Auto) 1.5 % (0-6) 09/06/20 15:18 Baso % (Auto) 1.3 % (0-2) 09/06/20 15:18 Absolute Neuts (auto) 5.1 10^3/uL (1.7-8.2) 09/06/20 15:18 Absolute Lymphs (auto) 2.2 10^3/uL (0.5-4.7) 09/06/20 15:18 Absolute Monos (auto) 0.7 10^3/uL (0.1-1.4) 09/06/20 15:18 Absolute Eos (auto) 0.1 10^3/uL (0.0-0.6) 09/06/20 15:18 Absolute Basos (auto) 0.1 10^3/uL (0.0-0.2) 09/06/20 15:18 Seg Neutrophils % 61.9 % (42-78) 09/06/20 15:18 Platelet Estimate Cancelled 09/06/20 14:40 PT 11.8 SEC (11.4-15.4) 09/06/20 15:31 INR 0.85 09/06/20 15:31 INR (Anticoag Therapy) [employer] 09/06/20 14:40 APTT < 23.0 SEC (23.5-35.8) L 09/06/20 15:31 Sodium 139.7 mmol/L (137-145) 09/07/20 06:05 Potassium 4.4 mmol/L (3.6-5.0) 09/07/20 06:05 Chloride 106 mmol/L (98-107) 09/07/20 06:05 Carbon Dioxide 27 mmol/L (22-30) 09/07/20 06:05 Anion Gap 7 (5-19) 09/07/20 06:05 BUN 15 mg/dL (7-20) 09/07/20 06:05 Creatinine 0.85 mg/dL (0.52-1.25) 09/07/20 06:05 Est GFR ( Amer) > 60 (>60) 09/07/20 06:05 Est GFR (MDRD) Non-Af > 60 (>60) 09/07/20 06:05 Glucose 74 mg/dL (75-110) L 09/07/20 06:05 Calcium 9.2 mg/dL (8.4-10.2) 09/07/20 06:05 Phosphorus 5.6 mg/dL (2.5-4.5) H 09/07/20 06:05 Magnesium 2.2 mg/dL (1.6-2.3) 09/07/20 06:05 Total Bilirubin 0.5 mg/dL (0.2-1.3) 09/07/20 06:05 Direct Bilirubin 0.2 mg/dL (0.0-0.4) 09/07/20 06:05 Neonat Total Bilirubin Not Reportable 09/07/20 06:05 Neonat Direct Bilirubin Not Reportable 09/07/20 06:05 Neonat Indirect Bili Not Reportable 09/07/20 06:05 AST 19 U/L (14-36) 09/07/20 06:05 ALT 10 U/L (<35) 09/07/20 06:05 Alkaline Phosphatase 80 U/L (38-126) 09/07/20 06:05 Troponin I < 0.012 ng/mL 09/06/20 14:40 Total Protein 6.2 g/dL (6.3-8.2) L 09/07/20 06:05 Albumin 3.4 g/dL (3.5-5.0) L 09/07/20 06:05 Prealbumin 19.3 mg/dL (17.6-36.0) 09/07/20 06:05 Cortisol AM Sample 2.31 ug/dL (4.46-22.7) L 09/07/20 06:05 Urine Color YELLOW 09/10/20 03:00 Urine Appearance SLIGHTLY-CLOUDY 09/10/20 03:00 Urine pH 5.0 (5.0-9.0) 09/10/20 03:00 Ur Specific [place]erg 1.024 09/10/20 03:00 Urine Protein NEGATIVE mg/dL (NEGATIVE) 09/10/20 03:00 Urine Glucose (UA) NEGATIVE mg/dL (NEGATIVE) 09/10/20 03:00 Urine Ketones NEGATIVE mg/dL (NEGATIVE) 09/10/20 03:00 Urine Blood NEGATIVE (NEGATIVE) 09/10/20 03:00 Urine Nitrite POSITIVE (NEGATIVE) H 09/10/20 03:00 Urine Bilirubin NEGATIVE (NEGATIVE) 09/10/20 03:00 Urine Urobilinogen NEGATIVE mg/dL (<2.0) 09/10/20 03:00 Ur Leukocyte Esterase NEGATIVE (NEGATIVE) 09/10/20 03:00 Urine WBC (Auto) 0 /HPF 09/10/20 03:00 Urine RBC (Auto) 1 /HPF 09/07/20 09:03 U Hyaline Cast (Auto) 5 /LPF 09/07/20 09:03 Urine Bacteria (Auto) 2+ /HPF 09/10/20 03:00 Squamous Epi Cells Auto <1 /HPF 09/10/20 03:00 Calcium Oxalate Cr Auto RARE /HPF 09/10/20 03:00 Urine Mucus (Auto) RARE /LPF 09/10/20 03:00 Urine Ascorbic Acid NEGATIVE (NEGATIVE) 09/10/20 03:00 Slides for Path Review Cancelled 09/06/20 14:40 09/06/20 14:40 Troponin I < 0.012 Impressions: Chest X-Ray 09/06/20 12:58 IMPRESSION: NO ACUTE RADIOGRAPHIC FINDING IN THE CHEST. Venous Doppler Study 09/06/20 12:58 IMPRESSION: Positive for DVT in the left distal femoral vein, popliteal vein and posterior tibial vein. Head CT 09/06/20 13:01 IMPRESSION: NO ACUTE INTRACRANIAL IMAGING FINDINGS. EVIDENCE OF ACUTE STROKE: NO. Venous Doppler Study 09/09/20 00:00 IMPRESSION: Acute occlusive DVT extending from the mid left superficial femoral vein to the level of the posterior tibial vein. Plan Health Concerns: Sustained severe depression since the unexpected of her son a year ago. She continues counseling but needs to return to a psychiatrist even if it is not the psychiatrist she had seen in the past Plan of Treatment: Return to anticoagulation as she has a significant history of multiple DVTs, PEs and stroke. Protect stomach with proton pump inhibitor and Carafate. Goals: More aggressive treatment for depression Time Spent: Greater than 30 Minutes Stroke Is this a Stroke Patient?: No Acute Heart Failure Is this a Heart Failure Patient?: No
[2020-09-10 13:44] VITALS: BP 91/64
== END 2020-09-10 15:03 | disposition home or self-care (01) | DRG 300 ==
LOC: ER 12:39 → EH 17:47 → 5 20:37
PROVIDERS: ADMIT Hospitalist; ATTEND Hospitalist
DX: I82.412 Acute embolism and thrombosis of left femoral vein (principal); I44.2 Atrioventricular block, complete; E27.40 Unspecified adrenocortical insufficiency; I48.3 Typical atrial flutter; K27.9 Peptic ulcer, site unspecified, unspecified as acute or chronic, without hemorrhage or perforation; F32.9 Major depressive disorder, single episode, unspecified; R63.4 Abnormal weight loss; R55 Syncope and collapse; I25.2 Old myocardial infarction; Z95.0 Presence of cardiac pacemaker; Z79.899 Other long term (current) drug therapy; Z79.01 Long term (current) use of anticoagulants; Z86.73 Personal history of transient ischemic attack (TIA), and cerebral infarction without residual deficits; Z86.711 Personal history of pulmonary embolism; Z88.6 Allergy status to analgesic agent; Z88.3 Allergy status to other anti-infective agents; Z88.2 Allergy status to sulfonamides; Z88.8 Allergy status to other drugs, medicaments and biological substances; Z83.3 Family history of diabetes mellitus
CPT/HCPCS: 36415; 70450; 71046; 80053; 81001; 82533; 83735; 84100; 84134; 84484; 85025; 85027; 85610; 85730; 93005; 93010; 93971; 96372; 96374; 96375; 99285; C9113; J1170; J1642; J1650; J1720; J2550; J3490; J7120

== ENCOUNTER 2020-10-14 13:31 | Emergency (ER) | payer MEDICARE, OTHER ==
--- NOTE | 2020-10-14 14:00 | ER Document Report ---
ED Medical Screen (RME) - General Chief Complaint: Chest Pain Stated Complaint: CHEST PAIN Time Seen by Provider: 10/14/20 13:56 Primary Care Provider: NISHA WAGNER MD [Primary Care Provider] - Follow up as needed Mode of Arrival: Wheelchair Information source: Patient Notes: 50-year-old female presents to ED for chest pain times last 3 to 4 days. She was seen at [facility] as part of September. She states at that time they told her she has a very severe condition is a very severe arrhythmia and that there was nothing else they could do for her. She states she started having the chest pain again 3 to 4 days ago and is passed out several times which is why she has a black eye. She came in today to see if there is anything anyone can do for her. She is alert oriented respirations regular nonlabored speaking in full sentences. She states she was told that the arrhythmia in her upper chambers is in the 200s in the arrhythmia and her lower chambers is in the 30-40 range. He states she is lost her father and her son for the same arrhythmia within the last couple months. Is very tearful I have greeted and performed a rapid initial assessment of this patient. A comprehensive ED assessment and evaluation of the patient, analysis of test results and completion of medical decision making process will be conducted by an additional ED providers. TRAVEL OUTSIDE OF THE [place] IN LAST 30 DAYS: No - Related Data Allergies/Adverse Reactions: clindamycin [Clindamycin] Allergy (Intermediate, Verified 09/06/20 13:23) FACE SWELLING, HIVES moxifloxacin [From Avelox] Allergy (Intermediate, Verified 09/06/20 13:23) FACE SWELLING, HIVES metoclopramide HCl [From Reglan] Allergy (Mild, Verified 09/06/20 13:23) RASH,ITCHING morphine Allergy (Mild, Verified 09/06/20 13:23) HIVES, RASH aprotinin [From Tisseel VH 1.0 ml] Allergy (Verified 09/06/20 13:23) Anaphylaxis divalproex sodium [From Depakote] Allergy (Verified 09/06/20 13:23) fibrinogen [From Tisseel VH 1.0 ml] Allergy (Verified 09/06/20 13:23) Anaphylaxis ondansetron [From Zofran] Allergy (Verified 09/06/20 13:23) Sulfa (Sulfonamide Antibiotics) Allergy (Verified 09/06/20 13:23) Hives, rash, itching thrombin [From Tisseel VH 1.0 ml] Allergy (Verified 09/06/20 13:23) Anaphylaxis Past Medical History - Social History Family history: Reviewed & Not Pertinent - Past Medical History Cardiac Medical History: Reports: Hx Atrial Fibrillation - pacemaker, Hx Heart Attack - 2006 Denies: Hx Coronary Artery Disease, Hx Hypertension Pulmonary Medical History: Reports: Hx Pneumonia - Collapsed Lungs, bloot clots: PE, DVT, heart, brain Denies: Hx Asthma, Hx Bronchitis, Hx COPD - Pulm fibrosis, hx pulm edema Neurological Medical History: Reports: Hx Cerebrovascular Accident - L sided weakness r/t stroke , Hx Migraine, Hx Seizures Renal/ Medical History: Reports: Hx Kidney Stones. Denies: Hx Peritoneal Dialysis GI Medical History: Reports: Hx Endoscopy - 2011 and 2016 secondary to GI bleeds Musculoskeltal Medical History: Reports Hx Arthritis - JAW Psychiatric Medical History: Reports: Hx Depression Past Surgical History: Reports: Hx Abdominal Surgery - ulcer repair, Hx Cardiac Surgery - LEFT PACEMAKER, Hx Hysterectomy, Hx Oral Surgery - TMJ, Other - IVC filter, possible gastric surgery - Immunizations Hx Diphtheria, Pertussis, Tetanus Vaccination: Yes Physical Exam - Vital signs Vitals: Temp Pulse Resp BP Pulse Ox 98.6 F 63 18 141/83 H 98 10/14/20 13:49 10/14/20 13:49 10/14/20 13:49 10/14/20 13:49 10/14/20 13:49 Course - Vital Signs Vital signs: Temp Pulse Resp BP Pulse Ox 98.6 F 63 18 141/83 H 98 10/14/20 13:49 10/14/20 13:49 10/14/20 13:49 10/14/20 13:49 10/14/20 13:49 Doctor's Discharge - Discharge Referrals: NISHA WAGNER MD [Primary Care Provider] - Follow up as needed
--- NOTE | 2020-10-14 16:03 | ER Document Report ---
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 She states she got a pacemaker at that time. 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 She is followed at [facility] for this. She came in here in September and was transferred there for 7-day course. She states that she was told by the heart team there that there was "nothing they can do for her". Patient is presenting here for some intermittent nonspecific chest discomfort for 3 days. She states it is to the left side. She denies any fevers, cough, shortness of breath, calf pain or leg swelling. Patient did pass out she states, and states that this is normal for her. She did hit the left side of her face. ROS: See HPI All other review of systems reviewed and otherwise negative Reviewed vital signs and nursing note as charted by RN. PHYSICAL EXAM: CONSTITUTIONAL: Alert and oriented and responds appropriately to questions. Wel l-appearing; well-nourished HEAD: Normocephalic; atraumatic EYES: PERRL; some ecchymosis around the left eye. No tenderness or crepitus appreciated. No entrapment noted ENT: Normal nose; no rhinorrhea; moist mucous membranes; pharynx without lesions noted NECK: Supple without meningismus; non-tender to palpation of the midline spine CARD: Regular rate and rhythm; no murmurs; symmetric distal pulses RESP: Normal chest excursion without splinting or tachypnea; breath sounds clear and equal bilaterally; no anterior posterior rib tenderness ABD/GI: Normal bowel sounds; non-distended; soft, non-tender BACK: The back appears normal and is non-tender to palpation EXT: Normal ROM in all joints; non-tender to palpation; no edema SKIN: No acute lesions noted NEURO: CN 2-12 intact; 5/5 bilateral upper and lower extremity strength with sensation intact to light touch PSYCH: The patient's mood and manner are appropriate. Grooming and personal hygiene are appropriate. TRAVEL OUTSIDE OF THE [place] IN LAST 30 DAYS: No - Related Data Allergies/Adverse Reactions: clindamycin [Clindamycin] Allergy (Intermediate, Verified 10/14/20 16:09) FACE SWELLING, HIVES moxifloxacin [From Avelox] Allergy (Intermediate, Verified 10/14/20 16:09) FACE SWELLING, HIVES metoclopramide HCl [From Reglan] Allergy (Mild, Verified 10/14/20 16:09) RASH,ITCHING morphine Allergy (Mild, Verified 10/14/20 16:09) HIVES, RASH aprotinin [From Tisseel VH 1.0 ml] Allergy (Verified 10/14/20 16:09) Anaphylaxis divalproex sodium [From Depakote] Allergy (Verified 10/14/20 16:09) fibrinogen [From Tisseel VH 1.0 ml] Allergy (Verified 10/14/20 16:09) Anaphylaxis ondansetron [From Zofran] Allergy (Verified 10/14/20 16:09) Sulfa (Sulfonamide Antibiotics) Allergy (Verified 10/14/20 16:09) Hives, rash, itching thrombin [From Tisseel VH 1.0 ml] Allergy (Verified 10/14/20 16:09) Anaphylaxis Past Medical History - General Information source: Patient - Social History Smoking Status: Unknown if Ever Smoked Family History: DM - Past Medical History Cardiac Medical History: Reports: Hx Atrial Fibrillation - pacemaker, Hx Heart Attack - 2006 Denies: Hx Coronary Artery Disease, Hx Hypertension Pulmonary Medical History: Reports: Hx Pneumonia - Collapsed Lungs, bloot clots: PE, DVT, heart, brain Denies: Hx Asthma, Hx Bronchitis, Hx COPD - Pulm fibrosis, hx pulm edema Neurological Medical History: Reports: Hx Cerebrovascular Accident - L sided weakness r/t stroke , Hx Migraine, Hx Seizures Renal/ Medical History: Reports: Hx Kidney Stones. Denies: Hx Peritoneal Dialysis GI Medical History: Reports: Hx Endoscopy - 2011 and 2017 secondary to GI bleeds Musculoskeletal Medical History: Reports Hx Arthritis - JAW Psychiatric Medical History: Reports: Hx Depression Past Surgical History: Reports: Hx Abdominal Surgery - ulcer repair, Hx Cardiac Surgery - LEFT PACEMAKER, Hx Hysterectomy, Hx Oral Surgery - TMJ, Other - IVC filter, possible gastric surgery - Immunizations Hx Diphtheria, Pertussis, Tetanus Vaccination: Yes Hx Pneumococcal Vaccination: 11/11/10 Physical Exam - Vital signs Vitals: Temp Pulse Resp BP Pulse Ox 98.6 F 63 18 141/83 H 98 10/14/20 13:49 10/14/20 13:49 10/14/20 13:49 10/14/20 13:49 10/14/20 13:49 Course - Re-evaluation Re-evalutation: 10/14/20 16:02 Given the above history and physical examination, we will call [facility] speak with the clipping marker as well as obtain the discharge summary records. Vital signs as recorded. I will obtain a cardiac panel, as well as obtain electrolytes. Given the lack of any shortness of breath, I do believe PE and dissection to be unlikely. 10/14/20 16:11 I reviewed the patient's old past chart it appears that the patient was seen here the end of August for some chest discomfort with a DVT in the left leg. She does have an IVC filter. Patient has a history of an idioventricular rhythm with her atrial pacemaker leads turned off secondary to poor conduction. Patient was started on Eliquis at that time. There was no repeat emergency room visit with a transfer to [facility]. Patient now states she went to [facility] before being transferred to [facility] with the discharge the first week of September. She states they took her off the Eliquis given that the left leg had improved in symptoms, she had an IVC filter in place, and she was having Hemoccult positive stools. EKG does show flutter waves with a ventricular rate of around 65. Nonspecific widening QRS complex with intermittent ventricular paced beats 10/14/2020 I did speak directly to the clipping marker. She states that the patient's son did have an autopsy and showed an enlarged heart. However there has been no genetic testing to show a familial genetic condition. Patient did have an AVJ ablation and therefore the atrium does not connect at all with the ventricles. She is in chronic atrial flutter of the atrium. Patient supposedly did not like the pacing feeling and so in August she had a clipping marker turn down the lead pacing to 40. She became bradycardic with intermittent torsades. They recently programmed her back to the 60s after an event on 1025 and 1118. She was actually discharged from [facility] on October 02. They did discontinue the Eliquis secondary to the left leg improvement in the patient having a filter. They did discuss the left atrial appendage with the patient but she declined. She states that the patient chronically has chest pain. She is asked me to you obtain an interrogation of the pacemaker and if the pacemaker shows polymorphic V. tach they will accept the patient for transfer. If the interrogation is relatively benign, she believes to repeat troponins that are unremarkable and change should be sufficient for discharge with follow-up with cardiology. 10/14/20 17:29 We interrogated the pacemaker and I did speak directly to the [employer] rep. He sees no ventricular dysrhythmias. 10/14/20 19:48 Repeat troponin reassuring as recorded. Blood pressure, sodium, and potassium showed no signs of steroid deficiency. I did speak again with the clipping marker. He did review the EKGs here. She sees no appreciable change. Patient will be discharged home with strict return precautions and follow-up with the cardiology team. Patient is comfortable with this plan. - Vital Signs Vital signs: Temp Pulse Resp BP Pulse Ox 98.6 F 63 12 114/73 95 10/14/20 13:49 10/14/20 13:49 10/14/20 18:00 10/14/20 19:00 10/14/20 19:01 - Laboratory Result Diagrams: 10/14/20 15:54 10/14/20 15:54 Laboratory results interpreted by me: 10/14/20 15:54 RDW 14.2 H Discharge - Discharge Clinical Impression: Precordial chest pain, Palpitations Condition: Good Disposition: HOME, SELF-CARE Additional Instructions: Come back immediately with any worsening palpitations, lightheadedness or dizziness, fevers or vomiting, leg swelling, or any other acute problems. Please make sure that you follow-up with the cardiology team as we have expedited for you. Referrals: NISHA WAGNER MD [Primary Care Provider] - Follow up as needed
[2020-10-14 16:07] LABS: ABSOLUTE EOSINOPHILS # (AUTO) 0.2 10^3/uL (0.0-0.6); ABSOLUTE LYMPHOCYTES (AUTO) 1.7 10^3/uL (0.5-4.7); ABSOLUTE MONOCYTES (AUTO) 0.6 10^3/uL (0.1-1.4); ABSOLUTE NEUT (AUTO) 3.3 10^3/uL (1.7-8.2); BASOPHILS % (AUTO) 0.4 % (0-2); EOSINOPHILS % (AUTO) 2.7 % (0-6); HEMATOCRIT 40.4 % (36.0-47.0); HEMOGLOBIN 13.4 g/dL (12.0-15.5); LYMPHOCYTES % (AUTO) 28.9 % (13-45); MEAN CORPUSCULAR HEMOGLOBIN 30.3 pg (27.0-33.4); MEAN CORPUSCULAR HGB CONC 33.2 g/dL (32.0-36.0); MEAN CORPUSCULAR VOLUME 91 fl (80-97); MONOCYTES % (AUTO) 10.7 % (3-13); PLATELET COUNT 349 10^3/uL (150-450); RED BLOOD COUNT 4.43 10^6/uL (3.72-5.28); RED CELL DISTRIBUTION WIDTH 14.2 % (11.5-14.0); SEGMENTED NEUTROPHILS % (AUTO) 57.3 % (42-78); TOTAL CELLS COUNTED % (AUTO) 100 %; WHITE BLOOD COUNT 5.8 10^3/uL (4.0-10.5)
[2020-10-14] MEDS ORDERED: ASPIRIN 81 MG TABLET, CHEWABLE PO ONE (16:32)
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
[2020-10-14 16:35] LABS: ALBUMIN 4.3 g/dL (3.5-5.0); ALKALINE PHOSPHATASE 75 U/L (38-126); ANION GAP 7 (5-19); ASPARTATE AMINO TRANSFERASE 20 U/L (14-36); BILIRUBIN,DIRECT 0.1 mg/dL (0.0-0.4); BILIRUBIN,TOTAL 0.4 mg/dL (0.2-1.3); BLOOD UREA NITROGEN 16 mg/dL (7-20); CALCIUM 9.8 mg/dL (8.4-10.2); CARBON DIOXIDE 29 mmol/L (22-30); CHLORIDE 107 mmol/L (98-107); GLUCOSE 84 mg/dL (75-110); POTASSIUM 4.7 mmol/L (3.6-5.0); TOTAL PROTEIN 7.4 g/dL (6.3-8.2)
--- NOTE | 2020-10-14 17:01 | EKG REPORT ---
SEVERITY:- ABNORMAL ECG - AFIB/FLUT AND V-PACED COMPLEXES : Confirmed by: Leroy Cash MD 14-Oct-2020 17:00:46
[2020-10-14] MEDS ORDERED: LORAZEPAM 1 MG TABLET PO ONE (18:16)
[2020-10-14 20:28] VITALS: BP 113/64
== END 2020-10-14 20:28 | disposition home or self-care (01) ==
LOC: ER 13:31
DX: R07.2 Precordial pain (principal); I48.92 Unspecified atrial flutter; R00.2 Palpitations; R55 Syncope and collapse; S00.12XA Contusion of left eyelid and periocular area, initial encounter; X58.XXXA Exposure to other specified factors, initial encounter; I25.2 Old myocardial infarction; Z87.01 Personal history of pneumonia (recurrent); Z95.0 Presence of cardiac pacemaker; Z87.892 Personal history of anaphylaxis; Z86.718 Personal history of other venous thrombosis and embolism; Z86.711 Personal history of pulmonary embolism; Z95.828 Presence of other vascular implants and grafts; Z98.890 Other specified postprocedural states; Z88.1 Allergy status to other antibiotic agents; Z88.8 Allergy status to other drugs, medicaments and biological substances; Z88.6 Allergy status to analgesic agent; Z88.5 Allergy status to narcotic agent; Z88.2 Allergy status to sulfonamides; Z82.49 Family history of ischemic heart disease and other diseases of the circulatory system
CPT/HCPCS: 93005; 99285; 36415; 83735; 85025; 80053; 84484; 71045; 93010; A9270 ×2; J1642

== ENCOUNTER → 2020-10-31 | Outpatient (CLI) | payer MEDICARE, OTHER ==
[~2020-10-31] MED LIST changes: +CEFAZOLIN 2 GM/D5W RTU 0 GM/0 ML RTUPB IV ONE; +CEFAZOLIN 2 GM/D5W RTU 2 GM/50 ML RTUPB IV PRN; +LACTATED RINGERS 1000 ML IV PRN; +LIDOCAINE 0.5% INJ-PF (5 MG/ML) 50 ML SDV SUBCUT PRN; -PROPOFOL INJ 200 MG/20 ML VIAL IV ONE
[2020-10-31 10:09] LABS: HEMOGLOBIN 13.3 g/dL (12.0-15.5); MEAN CORPUSCULAR HEMOGLOBIN 29.6 pg (27.0-33.4); MEAN CORPUSCULAR HGB CONC 32.5 g/dL (32.0-36.0); MEAN CORPUSCULAR VOLUME 91 fl (80-97); PLATELET COUNT 349 10^3/uL (150-450); RED CELL DISTRIBUTION WIDTH 14.5 % (11.5-14.0)
[2020-10-31 10:09] LABS: APPEARANCE,URINE CLEAR; BILIRUBIN,URINE NEGATIVE (NEGATIVE); COLOR,URINE YELLOW; GLUCOSE, URINE NEGATIVE (NEGATIVE); KETONES,URINE NEGATIVE (NEGATIVE); LEUKOCYTE ESTERASE,URINE NEGATIVE (NEGATIVE); NITRITE,URINE NEGATIVE (NEGATIVE); PROTEIN,URINE NEGATIVE (NEGATIVE); URINE SPECIFIC GRAVITY 1.014; UROBILINOGEN,URINE NEGATIVE mg/dL (<2.0)
--- NOTE | 2020-11-03 10:12 | Progress Note ---
Provider Note Provider Note: Patient contacted due to cancellation because of cardiac issues. Discussed next steps which includes proceeding with cardiac clearance and then operative intervention. Will call in patient Percocet as needed for pain. Patient will be contacted by the office in the next coming week.
== END ==
LOC: OD 09:32 → EDSTATUS 11-03 09:45
PROVIDERS: ATTEND Orthopaedic Surgery
DX: Z01.812 Encounter for preprocedural laboratory examination (principal); Z20.828 Contact with and (suspected) exposure to other viral communicable diseases; Z79.899 Other long term (current) drug therapy
CPT/HCPCS: 36415; 85027; 81001; U0003; C9803; 87635; J0690

== ENCOUNTER → 2020-11-15 | Day surgery (SDC) | payer MEDICARE, OTHER ==
[~2020-11-15] MED LIST changes: +BUPIVACAINE HCL 0.5 % INJ/PF 30 ML SDV ONE; -CEFAZOLIN 2 GM/D5W RTU 0 GM/0 ML RTUPB IV ONE; +CEFAZOLIN 2 GM/D5W RTU 2 GM/50 ML RTUPB IV ONE; +CEFAZOLIN SODIUM 2 GM in DEXTROSE 5%-WATER 100 ML IV PRN; +DEXAMETHASONE SOD PHOSPHATE INJ 4 MG/1 ML VIAL ONE; +DIPHENHYDRAMINE HCL 50 MG/ML VIAL IV ONE; +DIPHENHYDRAMINE HCL 50 MG/ML VIAL ONE; +EPHEDRINE SULFATE INJ 50 MG/1 ML AMPULE ONE; +FENTANYL CITRATE INJ/PF 100 MCG/2 ML AMPUL ONE; +KETOROLAC TROMETHAMINE 60 MG/2 ML SDV ONE; -LACTATED RINGERS 1000 ML IV PRN; -LIDOCAINE 0.5% INJ-PF (5 MG/ML) 50 ML SDV SUBCUT PRN; +MIDAZOLAM 2 MG/2 ML INJ ONE; +ONDANSETRON HCL INJ/PF 4 MG/2 ML SDV ONE; +PROPOFOL INJ 200 MG/20 ML VIAL IV ONE
[2020-11-15 12:31] LABS: ANION GAP 5 (5-19); BLOOD UREA NITROGEN 14 mg/dL (7-20); CALCIUM 9.6 mg/dL (8.4-10.2); CARBON DIOXIDE 28 mmol/L (22-30); CHLORIDE 104 mmol/L (98-107); GLUCOSE 83 mg/dL (75-110); POTASSIUM 4.3 mmol/L (3.6-5.0)
--- NOTE | 2020-11-15 13:11 | Progress Note ---
Provider Note Provider Note: Patient was once again evaluated by anesthesia was found to be in a flutter with RVR at a heart rate of 160 on EKG. Given patient's rate instability anesthesia made the decision to proceed with cancellation of the procedure. I had discussed the case with anesthesia and the patient plan will be for her to follow-up with cardiology in 24 hours. EKG strip was provided to the patient. We will set the patient up with for operative intervention again in the near future.
[2020-11-15 14:05] VITALS: BP 108/66
== END ==
LOC: OROUT 10:49
PROVIDERS: ATTEND Orthopaedic Surgery
DX: S56.222D Laceration of other flexor muscle, fascia and tendon at forearm level, left arm, subsequent encounter (principal); X58.XXXD Exposure to other specified factors, subsequent encounter; G56.22 Lesion of ulnar nerve, left upper limb; I49.8 Other specified cardiac arrhythmias; Z53.09 Procedure and treatment not carried out because of other contraindication
CPT/HCPCS: 36415; 80048; J1200; J0690; J1642; J1100; J1885; J2250; J2405; J2704; J3010; J3490; J7060